=== PATIENT | female | born 1950 | race Caucasian/White ===

== ENCOUNTER → 2017-07-16 09:38 | Outpatient (CLI) | payer MEDICARE, OTHER, SELFPAY ==
[2015-11-29 11:48] VITALS: BMI 37.0
[2017-07-16 12:38] LABS: Absolute Lymphocyte Count 1.55 X10^3/ul (0.83-4.51); Absolute Neutrophil Count 4.6 X10^3/uL (2.0-7.7); Basophil# 0.01 X10^3/uL; Basophil% 0.1 % (0-1); Eosinophil# 0.16 X10^3/uL; Eosinophils% 2.3 % (0-5); Hematocrit 41.1 % (37-47); Hemoglobin 13.8 g/dl (12.0-15.0); Lymphocyte # 1.55 X10^3/ul (4.0); Lymphocyte % 22.7 % (19-41); Mean Corp Hgb Conc 33.6 g/gl (32-36); Mean Corpuscular Volume 113.2 fL (81-99); Mean Platelet Vol. 10.5 fl (6.2-12.0); Monocyte# 0.49 X10^3/uL; Monocyte% 7.2 % (0-10); Neutrophil # 4.61 X10^3/uL (2.7-7.7); Neutrophil % 67.6 % (47-70); Platelet Count 181 K/mm3 (150-450); RBC Distribution Width CV 14.1 % (11.6-14.6); RBC Distribution Width SD 56.3 fl (35.1-43.9); Red Blood Count 3.63 M/mm3 (4.2-5.4); White Blood Count 6.8 K/mm3 (4.4-11.0)
[2017-07-16 12:42] LABS: POSITIVE COUNT NO; POSITIVE DIFFERENTIAL NO; POSITIVE MORPHOLOGY NO
[2017-07-16 12:46] LABS: ALB/GLOB Ratio 1.2 RATIO (0.9-2.4); AST(SGOT) 24 U/L (15-37); Alanine Aminotransfer ALT/SGPT 24 U/L (13-56); Albumin, Serum 3.8 g/dL (3.2-5.0); Alkaline Phosphatase 61 U/L (45-117); Anion Gap 7 (5-15); BUN 11 mg/dL (7-18); BUN/Creat Ratio 16.7 RATIO (10-20); Calcium,Total 9.2 mg/dL (8.5-10.1); Chloride 104 mmol/L (98-107); Creatinine, Serum 0.66 mg/dL (0.55-1.02); EST Glomerular Filtration Rate 95 mL/min (>60); Est Glom Filt Rate - Afr Amer 115 mL/min (>60); Globulin 3.3 g/dL (2.2-4.2); Glucose 196 mg/dL (74-106); Potassium 3.9 mmol/L (3.5-5.1); Protein, Total 7.1 g/dL (6.4-8.2); Sodium Level 138 mmol/L (136-145)
== END ==
PROVIDERS: Family Provider Family Medicine; PCP Family Medicine; Visit Provider Nurse Practitioner Family
DX: D45 Polycythemia vera (principal)
CPT/HCPCS: 36415; 80053; 85025

== ENCOUNTER → 2017-10-23 08:52 | Outpatient (CLI) | payer MEDICARE, OTHER, SELFPAY ==
[2015-11-29 11:48] VITALS: BMI 37.0
--- NOTE | 2017-10-23 08:52 | DT_ITS ---
This patient was seen during an EMR downtime October 19, 2017 - October 26, 2017. This patient may have a combination of paper and electronic documentation or all paper documentation. All documentation is viewable within the e-chart portion of [facility] for each patient visit.
[2017-10-23 13:04] LABS: Absolute Lymphocyte Count 1.71 X10^3/ul (0.83-4.51); Absolute Neutrophil Count 4.1 X10^3/uL (2.0-7.7); Basophil% 0.5 % (0-1); Hematocrit 45.1 % (37-47); Hemoglobin 15.1 g/dl (12.0-15.0); Lymphocyte # 1.71 X10^3/ul (4.0); Lymphocyte % 26.5 % (19-41); Mean Corp Hgb Conc 33.5 g/gl (32-36); Mean Corpuscular Hgb 37.7 pg (27.0-32.0); Mean Corpuscular Volume 112.5 fL (81-99); Mean Platelet Vol. 10.5 fl (6.2-12.0); Monocyte% 7.3 % (0-10); POSITIVE COUNT NO; POSITIVE DIFFERENTIAL NO; POSITIVE MORPHOLOGY NO; Platelet Count 180 K/mm3 (150-450); RBC Distribution Width CV 13.9 % (11.6-14.6); RBC Distribution Width SD 55.1 fl (35.1-43.9); Red Blood Count 4.01 M/mm3 (4.2-5.4); White Blood Count 6.5 K/mm3 (4.4-11.0)
[2017-10-23 13:05] LABS: Basophil# 0.03 X10^3/uL; Eosinophil# 0.13 X10^3/uL; Monocyte# 0.47 X10^3/uL; Neutrophil % 63.4 % (47-70)
[2017-10-23 14:25] LABS: ALB/GLOB Ratio 1.2 RATIO (0.9-2.4); AST(SGOT) 33 U/L (15-37); Alanine Aminotransfer ALT/SGPT 40 U/L (13-56); Albumin, Serum 4.1 g/dL (3.2-5.0); Alkaline Phosphatase 59 U/L (45-117); BUN 13 mg/dL (7-18); BUN/Creat Ratio 18.6 RATIO (10-20); Calcium,Total 8.8 mg/dL (8.5-10.1); Cholesterol 91 mg/dL (200); EST Glomerular Filtration Rate 88 mL/min (>60); Est Glom Filt Rate - Afr Amer 107 mL/min (>60); Globulin 3.5 g/dL (2.2-4.2); Glucose 158 mg/dL (74-106); Protein, Total 7.6 g/dL (6.4-8.2); Triglycerides 112 mg/dL; Very Low Density Lipoprotein 22 mg/dL (5-40)
[2017-10-23 14:26] LABS: Anion Gap 9 (5-15); Chloride 107 mmol/L (98-107); High Density Lipoprotein 45 mg/dL; Potassium 3.8 mmol/L (3.5-5.1); Sodium Level 142 mmol/L (136-145)
== END ==
PROVIDERS: Internal Medicine Medical Oncology; Family Provider Family Medicine; PCP Family Medicine; Visit Provider Nurse Practitioner Family
DX: E78.5 Hyperlipidemia, unspecified (principal); D45 Polycythemia vera
CPT/HCPCS: 36415; 80053; 80061; 85025

== ENCOUNTER → 2018-02-08 10:53 | Outpatient (CLI) | payer MEDICARE, OTHER, SELFPAY ==
[2015-11-29 11:48] VITALS: BMI 37.0
--- NOTE | 2018-02-08 10:59 | US_ITS ---
STUDY: THYROID ULTRASOUND REASON FOR EXAM: Female, 67 years old. Nodules. TECHNIQUE: Ultrasound evaluation of the thyroid was performed with real-time and static nice-scale imaging. COMPARISON: November 06, 2015. FINDINGS: RIGHT LOBE: The right lobe of the thyroid gland measures 4.7 x 1.5 x 1.7 cm. There is a homogeneous echotexture. There is a 3 x 3 x 2 mm cyst with a small mural nodule within the mid right thyroid. There arterial smaller anechoic nodules thought to be cysts in the medial mid thyroid, each measuring approximately 2 mm in diameter.. LEFT LOBE: The left lobe of the thyroid gland measures 4 x 1.3 x 1.3 cm. There is a homogeneous echotexture. There is a 3 x 3 x 3 mm hypoechoic nodule in the posterior lower lobe. There is a 4 x 3 x 3 mm isoechoic nodule with hypoechoic rim in the mid thyroid. ISTHMUS: The isthmus measures 0.1 cm. The regional lymph nodes are normal. US/Thyroid IMPRESSION: Multiple small hypoechoic or cystic masses which appear essentially unchanged from the prior study. Electronically Signed: Darrell Delarosa DO at 23:14 EDT Tel [phone], Service support ,
== END ==
PROVIDERS: Family Provider Family Medicine; PCP Family Medicine; Visit Provider Family Medicine
DX: E04.2 Nontoxic multinodular goiter (principal)
CPT/HCPCS: 76536

== ENCOUNTER → 2018-02-23 14:45 | Outpatient (CLI) | payer MEDICARE, OTHER, SELFPAY ==
[2015-11-29 11:48] VITALS: BMI 37.0
--- NOTE | 2018-02-23 14:47 | RAD_ITS ---
STUDY: X-RAY - LEFT HAND REASON FOR EXAM: Trigger fingers. TECHNIQUE: 3 view(s) of the hand. COMPARISON: Radiographs 01/13/2017. FINDINGS: There is osteopenia. Normal radiocarpal articulation. Normal distal radioulnar joint. Normal visualized carpal bones. There is mild joint space narrowing of the triscaphe articulation. There is moderate joint space narrowing of the carpometacarpal articulation of the thumb. Normal second through fifth carpometacarpal joints. Normal metacarpi. Normal metacarpophalangeal joint of the thumb. Normal interphalangeal joint of the thumb. Normal proximal and distal phalanges of the thumb. Normal metacarpophalangeal joints of the second through fifth fingers. Normal proximal and distal interphalangeal joints of the second through fifth fingers. Normal phalanges of the second through fifth fingers. The soft tissue structures are unremarkable. 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 Osteopenia. Electronically Signed: Missael Gilliam MD at 15:00 EDT Tel , Service support ,
== END ==
PROVIDERS: Family Provider Family Medicine; PCP Family Medicine; Referring Provider Orthopaedic Surgery; Visit Provider Orthopaedic Surgery
DX: M79.642 Pain in left hand (principal)
CPT/HCPCS: 73130

== ENCOUNTER → 2018-03-02 10:13 | Outpatient (CLI) | payer MEDICARE, OTHER, SELFPAY ==
[2015-11-29 11:48] VITALS: BMI 37.0
--- NOTE | 2018-03-02 10:15 | BI_ITS ---
MAMMOGRAPHY - BILATERAL SCREENING REASON FOR EXAM: Female, 67 years old. Routine annual screening examination. PERTINENT HISTORY: Non-contributory. TECHNIQUE: Digital bilateral breast man (3D mammographic acquisition) in the CC and MLO projections. 2-D mediolateral oblique (MLO) and craniocaudad (CC) views of both breasts were obtained. CAD: Full Field Digital Mammography with Computer Added Detection was performed. COMPARISON: Comparison is made with prior examination dated February 19, 2017 and February 07, 2016. FINDINGS: Breast Composition: The breasts are almost entirely fatty. There are no dominant masses or suspicious calcifications. No other significant abnormalities are identified. There has been no significant change since the prior study. BI/SCREENING MAMM (CAD), BILAT IMPRESSION: Stable bilateral screening mammogram. Yearly follow-up mammogram recommended. (A) ASSESSMENT CATEGORY: BIRADS Category 1: Negative. A letter regarding these results will be sent to the patient by the facility within 30 days. Approximately 10% of breast cancers are not detected by mammography. A normal mammogram should not delay biopsy of a clinically suspicious abnormality. [id number] Electronically Signed: Tristen Arce MD at 11:26 EDT Tel [phone], Service support ,
== END ==
PROVIDERS: Family Provider Family Medicine; PCP Family Medicine; Referring Provider Family Medicine; Visit Provider Family Medicine
DX: Z12.31 Encounter for screening mammogram for malignant neoplasm of breast (principal)
CPT/HCPCS: 77063; 77067

== ENCOUNTER → 2018-04-23 08:50 | Outpatient (CLI) | payer MEDICARE, OTHER, SELFPAY ==
[2015-11-29 11:48] VITALS: BMI 37.0
[2018-04-05 13:49] VITALS: BMI 32.4
[2018-04-23 12:37] LABS: AST(SGOT) 26 U/L (15-37); Alanine Aminotransfer ALT/SGPT 30 U/L (13-56); Albumin, Serum 3.9 g/dL (3.2-5.0); Alkaline Phosphatase 64 U/L (45-117); Bilirubin, Direct 0.25 mg/dL (0.00-0.30); Cholesterol 113 mg/dL (200); Globulin 3.6 g/dL (2.2-4.2); High Density Lipoprotein 47 mg/dL; Protein, Total 7.5 g/dL (6.4-8.2); Triglycerides 118 mg/dL; Very Low Density Lipoprotein 24 mg/dL (5-40)
== END ==
PROVIDERS: Family Provider Family Medicine; PCP Family Medicine; Visit Provider Nurse Practitioner Family
DX: E78.5 Hyperlipidemia, unspecified (principal)
CPT/HCPCS: 36415; 80061; 80076

== ENCOUNTER → 2018-05-03 10:21 | Outpatient (CLI) | payer MEDICARE, OTHER, SELFPAY ==
[2015-11-29 11:48] VITALS: BMI 37.0
[2018-04-05 13:49] VITALS: BMI 32.4
[2018-05-03 12:11] LABS: Absolute Lymphocyte Count 1.78 X10^3/ul (0.83-4.51); Absolute Neutrophil Count 5.1 X10^3/uL (2.0-7.7); Basophil# 0.02 X10^3/uL; Basophil% 0.3 % (0-1); Eosinophil# 0.19 X10^3/uL; Eosinophils% 2.5 % (0-5); Hemoglobin 14.3 g/dl (12.0-15.0); Lymphocyte # 1.78 X10^3/ul (4.0); Lymphocyte % 23.6 % (19-41); Mean Corp Hgb Conc 33.3 g/gl (32-36); Mean Corpuscular Hgb 38.6 pg (27.0-32.0); Mean Corpuscular Volume 116.2 fL (81-99); Mean Platelet Vol. 10.1 fl (6.2-12.0); Monocyte# 0.48 X10^3/uL; Monocyte% 6.4 % (0-10); Neutrophil # 5.05 X10^3/uL (2.7-7.7); Neutrophil % 67.1 % (47-70); Platelet Count 158 K/mm3 (150-450); RBC Distribution Width CV 13.6 % (11.6-14.6); RBC Distribution Width SD 57.1 fl (35.1-43.9); White Blood Count 7.5 K/mm3 (4.4-11.0)
[2018-05-03 12:17] LABS: POSITIVE COUNT NO; POSITIVE DIFFERENTIAL NO; POSITIVE MORPHOLOGY NO
[2018-05-03 12:41] LABS: AST(SGOT) 22 U/L (15-37); Alanine Aminotransfer ALT/SGPT 24 U/L (13-56); Albumin, Serum 3.5 g/dL (3.2-5.0); Alkaline Phosphatase 63 U/L (45-117); Anion Gap 9 (5-15); BUN 11 mg/dL (7-18); Chloride 108 mmol/L (98-107); Creatinine, Serum 0.65 mg/dL (0.55-1.02); EST Glomerular Filtration Rate 96 mL/min (>60); Est Glom Filt Rate - Afr Amer 117 mL/min (>60); Ferritin 30 ng/mL (8-252); Globulin 3.4 g/dL (2.2-4.2); Glucose 116 mg/dL (74-106); Iron 59 ug/dL (50-170); Iron Binding Capacity,Total 397 ug/dL (250-450); PERCENT IRON SATURATION 14.9 % (15.0-55.0); Potassium 4.1 mmol/L (3.5-5.1); Protein, Total 6.9 g/dL (6.4-8.2); Sodium Level 143 mmol/L (136-145)
--- OUTSIDE RECORDS SUMMARY | 2018-08-04 23:28 | XMS RPT_ITS ---
:1950 Author Organization OHIP Support Name Relationship Address Phone R Unavailable Unavailable Unavailable TALAT BACA Unavailable [address] + [place] [address] R Unavailable Unavailable Unavailable TALAT BACA Unavailable [address] + [place] [address] R Unavailable Unavailable Unavailable TALAT BACA Unavailable [address] + [place] [address] R Unavailable Unavailable Unavailable TALAT BACA Unavailable [address] + [place] [address] R Unavailable Unavailable Unavailable TALAT BACA Unavailable [address] + [place] [address] R Unavailable Unavailable Unavailable TALAT BACA Unavailable [address] + [place] [address] R Unavailable Unavailable Unavailable TALAT BACA Unavailable [address] + [place] [address] R Unavailable Unavailable Unavailable TALAT BACA Unavailable [address] + [place] [address] R Unavailable Unavailable Unavailable TALAT BACA Unavailable [address] + [place] [address] R Unavailable Unavailable Unavailable TALAT BACA Unavailable [address] + [place] [address] R Unavailable Unavailable Unavailable TALAT BACA Unavailable [address] + [place] [address] R Unavailable Unavailable Unavailable TALAT BACA Unavailable [address] + [place] [address] R Unavailable Unavailable Unavailable TALAT BACA Unavailable [address] + [place] [address] R Unavailable Unavailable Unavailable TALAT BACA Unavailable [address] + [place] [address] R Unavailable Unavailable Unavailable TALAT BACA Unavailable [address] + [place] [address] R Unavailable Unavailable Unavailable DIANATALAT Unavailable [address] + [place] [address] R Unavailable Unavailable Unavailable DIANA TALAT Unavailable [address] + [place] [address] R Unavailable Unavailable Unavailable DIANA TALAT Unavailable [address] + [place] [address] R Unavailable Unavailable Unavailable DIANA TALAT Unavailable [address] + [place] [address] R Unavailable Unavailable Unavailable DIANA TALAT Unavailable [address] + [place] [address] R Unavailable Unavailable Unavailable DIANA TALAT Unavailable [address] + [place] [address] Care Team Providers Name Role Phone Edilson Miller Attending Unavailable Emiliano, Imer Primary Care Unavailable Edilson Miller Attending Unavailable Emiliano, Imer Referring Unavailable Emiliano, Imer Primary Care Unavailable Yesika, Felicia Consulting Unavailable Lucia Vallejo Attending Unavailable Emiliano, Imer Referring Unavailable Jayro Poe Attending Unavailable Emiliano, Imer Referring Unavailable Emiliano, Imer Attending Unavailable Emiliano, Imer Primary Care Unavailable Yesika, Felicia Attending Unavailable Emiliano, Imer Primary Care Unavailable Emiliano, Imer Referring Unavailable Yesika, Felicia Attending Unavailable Emiliano, Imer Primary Care Unavailable Edilson Miller Attending Unavailable Emiliano, Imer Primary Care Unavailable Yesika, Felicia Consulting Unavailable Galilea Akbar D.C. Attending Unavailable Emiliano, Imer Referring Unavailable Emiliano, Imer Primary Care Unavailable Barbara Hernandez Attending Unavailable Jayro Poe Attending Unavailable Emiliano, Imer Referring Unavailable Emiliano, Imer Primary Care Unavailable Kristal Bone Attending Unavailable Emiliano, Imer Referring Unavailable Lay Streeter Attending Unavailable Emiliano, Imer Primary Care Unavailable Edilson Miller Attending Unavailable Edilson Miller Attending Unavailable Emiliano, Imer Referring Unavailable Emiliano, Imer Primary Care Unavailable Yesika, Felicia Consulting Unavailable Emiliano, Imer Attending Unavailable Emiliano, Imer Primary Care Unavailable Lucia Vallejo Attending Unavailable Emiliano, Imer Referring Unavailable Lucia Vallejo Attending Unavailable Lucia Vallejo Referring Unavailable Emiliano, Imer Primary Care Unavailable Emiliano, Imer Attending Unavailable Emiliano, Imer Referring Unavailable Emiliano, Imer Primary Care Unavailable Collins Miller Attending Unavailable Imer Cummings Referring Unavailable Lay Streeter Attending Unavailable Imer Cummings Primary Care Unavailable PROBLEMS PROBLEMS DATE TYPE CONDITION / CODE ATTENDING STATUS SOURCE 05/25/2018 Unknown R73.01 - Impaired Imer Cummings Active [place] fasting glucose / [facility] R73.01(ICD-10) Hospital Repository 05/25/2018 Unknown E78.5 - Imer Cummings Active [place] Hyperlipidemia, Community unspecified / Hospital E78.5(ICD-10) Repository 05/25/2018 Unknown I48.0 - Paroxysmal Imer Cummings Active [place] atrial fibrillation [facility] / I48.0(ICD-10) Hospital Repository 05/25/2018 Unknown E04.2 - Nontoxic Imer Cummings Active [place] multinodular goiter [facility] / E04.2(ICD-10) Hospital Repository 05/25/2018 Unknown D45 - Polycythemia Imer Cummings Active [place] vera / D45(ICD-10) [facility] Hospital Repository 05/24/2018 Unknown Z87.74 - Personal Jayro Poe Active [place]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 / Z87.74(ICD-10) 05/20/2018 Unknown M65.4 - Radial Inésorelli, Active [place] [facility] / Repository M65.4(ICD-10) 05/20/2018 Unknown M79.643 - Pain in Chicorelli, Active [place] unspecified hand / Lucia [facility] M79.643(ICD-10) Hospital Repository 04/13/2018 Unknown G47.33 - Collins Miller Active [place] Obstructive sleep Community apnea (adult) Hospital (pediatric) / Repository G47.33(ICD-10) 02/26/2018 Unknown M79.642 - Pain in Chicorelli, Active [place] left hand / Lucia [facility] M79.642(ICD-10) Hospital Repository 02/26/2018 Unknown M65.332 - Trigger Chicorelli, Active [place] finger, left middle Lucia [facility] finger / Hospital M65.332(ICD-10) Repository 10/01/2017 Unknown Z95.2 - Presence of Jayro Poe Active [place] prosthetic heart Community valve / Hospital Z95.2(ICD-10) Repository 10/01/2017 Unknown I48.91 - Jayro Poe Active [place] Unspecified atrial Community fibrillation / Hospital I48.91(ICD-10) Repository 09/07/2017 Unknown M99.02 - Segmental Dossie, Galilea Active [place] and [facility] Community dysfunction of Hospital thoracic region / Repository M99.02(ICD-10) 09/07/2017 Unknown M99.03 - Segmental Dossie, Galilea Active [place] [facility] Community dysfunction of Hospital lumbar region / Repository M99.03(ICD-10) 09/07/2017 Unknown M99.01 - Segmental Dossie, Galilea Active [place] [facility] Community dysfunction of Hospital cervical region / Repository M99.01(ICD-10) PROCEDURES PROCEDURES No Procedure Records FoundRESULTS RESULTS CARDIOLOGY VISIT Observed: 05/24/2018 Status: F Source: [place] REPORT 1:55 PM [facility] HOSPITAL REPOSITORY [facility] [address] [place] [address] OFFICE VISIT Date of Service: 05/24/18 MR#: [id number] Acct: [id number] Name: ALE BACA Rep #: [id number] : 1950 Provider: Jayro Poe MD Age/Sex: 67/F [place] [facility] [place] [facility] [place]: Signed HPI HPI Chief Complaint: Routine f/u Details: Referring physician: Dr. Dhaliwal, Dr Miller, Dr Chacko Mrs Valencia is a very pleasant 67-year-old morbidly obese diabetic female who was admitted previously in December 2013 with new-onset atrial fibrillation was found to have severe LVH and possible significant aortic stenosis due to a bicuspid aortic valve. She spontaneously converted on her own, and her Cardizem was increased from 120 mg by mouth daily to 240 mg by mouth daily. In addition she has polycythemia vera, recently diagnosed and has been undergoing phlebotomy sessions under the care of Dr. Miller. She had been previously treated with hydroxyurea, but this was discontinued after her aortic valve replacement surgery. She appears to be exquisitely sensitive to atrial fibrillation. Her LV function was found to be normal with an LVEF of 70%, with complete cavity obliteration during dobutamine and she had a dynamic resting LV outflow tract gradient of approximately 40 mmHg, which increased to 100 mmHg with peak dobutamine.in addition she underwent a right and left heart catheterization which demonstrated no mitral stenosis despite her mitral annular calcification, and angiographically normal coronary arteries. She was then referred to a cardiovascular surgeon Dr. Chacko who requested better control of her diabetes, some weight loss, and documented control of her hemoglobin from her P vera. Once this was completed, the patient underwent successful aortic valvular replacement due to aortic stenosis on 10/31/14. The patient underwent successful AVR with a solo stentless valve, modified Maze procedure, and left atrial appendage excision. Patient was gradually placed on beta kateryna therapy as well as iron replacement therapy and followed up with our office. Patient has completed cardiac rehab, now returns to our office. Her hemoglobin has been monitored by Dr. Miller. Patient now returns for follow-up, denies any exertional chest pain, angina, shortness of breath or dyspnea on exertion. She remains on her CPAP without difficulty. She also is continuing on hydroxyurea. She denies any palpitations. In our office today her blood pressure is 100/80, and pulse is 72 and regular. Physical exam shows clear lungs bilaterally, regular rate and rhythm, a faint 2 out of 6 crescendo decrescendo systolic murmur, no dynamic murmurs. No edema. EKG previously demonstrated sinus tachycardia, intraventricular conduction delay, no evidence of previous myocardial infarction. Lipids as 04/14/16 show an LDL of 36 and an HDL of 49. Lipids as of 05/01/17 showed HDL of 58 and LDL 29. Her echo recently as of 06/03/17 shows normal LV function with an EF of 65%, severe biatrial enlargement, RVSP of 34 mmHg. Normal functioning bioprosthetic aortic valve. Intake Vital Signs05/24/18 Height 5 ft 05/24/18 Weight: 166 lb 05/24/18 Body Mass Index (BMI) 32.4 05/24/18 Blood Pressure 100/80 Intake Visit Reasons: 8 m fu [employer] Accountant Required: No Is patient in pain?: No Allergies Penicillins Allergy (Severe, Verified 05/24/18 13:43) Rash clarithromycin [From Biaxin] Allergy (Intermediate, Verified 05/24/18 13:43) Rash erythromycin base [Erythromycin Base] Allergy (Intermediate, Verified 05/24/18 13:43) Rash cat dander Adverse Reaction (Intermediate, Verified 05/24/18 13:43) SNEEZING Alternaria Mold Spores Allergy (Intermediate, Uncoded 05/05/18 14:40) SNEEZING dust Allergy (Intermediate, Uncoded 05/05/18 14:40) SNEEZING Medications Multivitamins,Therapeutic [Multivitamin] 1 tab PO DAILY 04/20/14 [History Confirmed 05/20/18] Aspirin 325 mg PO DAILY@0800 09/22/16 [History Confirmed 05/20/18] temazepam 15 mg capsule 15 mg PO ONCE 05/20/17 [History Confirmed 05/20/18] vit C,E,zinc,copper-ualzq8d 250 mg-lutein 5 mg-zeaxanthin 1 mg capsule cap PO 05/20/17 [History Confirmed 05/20/18] carvedilol 6.25 mg tablet 6.25 mg PO BID #180 tab 08/17/17 [Rx Confirmed 05/20/18] GOLO Release Supplement 1 cap PO TID 10/01/17 [History Confirmed 05/20/18] cholecalciferol (vitamin D3) 5,000 unit capsule 5,000 unit PO QDAY 10/01/17 [History Confirmed 05/20/18] Allopurinol [Zyloprim] 200 mg PO DAILY #180 tab 02/03/18 [Rx Confirmed 05/20/18] Bifidobacterium Infantis [Align] 4 mg PO 02/03/18 [History Confirmed 05/20/18] Hydroxyurea [Hydrea] 1,000 mg PO DAILY #180 cap 04/23/18 [Rx Confirmed 05/20/18] pravastatin 40 mg tablet 40 mg PO DAILY 05/24/18 [History Confirmed 05/24/18] [facility] Medical History History of bicuspid aortic valve (Chronic) Mitral valve annular calcification (Chronic) Right arm fracture (Chronic 02/25/17) Gastritis (Chronic) Lacunar infarction (Chronic) KYLE (obstructive sleep apnea) (Chronic) Sleep disorder (Chronic) De Quervain's disease (tenosynovitis) (Chronic) Supraventricular tachycardia (Chronic) Diabetes mellitus type 2, controlled (Chronic) Osteoarthritis (Chronic) Left ventricular hypertrophy (Chronic) Gastritis (Resolved) Herniated disc (Resolved) Humeral head fracture (Resolved) Presence of prosthetic heart valve (Resolved) Trigger finger (Resolved) Daytime hypersomnia (Inactive) Gout (Inactive) Surgical History History of left heart catheterization (Chronic 04/21/14) Hx of colonoscopy (Chronic 10/02/15) H/O aortic valve replacement (Chronic 10/31/14) H/O arthroscopy of left knee (Resolved) History of cholecystectomy (Resolved) History of meniscectomy of left knee (Resolved) History of tubal ligation (Resolved) Family History Father Heart failure Kidney disease Mother Alcoholism Grandfather Heart disease Social History Smoking Status: Former smoker how long ago did patient quit smokin, 1p/day second hand exposure: Yes alcohol intake: never substance use type: does not use ROS Const Const: Positive for other (notices palpitations when lying on side at night); negative for fatigue, weakness, body ache, fever(s), headache(s), chills, frequent falls, night sweats, daytime sleepiness, difficulty sleeping, excessive sweating, weight gain, weight loss, increased appetite, poor appetite or anorexia Eyes Eyes: Negative for blind spots, loss of peripheral vision, transient loss of vision, blurry vision, change in vision, double vision, floaters, tunnel vision or other ENT ENT: Negative for headache(s), dizziness, hearing loss, tinnitus, Nosebleed/epistaxis, balance problems, post nasal drip, lip swelling, tongue swelling, bleeding gums, hoarseness, neck pain, dry mouth or other Cardio Chest Pain: No Palpitations: Yes (Notices at night lying on left side) feels like its: thumping Edema: None Muscle aches with walking: None Resp Respiratory: Negative for SOB with activity, SOB at rest, SOB orthopnea\SOB lying down, Cough, Coughing up blood/hemoptysis, chest congestion, pain on inspiration, snoring, stridor, wheezing, crackles, paroxysmal nocturnal dyspnea or other GI GI: Negative nausea, vomiting, heartburn, constipation, belching, bloating, cramping, vomiting blood/hematemesis, bright, red blood in stools, black,tarry stools, loose stools, Difficulty Swallowing or other : Negative for hematuria, frequent nighttime urination/ nocturia, erectile dysfunction or abnormal vaginal bleeding Musc Musc: Negative for balance problems, muscle aches/ myalgia, muscle weakness or joint pain Skin Skin: Negative redness, non-healing lesions, rash, unusual bruising, skin ulcer, wounds, jaundice or other Neuro Neuro: Negative for weakness, headache(s), frequent falls, blurry vision, double vision, dizziness, lightheadedness, near syncope, syncope, orthostatic symptoms, confusion, memory loss, restless legs, vertigo, seizures, lack of coordination or other Jorge Alberto Hematologic/Lymphatic: Negative for easy bleeding, easy bruising, enlarged lymph nodes or other Endo Endo: Negative for fatigue, excessive sweating, cold intolerance, heat intolerance, flushing, increased thirst/drinking, increased hunger, hair loss, hair growth or other Psych Psych: Negative for anxiety, depression, thoughts of harming anyone, thoughts of harming yourself, visual hallucinations, panic attacks or audible hallucinations Allergy Allergy/Immunology: Negative for lip swelling, Negative for tongue swelling, Negative for rash, Negative for throat swelling, Negative for hives Cardiology Exam Const Appearance: cooperative, healthy appearing and no acute distress Nutritional Appearance: well nourished Orientation: alert, oriented x3 and oriented to person Head Head: normal to inspection, atraumatic and normocephalic Nose: external nose normal Face and Sinus: face symmetric Mouth: oral mucosae normal Eyes General: appearance normal, both eyes and all related structures Eyelids: eyelids normal Conjunctivae: conjunctivae normal Pupils: PERRL and normal by confrontation EOM: EOM intact bilaterally Neck Neck: normal visual inspection and full ROM Carotids: normal carotid upstroke Chest Chest inspection: normal inspection of the chest Auscultation: Bilateral: Clear to Auscultation Cardio Palpation: normal PMI Rate: regular rate Rhythm: regular rhythm Heart sounds: S1 normal and S2 normal GI GI: normal to inspection, no hepatosplenomegaly and bowel sounds present Neuro General: alert, oriented x3, awake, CN's II-XI intact bilaterally and moves all extremities Skin Skin: no rashes or lesions noted Extremities Pulses: Normal: Right Femoral Pulse, Left Femoral Pulse, Right Dorsalis Pedis Pulse, Left Dorsalis Pedis Pulse, Right Posterior Tibial Pulse, Left Posterior Tibial Pulse, Right Radial Pulse, Left Radial Pulse Lower Extremity Edema: None: Bilateral Psych Psychological: normal affect Assessment AND Plan 1. History of bicuspid aortic valve Z87.74 Pt had resultant severe aortic stenosis. Aortic valve replaced 10/21/[address] Chacko Plan 1. History of bicuspid aortic valve: The patient underwent successful aortic valve replacement, modified Maze procedure, and left atrial appendage excision in October 2014. Her most recent echocardiogram in May 2017 showed normal functioning LV, LVH, and normal functioning bioprosthetic aortic valve. We will repeat her echocardiogram in May 2019. At this point the patient is doing quite well, I would recommend continuing her aspirin, Coreg. Patient has no detectable dynamic LV outflow tract murmur, and has had no presyncope or syncopal episodes or other sentinel events. Continue SBE prophylaxis. 2. Hyperlipidemia: Her LDL and HDL cholesterol are fairly well-controlled. Continue Pravachol. 3. Return office in 6 months. This note was generated using a voice recognition system and there may be incorrect words, spelling or punctuation that were not noted when reviewing the office note prior to saving. Plan Detail Other Medications New: Discontinued: Goals Improve nerve function Decrease spasm Follow Up +6M (Lui) Coding Level of Care Code Off vis,est,level 3 Diagnoses History of bicuspid aortic valve Z87.74 Coding Level of Care Code Off vis,est,level 3 Diagnoses History of bicuspid aortic valve Z87.74 Supplemental Info Supplemental Information Labs LDL Cholesterol 42 mg/dL (0-130) 04/23/18 HDL Cholesterol 47 mg/dL (40-) 04/23/18 Triglycerides 118 mg/dL (-199) 04/23/18 VLDL Cholesterol 24 mg/dL (5-40) 04/23/18 Diagnostics Electrocardiogram 11/10/14 Echocardiogram 06/03/17 Transesophageal Echocardiogram 12/28/13 Stress Echocardiogram 04/26/14 Chest X-Ray 11/10/14 05/24/18 8475 <Electronically signed by Jayro Poe MD> Date Jayro Poe MD Cosigner Signature: Date (if applicable) CC: Imer Cummings MD ORTHOPEDIC VISIT Observed: 05/14/2018 Status: F Source: [place] REPORT 11:59 AM [facility] [place] [facility] [address] [place] [id number] OFFICE VISIT Date of Service: 05/13/18 MR#: [id number] Acct: [id number] Name: ALE BACA Rep #: [id number] : 1950 Provider: Lucia Vallejo DO Age/Sex: 67/F [place] [facility] [place] [place] Status: Signed Intake Intake Visit Reasons: Hand pain Allergies Penicillins Allergy (Severe, Verified 05/05/18 14:40) Rash clarithromycin [From Biaxin] Allergy (Intermediate, Verified 05/05/18 14:40) Rash erythromycin base [Erythromycin Base] Allergy (Intermediate, Verified 05/05/18 14:40) Rash cat dander Adverse Reaction (Intermediate, Verified 05/05/18 14:40) SNEEZING Alternaria Mold Spores Allergy (Intermediate, Uncoded 05/05/18 14:40) SNEEZING Aspergillus Mold Spores Allergy (Intermediate, Uncoded 05/05/18 14:40) SNEEZING dust Allergy (Intermediate, Uncoded 05/05/18 14:40) SNEEZING Medications Pravastatin Sodium [Pravachol] 40 mg PO QHS 11/07/13 [History Confirmed 05/05/18] Multivitamins,Therapeutic [Multivitamin] 1 tab PO DAILY 04/20/14 [History Confirmed 05/05/18] Aspirin 325 mg PO DAILY@0800 09/22/16 [History Confirmed 05/05/18] temazepam 15 mg capsule 15 mg PO ONCE 05/20/17 [History Confirmed 05/05/18] vit C,E,zinc,copper-crvou3k 250 mg-lutein 5 mg-zeaxanthin 1 mg capsule cap PO 05/20/17 [History Confirmed 04/05/18] carvedilol 6.25 mg tablet 6.25 mg PO BID #180 tab 08/17/17 [Rx Confirmed 05/05/18] GOLO Release Supplement 1 cap PO TID 10/01/17 [History Confirmed 04/05/18] cholecalciferol (vitamin D3) 5,000 unit capsule 5,000 unit PO QDAY 10/01/17 [History Confirmed 05/05/18] Allopurinol [Zyloprim] 200 mg PO DAILY #180 tab 02/03/18 [Rx Confirmed 05/05/18] Bifidobacterium Infantis [Align] 4 mg PO 02/03/18 [History Confirmed 04/05/18] Hydroxyurea [Hydrea] 1,000 mg PO DAILY #180 cap 04/23/18 [Rx Confirmed 05/05/18] PFSH Medical History Right arm fracture (Acute) Gastritis (Chronic) Non-rheumatic aortic stenosis (Chronic) Lacunar infarction (Chronic) KYLE (obstructive sleep apnea) (Chronic) Sleep disorder (Chronic) De Quervain's disease (tenosynovitis) (Chronic) Supraventricular tachycardia (Chronic) Diabetes mellitus type 2, controlled (Chronic) Osteoarthritis (Chronic) Left ventricular hypertrophy (Chronic) Gastritis (Resolved) Herniated disc (Resolved) Humeral head fracture (Resolved) Presence of prosthetic heart valve (Resolved) Trigger finger (Resolved) Daytime hypersomnia (Inactive) Gout (Inactive) Surgical History Hx of colonoscopy (Chronic 10/02/15) H/O aortic valve replacement (Chronic 10/31/14) H/O arthroscopy of left knee (Resolved) History of cholecystectomy (Resolved) History of meniscectomy of left knee (Resolved) History of tubal ligation (Resolved) Family History Father Heart failure Kidney disease Mother Alcoholism Grandfather Heart disease Social History Smoking Status: Former smoker how long ago did patient quit smokin, 1p/day second hand exposure: Yes alcohol intake: never substance use type: does not use Ortho Exam Left Wrist/Hand Contralateral Normal: Yes A1 marcel trigger: No Left Wrist: Yes ROM-Extension 0-60, Yes ROM-Flexion 0-80, Yes ROM-Pronation 0-80, Yes ROM-Supination 0-90 and Yes Prosper's Test Motor: EPL: 5, FDP-2: 5, 1st Dorsal Interosseous: 5, APB: 5 Sensation: Radial: I, Ulnar: I, Median: I Office Meds Tasneem Performing Provider: Lucia Vallejo DO Administered by: Lucia Vallejo DO on 05/13/18 16:18 Dose Route Admin Location Lot Number Expiration DateNDC [employer] 20 mg Intra-Articularlekaren [id number] 07/17/19 6058-8112-61 [facility] Assessment AND Plan Problems 1. De Quervain's disease (tenosynovitis) M65.4 2. Pain of hand M79.643 Plan Discussed treatment options again with patient. Patient wanted to know the anatomy and physiology behind de Quervain's this was discussed with patient. Discussed with the injection does wear it is located and long-term sequela. Patient states that the last injection was helpful for over a year because of this because this is recently been bothering her she elected to proceed with a left injection of her de Quervain's given all options. We discussed wearing a thumb spica splint over her thumb but she does not like wearing splints as it is prohibitive of function. Orders Orders: Medications Discontinued: Kenalog (triamcinolone acetonide) Disco20 mg (0.5 mL) Intra- Articular ONCE 0.5 mLM65.4 ntinued Reason: Office Medication has bee 0RF NS n Documented as given Plan Detail Goals Improve nerve function Decrease spasm Coding Level of Care Code Off vis,est,level 4 Diagnoses De Quervain's disease (tenosynovitis) M65.4 Pain of hand M79.643 HPI HPI HPI: ALE BACA, is a 67 F who presents to the office today for left wrist pain, she had an injection in december 2016. She has complaints pain with finklesteins, she Denies numbness, tingling or other associated symptoms. Her pain is waking her at night as well and she finds she has to support it at night. She has a brace but does not wear it much. 05/14/18 1159 <Electronically signed by Lucia Vallejo DO> Date Lucia Vallejo DO Cosigner Signature: Date (if applicable) CC: ONCOLOGY VISIT REPORT Observed: 05/05/2018 Status: F Source: [place] 3:24 PM [facility] [place] [facility] [place] [address] OFFICE VISIT Date of Service: 05/05/18 1522 MR#: [id number] Acct: [id number] Name: ALE BACA Rep #: [id number] : 1950 From: Edilson Miller MD Age/Sex: 67/F Location: ONC Status: Signed Subjective - Date of Service Date of Service:: 05/05/18 - Chief Complaint Follow up-Polycythemia vera - History of Present Illness Ms. Ale Baca is a very pleasant 67-year-old woman with a past medical history for diabetes, atrial fibrillation, osteoarthritis, diagnosed with polycythemia in October 2013. Bone marrow biopsy and aspirate obtained at that time revealed that she is JAK2 positive. She has been maintained on therapeutic phlebotomies and Hydrea since December 2013. Comes in for follow up. - Past Medical/Social History Past Medical History Past Medical History: Diabetes mellitus,Hyperlipidemia Other Past Medical History: polycythemia gout Past Surgical History Surgical: Aortic valve replacement,Cholecystectomy,Tubal ligation Other Surgical History: knee surgery left toe-screw, hallux rigidus 02/2017 fx RUE Family History Paternal Past Medical History: Kidney disease Maternal History of Cancer: Other Social History Social History: No changes Smoking Status Former smoker Review of Systems Constitutional:: Denies: Fever, Sweats, Weight loss, Appetite change, Chills Cardiovascular:: Denies: Chest pain, Palpitations, Dyspnea on exertion, Orthopnea, PND, Shortness of breath Respiratory: Denies: Cough, Hemoptysis, Shortness of Breath, Wheezing Gastrointestinal:: Denies: Abdominal pain, Nausea, Vomiting, Diarrhea, Constipation, Hematochezia Genitourinary: Denies: Dysuria, Hematuria, 15, Flank pain Musculoskeletal:: Denies: Back pain, Myalgia, Arthralgia Skin: Denies: Rash, Skin Changes, Wounds Neurological:: Denies: Headache, Dizziness, Visual changes, Tinnitus, Hearing loss Psychiatric: Denies: Anxiety, Depression, Homicidal Ideations, Suicidal Ideations Vital Signs Height 5 ft Weight: 75.296 kg Weight in Pounds 166.0 lbs BMI 37.0 Pulse Ox 98 - Physical Exam General: Alert, Oriented x3, No apparent distress HEENT: Atraumatic, PERRLA, EOMI, Normocephalic Oropharynx:: Dry mucosa Neck:: Supple, Trachea midline. Negative for: JVD, bilateral Cardiac:: Regular rate, Regular rhythm, Normal S1, Normal S2. Negative for: Murmur Lungs: Clear to auscultation, Excusion symmetrical. Negative for: Rhonchi, Wheezes Laboratory Data: Laboratory Tests WBC 7.3 7.5 RBC 3.96 L Hgb 14.9 14.3 Hct 45.2 43.0 Plt Count 153 158 Assessment and Plan Polycythemia Vera, clinically stable. Hct is 43 on 05/04/2018. Plan is to hold Phlebotomy today. Continue Hydrea 1000mg daily. RTC 3 months with CBC/CMP. Medications: Prescriptions This Visit Medication Instructions Recorded Primary Care Provider: Imer Cummings MD Referring Provider: - Problem List (1) Polycythemia vera Status: Chronic Code Visit Office Visits / Consults: 93700 OV L3 Est 05/05/18 1524 <Electronically signed by Edilson Miller MD> Date Edilson Miller MD Cosigner Signature: Date (if applicable) CC: CBC W/DIFF, AUTOMATED Collected: 05/03/2018 Status: F Source: [place] 10:51 AM [facility] Order Comment: Reason for Laboratory Test . TYPE CODE TESTS RESULT OUT OF RANGE REFERENCE UNITS LAB L100.1000 4.4-11.0 K/mm3 Normal WBC 7.5 LAB L100.1200 4.2-5.4 M/mm3 Low RBC 3.70 LAB L100.1300 12.0-15.0 g/dl Normal HGB 14.3 LAB L100.1400 37-47 % Normal HCT 43.0 LAB L100.1500 81-99 fL High MCV 116.2 LAB L100.1600 27.0-32.0 pg High MCH 38.6 LAB L100.1700 32-36 g/gl Normal MCHC 33.3 LAB L100.1810 11.6-14.6 % Normal RDW CV 13.6 LAB L100.1820 35.1-43.9 fl High RDW SD 57.1 LAB L100.1900 150-450 K/mm3 Normal PLT 158 LAB L100.2000 6.2-12.0 fl Normal MPV 10.1 LAB L100.2100 47-70 % Normal NEUT% 67.1 LAB L100.2200 19-41 % Normal LY% 23.6 LAB L100.2300 0-10 % Normal MONO% 6.4 LAB L100.2400 0-5 % Normal EO% 2.5 LAB L100.2500 0-1 % Normal BASO% 0.3 LAB L100.2550 0.0-0.9 % Normal IM GRAN % 0.100 Result Comment: IG% - Immature Granulocytes (promyelocytes, myelocytes and metamyelocytes) > 1% indicates that a LEFT SHIFT is Present. LAB L100.2620 2.0-7.7 X10 3/uL Normal Absolute Neut 5.1 LAB L100.2720 0.83-4.51 X10 3/ul Normal Absolute Lymph 1.78 Performed By: #### L100.0100 #### [facility] [address] [place], [address] COMPREHENSIVE METABOLIC Collected: 05/03/2018 Status: F Source: [facility] 10:51 AM [facility] Order Comment: Reason for Laboratory Test . TYPE CODE TESTS RESULT OUT OF RANGE REFERENCE UNITS LAB L501.0100 74-106 mg/dL High GLU 116 Result Comment: Fasting Glucose result from 100 to 125 mg/dL suggests IMPAIRED HOMEOSTASIS per A.D.A. criteria. Please note revised GLUCOSE reference range effective 2017. LAB L501.1000 7-18 mg/dL Normal BUN 11 LAB L501.1100 0.55-1.02 mg/dL Normal CREAT,SERUM 0.65 Result Comment: The validity of the calculated GFR AND GFRAA in patients over 70 years has not been determined. Clinical correlation is essential. LAB L501.1110 >60 mL/min Normal EST GFR 96 Result Comment: Non- GFR Calc LAB L501.1115 >60 mL/min Normal EST GFR - AA 117 Result Comment: GFR Calc LAB L501.1300 10-20 RATIO Normal BUN/CRE 17.0 LAB L501.1500 6.4-8.2 g/dL T Normal PROT 6.9 LAB L501.1800 3.2-5.0 g/dL Normal ALB 3.5 LAB L501.1950 2.2-4.2 g/dL Normal GLOB 3.4 LAB L501.2000 0.9-2.4 RATIO Normal A/G 1.0 LAB L501.2200 8.5-10.1 mg/dL CA Normal 9.0 LAB L501.4100 15-37 U/L Normal AST 22 LAB L501.4305 45-117 U/L Normal ALK P 63 LAB L501.4405 13-56 U/L Normal ALT 24 LAB L501.4600 0.20-1.00 mg/dL T Normal BILI 0.70 LAB L501.5300 136-145 mmol/L NA Normal 143 LAB L501.5600 3.5-5.1 mmol/L K Normal 4.1 LAB L501.5900 98-107 mmol/L High CL 108 LAB L501.6100 21.0-32.0 mmol/L Normal CO2 26.0 LAB L501.6200 5-15 Normal GAP 9 Performed By: #### L500.4050, L503.6030, L503.6550 #### [facility] [address] [facility] [facility] [place], [place], [address] IRON+IRON BINDING Collected: 05/03/2018 Status: F Source: [facility] 10:51 AM [facility] Order Comment: Reason for Laboratory Test . TYPE CODE TESTS RESULT OUT OF RANGE REFERENCE UNITS LAB L503.6075 250-450 ug/dL TIBC Normal 397 LAB L503.6150 50-170 ug/dL IRON Normal 59 LAB L503.6250 15.0-55.0 % Low IRON SATURATION 14.9 Performed By: #### L500.4050, L503.6030, L503.6550 #### [facility] [address] [place], [address] FERRITIN Collected: 05/03/2018 Status: F Source: [place] 10:51 AM [facility] Order Comment: Reason for Laboratory Test . TYPE CODE TESTS RESULT OUT OF RANGE REFERENCE UNITS LAB L503.6550 8-252 ng/mL Normal FERRITIN 30 Performed By: #### L500.4050, L503.6030, L503.6550 #### [facility] [address] [place], [address] LIVER PROFILE Collected: 04/23/2018 Status: F Source: [place] 8:54 AM [facility] TYPE CODE TESTS RESULT OUT OF RANGE REFERENCE UNITS LAB L501.1500 6.4-8.2 g/dL Normal T PROT 7.5 LAB L501.1800 3.2-5.0 g/dL Normal ALB 3.9 LAB L501.1950 2.2-4.2 g/dL Normal GLOB 3.6 LAB L501.4100 15-37 U/L Normal AST 26 LAB L501.4305 45-117 U/L Normal ALK P 64 LAB L501.4405 13-56 U/L Normal ALT 30 LAB L501.4600 0.20-1.00 mg/dL Normal T BILI 0.90 LAB L501.4700 0.00-0.30 mg/dL Normal D BILI 0.25 Performed By: #### L500.3400, L500.4100 #### [facility] [address] [place], [address] LIPID PROFILE Collected: 04/23/2018 Status: F Source: [place] 8:54 AM [facility] TYPE CODE TESTS RESULT OUT OF RANGE REFERENCE UNITS LAB L501.4900 200 mg/dL Normal CHOL 113 Result Comment: <200 mg/dL Desirable 200-240 mg/dL Borderline >240 mg/dL High Risk LAB L501.5000 mg/dL Normal TRIG 118 Result Comment: The drugs N-Acetylcysteine and Metamizole may falsely depress this assay. Serum Triglycerides Reference Interval Normal <150 mg/dL Borderline high 150 - 199 mg/dL High 200 - 499 mg/dL Very High > or = 500 mg/dL LAB L501.6400 mg/dL Normal HDL 47 Result Comment: The drugs N-Acetylcysteine and Metamizole may falsely depress this assay. Reference Range HDL <40 mg/dL Low HDL Cholesterol HDL >or= 60 mg/dL High HDL Cholesterol LAB L501.6500 0-130 mg/dL Normal LDL 42 LAB L501.6600 5-40 mg/dL Normal VLDL 24 Performed By: #### L500.3400, L500.4100 #### [facility] [address] [place], [place], [address] PULMONARY VISIT REPORT Observed: 04/05/2018 Status: F Source: [place] 2:46 PM [facility] [address] [place], [place] [address] OFFICE VISIT Date of Service: 04/05/18 MR#: [id number] Acct: [id number] Name: ALE BAAC Rep #: [id number] : 1950 Provider: Collins Miller MD Age/Sex: 67/F Location: [facility] Status: Signed Assessment AND Plan Problems 1. KYLE (obstructive sleep apnea) G47.33 2. Polycythemia vera D45 Plan Patient is having significant leak noted on compliance report, but AHI is well controlled. Patient has had a weight loss of 33 pounds since her visit. Discussed with patient about having a repeat polysomnogram, but after the discussion of risks, benefits and alternatives, patient would like to empirically decrease pressure settings. Patient will have the CPAP decreased to 8 cm of water and we will monitor with compliance report. If AHI greater than 4, pressure may need to be increased. Patient's hemoglobin is well controlled, especially in light of lack of phlebotomy for almost a year. Decreased CPAP settings to 8 cm of water and monitor with compliance report Plan Detail Goals Improve nerve function Decrease spasm Follow Up 3 Months (CSM) HPI 6 M FU: Chief Complaint: Dry mouth Details: Patient is a 67-year-old female, currently under the care of Dr. Cummings, who presents for evaluation secondary to dry mouth. Since last visit, patient denies any ER visits, hospitalizations or prednisone burst. Patient does report that she has been working with weight watchers and has achieved a 33 pound weight loss. Patient reports that she has been compliant with CPAP therapy. Patient uses a nasal interface and states that she wears on a nightly basis. Patient does report that she wakes with a dry mouth and my lip is stuck to my teeth. Patient states that she does wake rested, but can take naps during the day if sitting sedentary to long. Patient denies any hoarseness or sore throat. Patient has used a chinstrap in the past with variable results. Patient states that she wakes up 3 or so times per night. Patient denies nocturia and states it takes her 5-10 minutes to go back to sleep. Documentation personally reviewed with the patient Compliance report (February 2018): Complain 97% of time for an average of 6-1/2 hours on CPAP 10 cm of water with a residual AHI of 0.8 and poorly controlled leak HPI Comments Details: Intake Vital Signs04/05/18 Height 5 ft 04/05/18 Weight: 75.296 kg Intake Visit Reasons: 6 M FU International Accountant Required: No Is patient in pain?: No Allergies Penicillins Allergy (Severe, Verified 04/05/18 13:51) Rash clarithromycin [From Biaxin] Allergy (Intermediate, Verified 04/05/18 13:51) Rash erythromycin base [Erythromycin Base] Allergy (Intermediate, Verified 04/05/18 13:51) Rash cat dander Adverse Reaction (Intermediate, Verified 04/05/18 13:51) SNEEZING Alternaria Mold Spores Allergy (Intermediate, Uncoded 04/05/18 13:51) SNEEZING Aspergillus Mold Spores Allergy (Intermediate, Uncoded 04/05/18 13:51) SNEEZING dust Allergy (Intermediate, Uncoded 04/05/18 13:51) SNEEZING Medications Pravastatin Sodium [Pravachol] 40 mg PO QHS 11/07/13 [History Confirmed 04/05/18] Multivitamins,Therapeutic [Multivitamin] 1 tab PO DAILY 04/20/14 [History Confirmed 04/05/18] Aspirin 325 mg PO DAILY@0800 09/22/16 [History Confirmed 04/05/18] Hydroxyurea [Hydrea] 1,000 mg PO DAILY #180 cap 03/04/17 [Rx Confirmed 04/05/18] temazepam 15 mg capsule 15 mg PO ONCE 05/20/17 [History Confirmed 04/05/18] vit C,E,zinc,copper-brkek2t 250 mg-lutein 5 mg-zeaxanthin 1 mg capsule cap PO 05/20/17 [History Confirmed 04/05/18] carvedilol 6.25 mg tablet 6.25 mg PO BID #180 tab 08/17/17 [Rx Confirmed 04/05/18] GOLO Release Supplement 1 cap PO TID 10/01/17 [History Confirmed 04/05/18] cholecalciferol (vitamin D3) 5,000 unit capsule 5,000 unit PO QDAY 10/01/17 [History Confirmed 04/05/18] Allopurinol [Zyloprim] 200 mg PO DAILY #180 tab 02/03/18 [Rx Confirmed 04/05/18] Bifidobacterium Infantis [Align] 4 mg PO 02/03/18 [History Confirmed 04/05/18] PFSH Medical History Right arm fracture (Acute) Gastritis (Chronic) Non-rheumatic aortic stenosis (Chronic) Lacunar infarction (Chronic) KYLE (obstructive sleep apnea) (Chronic) Sleep disorder (Chronic) De Quervain's disease (tenosynovitis) (Chronic) Supraventricular tachycardia (Chronic) Diabetes mellitus type 2, controlled (Chronic) Osteoarthritis (Chronic) Left ventricular hypertrophy (Chronic) Gastritis (Resolved) Herniated disc (Resolved) Humeral head fracture (Resolved) Presence of prosthetic heart valve (Resolved) Trigger finger (Resolved) Daytime hypersomnia (Inactive) Gout (Inactive) Surgical History Hx of colonoscopy (Chronic 10/02/15) H/O aortic valve replacement (Chronic 10/31/14) H/O arthroscopy of left knee (Resolved) History of cholecystectomy (Resolved) History of meniscectomy of left knee (Resolved) History of tubal ligation (Resolved) Family History Father Heart failure Kidney disease Mother Alcoholism Grandfather Heart disease Social History Smoking Status: Former smoker how long ago did patient quit smokin, 1p/day second hand exposure: Yes alcohol intake: never substance use type: does not use Review of Systems Const CONSTITUTIONAL: Positive fatigue; negative anorexia, body ache, chills, daytime sleepiness, fever(s), night sweats, oral thrush, stops breathing during sleep, weight loss, sleeping in chair, weight loss, weight gain, frequent colds, seasonal allergies, other, headache(s) or orthopnea EETM Ear Nose Throat Mouth: Positive nasal discharge and hearing normal; negative hoarseness, dry mouth in morning, change in vision, itchy eyes, eye pain, swallowing Difficulty, ear pain, headache(s), mouth pain, nasal congestion, sinus pain, sinus pressure, sore throat, other, hard of hearing, nose bleed or post nasal drip Cardio Cardiovascular: Negative chest pain, chest pain at rest, chest pain with activity, irregular heart rhythm, edema, shortness of breath when lying down, palpitations, other or murmur Resp Respiratory: Positive as per HPI and shortness of breath shortness of breath: Positive with activity; negative pain with cough, wheezing, chest congestion, cough, chest tightness, pain on inspiration, inhalers, increase use of rescue inhalers, snoring, apnea or other Gastro Gastrointestional: Negative bloody stools, change in appetite, difficulty swallowing, reflux, hematemesis, melena stool, loose stool, constipation or other Genitourinary: Negative blood in urine, nocturia, pain with urination or other Musc Musculoskeletal: Negative body pain, back pain, neck pain or other Skin/Breast Skin/Breast: Negative dry skin, itching, unusual bruising, breast lump, other or rash Neuro Neurological: Negative restless legs, confusion, weakness or other Psych Psychocological: Negative abnormal sleep pattern, anxiety, thoughts of hurting self/others, hopelessness or other Lymph Lymphatic: Negative easy bleeding, easy bruising, other or swollen lymph nodes Exam Const Constitutional: Positive cooperative, in no acute respiratory distress, healthy appearing, well developed, well nourished, good hygiene, obese and conversant; negative appears older than stated age, frail appearing, dyspenic or ill appearing Head Head: Positive normocephalic and atraumatic; negative cyanosis of lips/distal nose, frontal sinus tenderness or maxillary sinus tenderness Eyes Eye: Positive clear conjunctiva; negative nystagmus, scleral abnormality or cataract present Ears Ear: Positive hearing normal and external ears normal; negative hard of hearing Nose Nose: Positive external nose normal, septum normal and no nasal discharge; negative epistaxis or nasal polyp Slight stage I ulcer noted at the bridge of the nose Mouth Mouth: Positive oral mucosae normal, no lesions and crowded posterior oropharynx; negative post nasal drip, malodorous breath or oral thrush present Mallampati Score: III: Mallampati Score Neck Neck: Positive normal visual inspection, full ROM and trachea midline; negative lymphadenopathy or JVD Chest Wall Chest: Positive normal inspection of the chest and symmetric chest movement; negative crepitus or tenderness Resp lung sounds: Positive clear to auscultation, good air exchange, normal expiratory time and normal respiratory effort; negative wheezes, rhonchi, rales, use of accessory muscles, dullness to percussion or wheeze present on forced exhalation Cardio Cardiac: Positive regular rate, regular rhythm, S1 normal and S2 normal; negative murmur, rub or gallop GI GI: Positive normal to inspection, normal bowel sounds and obese; negative distended, ascites or epigastric tenderness Genitourinary: Positive deferred Musc Musculoskeletal: Positive steady gait; negative using an assistive device for ambulation, kyphosis or scoliosis Skin Pulmonary Skin Exam: Positive intact; negative rash, lesion, ulcers, erythema or dermal atrophy Pulses Pulse: Yes radial pulses present Extremities Extremities: Yes capillary refill normal, No clubbing, No cyanosis, No edema, No stasis dermatitis Neuro Neurologic: Yes conversant, Yes no focal neuro deficits, Yes normal concentration, Yes understands questions, Yes cooperative, Yes normal cognition, Yes normal coordination Lymph Lymphatic: No lymphadenopathy Psych Appearance: Positive grossly normal Mental Status: Positive mental status grossly normal Mood: Positive congruent mood Affect: Positive normal affect Coding Level of Care Code Off vis,est,level 3 Diagnoses KYLE (obstructive sleep apnea) G47.33 Polycythemia vera D45 04/05/18 1446 <Electronically signed by Collins Miller MD> Date Collins Miller MD Cosigner Signature: Date (if applicable) CC: Imer Cummings MD SCREENING MAMM (CAD), Observed: 03/02/2018 Status: F Source: [place] 10:15 AM [facility] Imaging Services [address] [place] [id number] SCREENING MAMM (CAD), BILAT MR#: [id number] Acct: [id number] Name: ALE BACA Rep #: [id number] : 1950 F 67 From: Tristen Arce MD PCP: Imer Cummings MD Status: REG CLI Study: SCREENING MAMM (CAD), BILAT Date of Exam: 03/02/18 Exam# [id number] Ordering Dr: Imer Cummings MD MAMMOGRAPHY - BILATERAL SCREENING REASON FOR EXAM: Female, 67 years old. Routine annual screening examination. PERTINENT HISTORY: Non-contributory. TECHNIQUE: Digital bilateral breast man (3D mammographic acquisition) in the CC and MLO projections. 2-D mediolateral oblique (MLO) and craniocaudad (CC) views of both breasts were obtained. CAD: Full Field Digital Mammography with Computer Added Detection was performed. COMPARISON: Comparison is made with prior examination dated February 19, 2017 and February 07, 2016. FINDINGS: Breast Composition: The breasts are almost entirely fatty. There are no dominant masses or suspicious calcifications. No other significant abnormalities are identified. There has been no significant change since the prior study. BI/SCREENING MAMM (CAD), BILAT IMPRESSION: Stable bilateral screening mammogram. Yearly follow-up mammogram recommended. (A) ASSESSMENT CATEGORY: BIRADS Category 1: Negative. A letter regarding these results will be sent to the patient by the facility within 30 days. Approximately 10% of breast cancers are not detected by mammography. A normal mammogram should not delay biopsy of a clinically suspicious abnormality. [id number] Electronically Signed: Tristen Arce MD at 11:26 EDT Tel [phone], Service support , CC: Imer Cummings MD Geoscience Professor: Signed ORTHOPEDIC VISIT Observed: 02/23/2018 Status: F Source: [place] REPORT 4:32 PM [facility] Orthopaedics AND Sports Medicine [facility] [facility] [address] [place] [address] OFFICE VISIT Date of Service: 02/23/18 MR#: [id number] Acct: [id number] Name: ALE BACA Rep #: [id number] : 1950 Provider: Lucia Vallejo DO Age/Sex: 67/F Location[place] [facility] [place] Status: Signed Intake Intake Visit Reasons: left trigger fingers Is patient in pain?: Yes Allergies Penicillins Allergy (Severe, Verified 02/23/18 14:40) Rash clarithromycin [From Biaxin] Allergy (Intermediate, Verified 02/23/18 14:40) Rash erythromycin base [Erythromycin Base] Allergy (Intermediate, Verified 02/23/18 14:40) Rash cat dander Adverse Reaction (Intermediate, Verified 02/23/18 14:40) SNEEZING Alternaria Mold Spores Allergy (Intermediate, Uncoded 02/03/18 15:04) SNEEZING Aspergillus Mold Spores Allergy (Intermediate, Uncoded 02/03/18 15:04) SNEEZING dust Allergy (Intermediate, Uncoded 02/03/18 15:04) SNEEZING Medications Pravastatin Sodium [Pravachol] 40 mg PO QHS 11/07/13 [History Confirmed 02/23/18] Multivitamins,Therapeutic [Multivitamin] 1 tab PO DAILY 04/20/14 [History Confirmed 02/23/18] Aspirin 325 mg PO DAILY@0800 09/22/16 [History Confirmed 02/23/18] Hydroxyurea [Hydrea] 1,000 mg PO DAILY #180 cap 03/04/17 [Rx Confirmed 02/23/18] temazepam 15 mg capsule 15 mg PO ONCE 05/20/17 [History Confirmed 02/23/18] vit C,E,zinc,copper-ybprq2q 250 mg-lutein 5 mg-zeaxanthin 1 mg capsule cap PO 05/20/17 [History Confirmed 02/23/18] carvedilol 6.25 mg tablet 6.25 mg PO BID #180 tab 08/17/17 [Rx Confirmed 02/23/18] GOLO Release Supplement 1 cap PO TID 10/01/17 [History Confirmed 02/23/18] cholecalciferol (vitamin D3) 5,000 unit capsule 5,000 unit PO QDAY 10/01/17 [History Confirmed 02/23/18] Allopurinol [Zyloprim] 200 mg PO DAILY #180 tab 02/03/18 [Rx Confirmed 02/23/18] Bifidobacterium Infantis [Align] 4 mg PO 02/03/18 [History Confirmed 02/23/18] PFSH Medical History Right arm fracture (Acute) Gastritis (Chronic) Non-rheumatic aortic stenosis (Chronic) Lacunar infarction (Chronic) KYLE (obstructive sleep apnea) (Chronic) Sleep disorder (Chronic) De Quervain's disease (tenosynovitis) (Chronic) Supraventricular tachycardia (Chronic) Diabetes mellitus type 2, controlled (Chronic) Osteoarthritis (Chronic) Left ventricular hypertrophy (Chronic) Gastritis (Resolved) Herniated disc (Resolved) Humeral head fracture (Resolved) Presence of prosthetic heart valve (Resolved) Trigger finger (Resolved) Daytime hypersomnia (Inactive) Gout (Inactive) Surgical History Hx of colonoscopy (Chronic 10/02/15) H/O aortic valve replacement (Chronic 10/31/14) H/O arthroscopy of left knee (Resolved) History of cholecystectomy (Resolved) History of meniscectomy of left knee (Resolved) History of tubal ligation (Resolved) Family History Father Heart failure Kidney disease Mother Alcoholism Grandfather Heart disease Social History Smoking Status: Former smoker how long ago did patient quit smokin, 1p/day second hand exposure: Yes alcohol intake: never substance use type: does not use HPI left trigger fingers: Details: ALE BACA is a 67 year old F here today for left middle trigger finger. Patient notes that her finger has been triggering for about 3 months. She notes that it is progressively worsening. She denies that she has locking. Patient notes that she has achiness of her finger. Patient denies any xrays or injections. ROS Const Reports system reviewed and no additional complaints, except as docu Eyes Reports system reviewed and no additional complaints, except as docu ENT Reports system reviewed and no additional complaints, except as docu Card Reports system reviewed and no additional complaints, except as docu Resp Reports system reviewed and no additional complaints, except as docu GI Reports system reviewed and no additional complaints, except as docu Reports system reviewed and no additional complaints, except as docu Musc Reports joint pain, Reports stiffness Skin/Breast Reports system reviewed and no additional complaints, except as docu Neuro Yes system reviewed and no additional complaints, except as docu Psych Reports system reviewed and no additional complaints, except as docu Endo Reports system reviewed and no additional complaints, except as docu Ortho Exam Left Wrist/Hand Skin/Wound: Yes CDI Contralateral Normal: Yes A1 marcel trigger: Yes (middle) Assessment AND Plan 1. Trigger finger, left middle finger M65.332 Plan xrays of left hand show no obvious fracture dislocation or lucency. As long as the conservative care works we will use injections, when they no longer give her relief we will discuss release. Obtained consent for injection. Under sterile conditions, injected the patients left 3rd A1 marcel with 1cc bupivacaine and 1/2cc kenalog. The patient tolerated the injection well without any noted complication. Patient should call our office if redness develops, pain worsens or if they have any concerns. Follow up prn or sooner if pain, swelling, numbness or associated symptoms, or concerns develop. All questions answered. Patient in agreement of plan. Plan Detail Other Orders Orders: Goals Improve nerve function Decrease spasm Coding Level of Care Code Off vis,est,level 3 Diagnoses Trigger finger, left middle finger M65.332 02/23/18 1632 <Electronically signed by Lucia Vallejo DO> Date Lucia Vallejo DO Cosigner Signature: Date (if applicable) CC: HAND MIN 3 VIEWS Observed: 02/23/2018 Status: F Source: [place] 2:47 PM [facility] Imaging Services [address] [place] [address] Hand Min 3 Views MR#: [id number] Acct: [id number] Name: ALE BACA Rep #: [id number] : 1950 F 67 From: Missael Gilliam MD PCP: Imer Cummings MD Status: REG CLI Study: Hand Min 3 Views Date of Exam: 02/23/18 Exam# [id number] Ordering Dr: Lucia Vallejo DO STUDY: X-RAY - LEFT HAND REASON FOR EXAM: Trigger fingers. TECHNIQUE: 3 view(s) of the hand. COMPARISON: Radiographs 01/13/2017. FINDINGS: There is osteopenia. Normal radiocarpal articulation. Normal distal radioulnar joint. Normal visualized carpal bones. There is mild joint space narrowing of the triscaphe articulation. There is moderate joint space narrowing of the carpometacarpal articulation of the thumb. Normal second through fifth carpometacarpal joints. Normal metacarpi. Normal metacarpophalangeal joint of the thumb. Normal interphalangeal joint of the thumb. Normal proximal and distal phalanges of the thumb. Normal metacarpophalangeal joints of the second through fifth fingers. Normal proximal and distal interphalangeal joints of the second through fifth fingers. Normal phalanges of the second through fifth fingers. The soft tissue structures are unremarkable. 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 Osteopenia. Electronically Signed: Missael Gilliam MD at 15:00 EDT Tel , Service support , CC: Lucia Vallejo DO; mIer Cummings MD Geoscience Professor: Signed THYROID Observed: 02/08/2018 Status: F Source: [place] 10:59 AM [facility] Imaging [facility] [place] [address] Thyroid MR#: [id number] Acct: [id number] Name: ALE BACA Rep #: [id number] : 1950 F 67 From: Darrell Delarosa DO PCP: Imer Cummings MD Status: REG CLI Study: Thyroid Date of Exam: 02/08/18 Exam# [id number] Ordering Dr: Imer Cummings MD STUDY: THYROID ULTRASOUND REASON FOR EXAM: Female, 67 years old. Nodules. TECHNIQUE: Ultrasound evaluation of the thyroid was performed with real-time and static nice-scale imaging. COMPARISON: November 06, 2015. FINDINGS: RIGHT LOBE: The right lobe of the thyroid gland measures 4.7 x 1.5 x 1.7 cm. There is a homogeneous echotexture. There is a 3 x 3 x 2 mm cyst with a small mural nodule within the mid right thyroid. There arterial smaller anechoic nodules thought to be cysts in the medial mid thyroid, each measuring approximately 2 mm in diameter.. LEFT LOBE: The left lobe of the thyroid gland measures 4 x 1.3 x 1.3 cm. There is a homogeneous echotexture. There is a 3 x 3 x 3 mm hypoechoic nodule in the posterior lower lobe. There is a 4 x 3 x 3 mm isoechoic nodule with hypoechoic rim in the mid thyroid. ISTHMUS: The isthmus measures 0.1 cm. The regional lymph nodes are normal. US/Thyroid IMPRESSION: Multiple small hypoechoic or cystic masses which appear essentially unchanged from the prior study. Electronically Signed: Darrell Delarosa DO at 23:14 EDT Tel [phone], Service support , CC: Imer Cummings MD Geoscience Professor: Signed ONCOLOGY VISIT REPORT Observed: 02/03/2018 Status: F Source: [place] 3:24 PM [facility] [place] [address] OFFICE VISIT Date of Service: 02/03/18 1520 MR#: [id number] Acct: [id number] Name: ALE BACA Rep #: [id number] : 1950 From: Edilson Miller MD Age/Sex: 67/F Location: [facility] Status: Signed Subjective - Date of Service Date of Service:: 02/03/18 - Chief Complaint Follow up-Polycythemia vera - History of Present Illness Ms. Ale Baca is a very pleasant 67-year-old woman with a past medical history for diabetes, atrial fibrillation, osteoarthritis, diagnosed with polycythemia in October 2013. Bone marrow biopsy and aspirate obtained at that time revealed that she is JAK2 positive. She has been maintained on therapeutic phlebotomies and Hydrea since December 2013. Comes in for follow up. - Past Medical/Social History Past Medical History Past Medical History: Diabetes mellitus,Hyperlipidemia Other Past Medical History: polycythemia gout Past Surgical History Surgical: Aortic valve replacement,Cholecystectomy,Tubal ligation Other Surgical History: knee surgery left toe-screw, hallux rigidus 02/2017 fx RUE Family History Paternal Past Medical History: Kidney disease Maternal History of Cancer: Other Social History Social History: No changes Smoking Status Former smoker Review of Systems Constitutional:: Denies: Fever, Sweats, Weight loss, Appetite change, Chills Cardiovascular:: Denies: Chest pain, Palpitations, Dyspnea on exertion, Orthopnea, PND, Shortness of breath Respiratory: Denies: Cough, Hemoptysis, Shortness of Breath, Wheezing Gastrointestinal:: Denies: Abdominal pain, Nausea, Vomiting, Diarrhea, Constipation, Hematochezia Genitourinary: Denies: Dysuria, Hematuria, 15, Flank pain Musculoskeletal:: Denies: Back pain, Myalgia, Arthralgia Skin: Denies: Rash, Skin Changes, Wounds Neurological:: Denies: Headache, Dizziness, Visual changes, Tinnitus, Hearing loss Psychiatric: Denies: Anxiety, Depression, Homicidal Ideations, Suicidal Ideations Vital Signs Height 5 ft Weight: 77.111 kg Weight in Pounds 170.0 lbs BMI 37.0 Pulse Ox 95 - Physical Exam General: Alert, Oriented x3, No apparent distress HEENT: Atraumatic, PERRLA, EOMI, Normocephalic Oropharynx:: Dry mucosa Neck:: Supple, Trachea midline. Negative for: JVD, bilateral Cardiac:: Regular rate, Regular rhythm, Normal S1, Normal S2. Negative for: Murmur Lungs: Clear to auscultation, Excusion symmetrical. Negative for: Rhonchi, Wheezes Abdomen:: Bowel sounds x 4, Soft, Non-tender, Non-distended. Negative for: Hepatosplenomegaly Extremities:: Negative for: Cyanosis, Edema Neurological: Neuro grossly intact Skin:: Negative for: Lesions, Rash, Petechiae, Ecchymosis Psychiatric:: Appropriate affect, Euthymic Lymphatics:: Negative for: Cervical lymphadenopathy, Supraclavicular lymphadenopathy, Axillary lymphadenopathy Laboratory Data: Laboratory Tests Sodium 140 (136-145) mmol/L Laboratory Tests WBC 7.3 RBC 3.96 L Hgb 14.9 Hct 45.2 Plt Count 153 Assessment and Plan Polycythemia Vera, clinically stable. Hct is 45 on 02/01/2018. Plan is to hold Phlebotomy today. Continue Hydrea 1000mg daily. RTC 3 months with CBC/CMP. Medications: Prescriptions This Visit Medication Instructions Recorded Primary Care Provider: Imer Cummings MD Referring Provider: - Problem List (1) Polycythemia vera Status: Chronic Code Visit Office Visits / Consults: 26445 OV L3 Est 02/03/18 1524 <Electronically signed by Edilson Miller MD> Date Edilson Miller MD Cosigner Signature: Date (if applicable) CC: Imer Cummings MD IRON+IRON BINDING Collected: 02/01/2018 Status: F Source: [facility] 10:33 AM [facility] Order Comment: Reason for Laboratory Test . TYPE CODE TESTS RESULT OUT OF RANGE REFERENCE UNITS LAB L503.6075 250-450 ug/dL Normal TIBC 352 LAB L503.6150 50-170 ug/dL Normal IRON 71 Result Comment: Slight Hemolysis, Result may be falsely increased. LAB L503.6250 15.0-55.0 % IRON Normal SATURATION 20.2 Performed By: #### L503.6030, L503.6550 #### [facility] [address] [place], [address] FERRITIN Collected: 02/01/2018 Status: F Source: [place] 10:33 AM [facility] Order Comment: Reason for Laboratory Test . TYPE CODE TESTS RESULT OUT OF RANGE REFERENCE UNITS LAB L503.6550 8-252 ng/mL Normal FERRITIN 28 Performed By: #### L503.6030, L503.6550 #### [facility] [address] [place], [address] CBC W/DIFF, AUTOMATED Collected: 02/01/2018 Status: F Source: [place] 10:32 AM [facility] Order Comment: Reason for Laboratory Test . TYPE CODE TESTS RESULT OUT OF RANGE REFERENCE UNITS LAB L100.1000 4.4-11.0 K/mm3 Normal WBC 7.3 LAB L100.1200 4.2-5.4 M/mm3 Low RBC 3.96 LAB L100.1300 12.0-15.0 g/dl Normal HGB 14.9 LAB L100.1400 37-47 % Normal HCT 45.2 LAB L100.1500 81-99 fL High MCV 114.1 LAB L100.1600 27.0-32.0 pg High MCH 37.6 LAB L100.1700 32-36 g/gl Normal MCHC 33.0 LAB L100.1810 11.6-14.6 % High RDW CV 14.7 LAB L100.1820 35.1-43.9 fl High RDW SD 60.9 LAB L100.1900 150-450 K/mm3 Normal PLT 153 LAB L100.2000 6.2-12.0 fl Normal MPV 11.0 LAB L100.2100 47-70 % Normal NEUT% 66.8 LAB L100.2200 19-41 % Normal LY% 24.1 LAB L100.2300 0-10 % Normal MONO% 6.2 LAB L100.2400 0-5 % Normal EO% 2.5 LAB L100.2500 0-1 % Normal BASO% 0.3 LAB L100.2550 0.0-0.9 % Normal IM GRAN % 0.100 Result Comment: IG% - Immature Granulocytes (promyelocytes, myelocytes and metamyelocytes) > 1% indicates that a LEFT SHIFT is Present. LAB L100.2620 2.0-7.7 X10 3/uL Normal Absolute Neut 4.9 LAB L100.2720 0.83-4.51 X10 3/ul Normal Absolute Lymph 1.75 Performed By: #### L100.0100, L500.4050, L501.9520, L506.0400 #### [facility] [address] [place], [address] COMPREHENSIVE METABOLIC Collected: 02/01/2018 Status: F Source: [facility] 10:32 AM [facility] Order Comment: Reason for Laboratory Test . PLEASE ADD TSH, T4F TO LABS DRAWN 02/01/18 LOCATION: MG3 2 C TYPE CODE TESTS RESULT OUT OF RANGE REFERENCE UNITS LAB L501.0100 74-106 mg/dL High GLU 116 Result Comment: Fasting Glucose result from 100 to 125 mg/dL suggests IMPAIRED HOMEOSTASIS per A.D.A. criteria. Please note revised GLUCOSE reference range effective 2017. LAB L501.1000 7-18 mg/dL Normal BUN 11 LAB L501.1100 0.55-1.02 mg/dL Normal CREAT,SERUM 0.64 Result Comment: The validity of the calculated GFR AND GFRAA in patients over 70 years has not been determined. Clinical correlation is essential. LAB L501.1110 >60 mL/min Normal EST GFR 98 Result Comment: Non- GFR Calc LAB L501.1115 >60 mL/min Normal EST GFR - AA 118 Result Comment: GFR Calc LAB L501.1255 ml/min Normal Estimated CRCL 38.14 LAB L501.1300 10-20 RATIO Normal BUN/CRE 17.2 LAB L501.1500 6.4-8. g/dL Normal 2 T PROT 7.6 LAB L501.1800 3.2-5. g/dL Normal 0 ALB 4.0 LAB L501.1950 2.2-4. g/dL Normal 2 GLOB 3.6 LAB L501.2000 0.9-2. RATIO Normal 4 A/G 1.1 LAB L501.2200 8.5-10 mg/dL Normal .1 CA 9.4 LAB L501.4100 15-37 U/L Normal AST 25 LAB L501.4305 45-117 U/L Normal ALK P 60 LAB L501.4405 13-56 U/L Normal ALT 28 LAB L501.4600 0.20-1 mg/dL Normal .00 T BILI 0.90 LAB L501.5300 136-14 mmol/L Normal 5 NA 140 LAB L501.5600 3.5-5. mmol/L Normal 1 K 4.2 LAB L501.5900 98-107 mmol/L Normal CL 106 LAB L501.6100 21.0-3 mmol/L Normal 2.0 CO2 28.0 LAB L501.6200 5-15 Normal GAP 6 Performed By: #### L100.0100, L500.4050, L501.9520, L506.0400 #### [facility] [address] [place], [address] THYROID STIM HORMONE Collected: 02/01/2018 Status: F Source: [facility] ([facility]) 10:32 AM [facility] Order Comment: Reason for Laboratory Test . PLEASE ADD TSH, T4F TO LABS DRAWN 02/01/18 LOCATION: MG3 2 C TYPE CODE TESTS RESULT OUT OF RANGE REFERENCE UNITS LAB L501.9520 0.358-3.74 uIU/mL Normal TSH 0.92 Performed By: #### L100.0100, L500.4050, L501.9520, L506.0400 #### [facility] [address] [place], [place], [address] T4 FREE DIRECT Collected: 02/01/2018 Status: F Source: [place] 10:32 AM [facility] Order Comment: Reason for Laboratory Test . PLEASE ADD TSH, T4F TO LABS DRAWN 02/01/18 LOCATION: MG3 2 C TYPE CODE TESTS RESULT OUT OF RANGE REFERENCE UNITS LAB L506.0400 0.76-1.46 ng/dL Normal T4 FREE 1.13 DIRECT Performed By: #### L100.0100, L500.4050, L501.9520, L506.0400 #### [facility] [address] [place], [place], [address] CARDIOLOGY VISIT Observed: 11/07/2017 Status: F Source: [place] REPORT 2:20 PM [facility] [address] [place] [address] OFFICE VISIT Date of Service: 10/01/17 MR#: [id number] Acct: [id number] Name: ALE BACA Rep #: [id number] : 1950 Provider: Jayro Poe MD Age/Sex: 67/F Location[place] [facility] Status: Signed HPI HPI Details: ALE BACA, is a 67 F who presents to the office today for Intake Vital Signs10/01/17 Height 5 ft 10/01/17 Weight: 196 lb 10/01/17 Body Mass Index (BMI) 38.2 10/01/17 Blood Pressure 126/66 10/01/17 Respiratory Rate 16 10/01/17 Pulse Rate 78 Intake Visit Reasons: 6 M FU Allergies Penicillins Allergy (Severe, Verified 10/28/17 14:54) Rash clarithromycin [From Biaxin] Allergy (Intermediate, Verified 10/28/17 14:54) Rash erythromycin base [Erythromycin Base] Allergy (Intermediate, Verified 10/28/17 14:54) Rash cat dander Adverse Reaction (Intermediate, Verified 10/28/17 14:54) SNEEZING Alternaria Mold Spores Allergy (Intermediate, Uncoded 10/28/17 14:54) SNEEZING Aspergillus Mold Spores Allergy (Intermediate, Uncoded 10/28/17 14:54) SNEEZING dust Allergy (Intermediate, Uncoded 10/28/17 14:54) SNEEZING Medications Pravastatin Sodium [Pravachol] 40 mg PO QHS 11/07/13 [History Confirmed 10/28/17] Metformin HCl [Glucophage] 500 mg PO DAILY 11/28/13 [History Confirmed 10/28/17] Multivitamins,Therapeutic [Multivitamin] 1 tab PO DAILY 04/20/14 [History Confirmed 10/28/17] Aspirin 325 mg PO DAILY@0800 09/22/16 [History Confirmed 10/28/17] Allopurinol [Zyloprim] 200 mg PO DAILY #180 tab 01/26/17 [Rx Confirmed 10/05/17] Hydroxyurea [Hydrea] 1,000 mg PO DAILY #180 cap 03/04/17 [Rx Confirmed 10/05/17] Acidophilus Probiotic PO DAILY 04/21/17 [History Confirmed 10/05/17] temazepam 15 mg capsule 15 mg PO ONCE 05/20/17 [History Confirmed 10/05/17] vit C,E,zinc,copper-qbyup0a 250 mg-lutein 5 mg-zeaxanthin 1 mg capsule cap PO 05/20/17 [History Confirmed 10/05/17] carvedilol 6.25 mg tablet 6.25 mg PO BID #180 tab 08/17/17 [Rx Confirmed 10/05/17] GOLO Release Supplement 1 cap PO TID 10/01/17 [History Confirmed 10/05/17] cholecalciferol (vitamin D3) 5,000 unit capsule 5,000 unit PO QDAY 10/01/17 [History Confirmed 10/05/17] [facility] Medical History Right arm fracture (Acute) Gastritis (Chronic) Non-rheumatic aortic stenosis (Chronic) Lacunar infarction (Chronic) KYLE (obstructive sleep apnea) (Chronic) Sleep disorder (Chronic) De Quervain's disease (tenosynovitis) (Chronic) Supraventricular tachycardia (Chronic) Diabetes mellitus type 2, controlled (Chronic) Osteoarthritis (Chronic) Left ventricular hypertrophy (Chronic) Gastritis (Resolved) Herniated disc (Resolved) Humeral head fracture (Resolved) Presence of prosthetic heart valve (Resolved) Trigger finger (Resolved) Daytime hypersomnia (Inactive) Gout (Inactive) Surgical History Hx of colonoscopy (Chronic 10/02/15) H/O aortic valve replacement (Chronic 10/31/14) H/O arthroscopy of left knee (Resolved) History of cholecystectomy (Resolved) History of meniscectomy of left knee (Resolved) History of tubal ligation (Resolved) Family History Father Heart failure Kidney disease Mother Alcoholism Grandfather Heart disease Social History Smoking Status: Former smoker ROS Const Const: Negative for fatigue, weakness, difficulty sleeping, frequent falls, headache(s) or excessive sweating Eyes Eyes: Negative for loss of peripheral vision, transient loss of vision, blurry vision or double vision ENT ENT: Negative for headache(s), dizziness, Nosebleed/epistaxis or balance problems Cardio Chest Pain: No Edema: None Muscle aches with walking: None Resp Respiratory: Negative for SOB with activity, SOB at rest, SOB orthopnea\SOB lying down or paroxysmal nocturnal dyspnea GI GI: Negative nausea or heartburn : Negative for hematuria Musc Musc: Negative for muscle aches/ myalgia, muscle weakness, joint pain or balance problems Skin Skin: Negative non-healing lesions, unusual bruising or rash Neuro Neuro: Positive for orthostatic symptoms (Occasional); negative for weakness, frequent falls, blurry vision, headache(s), dizziness, lightheadedness or double vision Jorge Alberto Hematologic/Lymphatic: Negative for easy bruising Endo Endo: Negative for fatigue, excessive sweating or increased thirst/drinking Psych Psych: Negative for anxiety or depression Allergy Allergy/Immunology: Negative for hives, Negative for rash Assessment AND Plan Plan Detail Goals Improve nerve function Decrease spasm Follow Up +6M (Lui) Coding Level of Care Code Off vis,est,level 3 Coding Level of Care Code Off vis,est,level 3 11/07/17 1420 <Electronically signed by Jayro Poe MD> Date Jayro Poe MD Cosigner Signature: Date (if applicable) CC: Imer Cummings MD DOWNTIME REPORT Observed: 11/05/2017 Status: F Source: [place] 1:56 PM [facility] Medical Records Department [address] [place] [address] Downtime Report MR#: [id number] Acct: [id number] Name: ALE BACA Rep #: [id number] : 1950 67 From: Sidney Kee PCP: Imer Cummings MD Status: REG CLI This patient was seen during an EMR downtime October 19, 2017 - October 26, 2017. This patient may have a combination of paper and electronic documentation or all paper documentation. All documentation is viewable within the e-chart portion of [employer] for each patient visit. CBC W/DIFF, AUTOMATED Collected: 10/23/2017 Status: F Source: [place] 8:55 AM [facility] Order Comment: PLEASE SEND A COPY OF LABS TO NP. LAY STREETER/ TYPE CODE TESTS RESULT OUT OF RANGE REFERENCE UNITS LAB L100.1000 4.4-11.0 K/mm3 Normal WBC 6.5 LAB L100.1200 4.2-5.4 M/mm3 Low RBC 4.01 LAB L100.1300 12.0-15.0 g/dl High HGB 15.1 LAB L100.1400 37-47 % Normal HCT 45.1 LAB L100.1500 81-99 fL High MCV 112.5 LAB L100.1600 27.0-32.0 pg High MCH 37.7 LAB L100.1700 32-36 g/gl Normal MCHC 33.5 LAB L100.1810 11.6-14.6 % Normal RDW CV 13.9 LAB L100.1820 35.1-43.9 fl High RDW SD 55.1 LAB L100.1900 150-450 K/mm3 Normal PLT 180 LAB L100.2000 6.2-12.0 fl Normal MPV 10.5 LAB L100.2100 47-70 % Normal NEUT% 63.4 LAB L100.2200 19-41 % Normal LY% 26.5 LAB L100.2300 0-10 % Normal MONO% 7.3 LAB L100.2400 0-5 % Normal EO% 2.0 LAB L100.2500 0-1 % Normal BASO% 0.5 LAB L100.2550 0.0-0.9 % Normal IM GRAN % 0.300 Result Comment: IG% - Immature Granulocytes (promyelocytes, myelocytes and metamyelocytes) > 1% indicates that a LEFT SHIFT is Present. LAB L100.2620 2.0-7.7 X10 3/uL Normal Absolute Neut 4.1 LAB L100.2720 0.83-4.51 X10 3/ul Normal Absolute Lymph 1.71 Performed By: #### L100.0100, L500.4050, L500.4100 #### [facility] [address] [place], [address] COMPREHENSIVE METABOLIC Collected: 10/23/2017 Status: F Source: [facility] MART[facility]NE[facility] 8:55 AM [facility] Order Comment: Reason for Laboratory Test . 48 TYPE CODE TESTS RESULT OUT OF RANGE REFERENCE UNITS LAB L501.0100 74-106 mg/dL High GLU 158 Result Comment: Fasting Glucose result greater than or equal to 126 mg/dL suggests DIABETES MELLITUS per A.D.A. criteria. Please note revised GLUCOSE reference range effective 2017. LAB L501.1000 7-18 mg/dL Normal BUN 13 LAB L501.1100 0.55-1.02 mg/dL Normal CREAT,SERUM 0.70 Result Comment: The validity of the calculated GFR AND GFRAA in patients over 70 years has not been determined. Clinical correlation is essential. LAB L501.1110 >60 mL/min Normal EST GFR 88 LAB L501.1115 >60 mL/min Normal EST GFR - AA 107 LAB L501.1300 10-20 RATIO Normal BUN/CRE 18.6 LAB L501.1500 6.4-8.2 g/dL Normal T PROT 7.6 LAB L501.1800 3.2-5.0 g/dL Normal ALB 4.1 LAB L501.1950 2.2-4.2 g/dL Normal GLOB 3.5 LAB L501.2000 0.9-2.4 RATIO Normal A/G 1.2 LAB L501.2200 8.5-10.1 mg/dL Normal CA 8.8 LAB L501.4100 15-37 U/L Normal AST 33 LAB L501.4305 45-117 U/L Normal ALK P 59 LAB L501.4405 13-56 U/L Normal ALT 40 LAB L501.4600 0.20-1.00 mg/dL Normal T BILI 0.90 LAB L501.5300 136-145 mmol/L Normal NA 142 LAB L501.5600 3.5-5.1 mmol/L Normal K 3.8 LAB L501.5900 98-107 mmol/L Normal CL 107 LAB L501.6100 21.0-32.0 mmol/L Normal CO2 26.0 LAB L501.6200 5-15 Normal GAP 9 Performed By: #### L100.0100, L500.4050, L500.4100 #### [facility] [address] [place], [place], [address] LIPID PROFILE Collected: 10/23/2017 Status: F Source: [place] 8:55 AM [facility] Order Comment: Reason for Laboratory Test . 48 TYPE CODE TESTS RESULT OUT OF RANGE REFERENCE UNITS LAB L501.4900 200 mg/dL Normal CHOL 91 Result Comment: <200 mg/dL Desirable 200-240 mg/dL Borderline >240 mg/dL High Risk LAB L501.5000 mg/dL Normal TRIG 112 Result Comment: The drugs N-Acetylcysteine and Metamizole may falsely depress this assay. Serum Triglycerides Reference Interval Normal <150 mg/dL Borderline high 150 - 199 mg/dL High 200 - 499 mg/dL Very High > or = 500 mg/dL LAB L501.6400 mg/dL Normal HDL 45 Result Comment: The drugs N-Acetylcysteine and Metamizole may falsely depress this assay. Reference Range HDL <40 mg/dL Low HDL Cholesterol HDL >or= 60 mg/dL High HDL Cholesterol LAB L501.6500 0-130 mg/dL Normal LDL 24 LAB L501.6600 5-40 mg/dL Normal VLDL 22 Performed By: #### L100.0100, L500.4050, L500.4100 #### [facility] [address] [place], [place], [address] PULMONARY VISIT REPORT Observed: 10/06/2017 Status: F Source: [facility] 10:47 AM [facility] [address] [place] [address] OFFICE VISIT Date of Service: 10/05/17 MR#: [id number] Acct: [id number] Name: ALE BACA [place] Rep #: [id number] : 1950 Provider: Kristal Bone Age/Sex: 67/F Location: [facility] [place] Status: Signed Assessment AND Plan 1. KYLE (obstructive sleep apnea) G47.33 Status Chronic Plan Stable. She is using and benefiting from CPAP. No indication for titration study at this time. Follow-up with Dr. Miller in 6 months. She has been encouraged to contact the office if she develops any new or worsening symptoms in the meantime. 2. Polycythemia vera D45 Status Chronic Plan Stable. She has not required therapeutic phlebotomy in quite some time, her own words she cannot remember the last time it was necessary. She follows with hematology in the very near future. Defer management of her polycythemia vera to hematology. Plan Detail Goals Improve nerve function Decrease spasm Follow Up 6 Months (BWA) HPI 6 M FU: Chief Complaint: Nasal drainage HPI Comments Details: This is a 67 year old F, currently under the care of Dr. Imer Cummings, here to follow up for sleep apnea. She is ambulatory and currently on room air. She has not been seen in the ED or urgent care for any respiratory problems since her last office visit. She has not required antibiotics or prednisone for any breathing problems. She is not currently on any inhalers. She has an occasional nonproductive cough. She has occasional clear nasal drainage that she attributes to seasonal allergies. She reports that both of these problems are not bothersome. She denies any hemoptysis. She denies any wheezing, chest tightness, chest pain or palpitations. She has not experienced any fever, chills or body aches. She has not used any mpya-wsn-youompa medications for her cough or clear nasal drainage. See complete review of systems. Current use of pressure support therapy is on average of 6.5 hours per night with current settings of 10 cmH2O. ALE denies any daytime somnolence, dry mouth in the morning, nocturia, snoring through the mask, morning headaches or difficulty with mask leaks. ALE reports feeling somewhat rested in the morning and is benefitting from current therapy. Compliance report was reviewed and shows 100% compliance. Current AHI is controlled at 0.6 events per hour. According to the compliance report it looks as though leaks are issue, but the patient denies that this is any trouble. Follow-up for her polycythemia vera: next follow up is 10/26/17. No phlebotomy done since last office visit. Laboratory Tests RBC 3.63 L Hgb 13.8 Hct 41.1 MCV 113.2 H MCH 38.0 H MCHC 33.6 RDW 14.1 RDW Differential 56.3 H Intake Vital Signs10/05/17 Height 5 ft 10/05/17 Weight: 196 lb Intake Visit Reasons: 6 M FU Chief Complaint: Routine f/u DME Vendor: LOUISA Accompanied by: Self Allergies Penicillins Allergy (Severe, Verified 10/05/17 12:50) Rash clarithromycin [From Biaxin] Allergy (Intermediate, Verified 10/05/17 12:50) Rash erythromycin base [Erythromycin Base] Allergy (Intermediate, Verified 10/05/17 12:50) Rash cat dander Adverse Reaction (Intermediate, Verified 10/05/17 12:50) SNEEZING Alternaria Mold Spores Allergy (Intermediate, Uncoded 10/05/17 12:50) SNEEZING Aspergillus Mold Spores Allergy (Intermediate, Uncoded 10/05/17 12:50) SNEEZING dust Allergy (Intermediate, Uncoded 10/05/17 12:50) SNEEZING Medications Pravastatin Sodium [Pravachol] 40 mg PO QHS 11/07/13 [History Confirmed 10/05/17] Metformin HCl [Glucophage] 500 mg PO DAILY 11/28/13 [History Confirmed 10/05/17] Multivitamins,Therapeutic [Multivitamin] 1 tab PO DAILY 04/20/14 [History Confirmed 10/05/17] Aspirin 325 mg PO DAILY@0800 09/22/16 [History Confirmed 10/05/17] Allopurinol [Zyloprim] 200 mg PO DAILY #180 tab 01/26/17 [Rx Confirmed 10/05/17] Hydroxyurea [Hydrea] 1,000 mg PO DAILY #180 cap 03/04/17 [Rx Confirmed 10/05/17] Acidophilus Probiotic PO DAILY 04/21/17 [History Confirmed 10/05/17] temazepam 15 mg capsule 15 mg PO ONCE 05/20/17 [History Confirmed 10/05/17] vit C,E,zinc,copper-txpyp4v 250 mg-lutein 5 mg-zeaxanthin 1 mg capsule cap PO 05/20/17 [History Confirmed 10/05/17] carvedilol 6.25 mg tablet 6.25 mg PO BID #180 tab 08/17/17 [Rx Confirmed 10/05/17] GOLO Release Supplement 1 cap PO TID 10/01/17 [History Confirmed 10/05/17] cholecalciferol (vitamin D3) 5,000 unit capsule 5,000 unit PO QDAY 10/01/17 [History Confirmed 10/05/17] [facility] Medical History Right arm fracture (Acute) Gastritis (Chronic) Non-rheumatic aortic stenosis (Chronic) Lacunar infarction (Chronic) KYLE (obstructive sleep apnea) (Chronic) Sleep disorder (Chronic) De Quervain's disease (tenosynovitis) (Chronic) Supraventricular tachycardia (Chronic) Diabetes mellitus type 2, controlled (Chronic) Osteoarthritis (Chronic) Left ventricular hypertrophy (Chronic) Gastritis (Resolved) Herniated disc (Resolved) Humeral head fracture (Resolved) Presence of prosthetic heart valve (Resolved) Trigger finger (Resolved) Daytime hypersomnia (Inactive) Gout (Inactive) Surgical History Hx of colonoscopy (Chronic 10/02/15) H/O aortic valve replacement (Chronic 10/31/14) H/O arthroscopy of left knee (Resolved) History of cholecystectomy (Resolved) History of meniscectomy of left knee (Resolved) History of tubal ligation (Resolved) Family History Father Heart failure Kidney disease Mother Alcoholism Grandfather Heart disease Social History Smoking Status: Former smoker how long ago did patient quit smokin, 1p/day second hand exposure: Yes alcohol intake: never substance use type: does not use Review of Systems Const CONSTITUTIONAL: Positive seasonal allergies; negative anorexia, body ache, chills, daytime sleepiness, fever(s), night sweats, oral thrush, stops breathing during sleep, weight loss, sleeping in chair, fatigue, weight loss, weight gain, frequent colds, other, headache(s) or orthopnea EETM Ear Nose Throat Mouth: Positive hearing normal and nasal discharge (not all the time ); negative hard of hearing, hoarseness, dry mouth in morning, change in vision, itchy eyes, eye pain, swallowing Difficulty, ear pain, nose bleed, headache(s), mouth pain, nasal congestion, post nasal drip, sinus pain, sinus pressure, sore throat or other Cardio Cardiovascular: Negative chest pain, chest pain at rest, chest pain with activity, irregular heart rhythm, edema, shortness of breath when lying down, palpitations, murmur or other Resp Respiratory: Positive as per HPI and cough cough: Positive productive color: Positive thin and clear; negative shortness of breath, pain with cough, wheezing, chest congestion, chest tightness, pain on inspiration, inhalers, increase use of rescue inhalers, snoring, apnea or other Gastro Gastrointestional: Negative bloody stools, change in appetite, difficulty swallowing, reflux, hematemesis, melena stool, loose stool, constipation or other Genitourinary: Negative blood in urine, nocturia, pain with urination or other Musc Musculoskeletal: Negative body pain, back pain, neck pain or other Skin/Breast Skin/Breast: Negative dry skin, itching, rash, unusual bruising, breast lump or other Neuro Neurological: Negative restless legs, confusion, weakness or other Psych Psychocological: Negative abnormal sleep pattern, anxiety, thoughts of hurting self/others, hopelessness or other Lymph Lymphatic: Negative easy bleeding, easy bruising, swollen lymph nodes or other Exam Const Constitutional: Positive conversant, cooperative, in no acute respiratory distress, healthy appearing, well developed, well nourished and good hygiene Head Head: Positive normocephalic and atraumatic; negative cyanosis of lips/distal nose Eyes Eye: Positive clear conjunctiva and nystagmus; negative scleral abnormality Ears Ear: Positive hearing normal and external ears normal; negative hard of hearing Nose Nose: Positive external nose normal and no nasal discharge; negative epistaxis Mouth Mouth: Positive oral mucosae normal, no lesions, posterior oropharynx is adequate and good dentition; negative post nasal drip, malodorous breath or oral thrush present Mallampati Score: II: Mallampati Score Neck Neck: Positive normal visual inspection, full ROM, trachea midline, thick neck and female neck greater than 37 cm (15 in); negative lymphadenopathy, JVD or tender Chest Wall Chest: Positive normal inspection of the chest and symmetric chest movement; negative increased A/P diameter Resp lung sounds: Positive clear to auscultation, good air exchange, normal expiratory time and normal respiratory effort; negative diminished, wheezes, rhonchi, rales, dullness to percussion or wheeze present on forced exhalation Cardio Cardiac: Positive regular rate, regular rhythm, S1 normal and S2 normal; negative murmur GI GI: Positive normal to inspection and normal bowel sounds; negative distended Genitourinary: Positive deferred Musc Musculoskeletal: Positive steady gait and ROM normal; negative kyphosis or scoliosis Skin Pulmonary Skin Exam: Positive intact; negative rash, lesion, ulcers, erythema, scaly or dermal atrophy Pulses Pulse: Yes pulses normal x4 extremities Extremities Extremities: Yes capillary refill normal, No clubbing, No cyanosis, No edema Neuro Neurologic: Yes conversant, Yes no focal neuro deficits, Yes understands questions, Yes cooperative, Yes normal cognition, Yes normal coordination, Yes normal concentration, No tremor Lymph Lymphatic: No lymphadenopathy, No tenderness, No cervical adenopathy, No axillary adenopathy Psych Appearance: Positive grossly normal, eye contact and well kempt Mental Status: Positive mental status grossly normal Mood: Positive congruent mood Affect: Positive normal affect Coding Level of Care Code Off vis,est,level 3 Diagnoses KYLE (obstructive sleep apnea) G47.33 Polycythemia vera D45 10/06/17 1047 <Electronically signed by Kristal BUSH> Date Kristal BUSH Cosigner Signature: Date (if applicable) CC: Imer uCmmings CARDIOLOGY VISIT Observed: 10/01/2017 Status: F Source: [place] REPORT 3:58 PM [facility] [place] [facility] [address] [place] [address]. [address] [place] [address] OFFICE VISIT Date of Service: 10/01/17 MR#: [id number] Acct: [id number] Name: WING BACAH Cheyenne Rep #: [id number] : 1950 Provider: Jayro Poe MD Age/Sex: 67/F [place] [facility] [place] Signed HPI HPI Chief Complaint: Routine f/u Details: Referring physician: Dr. Dhaliwal, Dr Miller, Dr Chacko Mrs Valencia is a very pleasant 67-year-old morbidly obese diabetic female who was admitted previously in December 2013 with new-onset atrial fibrillation was found to have severe LVH and possible significant aortic stenosis due to a bicuspid aortic valve. She spontaneously converted on her own, and her Cardizem was increased from 120 mg by mouth daily to 240 mg by mouth daily. In addition she has polycythemia vera, recently diagnosed and has been undergoing phlebotomy sessions under the care of Dr. Miller. She had been previously treated with hydroxyurea, but this was discontinued after her aortic valve replacement surgery. She appears to be exquisitely sensitive to atrial fibrillation. Her LV function was found to be normal with an LVEF of 70%, with complete cavity obliteration during dobutamine and she had a dynamic resting LV outflow tract gradient of approximately 40 mmHg, which increased to 100 mmHg with peak dobutamine.in addition she underwent a right and left heart catheterization which demonstrated no mitral stenosis despite her mitral annular calcification, and angiographically normal coronary arteries. She was then referred to a cardiovascular surgeon Dr. Chacko who requested better control of her diabetes, some weight loss, and documented control of her hemoglobin from her P vera. Once this was completed, the patient underwent successful aortic valvular replacement due to aortic stenosis on 10/31/14. The patient underwent successful AVR with a solo stentless valve, modified Maze procedure, and left atrial appendage excision. Patient was gradually placed on beta kateryna therapy as well as iron replacement therapy and followed up with our office. Patient has completed cardiac rehab, now returns to our office. Her hemoglobin has been monitored by Dr. Miller and appears to be increasing after her bypass surgery has been completed. Patient now returns for follow-up, denies any exertional chest pain, angina, shortness of breath or dyspnea on exertion. She remains on her CPAP without difficulty. She also is continuing on hydroxyurea. She denies any palpitations. In our office today her blood pressure is 126/66, and pulse is 78 and regular. Physical exam shows clear lungs bilaterally, regular rate and rhythm, a faint 2 out of 6 crescendo decrescendo systolic murmur, no edema. EKG today demonstrates sinus tachycardia, intraventricular conduction delay, no evidence of previous myocardial infarction. Lipids as 04/14/16 show an LDL of 36 and an HDL of 49. Lipids as of 05/01/17 showed HDL of 58 and LDL 29. Her echo recently as of 06/03/17 shows normal LV function with an EF of 65%, severe biatrial enlargement, RVSP of 34 mmHg. Normal functioning bioprosthetic aortic valve. Intake Vital Signs10/01/17 Height 5 ft 10/01/17 Weight: 196 lb 10/01/17 Body Mass Index (BMI) 38.2 10/01/17 Blood Pressure 126/66 10/01/17 Respiratory Rate 16 10/01/17 Pulse Rate 78 Intake Visit Reasons: 6 M FU Allergies Penicillins Allergy (Severe, Verified 10/01/17 15:32) Rash clarithromycin [From Biaxin] Allergy (Intermediate, Verified 10/01/17 15:32) Rash erythromycin base [Erythromycin Base] Allergy (Intermediate, Verified 10/01/17 15:32) Rash cat dander Adverse Reaction (Intermediate, Verified 10/01/17 15:32) SNEEZING Alternaria Mold Spores Allergy (Intermediate, Uncoded 10/01/17 15:32) SNEEZING Aspergillus Mold Spores Allergy (Intermediate, Uncoded 10/01/17 15:32) SNEEZING dust Allergy (Intermediate, Uncoded 10/01/17 15:32) SNEEZING Medications Pravastatin Sodium [Pravachol] 40 mg PO QHS 11/07/13 [History Confirmed 10/01/17] Metformin HCl [Glucophage] 500 mg PO DAILY 11/28/13 [History Confirmed 10/01/17] Multivitamins,Therapeutic [Multivitamin] 1 tab PO DAILY 04/20/14 [History Confirmed 09/29/17] Aspirin 325 mg PO DAILY@0800 09/22/16 [History Confirmed 10/01/17] Allopurinol [Zyloprim] 200 mg PO DAILY #180 tab 01/26/17 [Rx Confirmed 10/01/17] Hydroxyurea [Hydrea] 1,000 mg PO DAILY #180 cap 03/04/17 [Rx Confirmed 10/01/17] Acidophilus Probiotic PO DAILY 04/21/17 [History Confirmed 10/01/17] temazepam 15 mg capsule 15 mg PO ONCE 05/20/17 [History Confirmed 10/01/17] vit C,E,zinc,copper-aturv5l 250 mg-lutein 5 mg-zeaxanthin 1 mg capsule cap PO 05/20/17 [History Confirmed 10/01/17] carvedilol 6.25 mg tablet 6.25 mg PO BID #180 tab 08/17/17 [Rx Confirmed 10/01/17] GOLO Release Supplement 1 cap PO TID 10/01/17 [History Confirmed 10/01/17] cholecalciferol (vitamin D3) 5,000 unit capsule 5,000 unit PO QDAY 10/01/17 [History Confirmed 10/01/17] [facility] Medical History Non-rheumatic aortic stenosis (Chronic) Lacunar infarction (Chronic) KYLE (obstructive sleep apnea) (Chronic) Sleep disorder (Chronic) De Quervain's disease (tenosynovitis) (Chronic) Supraventricular tachycardia (Chronic) Diabetes mellitus type 2, controlled (Chronic) Osteoarthritis (Chronic) Left ventricular hypertrophy (Chronic) Gastritis (Chronic) Gastritis (Resolved) Herniated disc (Resolved) Humeral head fracture (Resolved) Presence of prosthetic heart valve (Resolved) Trigger finger (Resolved) Daytime hypersomnia (Inactive) Gout (Inactive) Surgical History H/O aortic valve replacement (Chronic 10/31/14) Hx of colonoscopy (Chronic 10/02/15) H/O arthroscopy of left knee (Resolved) History of cholecystectomy (Resolved) History of meniscectomy of left knee (Resolved) History of tubal ligation (Resolved) Family History Father Heart failure Kidney disease Mother Alcoholism Grandfather Heart disease Social History Smoking Status: Former smoker how long ago did patient quit smokin, 1p/day second hand exposure: Yes alcohol intake: never substance use type: does not use Cardiology Exam Const Appearance: cooperative, healthy appearing and no acute distress Nutritional Appearance: well nourished Orientation: alert, oriented x3 and oriented to person Head Head: normal to inspection, atraumatic and normocephalic Nose: external nose normal Face and Sinus: face symmetric Mouth: oral mucosae normal Eyes General: appearance normal, both eyes and all related structures Eyelids: eyelids normal Conjunctivae: conjunctivae normal Pupils: PERRL and normal by confrontation EOM: EOM intact bilaterally Neck Neck: normal visual inspection and full ROM Carotids: normal carotid upstroke Chest Chest inspection: normal inspection of the chest Auscultation: Bilateral: Clear to Auscultation Cardio Palpation: normal PMI Rate: regular rate Rhythm: regular rhythm Heart sounds: S2 normal Murmur: Grade 2/6 and crescendo-decrescendo GI GI: normal to inspection, no hepatosplenomegaly and bowel sounds present Neuro General: alert, oriented x3, awake, CN's II-XI intact bilaterally and moves all extremities Skin Skin: no rashes or lesions noted Extremities Pulses: Normal: Right Femoral Pulse, Left Femoral Pulse, Right Dorsalis Pedis Pulse, Left Dorsalis Pedis Pulse, Right Posterior Tibial Pulse, Left Posterior Tibial Pulse, Right Radial Pulse, Left Radial Pulse Lower Extremity Edema: None: Bilateral Psych Psychological: normal affect Assessment AND Plan 1. H/O aortic valve replacement Z95.2 Aortic valve replacement with a 23 mm Solo stentless valve, modified MAZE procedure Plan 1. History of aortic valve replacement: Patient is doing quite well status post AVR. Her most recent echocardiogram in May 2017 showed normal functioning aortic valve, and normal LV function with an RVSP of 34 mmHg. Patient has an active and up-to-date SBE prophylaxis card and is using it regularly. Pressures well controlled. Continue aspirin, Coreg. 2. Hyperlipidemia E78.5 Plan 2. Hyperlipidemia: Her LDL and HDL cholesterol are fairly well-controlled. Continue Pravachol. 3. Atrial fibrillation I48.91 Plan 3. Atrial fibrillation: Currently normal sinus rhythm. She is status post left atrial appendage ligation. Continue Coreg. Do not believe she requires anticoagulation at this time. 4. Return office in 6 months. This note was generated using a voice recognition system and there may be incorrect words, spelling or punctuation that were not noted when reviewing the office note prior to saving. Plan Detail Goals Improve nerve function Decrease spasm Follow Up +6M (Lui) Coding Level of Care Code Off vis,est,level 3 Diagnoses H/O aortic valve replacement Z95.2 Hyperlipidemia E78.5 Atrial fibrillation I48.91 Coding Level of Care Code Off vis,est,level 3 Diagnoses H/O aortic valve replacement Z95.2 Hyperlipidemia E78.5 Atrial fibrillation I48.91 10/01/17 6938 <Electronically signed by Jayro Poe MD> Date Jayro Poe MD Cosigner Signature: Date (if applicable) CC: CHIROPRACTIC REPORT Observed: 09/01/2017 Status: F Source: [place] 9:44 AM [facility] [address] [place] [id number] OFFICE VISIT Date of Service: 08/31/17 MR#: [id number] Acct: [id number] Name: ALE BACA Rep #: [id number] : 1950 Provider: Galilea Valentin D.C. Age/Sex: 66/F [place] [facility] [place]: S[place] Intake Vital Signs08/31/17 Height 5 ft 08/31/17 Weight: 194 lb 9 oz 08/31/17 Body Mass Index (BMI) 38.0 Intake Visit Reasons: back pain Is patient in pain?: Yes Allergies Penicillins Allergy (Severe, Verified 07/20/17 13:41) Rash clarithromycin [From Biaxin] Allergy (Intermediate, Verified 07/20/17 13:41) Rash erythromycin base [Erythromycin Base] Allergy (Intermediate, Verified 07/20/17 13:41) Rash cat dander Adverse Reaction (Intermediate, Verified 07/20/17 13:41) SNEEZING Alternaria Mold Spores Allergy (Intermediate, Uncoded 07/20/17 13:41) SNEEZING Aspergillus Mold Spores Allergy (Intermediate, Uncoded 07/20/17 13:41) SNEEZING dust Allergy (Intermediate, Uncoded 07/20/17 13:41) SNEEZING Medications Pravastatin Sodium [Pravachol] 40 mg PO QHS 11/07/13 [History Confirmed 07/20/17] Metformin HCl [Glucophage] 500 mg PO DAILY 11/28/13 [History Confirmed 07/20/17] Multivitamins,Therapeutic [Multivitamin] 1 tab PO DAILY 04/20/14 [History Confirmed 07/20/17] Aspirin 325 mg PO DAILY@0800 09/22/16 [History Confirmed 07/20/17] Allopurinol [Zyloprim] 200 mg PO DAILY #180 tab 01/26/17 [Rx Confirmed 05/20/17] Hydroxyurea [Hydrea] 1,000 mg PO DAILY #180 cap 03/04/17 [Rx Confirmed 05/20/17] Acidophilus Probiotic PO DAILY 04/21/17 [History Confirmed 05/20/17] temazepam 15 mg capsule 15 mg PO ONCE 05/20/17 [History Confirmed 05/20/17] vit C,E,zinc,copper-syfsu9w 250 mg-lutein 5 mg-zeaxanthin 1 mg capsule cap PO 05/20/17 [History Confirmed 05/20/17] zinc 50 mg tablet 50 mg PO QDAY 05/20/17 [History Confirmed 05/20/17] carvedilol 6.25 mg tablet 6.25 mg PO BID #180 tab 08/17/17 [Rx] PFSH Medical History Cholecystectomy planned (Acute) Gastritis (Acute) Gout (Acute) Humeral head fracture (Acute) Supraventricular tachycardia (Acute) Trigger finger (Acute) Diabetes mellitus type 2, controlled (Chronic) Herniated disc (Chronic) Left ventricular hypertrophy (Chronic) Osteoarthritis (Chronic) Surgical History H/O arthroscopy of left knee (Acute) History of meniscectomy of left knee (Acute) History of tubal ligation (Acute) Family History Father Heart failure Kidney disease Mother Alcoholism Grandfather Heart disease Social History Smoking Status: Former smoker HPI back pain : Chief Complaint: back pain Visit Number: 1 Referral source: Ad in elevator Details: ALE BACA is a 66 year old F who presents with low back pain and a 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 This is often irritated my nerve root irritation and she feels she needs an adjustment. Ale does have history of disc bulges at L4-5 L5-S1 which have been present for years. She states that with prolonged standing or doing dishes she does experience a dull ache in the mid-low back which subsides when sitting. The patient denies any neck or mid back pain, when the patient does get a rash she states it does itch but never experiences any burning or tingling. Onset: 12/29/16 Location: neck,mid-low back Duration: intermittent Aggravating or associated factors: standing Relieving factors: sitting Pain Quality: aching, dull Exam Musc General: Yes normal gait, joint tenderness (C4, C5, C6, T1, T2, T6, L3, L4, L5) and decreased ROM; no normal posture (high left shoulder, left shoulder winging) Cervical Spine: loss of normal cervical lordosis, pain with cervical ROM with lateral flexion to right, with lateral flexion to left and with extension, cervical spasm bilateral lower: trapezius and paracervical muscles, cervical ROM abnormal lateral flexion to the right decreased, lateral flexion to the left decreased and extension decreased Thoracic/Lumbar Spine: thor and lumb spine abnorm to inspection (high left shoulder and winging scapula), pain with thoraco-lumbar ROM with forward flexion, thoraco-lumbar ROM limited with forward flexion, thoraco-lumbar spasm bilaterally in the mid thoracic and in the lower lumbar and on the left greater than right (upper thoracic) Neuro General: alert, awake, oriented x3, gait normal, normal light touch, pain and propioception, no focal motor deficits Ortho Test CERVICAL Compression pain: Negative Distraction pain: relief Kwasi's pain: Negative Valsalvas: Negative Shoulder depression pain: Left (L>R) THORACIC Schepelmanns pain: Negative Carrington: Positive (L thoracic curve) LUMBAR Kemps: Negative Valsalvas: Negative SLR: Negative Iliac Compression: Negative Office Procedures Chiropractic Treatments Procedures Manipulation: 3-4 regions (C4, C6, T1, T6, L3, L5) Assessment AND Plan Problems 1. Segmental and somatic dysfunction of lumbar region M99.03 2. Segmental and somatic dysfunction of cervical region M99.01 3. Segmental and somatic dysfunction of thoracic region M99.02 Plan Follow up PRN. Orders Orders: Plan Detail Goals Improve nerve function Decrease spasm Follow Up PRN Coding Level of Care Code Off vis,new,level 3 Diagnoses Segmental and somatic dysfunction of lumbar region M99.03 Segmental and somatic dysfunction of cervical region M99.01 Segmental and somatic dysfunction of thoracic region M99.02 Additional Codes Procedures - Manipulation: 3-4 regions ([id number]) 09/01/17 0998 <Electronically signed by Galilea Valentin D.C.> Date Galilea Valentin D.C. Cosigner Signature: Date (if applicable) CC: CBC W/DIFF, AUTOMATED Collected: 07/16/2017 Status: F Source: [place] 9:41 AM [facility] [place] [facility] Order Comment: Reason for Laboratory Test . TYPE CODE TESTS RESULT OUT OF RANGE REFERENCE UNITS LAB L100.1000 4.4-11.0 K/mm3 Normal WBC 6.8 LAB L100.1200 4.2-5.4 M/mm3 Low RBC 3.63 LAB L100.1300 12.0-15.0 g/dl Normal HGB 13.8 LAB L100.1400 37-47 % Normal HCT 41.1 LAB L100.1500 81-99 fL High MCV 113.2 LAB L100.1600 27.0-32.0 pg High MCH 38.0 LAB L100.1700 32-36 g/gl Normal MCHC 33.6 LAB L100.1810 11.6-14.6 % Normal RDW CV 14.1 LAB L100.1820 35.1-43.9 fl High RDW SD 56.3 LAB L100.1900 150-450 K/mm3 Normal PLT 181 LAB L100.2000 6.2-12.0 fl Normal MPV 10.5 LAB L100.2100 47-70 % Normal NEUT% 67.6 LAB L100.2200 19-41 % Normal LY% 22.7 LAB L100.2300 0-10 % Normal MONO% 7.2 LAB L100.2400 0-5 % Normal EO% 2.3 LAB L100.2500 0-1 % Normal BASO% 0.1 LAB L100.2550 0.0-0.9 % Normal IM GRAN % 0.100 Result Comment: IG% - Immature Granulocytes (promyelocytes, myelocytes and metamyelocytes) > 1% indicates that a LEFT SHIFT is Present. LAB L100.2620 2.0-7.7 X10 3/uL Normal Absolute Neut 4.6 LAB L100.2720 0.83-4.51 X10 3/ul Normal Absolute Lymph 1.55 Performed By: #### L100.0100 #### [facility] [address] [place], [address] COMPREHENSIVE METABOLIC Collected: 07/16/2017 Status: F Source: LISANDRA MARTÍNEZ 9:41 AM [facility] Order Comment: Reason for Laboratory Test 3 month f/u, high risk medication Reason for Laboratory Test . TYPE CODE TESTS RESULT OUT OF RANGE REFERENCE UNITS LAB L501.0100 74-106 mg/dL High GLU 196 Result Comment: Fasting Glucose result greater than or equal to 126 mg/dL suggests DIABETES MELLITUS per A.D.A. criteria. Please note revised GLUCOSE reference range effective 2017. LAB L501.1000 7-18 mg/dL Normal BUN 11 LAB L501.1100 0.55-1.02 mg/dL Normal CREAT,SERUM 0.66 Result Comment: The validity of the calculated GFR AND GFRAA in patients over 70 years has not been determined. Clinical correlation is essential. LAB L501.1110 >60 mL/min Normal EST GFR 95 Result Comment: Non- GFR Calc LAB L501.1115 >60 mL/min Normal EST GFR - AA 115 Result Comment: GFR Calc LAB L501.1300 10-20 RATIO Normal BUN/CRE 16.7 LAB L501.1500 6.4-8.2 g/dL T Normal PROT 7.1 LAB L501.1800 3.2-5.0 g/dL Normal ALB 3.8 LAB L501.1950 2.2-4.2 g/dL Normal GLOB 3.3 LAB L501.2000 0.9-2.4 RATIO Normal A/G 1.2 LAB L501.2200 8.5-10.1 mg/dL CA Normal 9.2 LAB L501.4100 15-37 U/L Normal AST 24 LAB L501.4305 45-117 U/L Normal ALK P 61 LAB L501.4405 13-56 U/L Normal ALT 24 Result Comment: Please note revised ALT reference range effective 2017. LAB L501.4600 0.20-1.00 mg/dL Normal T BILI 0.90 LAB L501.5300 136-145 mmol/L Normal NA 138 LAB L501.5600 3.5-5.1 mmol/L Normal K 3.9 LAB L501.5900 98-107 mmol/L Normal CL 104 LAB L501.6100 21.0-32.0 mmol/L Normal CO2 27.0 LAB L501.6200 5-15 Normal GAP 7 Performed By: #### L500.4050 #### [facility] [address] [place], [address] ALLERGIES ALLERGIES DATE TYPE / CODE NAME / CODE REACTION SEVERITY SOURCE Drug Penicillins/F0010 Rash SV [place] 9 Allergy/263254856( 00149(RXNORM) Community SNOMED CT) Hospital Repository Drug erythromycin Rash [place] 9 Allergy/683592929( base/I763138923(R Community SNOMED CT) XNORM) Hospital Repository Drug clarithromycin/F0 Rash MO [place] 9 Allergy/362516113( 37765412(RXNORM) Community SNOMED CT) Hospital Repository Drug cat SNEEZING [place] 9 Allergy/202894065( dander/I476006342 Community SNOMED CT) (RXNORM) Hospital Repository Miscellaneous Alternaria Mold SNEEZING [place] 8 Allergy/106440822( Spores Community SNOMED CT) Hospital Repository Miscellaneous Aspergillus Mold SNEEZING MO [place] 8 Allergy/135014911( Spores Community SNOMED CT) Hospital Repository Miscellaneous dust SNEEZING MO [place] 8 Allergy/583957125( Community SNOMED CT) Hospital Repository ENCOUNTERS ENCOUNTERS ADMIT/DISCHARGE ACCOUNT ADMITTING ENCOUNTER LOCATION SOURCE NUMBER CLASS 05/25/2018 [id number] Ambulatory [place] Lis[place] 6 [facility] ing:LAB.FUTUR Repository E 05/24/2018/ [id number] Ambulatory BMSBuilding:B [place] 9 2 MS.WHG [facility] 05/13/2018/ [id number] Ambulatory BMSBuilding:B [place] 8 2 MS.SMO [facility] 05/05/2018 [id number] Ambulatory BMSBuilding:B [place] 1 MS.CF.WMO [facility] [place] [place] 05/05/2018 [id number] Ambulatory [place] 8 [facility] ing:OMD Repository 05/03/2018 [id number] Ambulatory [place] 4 [facility]BFHLAB Repository 04/23/2018 [id number] Ambulatory [place] 3 [facility] ing:BFHLAB Repository 04/05/2018/ [id number] Ambulatory BMSBuilding:B [place] 8 6 MS.[facility] Repository 03/02/2018 [id number] Ambulatory [place] 5 [facility] ing:OPBI Repository 02/23/2018 [id number] [place]ulatory [place] 2 [facility] ing:HPRAD Repository 02/23/2018/ [id number] Ambulatory BMSBuilding:B [place] 8 7 MS.[facility] Hospital Repository 02/08/2018 [id number] Ambulatory [place] 4 [facility] Hospital ing:OPUS Repository 02/03/2018 [id number] Ambulatory BMSBuilding:B [place] 2 MS.CF.[facility] Repository 10/26/2017 [id number] Ambulatory BMSBuilding:B [place] 2 MS.[facility] Repository 10/23/2017 [id number] Ambulatory [place] 7 [facility] ing:BFHLAB Repository 10/05/2017/ [id number] Ambulatory BMSBuilding:B [place] 8 2 MS.[facility] Repository 10/01/2017/ [id number] Ambulatory BMSBuilding:B [place] 8 6 MS.[facility] Hospital Repository 09/29/2017 [id number] Ambulatory B[place] 1 [facility] Hospital Repository 08/31/2017/ [id number] Ambulatory BMSBuilding:B [place] 8 3 MS.[facility] Hospital Repository 07/20/2017 [id number] Ambulatory BMSBuilding:B [place] 4 MS.[facility] Repository 07/16/2017 [id number] [facility] ing:BFHLAB Repository PAYERS PAYERS ENCOUNTER GUARANTOR PAYER SUBSCRIBER SOURCE 05/25/2018 ALE BARAKATA4606 Primary Insurance:TIFFANIE HARRIS: [place] MEDICAREPolicy [id number] Number[facility] Hospital [address]Idt: (330) [id number] Repository [phone] (HP) Date:8930-00-00CH [place] [id number], [place] [address]QQ: 05/25/2018 Secondary ALE A SERRADOB: [place] Insurance:AARolicy [id number] Community Number: Hospital [id number] Repository Date:5783-11-24Cz [address], [place] [address]FG: 05/25/2018 Tertiary NOT GIVENUNK [place] Insurance:SELF PAY [facility] Number: Effective Repository Date:2018-05-25 05/24/2018 ALE A [id number] Primary Insurance:RR ALE A SERRADOB: [place] MEDICAREPolicy [id number] [facility] Number[place] Hospital [id number]: (330) [id number] Repository [phone] (HP) Date:6041-04-38JS [address], [place] [address]MC: 05/24/2018 Secondary ALE A SERRADOB: [place] [facility] [id number] Community Number: Hospital [id number] Repository Date:2193-44-53Um [address], [place] [address]QW: 05/24/2018 Tertiary NOT GIVENUNK [place] Insurance:SELF PAY [facility] Number: Effective Repository Date:2018-05-24 05/13/2018 ALE A [id number] Primary Insurance:RR ALE A SERRADOB: [place] COUN[place] MEDICAREPolicy [id number] Number[facility] Hospital [address]Nel: (330) [id number] Repository [phone] (HP) Date:3185-61-08CM [place] [id number], [place] [address]OM: 05/13/2018 Secondary ALE A SERRADOB: [place] Insurance:AARPPolicy [id number] Community Number: Hospital [id number] Repository Date:4015-91-52Xe [address], [place] [address]YK: 05/13/2018 Tertiary NOT GIVENUNK [place] Insurance:SELF PAY Community [facility] Number: Effective Repository Date:2018-05-12 05/05/2018 ALE BARAKATA4606 Primary Insurance:RR ALE BARAKATADOB: [id number] Number[place] Hospital [id number]: 330 [id number] Repository [phone] () Date:4843-95-57FF [address] [address]BTXSXFK, [place] [address]DW: 05/05/2018 Secondary ALE BARAKATADOB: [place] Insurance:AARPPolicy [id number] Community Number: Hospital [id number] Repository Date:8436-47-14[address], [place] [address]SA: 05/05/2018 Tertiary NOT GIVENUNK [place] Insurance:SELF PAY Community [facility] Number: Effective Repository Date:2018-05-05 05/05/2018 ALE BARAKATA4606 Primary ALE BARAKATADOB: [place] COUN[place] Insurance:MEDICARE [id number] [place] PART A [facility] [address]Mfb: (330) Number: Repository [phone] () [id number] Date:2013-09-15 05/05/2018 Secondary ALE A ROSHNIADOB: [place] Insurance:AARPPolicy [id number] Community Number: Hospital [id number] Repository Date:6181-57-33Xo [address], [place] [address]TL: 05/05/2018 Tertiary NOT GIVENUNK [place] Insurance:SELF PAY Community [facility] Number: Effective Repository Date:2016-10-15 05/03/2018 ALE A [id number] Primary ALE A SERRADOB: [place] COUN[place] Insurance:MEDICARE [id number] [place] [facility] [address]Qoc: (330) Number: Repository [phone] () [id number] Date:2018-05-03 05/03/2018 Secondary ALE A SERRADOB: [place] Insurance:AARPPolicy [id number] Community Number: Hospital [id number] Repository Date:9014-52-84Lk [address], [place] [address]DQ: 05/03/2018 Tertiary NOT GIVENUNK [place] Insurance:SELF PAY Community [facility] Number: Effective Repository Date:2018-05-03 04/23/2018 ALE A [id number] Primary ALE A SERRADOB: [place] COUN[place] Insurance:MEDICARE [id number] [place] [facility] [address]Psy: (330) Number: Repository [phone] () [id number] Date:2018-04-23 04/23/2018 Secondary ALE A SERRADOB: [place] Insurance:AARPPolicy [id number] Community Number: Hospital [id number] Repository Date:2179-69-59Di [address], [place] [address]TS: 04/23/2018 Tertiary NOT GIVENUNK [place] Insurance:SELF PAY Community [facility] Number: Effective Repository Date:2018-04-23 04/05/2018 ALE A [id number] Primary Insurance:RR ALE A SERRADOB: [place] COUN[place] MEDICAREPolicy [id number] [place] Number: Hospital [id number]: (330) [id number] Repository [phone] () Date:6141-30-75UZ [facility] [address]UJWCIET, [place] [address]WM: 04/05/2018 Secondary ALE A SERRADOB: [place] Insurance:AARPPolicy [id number] Community Number: Hospital [id number] Repository Date:1782-22-20La [address], [place] [address]RL: 04/05/2018 Tertiary NOT GIVENUNK [place] Insurance:SELF PAY Community [facility] Number: Effective Repository Date:2018-03-29 03/02/2018 ALE A [id number] Primary ALE A SERRADOB: [place] Insurance:MEDICARE [id number] [facility] [address]Jkb: (330) Number: Repository [phone] ) [id number] Date:2018-02-03 03/02/2018 Secondary ALE A SERRADOB: [place] Insurance:AARPPolicy [id number] Community Number: Hospital [id number] Repository Date:9585-05-53Zs [address], [place] [address]BI: 03/02/2018 Tertiary NOT GIVENUNK [place] Insurance:SELF PAY [facility] Number: Effective Repository Date:2018-02-03 02/23/2018 ALE A [id number] Primary ALE A SERRADOB: [place] Insurance:MEDICARE [id number] [facility] [address]Uad: (330) Number: Repository [phone] () [id number] Date:2018-02-23 02/23/2018 Secondary ALE A SERRADOB: [place] Insurance:AARPPolicy [id number] Community Number: Hospital [id number] Repository Date:1789-97-49Rb [address], [place] [address]YC: 02/23/2018 Tertiary NOT GIVENUNK [place] Insurance:SELF PAY Community [facility] Number: Effective Repository Date:2018-02-23 02/23/2018 ALE A [id number] Primary Insurance:RR ALE A SERRADOB: [place] MEDICARE[place] [id number] Number: Hospital [id number]: 330 [id number] Repository [phone] (HP) Date:0596-22-85VH [place] [id number], [place] [address]NI: 02/23/2018 Secondary ALE A SERRADOB: [place] Insurance:AARPPolicy [id number] Community Number: Hospital [id number] Repository Date:4571-95-17Cj [address]Czzjdwf, [place] [address]YL: 02/23/2018 Tertiary NOT GIVENUNK [place] Insurance:SELF PAY Community [facility] Number: Effective Repository Date:2018-02-23 02/08/2018 ALE A [id number] Primary ALE A SERRADOB: [place] COUN[place] Insurance:MEDICARE [id number] [place] PART A [facility] [address]Wta: (330) Number: Repository [phone] () [id number] Date:2018-02-04 02/08/2018 Secondary ALE A SERRADOB: [place] Insurance:AARPPolicy [id number] Community Number: Hospital [id number] Repository Date:8060-81-00Ku [address]Jy[place], [place] [address]OW: 02/08/2018 Tertiary NOT GIVENUNK [place] Insurance:SELF PAY Community [facility] Number: Effective Repository Date:2018-02-04 02/03/2018 ALE A [id number] Primary Insurance:RR ALE A SERRADOB: [place] MEDICAREPolicy [id number] [place] Number: Hospital [id number]: (330) [id number] Repository [phone] (HP) Date:0308-86-59QM [address] [address]PARBTLP, [place] [address]EK: 02/03/2018 Secondary ALE A SERRADOB: [place] Insurance:AARPPolicy [id number] Community Number: Hospital [id number] Repository Date:7173-96-61Dd [address]kpfs, [place] [address]HI: 02/03/2018 Tertiary NOT GIVENUNK [place] Insurance:SELF PAY Community [facility] Number: Effective Repository Date:2018-02-03 10/26/2017 ALE [id number] Primary Insurance:RR ALERakel BARAKATADOB: [place] COUN[place] MEDICAREPolicy [id number] Number: Hospital [address]Gpf: 330 [id number] Repository [phone] () Date:1416-16-28IX [address] [address]KOXRUAE, [place] [address]WN: 10/26/2017 Secondary ALE A ROSHNIADOB: [place] Insurance:AARPPolicy [id number] Community Number: Hospital [id number] Repository Date:5399-55-92Rp [address]Bctkksh, [place] [address]DO: 10/26/2017 Tertiary NOT GIVENUNK [place] Insurance:SELF PAY Community [facility] Number: Effective Repository Date:2017-10-26 10/23/2017 ALERakel [id number] Primary ALE [place] BARAKATADOB: [place] COUN[place] Insurance:MEDICARE [id number][place] PART A [facility] [address]Kcx: (330) Number: Repository [phone] () [id number] Date:2017-10-23 10/23/2017 Secondary ALE A ROSHNIADOB: [place] Insurance:AARPPolicy [id number] Community Number: Hospital [id number] Repository Date:7441-35-62SS [address]YXXCQJN, [place] [address]LI: 10/23/2017 Tertiary NOT GIVENUNK [place] Insurance:SELF PAY Community [facility] Number: Effective Repository Date:2017-10-23 10/05/2017 ALE A [id number] Primary Insurance:RR ALE A SERRADOB: [place] MEDICARE[place] [id number] Number: Hospital [id number]: (330 [id number] Repository [phone] (HP) Date:1574-03-58PX [address] [address]SO: 10/05/2017 Secondary ALE A SERRADOB: [place] Insurance:AARPPolicy [id number] Community Number: Hospital [id number] Repository Date:9142-09-05QV [address], [place] [address]ME: 10/05/2017 Tertiary NOT GIVENUNK [place] Insurance:SELF PAY Community [facility] Number: Effective Repository Date:2017-10-01 10/01/2017 ALE A [id number] Primary Insurance:RR ALE A SERRADOB: [place] COUN[place] MEDICAREPolicy [id number] [facility] Number[facility] Hospital [id number]: (330 [id number] Repository [phone] (HP) Date:9068-75-60XI [address] [address]FH: 10/01/2017 Secondary ALE A SERRADOB: [place] Insurance:AARPPolicy [id number] Community Number: Hospital [id number] Repository Date:0629-94-24Sw [address], [place] [address]HE: 10/01/2017 Tertiary NOT GIVENUNK [place] Insurance:SELF PAY Community [facility] Number: Effective Repository Date:2017-10-01 09/29/2017 ALE A [id number] Primary Insurance:RR ALE A SERRADOB: [place] MEDICAREPolicy [id number] [facility] [place] Number: Hospital [id number]: (330) [id number] Repository [phone] (HP) Date:3403-77-67MV [place] [id number], [place] [address]DW: 09/29/2017 Secondary ALE A SERRADOB: [place] Insurance:AARPPolicy [id number] Community Number: Hospital [id number] Repository Date:5794-21-61Vo [address]Dxwsxwk, [place] [address]WH: 09/29/2017 Tertiary NOT GIVENUNK [place] Insurance:SELF PAY Community [facility] Number: Effective Repository Date:2017-09-29 08/31/2017 ALE BARAKATA4606 Primary Insurance:RR ALE BARAKATADOB: [place] MEDICAREPolicy [id number] Number[place] Hospital [address]Tub: 330 [id number] Repository [phone] (HP) Date:6874-36-37RT[address] [address]WR: 08/31/2017 Secondary ALE BARAKATADOB: [place] Insurance:AARPPolicy [id number] Community Number: Hospital [id number] Repository Date:1883-35-54Lr [address], [place] [address]GD: 08/31/2017 Tertiary NOT GIVENUNK [place] Insurance:SELF PAY Community [facility] Number: Effective Repository Date:2017-08-31 07/20/2017 ALE BARAKATA4606 Primary Insurance:RR ALE ALMARAZB: [place] COUN[place] MEDICAREPolicy [id number]ty [facility] Number[place] Hospital [id number]: (330 [id number] Repository [phone] (HP) Date:5184-31-04YA [address] [address]LH: 07/20/2017 Secondary ALE BARAKATADOB: [place] Insurance:AARPPolicy [id number] Community Number: Hospital [id number] Repository Date:2608-20-21Lr [address]Ovqwsro, [place] [address]OK: 07/20/2017 Tertiary NOT GIVENUNK [place] Insurance:SELF PAY Community [facility] Number: Effective Repository Date:2017-07-20 07/16/2017 ALE BARAKATA4606 Primary ALE ALMARAZB: [place] COUN[place] Insurance:MEDICARE [id number] [facility] [address]Zim: (330) Number: Repository [phone] HP) [id number] Date:2017-07-16 07/16/2017 Secondary ALE ALMARAZB: [place] Insurance:AARPPunity hospitaly [id number] [facility] Number: Hospital [id number] Repository Date:3327-37-28TL [address], [place] [address]NX: 07/16/2017 Tertiary NOT GIVENUNK [place] Insurance:SELF PAY [facility] Number: Effective Repository Date:2017-07-16
== END ==
PROVIDERS: Family Provider Family Medicine; PCP Family Medicine; Visit Provider Internal Medicine Medical Oncology
DX: D45 Polycythemia vera (principal)
CPT/HCPCS: 36415; 80053; 82728; 83540; 83550; 85025

== ENCOUNTER → 2018-07-19 13:00 | Outpatient (CLI) | payer MEDICARE, OTHER, SELFPAY ==
[2015-11-29 11:48] VITALS: BMI 37.0
[2018-07-08 13:12] VITALS: BMI 32.4
== END ==
PROVIDERS: Family Provider Family Medicine; PCP Family Medicine; Referring Provider Nurse Practitioner Acute Care; Visit Provider Nurse Practitioner Acute Care
DX: G47.33 Obstructive sleep apnea (adult) (pediatric) (principal)
CPT/HCPCS: 98960; G0463

== ENCOUNTER → 2018-07-26 13:28 | Outpatient (CLI) | payer MEDICARE, OTHER, SELFPAY ==
[2015-11-29 11:48] VITALS: BMI 37.0
[2018-07-08 13:12] VITALS: BMI 32.4
== END ==
PROVIDERS: Family Provider Family Medicine; PCP Family Medicine; Referring Provider Family Medicine; Visit Provider Family Medicine
DX: G47.33 Obstructive sleep apnea (adult) (pediatric) (principal)

== ENCOUNTER → 2018-08-19 13:00 | Outpatient (CLI) | payer MEDICARE, OTHER, SELFPAY ==
[2015-11-29 11:48] VITALS: BMI 37.0
[2018-07-28 14:07] VITALS: BMI 32.5
== END ==
PROVIDERS: Family Provider Family Medicine; PCP Family Medicine; Referring Provider Nurse Practitioner Acute Care; Visit Provider Nurse Practitioner Acute Care
DX: Z00.00 Encounter for general adult medical examination without abnormal findings (principal)

== ENCOUNTER 2018-09-05 09:00 | Emergency (ER) | payer MEDICARE, OTHER, SELFPAY ==
[2015-11-29 11:48] VITALS: BMI 37.0
[2018-07-28 14:07] VITALS: BMI 32.5
[2018-09-05 09:00] VITALS: BP 144/81; PULSE 69; RESP 18; TEMP 36.8; O2SAT 100; BMI 32.2
--- NOTE | 2018-09-05 09:24 | RAD_ITS ---
STUDY: X-RAY - LEFT HUMERUS REASON FOR EXAM: Female, 67 years old. Fall. TECHNIQUE: 3 view(s) of the humerus. COMPARISON: None. FINDINGS: There is diffuse demineralization of the humerus. There is a impacted surgical neck fracture. No dislocation is visualized. There are degenerative changes of the acromial clavicular joint. There is no demonstrated soft tissue abnormality. RAD/Humerus min 2 Views IMPRESSION: Proximal humeral fracture. Electronically Signed: Wendy De Los Santos MD at 10:01 EDT Tel , Service support ,
--- NOTE | 2018-09-05 10:34 | ED.VISSUMM ---
- ER Visit Summary Date of Service: 09/05/18 Chief Complaint: Fall History of Present Illness: The patient is a [address] Imer Cummings. She reports that she slipped and fell in the bathtub. Did not hit her head. No loss of consciousness. She reports she has left shoulder pain is 7-10 severity. No neck, back, right shoulder, wrist, or hip pain. She is right-hand dominant. Physical Examination: Vitals: Stable. Afebrile. Neck: No vertebral tenderness. Full ROM without difficulty. Cleared by NEXUS criteria. Back: No vertebral tenderness. General: A&O x 3. NAD. Cardiovascular exam: Regular rate and rhythm, no murmur, rub or gallop. Respiratory exam: Chest nontender. No crepitus. Clear to auscultation bilaterally. No wheezes or stridor. Abdominal exam: Soft, nontender, nondistended, normal bowel sounds. No pain in RUQ or LUQ specifically. No peritoneal signs. Extremity: Severe tenderness to palpation over the left shoulder. Decreased range of motion secondary to pain. She is neurovascular intact distal to this. Test Results: X-ray shows an impacted proximal humerus fracture. Emergency Department Course and Treatment: Patient was treated with Tylenol. She refused stronger pain medications. She was placed in a sling. Treatment Plan: Patient be discharged with Lamar and Colace. Instructed to follow-up Dr. Vallejo in 5-7 days for another exam. Return to the emergency department for any worsening symptoms. Disposition: To home in improved and stable condition. Impression: 1. Left proximal humerus fracture. This note was generated with [employer] dictation software. It may contain incorrect words, spelling, and punctuation that were not noted in review of the chart prior to signing ED Disposition - Plan for ED Patient: Disposition: Home or Assisted Living Instructions: ED Fx Shoulder Prescriptions: Hydrocodone Bitart/Apap 5-325 [Lamar 5MG-325MG] 1 tablet PO Q4H PRN PRN 2 Days #10 tablet PRN Reason: Pain Docusate Sodium [Colace] 100 mg PO DAILY #20 capsule Referrals: Lucia Vallejo DO [STAFF PHYSICIAN] - 5-7 Days
--- NOTE | 2018-09-05 10:38 | NURSING ---
CALLED CASE MANAGEMENT
--- NOTE | 2018-09-05 11:36 | ED.RN ---
PT AND SPOUSE WITH CONCERN OF PLAN OF CARE AT HOME AND ABILITY TO CARE FOR FX UNLESS HOME HEALTH IS INITIATED. SW LETTUCE TRIMMER WAS CONSULTED AND SPOKE TO PT SPOUSE AND WAS ABLE TO PROVIDE RESOURCES FOR HELP WITH HOME CARE. PT SPOUSE VOICED CONCERN THAT DUE TO HOLIDAY HE WAS UNABLE TO REACH THOSE RESOURCES. POSSIBLE ADMISSION WAS DISCUSSED. MANAGER LEARNING ENTERED ROOM TO PLACE SLING ON PT PER PHYSICIAN ORDER AND PT SPOUSE RELAYED THAT IF ALL THAT WAS REQUIRED FOR MANAGEMENT OF PT INJURY WAS THE SLING THEN HE FELT THAT HE WAS ABLE AND CAPABLE OF PROVIDING THAT CARE. THIS NURSE URGED PT SPOUSE TO KEEP RESOURCES PROVIDED TO HIM BY SW FOR THE PURPOSES OF USE SHOULD THE NEED ARISE. PT WAS PROVIDED WITH DC INSTRUCTIONS AND WERE DC HOME ORIGINALLY ORDERED.
== END 2018-09-05 11:56 | disposition home or self-care (01) ==
LOC: ED 09:39
PROVIDERS: Emergency Provider Emergency Medicine; Family Provider Family Medicine; PCP Family Medicine
DX: S42.212A Unspecified displaced fracture of surgical neck of left humerus, initial encounter for closed fracture (principal); W18.2XXA Fall in (into) shower or empty bathtub, initial encounter; Y93.E1 Activity, personal bathing and showering; Y92.9 Unspecified place or not applicable; Y99.9 Unspecified external cause status; I48.91 Unspecified atrial fibrillation; I10 Essential (primary) hypertension; E11.9 Type 2 diabetes mellitus without complications; Z79.82 Long term (current) use of aspirin; Z79.899 Other long term (current) drug therapy; Z86.73 Personal history of transient ischemic attack (TIA), and cerebral infarction without residual deficits; Z87.19 Personal history of other diseases of the digestive system
CPT/HCPCS: 73060; 99283

== ENCOUNTER → 2018-09-28 13:32 | Outpatient (CLI) | payer MEDICARE, OTHER, SELFPAY ==
[2015-11-29 11:48] VITALS: BMI 37.0
[2018-09-23 10:34] VITALS: BMI 32.5
--- NOTE | 2018-09-28 13:33 | RAD_ITS ---
STUDY: X-RAY - LEFT HUMERUS REASON FOR EXAM: Pain, fracture follow-up. TECHNIQUE: 2 view(s) of the humerus. COMPARISON: Radiographs 09/05/2018. FINDINGS: There is osteopenia. There is no significant change of the mildly impacted surgical neck fracture. There is no demonstrated soft tissue abnormality. RAD/Humerus min 2 Views IMPRESSION: No significant change of proximal humeral fracture. Electronically Signed: Missael Gilliam MD at 15:36 EDT Tel , Service support ,
--- NOTE | 2018-09-28 14:07 | RAD_ITS ---
STUDY: X-RAY - LEFT RADIUS AND ULNA REASON FOR EXAM: Pain. TECHNIQUE: 2 view(s) of the forearm. COMPARISON: None. FINDINGS: There is soft tissue swelling of the dorsal forearm. Normal visualized radius. Normal visualized ulna. RAD/Forearm 2 Views IMPRESSION: Soft tissue swelling. Electronically Signed: Missael Gilliam MD at 15:10 EDT Tel , Service support ,
== END ==
PROVIDERS: Family Provider Family Medicine; PCP Family Medicine; Referring Provider Orthopaedic Surgery; Visit Provider Orthopaedic Surgery
DX: S42.302A Unspecified fracture of shaft of humerus, left arm, initial encounter for closed fracture (principal); M79.632 Pain in left forearm; X58.XXXA Exposure to other specified factors, initial encounter; Y93.9 Activity, unspecified; Y92.9 Unspecified place or not applicable; Y99.9 Unspecified external cause status
CPT/HCPCS: 73060; 73090

== ENCOUNTER → 2018-10-01 08:30 | Outpatient (CLI) | payer MEDICARE, OTHER, SELFPAY ==
[2015-11-29 11:48] VITALS: BMI 37.0
[2018-05-24 13:36] VITALS: BMI 32.4
[2018-09-28 13:46] VITALS: BMI 32.5
[2018-10-01 12:27] LABS: Absolute Lymphocyte Count 1.18 X10^3/ul (0.83-4.51); Absolute Neutrophil Count 4.8 X10^3/uL (2.0-7.7); Basophil# 0.02 X10^3/uL; Basophil% 0.3 % (0-1); Eosinophil# 0.11 X10^3/uL; Eosinophils% 1.7 % (0-5); Hematocrit 41.2 % (37-47); Hemoglobin 13.3 g/dl (12.0-15.0); Lymphocyte # 1.18 X10^3/ul (4.0); Mean Corp Hgb Conc 32.3 g/gl (32-36); Mean Corpuscular Hgb 37.2 pg (27.0-32.0); Mean Corpuscular Volume 115.1 fL (81-99); Mean Platelet Vol. 10.2 fl (6.2-12.0); Monocyte% 6.1 % (0-10); Neutrophil # 4.82 X10^3/uL (2.7-7.7); Neutrophil % 73.7 % (47-70); Platelet Count 163 K/mm3 (150-450); RBC Distribution Width CV 13.9 % (11.6-14.6); RBC Distribution Width SD 57.6 fl (35.1-43.9); Red Blood Count 3.58 M/mm3 (4.2-5.4); White Blood Count 6.5 K/mm3 (4.4-11.0)
[2018-10-01 12:32] LABS: POSITIVE DIFFERENTIAL NO
[2018-10-01 12:33] LABS: POSITIVE COUNT NO; POSITIVE MORPHOLOGY NO
[2018-10-01 12:42] LABS: Hemoglobin A1c 5.9 % (4.2-6.3)
[2018-10-01 12:56] LABS: BUN 16 mg/dL (7-18); Creatinine, Serum 0.66 mg/dL (0.55-1.02); Glucose 135 mg/dL (74-106)
[2018-10-01 12:57] LABS: AST(SGOT) 21 U/L (15-37); Alanine Aminotransfer ALT/SGPT 22 U/L (13-56); Albumin, Serum 3.8 g/dL (3.2-5.0); Alkaline Phosphatase 63 U/L (45-117); Anion Gap 7 (5-15); BUN/Creat Ratio 24.3 RATIO (10-20); Bilirubin, Direct 0.29 mg/dL (0.00-0.30); Chloride 108 mmol/L (98-107); Cholesterol 97 mg/dL (200); EST Glomerular Filtration Rate 94 mL/min (>60); Est Glom Filt Rate - Afr Amer 114 mL/min (>60); Globulin 3.4 g/dL (2.2-4.2); High Density Lipoprotein 54 mg/dL; Magnesium 1.9 mg/dL (1.6-2.6); Potassium 3.8 mmol/L (3.5-5.1); Protein, Total 7.2 g/dL (6.4-8.2); Sodium Level 140 mmol/L (136-145); Thyroid Stim Hormone (TSH) 1.15 uIU/mL (0.358-3.74); Triglycerides 77 mg/dL; Uric Acid 4.4 mg/dL (2.6-6.0); Very Low Density Lipoprotein 15 mg/dL (5-40)
== END ==
PROVIDERS: Nurse Practitioner Family; Family Provider Family Medicine; PCP Family Medicine; Visit Provider Family Medicine
DX: I48.0 Paroxysmal atrial fibrillation (principal); R73.01 Impaired fasting glucose; E78.5 Hyperlipidemia, unspecified; E04.2 Nontoxic multinodular goiter; D45 Polycythemia vera
CPT/HCPCS: 36415; 80048; 80061; 80076; 83036; 83735; 84443; 84550; 85025

== ENCOUNTER → 2018-10-28 13:31 | Outpatient (CLI) | payer MEDICARE, OTHER, SELFPAY ==
[2015-11-29 11:48] VITALS: BMI 37.0
[2018-10-28 13:32] VITALS: BMI 34.2
--- NOTE | 2018-10-28 13:32 | RAD_ITS ---
STUDY: X-RAY - LEFT HUMERUS REASON FOR EXAM: Follow-up humeral fracture. TECHNIQUE: 2 view(s) of the humerus. COMPARISON: Radiographs 09/28/2018 and 09/05/2018. FINDINGS: There is osteopenia. There is a mildly impacted surgical neck fracture of the humerus without change in position or alignment. There is increased sclerosis at the fracture site indicating healing. There is no demonstrated soft tissue abnormality. RAD/Humerus min 2 Views IMPRESSION: Healing impacted surgical neck fracture of the humerus. Electronically Signed: Missael Gilliam MD at 14:16 EDT Tel , Service support ,
== END ==
PROVIDERS: Family Provider Family Medicine; PCP Family Medicine; Referring Provider Orthopaedic Surgery; Visit Provider Orthopaedic Surgery
DX: S42.209A Unspecified fracture of upper end of unspecified humerus, initial encounter for closed fracture (principal); X58.XXXA Exposure to other specified factors, initial encounter; Y93.9 Activity, unspecified; Y92.9 Unspecified place or not applicable; Y99.9 Unspecified external cause status
CPT/HCPCS: 73060

== ENCOUNTER → 2018-12-13 15:15 | Outpatient (CLI) | payer MEDICARE, OTHER, SELFPAY ==
[2015-11-29 11:48] VITALS: BMI 37.0
[2018-12-13 15:05] VITALS: BMI 34.2
--- NOTE | 2018-12-13 15:18 | RAD_ITS ---
STUDY: X-RAY - LEFT SHOULDER REASON FOR EXAM: Female, 68 years old. Humeral head fracture TECHNIQUE: 4 view(s) of the shoulder. COMPARISON: October 28, 2018 FINDINGS: Normal glenohumeral articulation. Degenerative hypertrophy at the acromioclavicular joint. Normal acromion. Stable impacted fracture at the surgical neck of the humerus. The soft tissue structures are unremarkable. Normal visualized pulmonary apex. RAD/Shoulder min 2 Views IMPRESSION: Stable impacted humeral neck fracture. Electronically Signed: Daniel Mancini DO at 23:49 EDT Tel [phone], Service support ,
== END ==
PROVIDERS: Family Provider Family Medicine; PCP Family Medicine; Referring Provider Orthopaedic Surgery; Visit Provider Orthopaedic Surgery
DX: S42.209A Unspecified fracture of upper end of unspecified humerus, initial encounter for closed fracture (principal); X58.XXXA Exposure to other specified factors, initial encounter; Y93.9 Activity, unspecified; Y92.9 Unspecified place or not applicable; Y99.9 Unspecified external cause status
CPT/HCPCS: 73030

== ENCOUNTER 2018-12-17 14:00 | Outpatient (RCR) | payer MEDICARE, OTHER, SELFPAY ==
[2015-11-29 11:48] VITALS: BMI 37.0
[2018-09-28 13:46] VITALS: BMI 32.5
--- NOTE | 2018-10-19 14:13 | HP.PTEVAL_ITS ---
Patient's Visit Information ALE ORTIZ is a 68 year old F referred to Physical Therapy by Lucia Mondragon DO with a diagnosis of LEFT PROXIMAL HUMERUS FX. Date of Evaluation: 10/19/18 Physical Therapist: Sharita Rascon PT, Cert MDT - Visit Plan Frequency: 2-3x /Week Duration: 4-6 Weeks Plan: LEFT SHOULDER REHAB STARTING WITH SHOULDER PROM AND PROGRESSING TO STRENGTHEING TOLERATED. PROM ONLY UNTIL PHYSICIAN RE-CHECK NEXT WEEK. POSTURE CORRECTION/STRENGTHEING. MODALITIES NEEDED. - Subjective Findings: Diagnosis: LEFT PROXIMAL HUMERUS FX SEPTEMBER 05 2018. Work/Leisure: RETIRED. Present symptoms: MILD LEFT UPPER ARM PAIN AND TENDERNESS. NO NUMBNESS OR TINGLING. WHOLE ARM ACHES AT TIMES. Present since: SEPTEMBER 05 2018. Pain Scale: Worst - 8/10 Least - 0/10. Currently: 0/10. Commenced as a r esult of: SLIPPED AND FELL IN SHOWER. LOST CONSCIOUSNESS. Symptoms at onset: MULTIPLE BRUISES. LEFT ARM. BUMP ON HEAD. Worse: SHOPPING, MOVING IT, SHRUGGING SHOULDERS. Better: RESTING IN THE SLING. Disturbed sleep: YES - RENTING A RECLINER TO SLEEP IN RIGHT NOW. Previous history/Previous treatment: NO PRIOR LEFT UE INJURIES. Dizziness: NO. Tinnitis: YES. Nausea: NO. Shortness of Breath: NO. Difficulty Swollowing: NO. Gait: NORMAL. Accidents: NO. Unexplained weight loss: NO. Imaging: MOST RECENT ABOUT 3 WEEKS AGO. STATES SHE WAS TOLD IT IS HEALING. PMH/Recent major surgery: PMH: NIDDM, LUMBAR L45S1 HNP, LEFT KNEE MENISCUS REPAIR YEARS AGO. TRIGGER FINGERS ANTONIO HANDS TREATED BY DR. MONDRAGON WITH INJECTIONS NEEDED. 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 POSSIBLE HISTORY OF MINI STROKE - SEE'S DR. GOODWIN. HEART SURGERY 2 YEARS AGO - VALVE REPLACEMENT. RIGHT ARM FX ABOUT 18 MONTHS AGO FROM FALL - REPORTS SHE FEELS IT IS FULLY RECOVERED. OTHER: PATIENT REPORTS THE DOCTOR TOLD HER THAT WHEN SHE COULD DO A PENDULUM EX WITHOUT PAIN SHE COULD START THERAPY AND SHE CAN DO THAT NOW. DOING ELBOW AROM AND PENDULUM EX'S ONLY AT THIS POINT. OK TO TAKE ARM OUT OF SLING NOW BUT NOT ALLOWED TO PICK ANYTHING UP. - Objective THIS PATIENT AMBULATES INDEP'LY INTO PT WITH A SLING ON HER LEFT, GOOD CADANCE AND BALANCE AND NO ASSISTIVE DEVICES. SHE IS ABLE TO DOFF SLING INDEP'LY AND ASSISTS WITH DONNING OF SLING. SHE HAS A LARGE AMT OF ECCYMOSSIS IN THE LEFT ARM AND A LITTLE BIT IN THE FOREARM. SHE DOES NOT HAVE ANY ACUTE TENDERNESS WITH LIGHT PALPATION OF THE SCAPULA, CLAVICLE, AC JOINT OR OTHERWISE IN THE LUE. LUE LIGHT TOUCH SENSATION IS INTACT AND SYMMETRICAL. SHE IS ABLE TO INDEP'LY TRANSFER FROM SIT TO SUPINE AND REVERSE WITHOUT USING HER LEFT UE. SHE HAS GOOD LEFT ELBOW, FOREARM, WRIST AND HAND AROM AND THE ONLY SWELLING (WHICH IS MILD TO MODERATE) IS IN THE UPPER ARM/SHOULDER REGION. PROM L SHLD IN SUPINE: FLEX 90 DEG, ABD 80 DEG, ER WITH 30 DEG ABD IS 20 DEG AND IR TO ABDOMEN. SHE IS ABLE TO PENDULUM HORIZONAL ABD AND ADD, CW AND CCW WITH GOOD PAS SIVE TECHNIQUE AND WITHOUT C/O PAIN. GOOD PAINFREE AROM OF ELBOW, FORARM, WRIST AND HAND. INSTRUCTED PATIENT IN PENDULUM EX 6 TIMES A DAY SPACED THROUGHOUT THE DAY AND AROM OF ELBOW, FOREARM, WRIST AND HAND SEVERAL TIMES A DAY. ALSO INSTRUCTED PATIENT IN PROPER POSTURE CONTROL TO PROMOTE GOOD ALIGNMENT DURING HEALING. INSTRUCTED PATIENT TO WEAN OUT OF SLING NOW TOLERATED BUT TO CONTINUE TO WEAR IN PUBLIC AND NOT ORBITREAD OPERATOR ANYTHING UNTIL REPEAT X-RAYS NEXT WEEK TO CHECK HEALING. PATIENT DEMONSTRATED AND COMMUNICATED A GOOD UNDERSTANDING OF ALL INSTRUCTIONS AFTER GIVEN. - Goals Goal 1:: DECREASE C/O LEFT SHOULDER PAIN. Goal Time Frame: 6-8 Weeks Goal 2:: INCREASE PAINFREE FUNCTIONAL LEFT SHOULDER ROM TO EASE ADL'S Goal Time Frame: 6-8 Weeks Goal 3:: INCREASE PAINFREE FUNCTIONAL LEFT SHOULDER STRENGTH TO EASE ADL'S. Goal Time Frame: 6-8 Weeks Goal 4:: INDEP HEP FOR CONTINUED IMROVEMENT ONCE FORMAL PHYSICAL THERAPY CONCLUDES. Goal Time Frame: 6-8 Weeks - Rehabilitation Potential Rehabilitation Potential: Fair - Anticipated Interventions Patient/Client Instruction: Educate patient on: Condition, Plan of Care, Risk Factors, Benefits of Fitness Program For the Purpose of:: To improve self management Therapeutic Exercise to Include: Strength training, Body mechanics, Postural training, Passive ROM, Active ROM, Scapular Strength/Stabilization For the Purpose of:: To decrease pain, To increase ROM, To improve muscle performance and motor function, To improve ability to perform ADL's, To increase tolerance to activity/condition/position, To improve ability of physical actions for home/community/work/leisure Cryotherapy (ice pack, ice massage): Yes Thermo therapy (hot pack): Yes For the Purpose of:: To decrease pain, To decrease swelling/inflammation, To improve nutrient delivery to tissue Thank you for the opportunity to evaluate your patient. For Medicare and Medicare HMO plans, please review the plan of care and approve it. It will need to be FAXED BACK to us at [phone] for Medicare purposes. For Medicare only, by signing this I certify the plan of care. Please let me know if there are questions or concerns regarding this plan of care. Physician Signature: Date:
--- NOTE | 2018-11-19 10:33 | HP.PTREVAL ---
Lucia Vallejo, DO, It has been my pleasure to treat ALE ORTIZ over the last 11 visits for LEFT PROXIMAL HUMERUS FX. Please see the progress note below for an update on the physical therapy plan of care! Subjective: PATIENT REPORTS THE STRETCHES FELT REALLY GOOD LAST VISIT. REPORTS SHE CAN TELL SHE IS GETTING BETTER. STILL CAN FEEL IT IN THE BICEP AFTER DOING HER HAIR IN THE MORNING BUT THE AREA SHE HAS PAIN IS GETTING SMALLER AND SMALLER. WRIST IS GOOD. TOMORROW IS HOME HEALTH AIDES LAST DAY. 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 Objective/Function: PATIENT IS MAKING GOOD PROGRESS TOWARD ALL SET PT GOALS. AROM IN SITTING OF LEFT SHLD: FLEX - 131 DEG. ABD - 122 DEG. PROM L SHLD IN SUPINE: FLEX 153 DEG, ABD 136 DEG, ER WITH 45 DEG ABD IS 49 DEG AND IR TO 80 DEG. QUICK DASH SCORE HAS IMPROVED FROM 57 TO 19. Plan Plan: *5 LB LIFTING LIMIT*. CONT PER ORIG POC X 10 MORE VISITS WORKING TOWARD SAME GOALS. LEFT SHOULDER REHAB STARTING WITH SHOULDER PROM AND PROGRESSING TO STRENGTHEING TOLERATED. POSTURE CORRECTION/STRENGTHEING. MODALITIES NEEDED. Goals Goal 1:: DECREASE C/O LEFT SHOULDER PAIN. Goal Time Frame: 6-8 Weeks Goal 2:: INCREASE PAINFREE FUNCTIONAL LEFT SHOULDER ROM TO EASE ADL'S Goal Time Frame: 6-8 Weeks Goal 3:: INCREASE PAINFREE FUNCTIONAL LEFT SHOULDER STRENGTH TO EASE ADL'S. Goal Time Frame: 6-8 Weeks Goal 4:: INDEP HEP FOR CONTINUED IMROVEMENT ONCE FORMAL PHYSICAL THERAPY CONCLUDES. Goal Time Frame: 6-8 Weeks Anticipated Interventions Patient/Client Instruction: Educate patient on: Condition, Plan of Care, Risk Factors, Benefits of Fitness Program For the Purpose of:: To improve self management Therapeutic Exercise to Include: Strength training, Body mechanics, Postural training, Passive ROM, Active ROM, Scapular Strength/Stabilization For the Purpose of:: To decrease pain, To increase ROM, To improve muscle performance and motor function, To improve ability to perform ADL's, To increase tolerance to activity/condition/position, To improve ability of physical actions for home/community/work/leisure Cryotherapy (ice pack, ice massage): Yes Thermo therapy (hot pack): Yes For the Purpose of:: To decrease pain, To decrease swelling/inflammation, To improve nutrient delivery to tissue Please do not hesitate to contact me at [phone] by phone or if you have questions or concerns regarding this new plan of care! Sincerely, Sharita Rascon PT, Cert MDT
--- NOTE | 2018-12-13 17:57 | HP.PTREVAL ---
Lucia Vallejo, DO, It has been my pleasure to treat ALE ORTIZ over the last 17 visits for LEFT PROXIMAL HUMERUS FX. Please see the progress note below for an update on the physical therapy plan of care! Subjective: Patient reports she thinks she is doing good. Patient reports she isn't as achy after the ex's as she was and she knows it is getting better. Reports she stopped the wand external rotation and pizza rosas ex's due to forearm, wrist and hand sx's. Objective/Function: PATIENT IS CONTINUING TO MAKE GOOD PROGRESS TOWARD ALL SET PT GOALS. AROM IN SITTING OF LEFT SHLD: FLEX - APPROX 150 DEG. ABD - APPROX 150 DEG. PROM L SHLD IN SUPINE: FLEX 160 DEG, ABD 155 DEG, ER WITH 70 DEG ABD IS 60 DEG AND IR TO 80 DEG. THERE IS NO SIGNIFICANT CHANGE IN DASH SCORE SINCE LAST RE-CHECK 11/19/18. Plan Plan: CONT PER PHYSICIAN RECOMMENDATION AFTER FOLLOW UP TODAY. Goals Goal 1:: DECREASE C/O LEFT SHOULDER PAIN. Goal Time Frame: 6-8 Weeks Goal Progress: Progressing Goal 2:: INCREASE PAINFREE FUNCTIONAL LEFT SHOULDER ROM TO EASE ADL'S Goal Time Frame: 6-8 Weeks Goal Progress: Progressing Goal 3:: INCREASE PAINFREE FUNCTIONAL LEFT SHOULDER STRENGTH TO EASE ADL'S. Goal Time Frame: 6-8 Weeks Goal Progress: Progressing Goal 4:: INDEP HEP FOR CONTINUED IMROVEMENT ONCE FORMAL PHYSICAL THERAPY CONCLUDES. Goal Time Frame: 6-8 Weeks Goal Progress: Progressing Anticipated Interventions Patient/Client Instruction: Educate patient on: Condition, Plan of Care, Risk Factors, Benefits of Fitness Program For the Purpose of:: To improve self management Therapeutic Exercise to Include: Strength training, Body mechanics, Postural training, Passive ROM, Active ROM, Scapular Strength/Stabilization For the Purpose of:: To decrease pain, To increase ROM, To improve muscle performance and motor function, To improve ability to perform ADL's, To increase tolerance to activity/condition/position, To improve ability of physical actions for home/community/work/leisure Cryotherapy (ice pack, ice massage): Yes Thermo therapy (hot pack): Yes For the Purpose of:: To decrease pain, To decrease swelling/inflammation, To improve nutrient delivery to tissue Please do not hesitate to contact me at [phone] by phone or if you have questions or concerns regarding this new plan of care! Sincerely, Sharita Rascon, PT, Cert MDT
--- NOTE | 2018-12-17 14:34 | HP.PTDCSUM ---
HP - PT D/C Summary It has been my pleasure to treat ALE ORTIZ under orders from Lucia Vallejo DO, for the diagnosis of LEFT PROXIMAL HUMERUS FX for a total of 19 visit(s). Discharge Date: 12/17/18 Please see the following information for a summary of their discharge status. - Subjective Subjective: PATIENT REPORTS SHE WAS A LITTLE SORE AFTER LAST VISIT. - Pain LEFT SHOULDER Pain Intensity (Out of 10): 0 LEFT WRIST Pain Intensity (Out of 10): 0 - Overall Improvement % Improvement: 95 - Objective Objective/Function: ALL GOALS BEING MET. READY FOR D/C TO HEP. MEASUREMENTS: AROM IN SITTING OF LEFT SHLD: FLEX - APPROX 150 DEG. ABD - APPROX 150 DEG. PROM L SHLD IN SUPINE: FLEX 160 DEG, ABD 155 DEG, ER WITH 70 DEG ABD IS 60 DEG AND IR TO 80 DEG. - Goals Goal 1:: DECREASE C/O LEFT SHOULDER PAIN. Goal Progress: Goal Met Goal 2:: INCREASE PAINFREE FUNCTIONAL LEFT SHOULDER ROM TO EASE ADL'S Goal Progress: Goal Met Goal 3:: INCREASE PAINFREE FUNCTIONAL LEFT SHOULDER STRENGTH TO EASE ADL'S. Goal Progress: Progressing Goal 4:: INDEP HEP FOR CONTINUED IMROVEMENT ONCE FORMAL PHYSICAL THERAPY CONCLUDES. Goal Progress: Goal Met - Plan Plan: D/C. PATIENT AGREEABLE - D/C Information If there are questions or concerns regarding this patient's physical therapy, please feel free to call me at [phone]. Thank you for the referral of this patient. Sincerely, Sharita Rascon, PT, Cert MDT
== END 2018-12-17 19:00 | disposition home or self-care (01) ==
LOC: PT 14:00
PROVIDERS: Family Provider Family Medicine; PCP Family Medicine; Referring Provider Orthopaedic Surgery; Visit Provider Orthopaedic Surgery
DX: S42.202D Unspecified fracture of upper end of left humerus, subsequent encounter for fracture with routine healing (principal)
CPT/HCPCS: 97110; 97140; 97162; 97530

== ENCOUNTER → 2019-01-11 10:47 | Outpatient (CLI) | payer MEDICARE, OTHER, SELFPAY ==
[2015-11-29 11:48] VITALS: BMI 37.0
[2018-12-30 13:36] VITALS: BMI 34.7
[2019-01-11 12:12] LABS: Anion Gap 7 (5-15); BUN 14 mg/dL (7-18); BUN/Creat Ratio 23.1 RATIO (10-20); Calcium,Total 9.1 mg/dL (8.5-10.1); Chloride 107 mmol/L (98-107); EST Glomerular Filtration Rate 104 mL/min (>60); Est Glom Filt Rate - Afr Amer 126 mL/min (>60); Glucose 97 mg/dL (74-106); Potassium 3.9 mmol/L (3.5-5.1); Sodium Level 143 mmol/L (136-145)
[2019-01-11 12:20] LABS: Vitamin D,25 Hydroxy 39.6 ng/mL (29.95-100.01)
== END ==
PROVIDERS: Family Provider Family Medicine; PCP Family Medicine; Visit Provider Family Medicine
DX: M85.80 Other specified disorders of bone density and structure, unspecified site (principal)
CPT/HCPCS: 36415; 80048; 82306

== ENCOUNTER → 2019-01-20 13:49 | Outpatient (CLI) | payer MEDICARE, OTHER, SELFPAY ==
[2015-11-29 11:48] VITALS: BMI 37.0
[2018-12-30 13:36] VITALS: BMI 34.7
--- NOTE | 2019-01-20 13:51 | ECHOD_ITS ---
Reason For Study: VALVE REPL Procedure This was a 2D Doppler, Color Flow transthoracic echocardiogram. Exam performed in department. Left Ventricle Normal size and thickness. The estimated ejection fraction is 65 %. Septal motion consistent with IVCD. No regional wall motion abnormalities noted. Right Ventricle Mildly dilated right ventricle. Normal systolic function. Atria The left atrium is moderately enlarged. The right atrium is mildly enlarged. Normal atrial septum. Mitral Valve Mild diffuse mitral valve thickening. Severe mitral annular calcification extending into the posterior leaflet. Mild-Moderate (1-2+) mitral valve insufficiency. Tricuspid Valve Normal tricuspid valve. Mild (1+) tricuspid valve insufficiency. Right ventricular systolic pressure estimated to be 37 mmHg. Mild pulmonary hypertension. Aortic Valve Peak aortic valve gradient 35 mmHg. Mean aortic valve gradient 17 mmHg. Calculated aortic valve area (continuity equation) is 1.6 cm2. Stable appearing bioprosthetic aortic valve apparatus. Pulmonic Valve The pulmonic valve is not well visualized. Great Vessels Normal aortic root. Normal arch. The inferior vena cava is dilated. No collapse of the inferior vena cava. Pericardium/Pleural No pericardial effusion. MMode/2D Measurements & Calculations LVIDd: 4.5 cm IVSd: 1.0 cm LVOT diam: 2.0 cm LVIDs: 3.1 cm LVPWd: 1.2 cm LVOT area: 3.3 cm2 RVDd: 3.8 cm FS: 31.2 % Ao root diam: 2.9 cm LAV(MOD-bp): 80.8 ml LVAd ap4: 36.7 cm2 LAV(MOD-bp) Indexed: 45.8 ml/m2 EDV(MOD-sp4): 123.3 ml LAV(MOD-sp2): 84.9 ml EDV(sp4-el): 132.5 ml LAV(MOD-sp4): 70.0 ml LVAs ap4: 21.6 cm2 ESV(MOD-sp4): 54.9 ml ESV(sp4-el): 57.9 ml EF(MOD-sp4): 55.5 % EF(sp4-el): 56.3 % SV(MOD-sp4): 68.4 ml SV(sp4-el): 74.6 ml LA A4 area: 23.2 cm2 LA dimension(2D): 4.5 cm RA A4 area: 20.8 cm2 Doppler Measurements & Calculations Lat Peak E' Celso: 7.2 cm/sec Med Peak E' Celso: 5.2 cm/sec MV V2 max: 142.1 cm/sec MV max P.1 mmHg MV V2 mean: 67.3 cm/sec MV mean P.2 mmHg MV V2 VTI: 33.0 cm MVA(VTI): 3.2 cm2 Ao V2 max: 295.7 cm/sec LV V1 max: 145.5 cm/sec SV(LVOT): 105.9 ml Ao max P.2 mmHg LV V1 max P.5 mmHg Ao V2 mean: 195.5 cm/sec LV V1 mean P.7 mmHg Ao mean P.1 mmHg LV V1 mean: 100.8 cm/sec Ao V2 VTI: 63.3 cm LV V1 VTI: 32.1 cm PASCUAL(I,D): 1.7 cm2 PASCUAL(V,D): 1.6 cm2 TR max celso: 281.4 cm/sec MV P1/2t-pr_phl: 98.4 msec TR max P.7 mmHg Interpretation Summary The estimated ejection fraction is 65 %. Mildly dilated right ventricle. The left atrium is moderately enlarged. The right atrium is mildly enlarged. Mild-Moderate (1-2+) mitral valve insufficiency. Mild (1+) tricuspid valve insufficiency. Right ventricular systolic pressure estimated to be 37 mmHg. Mild pulmonary hypertension. Stable appearing and normal functioning bioprosthetic aortic valve apparatus. Peak aortic valve gradient 35 mmHg. Mean aortic valve gradient 17 mmHg. Calculated aortic valve area (continuity equation) is 1.6 cm2. The inferior vena cava is dilated Compared to echo report dated 06/03/2017, no appreciable changes noted. Ordering Physician: Jayro Poe Referring Physician: CLAUDIA NICHOLS Performed By: Italia Mortensen, RADHA, RVT
== END ==
PROVIDERS: Family Provider Family Medicine; PCP Family Medicine; Referring Provider Internal Medicine Cardiovascular Disease; Visit Provider Internal Medicine Cardiovascular Disease
DX: I05.9 Rheumatic mitral valve disease, unspecified (principal); Z95.2 Presence of prosthetic heart valve; Z87.74 Personal history of (corrected) congenital malformations of heart and circulatory system
CPT/HCPCS: 93306

== ENCOUNTER → 2019-01-24 10:14 | Outpatient (CLI) | payer MEDICARE, OTHER, SELFPAY ==
[2015-11-29 11:48] VITALS: BMI 37.0
[2018-12-30 13:36] VITALS: BMI 34.7
[2019-01-24 12:29] LABS: Absolute Lymphocyte Count 2.01 X10^3/uL (0.83-4.51); Absolute Neutrophil Count 4.2 X10^3/uL (2.0-7.7); Basophil# 0.05 X10^3/uL; Basophil% 0.7 % (0-1); Eosinophil# 0.17 X10^3/uL; Eosinophils% 2.4 % (0-5); Hematocrit 42.3 % (37-47); Hemoglobin 14.2 g/dL (12.0-15.0); Lymphocyte # 2.01 X10^3/ul (4.0); Mean Corp Hgb Conc 33.6 g/dL (32-36); Mean Corpuscular Hgb 37.5 pg (27.0-32.0); Mean Corpuscular Volume 111.6 fL (81-99); Mean Platelet Vol. 10.7 fl (6.2-12.0); Monocyte# 0.44 X10^3/uL; Monocyte% 6.3 % (0-10); NRBC Flagged by Analyzer 0 % (0-5); Neutrophil # 4.24 X10^3/uL (2.7-7.7); Neutrophil % 61.2 % (47-70); Platelet Count 187 K/mm3 (150-450); RBC Distribution Width CV 13.6 % (11.6-14.6); RBC Distribution Width SD 56.4 fl (35.1-43.9); Red Blood Count 3.79 M/mm3 (4.2-5.4); White Blood Count 6.9 K/mm3 (4.4-11.0)
[2019-01-24 13:01] LABS: ALB/GLOB Ratio 1.1 RATIO (0.9-2.4); AST(SGOT) 24 U/L (15-37); Alanine Aminotransfer ALT/SGPT 23 U/L (13-56); Albumin, Serum 3.8 g/dL (3.2-5.0); Alkaline Phosphatase 61 U/L (45-117); Anion Gap 5 (5-15); BUN 15 mg/dL (7-18); BUN/Creat Ratio 22.7 RATIO (10-20); Chloride 108 mmol/L (98-107); Creatinine, Serum 0.66 mg/dL (0.55-1.02); EST Glomerular Filtration Rate 94 mL/min (>60); Est Glom Filt Rate - Afr Amer 113 mL/min (>60); Globulin 3.5 g/dL (2.2-4.2); Glucose 128 mg/dL (74-106); Potassium 4.2 mmol/L (3.5-5.1); Protein, Total 7.3 g/dL (6.4-8.2); Sodium Level 141 mmol/L (136-145)
== END ==
PROVIDERS: Family Provider Family Medicine; PCP Family Medicine; Visit Provider Internal Medicine Medical Oncology
DX: D45 Polycythemia vera (principal)
CPT/HCPCS: 80053; 85025

== ENCOUNTER → 2019-03-10 14:48 | Outpatient (CLI) | payer MEDICARE, OTHER, SELFPAY ==
[2015-11-29 11:48] VITALS: BMI 37.0
[2019-01-26 14:06] VITALS: BMI 35.2
--- NOTE | 2019-03-10 14:52 | BI_ITS ---
MAMMOGRAPHY - BILATERAL SCREENING REASON FOR EXAM: Female, 68 years old. Routine annual screening examination. PERTINENT HISTORY: Non-contributory. TECHNIQUE: Digital bilateral breast va (3D mammographic acquisition) in the CC and MLO projections. 2-D mediolateral oblique (MLO) and craniocaudad (CC) views of both breasts were obtained. CAD: Full Field Digital Mammography with Computer Added Detection was performed. COMPARISON: Comparison is made with prior examination March 02, 2018 and February 19, 2017. FINDINGS: Breast Composition: The breasts are almost entirely fatty. There are no dominant masses or suspicious calcifications. No other significant abnormalities are identified. There has been no significant change since the prior study. BI/SCREEN MAMM (CAD) W/VA BILAT IMPRESSION: Stable bilateral screening mammogram. Yearly follow-up mammogram recommended. (A) ASSESSMENT CATEGORY: BIRADS Category 1: Negative. A letter regarding these results will be sent to the patient by the facility within 30 days. Approximately 10% of breast cancers are not detected by mammography. A normal mammogram should not delay biopsy of a clinically suspicious abnormality. [id number] Electronically Signed: Tristen Arce, at 8:09 EDT , Service support ,
--- NOTE | 2019-03-10 14:54 | BD_ITS ---
STUDY: DUAL ENERGY X-RAY ABSORPTIOMETRY / DXA REASON FOR EXAM: Female, 68 years old. The patient is postmenopausal. Loss of height. TECHNIQUE: Bone Mineral Density (BMD) measurements of lumbar spine and bilateral hips were obtained. COMPARISON: Comparison is made with prior examination dated February 19, 2017. FINDINGS: Lumbar Spine (L1-L4): g/cm2 (1.426) / T-score (1.9) / Z-score (3.6) Findings are suggestive of normal bone density with a low fracture risk. Left Femur Total: g/cm2 (0.899) / T-score (-0.9) / Z-score (0.6) Left Femoral Neck: g/cm2 (0.876) / T-score (-1.2) / Z-score (0.5) Right Femur Total: g/cm2 (0.945) / T-score (-0.5) / Z-score (1.0) Right Femoral Neck: g/cm2 (0.903) / T-score (-1.0) / Z-score (0.7) The T-Scores on the most recent prior examination were: Lumbar Spine (L1-L4): There has been worsening of bone density since the previous examination. Left Femur Total: which represents a worsening of 5.3%. Right Femur Total: which represents a worsening of 2.7%. BD/Dexa Bone Density Study IMPRESSION: The patient is considered osteopenic as outlined below according to World Lio Organization (WHO) criteria with a low fracture risk. There has been worsening of bone density since the previous examination. Reference Information: The T-score is the number of standard deviations above or below the standard which is normal for young adults at their peak bone mineral density. The World Health Organization (WHO) interprets the T-scores as follows: Above -1 Normal bone density Between -1 and -2.5 Osteopenia Equal to / or below -2.5 Osteoporosis As a practical clinical guideline, osteopenia may be graded as follows: Mild -1 through -1.5 Moderate -1.6 through -2.0 Severe -2.1 through -2.4 The Z-score is the number of standard deviations above or below age-matched controls. A Z-score of less than -1.5 would be considered abnormal. References: 1. NIH Osteoporosis and Related Bone Diseases http://www.osteo.org 2. International Society for Clinical Densitometry http://www.iscd.org 3. National Osteoporosis Foundation http://www.nof.org Electronically Signed: Tristen Arce, at 15:59 EDT , Service support ,
== END ==
PROVIDERS: Family Provider Family Medicine; PCP Family Medicine; Referring Provider Family Medicine; Visit Provider Family Medicine
DX: Z12.31 Encounter for screening mammogram for malignant neoplasm of breast (principal); Z78.0 Asymptomatic menopausal state; M85.80 Other specified disorders of bone density and structure, unspecified site
CPT/HCPCS: 77063; 77067; 77080

== ENCOUNTER → 2019-04-22 08:44 | Outpatient (CLI) | payer MEDICARE, OTHER, SELFPAY ==
[2015-11-29 11:48] VITALS: BMI 37.0
[2019-04-19 15:15] VITALS: BMI 34.9
[2019-04-22 12:23] LABS: AST(SGOT) 20 U/L (15-37); Alanine Aminotransfer ALT/SGPT 20 U/L (13-56); Alkaline Phosphatase 50 U/L (45-117); Bilirubin, Direct 0.32 mg/dL (0.00-0.30); Cholesterol 112 mg/dL (200); Globulin 3.4 g/dL (2.2-4.2); High Density Lipoprotein 49 mg/dL; Protein, Total 7.4 g/dL (6.4-8.2); Triglycerides 88 mg/dL; Very Low Density Lipoprotein 18 mg/dL (5-40)
== END ==
PROVIDERS: Family Provider Family Medicine; PCP Family Medicine; Visit Provider Internal Medicine Cardiovascular Disease
DX: E78.5 Hyperlipidemia, unspecified (principal)
CPT/HCPCS: 36415; 80061; 80076

== ENCOUNTER → 2019-06-22 11:48 | Outpatient (CLI) | payer MEDICARE, OTHER, SELFPAY ==
[2015-11-29 11:48] VITALS: BMI 37.0
[2019-06-22 10:51] VITALS: BMI 34.9
[2019-06-22 12:32] LABS: Anion Gap 5 (5-15); BUN 12 mg/dL (7-18); Calcium,Total 9.1 mg/dL (8.5-10.1); Chloride 107 mmol/L (98-107); Creatinine, Serum 0.75 mg/dL (0.55-1.20); EST Glomerular Filtration Rate 81 mL/min (>60); Est Glom Filt Rate - Afr Amer 98 mL/min (>60); Glucose 170 mg/dL (70-110); Potassium 3.7 mmol/L (3.5-5.1); Sodium Level 138 mmol/L (136-145)
[2019-06-22 12:41] LABS: BNP,B-Type NATRIURETIC PEPTIDE 386.1 pg/mL (0-100)
== END ==
PROVIDERS: PCP Family Medicine; Referring Provider Nurse Practitioner Acute Care; Visit Provider Nurse Practitioner Acute Care
DX: R06.02 Shortness of breath (principal)
CPT/HCPCS: 36415; 80048; 83880

== ENCOUNTER → 2019-06-24 08:53 | Outpatient (CLI) | payer MEDICARE, OTHER, SELFPAY ==
[2015-11-29 11:48] VITALS: BMI 37.0
[2019-06-22 10:51] VITALS: BMI 34.9
[2019-06-24 09:45] VITALS: PULSE 79; PULSE 80; PULSE 85; PULSE 91; PULSE 92; PULSE 93; PULSE 95; PULSE 97; O2SAT 87; O2SAT 89; O2SAT 90; O2SAT 94; O2SAT 95; O2SAT 96; O2SAT 97; O2SAT 98
--- NOTE | 2019-06-24 09:48 | CPS ---
Patient placed on 2 lpm at the 3rd minute, SpO2 87% at the time. Recovered with 2 lpm O2 to 98% and finished the testing on 2lpm. Kristal Bone [employer] saw patient in the office 06/22/19 and is informed about the patient's need for O2 on exertion. Patient would like to use [employer].
--- NOTE | 2019-06-24 12:56 | PCM.PSN.6M ---
PSN 6 Minute Walk Test - 6 Minute Walk Test 6 Minute Walk Test: 6 Minute Walk Test PSN:6-Minute Walk Test Start: 06/24/19 09:45 Freq: Status: Active Protocol: RESP.6MINW Document 06/24/19 09:45 NILAM (Rec: 06/24/19 09:52 NIALM [id number]) 6 Minute Walk Test Date Performed 06/24/19 Time Performed 09:15 Height 5 ft Weight: 81.193 kg Weight in Pounds 179.[address]: Kristal Bone Assistive device used: None Pre-test Oxygen Delivery Method Room Air Pulse Ox (%) 96 Pulse Rate (60-100 beats/min) 79 Dyspnea Dilcia Scale (0-10) 0.5 Exertion Dilcia Scale (6-20) 6 1st minute Oxygen Delivery Method Room Air Pulse Ox (%) 90 Pulse Rate (60-100 beats/min) 92 2nd minute Oxygen Delivery Method Room Air Pulse Ox (%) 89 Pulse Rate (60-100 beats/min) 97 3rd minute Oxygen Delivery Method Room Air Pulse Ox (%) 87 Pulse Rate (60-100 beats/min) 95 Dyspnea Dilcia Scale (0-10) 5 4th minute Oxygen Flow Rate (L/min) (L/min) 2 Oxygen Delivery Method Nasal Cannula Pulse Ox (%) 97 Pulse Rate (60-100 beats/min) 85 5th minute Oxygen Flow Rate (L/min) (L/min) 2 Oxygen Delivery Method Nasal Cannula Pulse Ox (%) 95 Pulse Rate (60-100 beats/min) 91 6th minute Oxygen Flow Rate (L/min) (L/min) 2 Oxygen Delivery Method Nasal Cannula Pulse Ox (%) 94 Pulse Rate (60-100 beats/min) 93 Dyspnea Dilcia Scale (0-10) 4 Exertion Dilcia Scale (6-20) 13 Post-test Oxygen Flow Rate (L/min) (L/min) 2 Oxygen Delivery Method Nasal Cannula Pulse Ox (%) 98 Pulse Rate (60-100 beats/min) 80 Full Laps Walked 14 Partial Lap, Number of Tiles Walked 16 Total Distance Walked (ft) 842 06/24/19 09:48 Cardiopulmonary Services by Rebecca Hong Patient placed on 2 lpm at the 3rd minute, SpO2 87% at the time. Recovered with 2 lpm O2 to 98% and finished the testing on 2lpm. Kristal Bone BUSINESS ANALYST [employer] saw patient in the office 06/22/19 and is informed about the patient's need for O2 on exertion. Patient would like to use [employer]. Initialized on 06/24/19 09:48 - END OF NOTE - Interpretation Interpretation: The patient was noted to be 96% on room air. However, in the third minute of ambulation, patient desaturated to 87% requiring 2 L nasal cannula. Saturations improved to 98% and remained acceptable through the remainder of the walking. In total, the patient traveled 842 feet over the course of 6 minutes with no significant tachycardia. These findings are consistent with a respiratory limitation exercise tolerance. - Recommendations Recommendations: The patient requires no supplemental oxygen at rest, but should be using 2 L nasal cannula with any exertion.
== END ==
PROVIDERS: PCP Family Medicine; Referring Provider Nurse Practitioner Acute Care; Visit Provider Nurse Practitioner Acute Care
DX: R06.02 Shortness of breath (principal)
CPT/HCPCS: 94618

== ENCOUNTER → 2019-06-28 06:50 | Outpatient (CLI) | payer MEDICARE, OTHER, SELFPAY ==
[2015-11-29 11:48] VITALS: BMI 37.0
[2019-06-22 10:51] VITALS: BMI 34.9
--- NOTE | 2019-06-29 13:40 | PFT ---
INTRODUCTION: The patient is a 68-year-old female that presents for pulmonary function studies secondary to a diagnosis of COPD. Respiratory therapy reports good patient effort. Bronchodilators were used during testing. INTERPRETATION: Forced expiration spirometry demonstrates no evidence of a large airways obstructive ventilatory defect. There was no significant response to aerosolized bronchodilators, based upon strict ATS criteria. Spirograms are of good quality and plateau gradually indicating slow emptying of the lungs. Body plethysmography was performed and reveals an elevated RV to 145% of predicted. Diffusing capacity by single breath CO is reduced at 47% of predicted. IMPRESSION: Normal spirometry without bronchodilator response. Elevated RV of unclear significance. Diffusing capacity is significantly reduced, which could be indicative of an underlying pulmonary vascular disorder such as pulmonary hypertension.
== END ==
PROVIDERS: PCP Family Medicine; Referring Provider Nurse Practitioner Acute Care; Visit Provider Nurse Practitioner Acute Care
DX: R06.02 Shortness of breath (principal)
CPT/HCPCS: 94060; 94726; 94729

== ENCOUNTER → 2019-07-01 13:54 | Outpatient (CLI) | payer MEDICARE, OTHER, SELFPAY ==
[2015-11-29 11:48] VITALS: BMI 37.0
[2019-06-22 10:51] VITALS: BMI 34.9
--- NOTE | 2019-07-01 13:55 | ECHOD_ITS ---
Reason For Study: Dyspnea/SOB Procedure This was a 2D Doppler, Color Flow transthoracic echocardiogram. Exam performed in department. Left Ventricle Normal size and thickness. The estimated ejection fraction is 65 %. Septal motion consistent with IVCD. No regional wall motion abnormalities noted. Right Ventricle Mildly dilated right ventricle. Normal systolic function. Atria The left atrium is moderately enlarged. Normal right atrium. Normal atrial septum. Mitral Valve Mild diffuse mitral valve thickening. Severe mitral annular calcification extending into the posterior leaflet. Mild-Moderate (1-2+) eccentric mitral valve insufficiency. Tricuspid Valve Normal tricuspid valve. Mild (1+) tricuspid valve insufficiency. Right ventricular systolic pressure estimated to be 51 mmHg. Moderate pulmonary hypertension. Aortic Valve Peak aortic valve gradient 63 mmHg. Mean aortic valve gradient 42 mmHg. Calculated aortic valve area (continuity equation) is 1.1 cm2. Severe aortic stenosis. Trivial aortic valve insufficiency. Stable appearing bioprosthetic aortic valve apparatus. Pulmonic Valve Normal pulmonic valve. Great Vessels Normal aortic root. Normal arch. The inferior vena cava is dilated. Inferior vena cava collapse with sniff. Pericardium/Pleural No pericardial effusion. MMode/2D Measurements & Calculations LVIDd: 5.0 cm IVSd: 0.99 cm LVOT diam: 2.0 cm LVIDs: 3.5 cm LVPWd: 1.1 cm LVOT area: 3.1 cm2 RVDd: 4.0 cm FS: 30.8 % LAV(MOD-bp): 79.3 ml LA A4 area: 23.8 cm2 RA A4 area: 16.4 cm2 LAV(MOD-bp) Indexed: 45.1 ml/m2 LAV(MOD-sp2): 76.3 ml LAV(MOD-sp4): 72.5 ml Doppler Measurements & Calculations MV E max celso: 154.7 cm/sec Lat Peak E' Celso: 7.4 cm/sec Med Peak E' Celso: 5.9 cm/sec MV A max celso: 41.5 cm/sec E/E' lat: 21.0 E/E' med: 26.3 MV E/A: 3.7 MV V2 max: 160.2 cm/sec Ao V2 max: 396.7 cm/sec LV V1 max: 144.4 cm/sec MV max P.3 mmHg Ao max P.0 mmHg LV V1 max P.3 mmHg MV V2 mean: 93.4 cm/sec Ao V2 mean: 311.7 cm/sec LV V1 mean P.1 mmHg MV mean P.2 mmHg Ao mean P.7 mmHg LV V1 mean: 119.9 cm/sec MV V2 VTI: 32.5 cm Ao V2 VTI: 96.9 cm LV V1 VTI: 35.8 cm MVA(VTI): 3.5 cm2 PASCUAL(I,D): 1.2 cm2 PASCUAL(V,D): 1.1 cm2 SV(LVOT): 112.2 ml PA V2 max: 88.9 cm/sec TR max celso: 337.5 cm/sec TR max P.6 mmHg Interpretation Summary The estimated ejection fraction is 65 %. Mildly dilated right ventricle. The left atrium is moderately enlarged. Mild-Moderate (1-2+) eccentric mitral valve insufficiency. Mild (1+) tricuspid valve insufficiency. Right ventricular systolic pressure estimated to be 51 mmHg. Moderate pulmonary hypertension. Peak aortic valve gradient 63 mmHg. Mean aortic valve gradient 42 mmHg. Calculated aortic valve area (continuity equation) is 1.1 cm2. Severe aortic stenosis. Trivial aortic valve insufficiency. Compared to echo report dated 01/20/2019, LV function has remained the same however the patient's bioprosthetic aortic valve gradients have markedly worsened. At that time the peak and mean gradients were 35/17 mmHg giving a calculated aortic valve area of 1.6 cm??. In addition RVSP is increased from 37 to 51 mmHg. Would consider a transesophageal echocardiogram if clinically indicated. Ordering Physician: Jayro Poe Referring Physician: Imer Cummings Performed By: Leonie Streeter RDCS, RVT
== END ==
PROVIDERS: PCP Family Medicine; Referring Provider Internal Medicine Cardiovascular Disease; Visit Provider Internal Medicine Cardiovascular Disease
DX: R06.00 Dyspnea, unspecified (principal); R06.02 Shortness of breath
CPT/HCPCS: 93306

== ENCOUNTER 2019-07-08 12:47 | Observation (INO) | payer MEDICARE, OTHER, SELFPAY ==
[2015-11-29 11:48] VITALS: BMI 37.0
[2019-07-07 10:44] VITALS: BMI 34.9
--- NOTE | 2019-07-08 | COLBX_PTH ---
PATIENT: ALE ORTIZ LOC: MS3 U#:[id number] AGE/SX: 68/F ROOM: [facility] [place]07/08/[address]: Dr. Korin Rudolph MD : [id number] BED: 1 DIS: 07/09/2019 SPEC #: [id number] RECD: 07/08/19 09:33 STATUS: ADE RESukhwinder #: [id number] [place]: 07/08/19 00:[address]: Manisha Gardner DEPT: SURGICAL PATHOLOGY RECD BY: Jadon Galindo ENTERED: 07/11/19 09:11 SP TYPE: COLON BX OTHR DR: MD Dr. Rafi Dunlap MD Dr. Scott Hannan, MD Dr. Tamera Robotham, MD Tissues: A - Ileum, NOS B - Ascending colon Procedures: Surgery Specimen Level IV Comments: @ Ordering doctor for SUIV edited from to @ by NAWAF at 07/11/19 0947 @ Submitting doctor edited from to @ by RGOOD at 07/11/19 0947 HEADER OPERATION: Colonoscopy (MAC) PRE-OP DIAGNOSIS: Lower GI bleed TISSUE SUBMITTED: A - Terminal ileum biopsy, B - Proximal ascending colon biopsies MICROSCOPIC DIAGNOSIS A. Terminal ileum, biopsy: No pathologic change. B. Proximal ascending colon, biopsy: Consistent with ischemic colitis. AM:sarah 07/12/19 MICROSCOPIC DESCRIPTION Slides are reviewed. GROSS DESCRIPTION A - Received in fixative is one container labeled with the patient's name and designated terminal ileum. The specimen consists of one irregular fragment of light lacey soft tissue that measures 0.3 x 0.3 x 0.1 cm. The specimen is totally submitted in one cassette. B - Received in fixative is one container labeled with the patient's name and designated proximal ascending colon. The specimen consists of multiple irregular fragments of light lacey soft tissue that in aggregate measure 1 x 0.3 x 0.1 cm. The specimen is totally submitted in one cassette. / AM:sarah 07/11/19 TC:5 CPT: 99492 x2
[2019-07-08 12:49] VITALS: BP 118/64; PULSE 84; RESP 18; TEMP 36.6; O2SAT 97; BMI 34.2
[2019-07-08 14:31] LABS: Absolute Lymphocyte Count 1.12 X10^3/uL (0.83-4.51); Absolute Neutrophil Count 3.6 X10^3/uL (2.0-7.7); Basophil# 0.03 X10^3/uL; Basophil% 0.6 % (0-1); Eosinophil# 0.07 X10^3/uL; Eosinophils% 1.4 % (0-5); Hematocrit 31.3 % (37-47); Hemoglobin 9.7 g/dL (12.0-15.0); Lymphocyte # 1.12 X10^3/ul (4.0); Lymphocyte % 21.7 % (19-41); Mean Corpuscular Hgb 33.9 pg (27.0-32.0); Mean Corpuscular Volume 109.4 fL (81-99); Mean Platelet Vol. 10.9 fl (6.2-12.0); Monocyte# 0.27 X10^3/uL; Monocyte% 5.2 % (0-10); NRBC Flagged by Analyzer 0 % (0-5); Neutrophil # 3.63 X10^3/uL (2.7-7.7); Neutrophil % 70.5 % (47-70); Platelet Count 121 K/mm3 (150-450); RBC Distribution Width CV 14.4 % (11.6-14.6); RBC Distribution Width SD 57.6 fl (35.1-43.9); Red Blood Count 2.86 M/mm3 (4.2-5.4); White Blood Count 5.2 K/mm3 (4.4-11.0)
[2019-07-08 14:34] LABS: International Normalized Ratio 1.3; Prothrombin Time (Protime)PT. 15.8 SECONDS (11.7-14.9)
[2019-07-08 14:40] LABS: ALB/GLOB Ratio 1.1 RATIO (0.9-2.4); AST(SGOT) 19 U/L (15-37); Alanine Aminotransfer ALT/SGPT 19 U/L (13-56); Albumin, Serum 3.4 g/dL (3.2-5.0); Alkaline Phosphatase 45 U/L (45-117); Anion Gap 5 (5-15); BUN 14 mg/dL (7-18); BUN/Creat Ratio 18.7 RATIO (10-20); Calcium,Total 8.7 mg/dL (8.5-10.1); Chloride 110 mmol/L (98-107); Creatinine, Serum 0.75 mg/dL (0.55-1.02); EST Glomerular Filtration Rate 81 mL/min (>60); Est Glom Filt Rate - Afr Amer 98 mL/min (>60); Glucose 171 mg/dL (74-106); Potassium 3.6 mmol/L (3.5-5.1); Protein, Total 6.4 g/dL (6.4-8.2); Sodium Level 140 mmol/L (136-145)
[2019-07-08 15:16] VITALS: BP 116/77; PULSE 97; RESP 19; O2SAT 97
--- NOTE | 2019-07-08 15:40 | ED.VISSUMM ---
- ER Visit Summary Date of Service: 07/08/19 Chief Complaint: Rectal bleeding History of Present Illness: The patient is a 68 F who presents with rectal bleeding that has been getting worse over the past 4 days. Patient states she has some mild cramping in her lower abdomen. Patient denies any nausea or vomiting. Patient states she is having some diarrhea with dark red stools. Patient denies any pain with her bowel movements. Patient denies any dysuria or hematuria. She denies any lightheadedness or dizziness. Patient denies any chest pain but admits to occasional shortness of breath. Patient denies any fevers or chills. Physical Examination: Vital signs are stable. Patient is afebrile. Patient is in no acute distress. Pupils are equal, round, and reactive to light bilaterally. Extraocular muscles are intact. Conjunctiva is clear. Oral mucosa is pink and moist. Neck is supple. Trachea is midline. There is no JVD. Heart was regular rate and rhythm. Lungs are clear and equal bilaterally. Abdomen is soft. Bowel sounds are normal. There is no tenderness. Cranial nerves II through XII are intact. There are no focal motor or sensory deficits noted. Extremities are intact. There is no calf tenderness or edema. Rectal exam showed good sphincter tone. There is red stool on exam. This was Hemoccult negative. Test Results: CBC showed a hemoglobin of 9.7 and hematocrit 31.3. His hemoglobin from 04/17/2019 was 13.7. Platelets were slightly low at 121. Comprehensive metabolic profile was essentially within normal limits. INR was 1.3. Emergency Department Course and Treatment: Patient was resting comfortably on reevaluation. Case was discussed with Dr. Gardner. She is agreeable to seeing the patient here at [facility]. Case was discussed with the hospitalist. He will admit the patient to his service. Patient and family understand and are agreeable with the plan. All questions were answered. Disposition: Admit to hospital Impression: Lower gastrointestinal bleeding This note was generated with [employer] dictation software. It may contain incorrect words, spelling, and punctuation that were not noted in review of the chart prior to signing ED Disposition - Plan for ED Patient: Disposition: Acute Care Hospital [facility] Diagnosis: Lower gastrointestinal bleeding Referrals: Imer Cummings MD [Primary Care Provider] -
--- NOTE | 2019-07-08 16:01 | NURSING ---
MED SURG [facility]OT[facility]ORELIAS LOWER GASTROINTESTINAL BLEEDING OBS
[2019-07-08 17:12] VITALS: BMI 32.8; BMI 32.9
--- NOTE | 2019-07-08 18:06 | HP.PCM_ITS ---
<Josep Haque - Last Filed: 07/08/19 18:06> Problem List (1) Lower gastrointestinal bleeding Status: Acute (2) Diastolic CHF Status: Chronic (3) Gout Status: Chronic (4) H/O aortic valve replacement with porcine valve Status: Chronic (5) DDD (degenerative disc disease) Status: Chronic (6) Aortic stenosis Status: Chronic (7) Gastritis Status: Chronic (8) Lacunar infarction Status: Chronic (9) KYLE (obstructive sleep apnea) Status: Chronic (10) Diabetes mellitus type 2, controlled Status: Chronic (11) Osteoarthritis Status: Chronic (12) Polycythemia vera Status: Chronic (13) Hyperlipidemia Status: Chronic History of Present Illness Date of Admission: 07/08/19 Chief Complaint: bloody stools The patient is a 68 year old F with pmhx of strokes on full strength aspirin daily, hx of polycythemia vera for which she has therapeutic phlebotomy, hx , hx diastolic CHF, hx gastritis, hx osteoporosis, hx KYLE, hx Dmt2, who presented to the ER with c/o blood in her stool. She first noticed on thursday brownish red blood in her stool. This continued daily. Her stool is watery. She has some mild lower abdominal pain. She has no fevers chills. She denies hx of GI bleeding. In the ER Hgb is9.7, platelets are mildly decreased at 121. She is resting comfortably in bed with no complaints at this time. No recent unexplained weight loss. No night sweats. [] Past Medical History Past Medical History (Chronic Problems): Chronic Problems (Last Reviewed 07/08/19 @ 08:56 by Kristal Bone NP-C) Diastolic CHF (Chronic) Gout (Chronic) 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 Aortic valve replaced 10/21/[address] Chacko Mitral valve annular calcification (Chronic) Severe per echo 06/03/2017 History of left heart catheterization (Chronic 04/21/14) Essentially normal coronaries (at most 20% stenosis in mid LAD). Referred to Dr. Chacko for severe aortic stenosis/bicuspid aortic valve, severe mitral annular calcification but no stenosis. Right arm fracture (Chronic 02/25/17) sustained from a fall Hx of colonoscopy (Chronic 10/02/15) Gastritis (Chronic) H/O aortic valve replacement (Chronic 10/31/14) Aortic valve replacement with a 23?mm Solo stentless valve, modified MAZE procedure, left atrial appendage excision per Dr. Chacko @ [facility] Lacunar infarction (Chronic) KYLE (obstructive sleep apnea) (Chronic) Sleep disorder (Chronic) De Quervain's disease (tenosynovitis) (Chronic) Supraventricular tachycardia (Chronic) Diabetes mellitus type 2, controlled (Chronic) Osteoarthritis (Chronic) Left ventricular hypertrophy (Chronic) with septal hypertrophy Polycythemia vera (Chronic) Hyperlipidemia (Chronic) Medical History: Medical History (Last Reviewed 07/08/19 @ 08:56 by Kristal Bone NP-C) Aortic stenosis (Acute) I35.0 Acute on chronic congestive heart failure (Chronic) I50.9 Shortness of breath (Acute) R06.02 History of bicuspid aortic valve (Chronic) Z87.74 Pt had resultant severe aortic stenosis. Aortic valve replaced 10/21/[address] Chacko Mitral valve annular calcification (Chronic) I05.9 Severe per echo 06/03/2017 Right arm fracture (Chronic) Onset Date: 02/25/17 S42.301A sustained from a fall Gastritis (Chronic) K29.70 Lacunar infarction (Chronic) I63.9 KYLE (obstructive sleep apnea) (Chronic) G47.33 Sleep disorder (Chronic) G47.9 De Quervain's disease (tenosynovitis) (Chronic) M65.4 Supraventricular tachycardia (Chronic) I47.1 Diabetes mellitus type 2, controlled (Chronic) E11.9 Osteoarthritis (Chronic) M19.90 Left ventricular hypertrophy (Chronic) I51.7 with septal hypertrophy Gastritis (Resolved) K29.70 Herniated disc (Resolved) L4-5, S1 Humeral head fracture (Resolved) S42.293A Presence of prosthetic heart valve (Resolved) Z95.2 Trigger finger (Resolved) M65.30 Daytime hypersomnia (Inactive) G47.19 Gout (Inactive) M10.9 Allergies Penicillins Allergy (Severe, Verified 07/08/19 12:51) Rash clarithromycin [From Biaxin] Allergy (Intermediate, Verified 07/08/19 12:51) Rash erythromycin base [Erythromycin Base] Allergy (Intermediate, Verified 07/08/19 12:51) Rash cat dander Adverse Reaction (Intermediate, Verified 07/08/19 12:51) SNEEZING Alternaria Mold Spores Allergy (Intermediate, Uncoded 07/08/19 12:51) SNEEZING dust Allergy (Intermediate, Uncoded 07/08/19 12:51) SNEEZING Home Medications: Ambulatory Orders Medication Instructions Recorded Multivitamins,Therapeutic 1 tab PO DAILY 04/20/14 [Multivitamin] Aspirin 325 mg PO DAILY@0800 09/22/16 temazepam 15 mg capsule 15 mg PO QHS 05/20/17 vit C,E,zinc,copper-[id number] 250 1 cap PO DAILY 05/20/17 mg-lutein 5 mg-zeaxanthin 1 mg capsule cholecalciferol (vitamin D3) 125 5,000 unit PO DAILY 10/01/17 mcg (5,000 unit) capsule pravastatin 40 mg tablet 40 mg PO DAILY 05/24/18 carboxymethylcellulose sodium 1 % 1 drp OPHTHALMIC 4-6XD 12/30/18 eye liquid gel drops clindamycin HCl 300 mg capsule 600 mg PO .COMPLEX cap 12/30/18 Ibandronate Sodium [Boniva] 150 mg PO QMONTH 01/26/19 Allopurinol [Zyloprim] 200 mg PO DAILY 07/08/19 Bifidobacterium Infantis [Align] 4 mg PO DAILY 07/08/19 Biotin 1,000 mcg PO DAILY 07/08/19 Calcium (Elemental) [Os-Paul 500] 500 mg PO DAILY 07/08/19 Calcium Carbonate [Tums Smoothies] 300 mg PO DAILY PRN PRN 07/08/19 Carvedilol 6.25 mg PO BID@0700,1900 07/08/19 Hydroxyurea [Hydrea] 1,000 mg PO DAILY 07/08/19 Surgical History: Surgical History (Last Reviewed 07/08/19 @ 08:56 by CHANDRIKA PradoC) History of left heart catheterization (Chronic) Onset Date: 04/21/14 Z98.890 Essentially normal coronaries (at most 20% stenosis in mid LAD). Referred to Dr. Chacko for severe aortic stenosis/bicuspid aortic valve, severe mitral annular calcification but no stenosis. Hx of colonoscopy (Chronic) Onset Date: 10/02/15 Z98.890 H/O aortic valve replacement (Chronic) Onset Date: 10/31/14 Z95.2 Aortic valve replacement with a 23?mm Solo stentless valve, modified MAZE procedure, left atrial appendage excision per Dr. 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 Lives: Spouse/ Significant Other Smoking Status: Former smoker Tobacco Use: Non-smoker Alcohol: None Drugs: None - *Family History Maternal Family History: Family History (Last Reviewed 07/08/19 @ 18:13 by ANDREW Sharif) Father Heart failure Kidney disease Mother Alcoholism Grandfather Heart disease History Items: Unknown Review of Systems Constitutional: Denies: Chills, Fever, Weight Change HEENT: Denies: Head Aches, Sinus Congestion, Sinus Drainage Cardiovascular: Denies: Chest Pain, Palpitations Respiratory: Denies: Cough, Shortness of breath at rest, Sputum production Gastrointestinal: Reports: Abdominal Pain, Diarrhea, Hematochezia. Denies: Nausea, Vomiting Genitourinary: Denies: Dysuria Musculoskeletal: Denies: Joint Pain, Joint Tenderness Skin: Denies: Rash, Wounds Neurological: Denies: Numbness, Tingling, Focal weakness Psychiatric: Denies: Anxiety, Depression, Homicidal Ideations, Suicidal Ideatio ns Hematologic/ Lymphatic: Denies: Easy Bruising, Easy Bleeding VTE Information - Inpt Only VTE Present on Admission: No VTE Mechan Device Prophylaxis: SCD's VTE Pharm Prophylaxis ordered?: No Patient Problems: Active and Suspected Problems (Last Reviewed 07/08/19 @ 08:56 by CHANDRIKA PradoC) Lower gastrointestinal bleeding (Acute) - Physical Exam Vitals/I&O's: Vital Signs Temp Pulse Resp BP Pulse Ox 97.8 F 97 19 H 116/77 97 07/08/19 12:49 07/08/19 15:16 07/08/19 15:16 07/08/19 15:16 07/08/19 15:16 Oxygen Delivery Method Room Air Weight: 168 lb 6.931 oz Body Mass Index (BMI) 32.8 General: Alert, Oriented x3, Cooperative HEENT: Atraumatic, PERRLA, EOMI, Normocephalic Neck: Supple, No JVD, Negative Carotid Bruits Lungs: Clear to auscultation, Normal air movement Cardiovascular: Regular rate, No murmurs Abdomen: Bowel Sounds Present, Soft, Non Tender Extremities: No edema, Capillary Refill Less than 3 Seconds Skin: No rashes, No breakdown, - - pallor Musculoskeletal: No Tenderness to Palpation of Joints or Extremities Neurological: Cranial nerves II-XII grossly intact Psych/Mental Status: Normal Affect, Appropriate, Alert and oriented to time, place, person, mood and affect Microbiology Past 72 Hours 07/08/19 14:30 Stool Stool Occult Blood (MARY ANN) - Final Laboratory Results 07/08/19 13:55: WBC 5.2, RBC 2.86 L, Hgb 9.7 L, Hct 31.3 L, MCV 109.4 H, MCH 33.9 H, MCHC 31.0 L, RDW Std Deviation 57.6 H, RDW Coeff of Tess 14.4, Plt Count 121 L, MPV 10.9, Immature Gran % (Auto) 0.600, Neut % (Auto) 70.5 H, Lymph % (Auto) 21.7, [place] % (Auto) 5.2, Eos % (Auto) 1.4, Baso % (Auto) 0.6, Absolute Neuts (auto) 3.6, Absolute Lymphs (auto) 1.12, Nucleated RBC % 0 07/08/19 13:55: Sodium 140, Potassium 3.6, Chloride 110 H, Carbon Dioxide 25.0, Anion Gap 5, BUN 14, Creatinine 0.75, Estim Creat Clear Calc 37.60, Est GFR (MDRD) Af Amer 98, Est GFR (MDRD) Non-Af 81, BUN/Creatinine Ratio 18.7, Glucose 171 H, Calcium 8.7, Total Bilirubin 1.00, AST 19, ALT 19, Alkaline Phosphatase 45, Total Protein 6.4, Albumin 3.4, Globulin 3.0, Albumin/Globulin Ratio 1.1 07/08/19 13:55: PT 15.8 H, INR 1.3, APTT 36.0 Current Medications Acetaminophen (Tylenol) 650 mg PO Q6H PRN PRN PRN Reason: Pain Score 1-10/Temp > 100.7 F Sodium Chloride () 250 mls @ 15 mls/hr IV .[id number] PRN PRN Reason: Saline Flush Sodium Chloride () 250 mls @ 15 mls/hr IV .[id number] PRN PRN Reason: Additional IVPB Infusion Melatonin (Melatonin) 3 mg PO QHS PRN PRN PRN Reason: INSOMNIA Ondansetron HCl (Zofran) 4 mg IV Q8H PRN PRN PRN Reason: NAUSEA/VOMITING Sodium Chloride () 10 - 40 ml IV UD PRN PRN Reason: SALINE FLUSH Assessment/Plan All Active Problems (Last Reviewed 07/08/19 @ 08:56 by Kristal Bone NP-C) Lower gastrointestinal bleeding (Acute) Shortness of breath (Acute) Closed left arm fracture (Acute) BMI 32.0-32.9,adult (Acute) Segmental and somatic dysfunction of thoracic region (Acute) Segmental and somatic dysfunction of cervical region (Acute) Segmental and somatic dysfunction of lumbar region (Acute) Atrial fibrillation (Resolved) Gastritis (Resolved) H/O arthroscopy of left knee (Resolved) Herniated disc (Resolved) History of cholecystectomy (Resolved) History of meniscectomy of left knee (Resolved) History of tubal ligation (Resolved) Humeral head fracture (Resolved) Presence of prosthetic heart valve (Resolved) Trigger finger (Resolved) 1. Acute blood loss anemia 2/2 GI bleed presumed lower - hold aspirin. Trend H/H, T/S. Dr. Gardner to see the patient, contacted by ER. Check iron/tibc. Macrocytic. Check folate/b12. 2. Thrombocytopenia - mild, but this is new. She does follow oncology, can trend and have f/u as o/p. 3. Hx polycythemia vera - therapeutic phlebotomy per Dr. Stevens. F/u o/p. On hydrea maintenance. 4. Hx with porcine valve repair 5. Chronic diastolic CHF - no exacerbation. 6. KYLE - uses cpap qhs 7. Dmt2 - diet controlled 8. osteoporosis - boniva. 9. HLD - statin 10. Hx Lacunar infarcts - hold aspirin, statin DVT ppx: SCDs This patient was seen by Josep Haque PA-C under the supervision of Dr. Flores. <Rafi Flores F - Last Filed: 07/08/19 18:38> History of Present Illness The patient is a 68 year old F [] Past Medical History Medical History: Medical History (Last Reviewed 07/08/19 @ 08:56 by ELEAZAR Prado) Aortic stenosis (Acute) I35.0 Acute on chronic congestive heart failure (Chronic) I50.9 Shortness of breath (Acute) R06.02 History of bicuspid aortic valve (Chronic) Z87.74 Pt had resultant severe aortic stenosis. Aortic valve replaced 10/21/[address] Chacko Mitral valve annular calcification (Chronic) I05.9 Severe per echo 06/03/2017 Right arm fracture (Chronic) Onset Date: 02/25/17 S42.301A sustained from a fall Gastritis (Chronic) K29.70 Lacunar infarction (Chronic) I63.9 KYLE (obstructive sleep apnea) (Chronic) G47.33 Sleep disorder (Chronic) G47.9 De Quervain's disease (tenosynovitis) (Chronic) M65.4 Supraventricular tachycardia (Chronic) I47.1 Diabetes mellitus type 2, controlled (Chronic) E11.9 Osteoarthritis (Chronic) M19.90 Left ventricular hypertrophy (Chronic) I51.7 with septal hypertrophy Gastritis (Resolved) K29.70 Herniated disc (Resolved) L4-5, S1 Humeral head fracture (Resolved) S42.293A Presence of prosthetic heart valve (Resolved) Z95.2 Trigger finger (Resolved) M65.30 Daytime hypersomnia (Inactive) G47.19 Gout (Inactive) M10.9 Allergies Penicillins Allergy (Severe, Verified 07/08/19 12:51) Rash clarithromycin [From Biaxin] Allergy (Intermediate, Verified 07/08/19 12:51) Rash erythromycin base [Erythromycin Base] Allergy (Intermediate, Verified 07/08/19 12:51) Rash cat dander Adverse Reaction (Intermediate, Verified 07/08/19 12:51) SNEEZING Alternaria Mold Spores Allergy (Intermediate, Uncoded 07/08/19 12:51) SNEEZING dust Allergy (Intermediate, Uncoded 07/08/19 12:51) SNEEZING Surgical History: Surgical History (Last Reviewed 07/08/19 @ 08:56 by Kristal Bone, [employer]-C) History of left heart catheterization (Chronic) Onset Date: 04/21/14 Z98.890 Essentially normal coronaries (at most 20% stenosis in mid LAD). Referred to Dr. Chacko for severe aortic stenosis/bicuspid aortic valve, severe mitral annular calcification but no stenosis. Hx of colonoscopy (Chronic) Onset Date: 10/02/15 Z98.890 H/O aortic valve replacement (Chronic) Onset Date: 10/31/14 Z95.2 Aortic valve replacement with a 23?mm Solo stentless valve, modified MAZE procedure, left atrial appendage excision per Dr. Chacko @ [facility] H/O arthroscopy of left knee (Resolved) Z98.890 History of cholecystectomy (Resolved) Z90.49 History of meniscectomy of left knee (Resolved) Z98.890 History of tubal ligation (Resolved) Z98.51 - *Family History Maternal Family History: Family History (Last Reviewed 07/08/19 @ 18:13 by ANDREW Sharif) Father Heart failure Kidney disease Mother Alcoholism Grandfather Heart disease - Physical Exam Vitals/I&O's: Vital Signs Temp Pulse Resp BP Pulse Ox 97.8 F 97 19 H 116/77 97 07/08/19 12:49 07/08/19 15:16 07/08/19 15:16 07/08/19 15:16 07/08/19 15:16 Oxygen Delivery Method Room Air Weight: 168 lb 6.931 oz Body Mass Index (BMI) 32.8 Microbiology Past 72 Hours 07/08/19 14:30 Stool Stool Occult Blood (MARY ANN) - Final Laboratory Results 07/08/19 13:55: WBC 5.2, RBC 2.86 L, Hgb 9.7 L, Hct 31.3 L, MCV 109.4 H, MCH 33.9 H, MCHC 31.0 L, RDW Std Deviation 57.6 H, RDW Coeff of Tess 14.4, Plt Count 121 L, MPV 10.9, Immature Gran % (Auto) 0.600, Neut % (Auto) 70.5 H, Lymph % (Auto) 21.7, [place] % (Auto) 5.2, Eos % (Auto) 1.4, Baso % (Auto) 0.6, Absolute Neuts (auto) 3.6, Absolute Lymphs (auto) 1.12, Nucleated RBC % 0 07/08/19 13:55: Sodium 140, Potassium 3.6, Chloride 110 H, Carbon Dioxide 25.0, Anion Gap 5, BUN 14, Creatinine 0.75, Estim Creat Clear Calc 37.60, Est GFR (MDRD) Af Amer 98, Est GFR (MDRD) Non-Af 81, BUN/Creatinine Ratio 18.7, Glucose 171 H, Calcium 8.7, Total Bilirubin 1.00, AST 19, ALT 19, Alkaline Phosphatase 45, Total Protein 6.4, Albumin 3.4, Globulin 3.0, Albumin/Globulin Ratio 1.1 07/08/19 13:55: PT 15.8 H, INR 1.3, APTT 36.0 Current Medications Acetaminophen (Tylenol) 650 mg PO Q6H PRN PRN PRN Reason: Pain Score 1-10/Temp > 100.7 F Sodium Chloride () 250 mls @ 15 mls/hr IV .[id number] PRN PRN Reason: Saline Flush Sodium Chloride () 250 mls @ 15 mls/hr IV .[id number] PRN PRN Reason: Additional IVPB Infusion Melatonin (Melatonin) 3 mg PO QHS PRN PRN PRN Reason: INSOMNIA Ondansetron HCl (Zofran) 4 mg IV Q8H PRN PRN PRN Reason: NAUSEA/VOMITING Sodium Chloride () 10 - 40 ml IV UD PRN PRN Reason: SALINE FLUSH Code Visit Addendum: Dr. Flores I personally examined the patient and reviewed the chart. I agree with the above. 68-year-old female with aortic stenosis who has had a previous aortic valve replacement in 2014 presents with what appears to be a rectal bleed. She had 4 days of diarrhea and prior to the diarrhea she did not notice any bleeding however she did notice that over the last 4 days it is been getting darker and darker. On rectal exam in the ER she had bright red blood on the examining finger however the Hemoccult was negative. She is on Plaquenil for polycythemia vera and has intermittent bloodletting to control her blood count. We will consult general surgery for colonoscopy, she is on a clear liquid diet. OBSV E&M: [id number] Initial observation care L2
[2019-07-08] MEDS: Bisacodyl 5 MG Tablet 20 MG PO (18:30)
--- NOTE | 2019-07-08 19:47 | CON.PCM_ITS ---
Reason for Consult Date of Consultation: 07/08/19 History of Present Illness: The patient is a 68 year old F patient presented to the ER due to lower GI bleed for the last 4 days. Patient states that it is kind of been a maroon color she thought it would get better however it never did improve when she was having kind of loose stools. Patient denies any history of GI bleed in the past. Patient states her last colonoscopy was in [address] Sewell and was negative. Patient does have a history of polycythemia has not needed to have phlebotomy last several times as her hematocrit was not high enough. She normally has a hemoglobin about 13 on admit it was 9.7. Patient denies any fatigue nausea/vomiting/abdominal pain with this. Past Medical History Past Medical History (Chronic Problems): Chronic Problems (Last Reviewed 07/08/19 @ 08:56 by Kristal Bone, MAINTAINER OPERATOR-C) Diastolic CHF (Chronic) Gout (Chronic) 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 Aortic valve replaced 10/21/[address] Chacko Mitral valve annular calcification (Chronic) Severe per echo 06/03/2017 History of left heart catheterization (Chronic 04/21/14) Essentially normal coronaries (at most 20% stenosis in mid LAD). Referred to Dr. Chacko for severe aortic stenosis/bicuspid aortic valve, severe mitral annular calcification but no stenosis. Right arm fracture (Chronic 02/25/17) sustained from a fall Hx of colonoscopy (Chronic 10/02/15) Gastritis (Chronic) H/O aortic valve replacement (Chronic 10/31/14) Aortic valve replacement with a 23?mm Solo stentless valve, modified MAZE procedure, left atrial appendage excision per Dr. Chacko @ [facility] Lacunar infarction (Chronic) KYLE (obstructive sleep apnea) (Chronic) Sleep disorder (Chronic) De Quervain's disease (tenosynovitis) (Chronic) Supraventricular tachycardia (Chronic) Diabetes mellitus type 2, controlled (Chronic) Osteoarthritis (Chronic) Left ventricular hypertrophy (Chronic) with septal hypertrophy Polycythemia vera (Chronic) Hyperlipidemia (Chronic) Medical History: Medical History (Last Reviewed 07/08/19 @ 08:56 by Kristal Bone NP-C) Aortic stenosis (Chronic) I35.0 Acute on chronic congestive heart failure (Chronic) I50.9 Shortness of breath (Acute) R06.02 History of bicuspid aortic valve (Chronic) Z87.74 Pt had resultant severe aortic stenosis. Aortic valve replaced 10/21/[address] Chacko Mitral valve annular calcification (Chronic) I05.9 Severe per echo 06/03/2017 Right arm fracture (Chronic) Onset Date: 02/25/17 S42.301A sustained from a fall Gastritis (Chronic) K29.70 Lacunar infarction (Chronic) I63.9 KYLE (obstructive sleep apnea) (Chronic) G47.33 Sleep disorder (Chronic) G47.9 De Quervain's disease (tenosynovitis) (Chronic) M65.4 Supraventricular tachycardia (Chronic) I47.1 Diabetes mellitus type 2, controlled (Chronic) E11.9 Osteoarthritis (Chronic) M19.90 Left ventricular hypertrophy (Chronic) I51.7 with septal hypertrophy Gastritis (Resolved) K29.70 Herniated disc (Resolved) L4-5, S1 Humeral head fracture (Resolved) S42.293A Presence of prosthetic heart valve (Resolved) Z95.2 Trigger finger (Resolved) M65.30 Daytime hypersomnia (Inactive) G47.19 Gout (Inactive) M10.9 Allergies Penicillins Allergy (Severe, Verified 07/08/19 12:51) Rash clarithromycin [From Biaxin] Allergy (Intermediate, Verified 07/08/19 12:51) Rash erythromycin base [Erythromycin Base] Allergy (Intermediate, Verified 07/08/19 12:51) Rash cat dander Adverse Reaction (Intermediate, Verified 07/08/19 12:51) SNEEZING Alternaria Mold Spores Allergy (Intermediate, Uncoded 07/08/19 12:51) SNEEZING dust Allergy (Intermediate, Uncoded 07/08/19 12:51) SNEEZING Home Medications: Ambulatory Orders Medication Instructions Recorded Multivitamins,Therapeutic 1 tab PO DAILY 04/20/14 [Multivitamin] Aspirin 325 mg PO DAILY@0800 09/22/16 temazepam 15 mg capsule 15 mg PO QHS 05/20/17 vit C,E,zinc,copper-[id number] 250 1 cap PO DAILY 05/20/17 mg-lutein 5 mg-zeaxanthin 1 mg capsule cholecalciferol (vitamin D3) 125 5,000 unit PO DAILY 10/01/17 mcg (5,000 unit) capsule pravastatin 40 mg tablet 40 mg PO DAILY 05/24/18 carboxymethylcellulose sodium 1 % 1 drp OPHTHALMIC 4-6XD 12/30/18 eye liquid gel drops clindamycin HCl 300 mg capsule 600 mg PO .COMPLEX cap 12/30/18 Ibandronate Sodium [Boniva] 150 mg PO QMONTH 01/26/19 Allopurinol [Zyloprim] 200 mg PO DAILY 07/08/19 Bifidobacterium Infantis [Align] 4 mg PO DAILY 07/08/19 Biotin 1,000 mcg PO DAILY 07/08/19 Calcium (Elemental) [Os-Paul 500] 500 mg PO DAILY 07/08/19 Calcium Carbonate [Tums Smoothies] 300 mg PO DAILY PRN PRN 07/08/19 Carvedilol 6.25 mg PO BID@0700,1900 07/08/19 Hydroxyurea [Hydrea] 1,000 mg PO DAILY 07/08/19 Surgical History: Surgical History (Last Reviewed 07/08/19 @ 08:56 by Kristal Bone, MAINTAINER OPERATOR-C) History of left heart catheterization (Chronic) Onset Date: 04/21/14 Z98.890 Essentially normal coronaries (at most 20% stenosis in mid LAD). Referred to Dr. Chacko for severe aortic stenosis/bicuspid aortic valve, severe mitral annular calcification but no stenosis. Hx of colonoscopy (Chronic) Onset Date: 10/02/15 Z98.890 H/O aortic valve replacement (Chronic) Onset Date: 10/31/14 Z95.2 Aortic valve replacement with a 23?mm Solo stentless valve, modified MAZE procedure, left atrial appendage excision per Dr. 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 Denies: Abdominal Pain, Constipation, Vomiting Genitourinary: Denies: Dysuria Musculoskeletal: Denies: Joint Tenderness Skin: Denies: Rash Neurological: Denies: Balance problems Psychiatric: Denies: Depression Hematologic/ Lymphatic: Denies: Easy Bleeding Patient Problems: Active and Suspected Problems (Last Reviewed 07/08/19 @ 08:56 by ELEAZAR Prado) Lower gastrointestinal bleeding (Acute) - Physical Exam Vitals/I&O's: Vital Signs Temp Pulse Resp BP Pulse Ox 97.8 F 97 19 H 116/77 97 07/08/19 12:49 07/08/19 15:16 07/08/19 15:16 07/08/19 15:16 07/08/19 15:16 Oxygen Delivery Method Room Air Weight: 168 lb 6.931 oz Body Mass Index (BMI) 32.8 General: Alert, Oriented x3, Cooperative, No apparent distress HEENT: Atraumatic Lungs: Normal air movement Cardiovascular: Regular rate Abdomen: Soft, Non Tender, Non-Distended, - - STAN: Small internal hemorrhoids, small amount of brownish/maroon stool Extremities: Edema - Minimal Skin: No rashes Neurological: Cranial nerves II-XII grossly intact Psych/Mental Status: Normal Affect Microbiology Past 72 Hours 07/08/19 14:30 Stool Stool Occult Blood (MARY ANN) - Final Laboratory Results 07/08/19 13:55: WBC 5.2, RBC 2.86 L, Hgb 9.7 L, Hct 31.3 L, MCV 109.4 H, MCH 33.9 H, MCHC 31.0 L, RDW Std Deviation 57.6 H, RDW Coeff of Tess 14.4, Plt Count 121 L, MPV 10.9, Immature Gran % (Auto) 0.600, Neut % (Auto) 70.5 H, Lymph % (Auto) 21.7, Rush % (Auto) 5.2, Eos % (Auto) 1.4, Baso % (Auto) 0.6, Absolute Neuts (auto) 3.6, Absolute Lymphs (auto) 1.12, Nucleated RBC % 0 07/08/19 13:55: Sodium 140, Potassium 3.6, Chloride 110 H, Carbon Dioxide 25.0, Anion Gap 5, BUN 14, Creatinine 0.75, Estim Creat Clear Calc 37.60, Est GFR (MDRD) Af Amer 98, Est GFR (MDRD) Non-Af 81, BUN/Creatinine Ratio 18.7, Glucose 171 H, Calcium 8.7, Total Bilirubin 1.00, AST 19, ALT 19, Alkaline Phosphatase 45, Total Protein 6.4, Albumin 3.4, Globulin 3.0, Albumin/Globulin Ratio 1.1 07/08/19 13:55: PT 15.8 H, INR 1.3, APTT 36.0 Current Medications Acetaminophen (Tylenol) 650 mg PO Q6H PRN PRN PRN Reason: Pain Score 1-10/Temp > 100.7 F Sodium Chloride () 250 mls @ 15 mls/hr IV .[id number] PRN PRN Reason: Saline Flush Sodium Chloride () 250 mls @ 15 mls/hr IV .[id number] PRN PRN Reason: Additional IVPB Infusion Melatonin (Melatonin) 3 mg PO QHS PRN PRN PRN Reason: INSOMNIA Ondansetron HCl (Zofran) 4 mg IV Q8H PRN PRN PRN Reason: NAUSEA/VOMITING Sodium Chloride () 10 - 40 ml IV UD PRN PRN Reason: SALINE FLUSH Assessment/Plan All Active Problems (Last Reviewed 07/08/19 @ 08:56 by Kristal Bone, MAINTAINER OPERATOR-C) Lower gastrointestinal bleeding (Acute) Shortness of breath (Acute) Closed left arm fracture (Acute) BMI 32.0-32.9,adult (Acute) Segmental and somatic dysfunction of thoracic region (Acute) Segmental and somatic dysfunction of cervical region (Acute) Segmental and somatic dysfunction of lumbar region (Acute) Atrial fibrillation (Resolved) Gastritis (Resolved) H/O arthroscopy of left knee (Resolved) Herniated disc (Resolved) History of cholecystectomy (Resolved) History of meniscectomy of left knee (Resolved) History of tubal ligation (Resolved) Humeral head fracture (Resolved) Presence of prosthetic heart valve (Resolved) Trigger finger (Resolved) 68-year-old female with lower GI bleed, history of polycythemia I have discussed the above with the patient. I have offered the patient colonoscopy for evaluation. I have explained the risks/benefits of the procedure and described the procedure. I have discussed the risks with the patient, including but not limited to: infection, bleeding, perforation of the GI tract requiring emergency surgery, inability to complete the procedure, injury to any internal organs, complications of anesthesia, etc. - the patient understands and agrees to proceed. I have answered all the patient's questions to the patient's satisfaction and the patient has no further questions. Patient has gotten her for Dulcolax tabs and is starting her Gatorade and MiraLAX mixture. Plan for colonoscopy at 8 AM tomorrow morning. Manisha Gardner M.D. Pager: [phone] [facility] [address] [place] [address], [facility], [address] [place] [address] Office: [phone] Code Visit Inpatient E&M: 39923 Init Hosp L2
[2019-07-08] MEDS: Polyethylene Glycol 3350 BOWEL PREP PO (19:48)
[2019-07-08 20:00] VITALS: BP 128/56; PULSE 83; RESP 18; TEMP 37.2; O2SAT 97
[2019-07-08 23:12] VITALS: PULSE 83
[2019-07-09] VITALS (11 sets, daily range): BP systolic 94–122; BP diastolic 45–77; PULSE 78–87; RESP 14–18; TEMP 36.3–37.4; O2SAT 95–98; BMI 32.8
[2019-07-09 06:52] LABS: Absolute Lymphocyte Count 1.31 X10^3/uL (0.83-4.51); Absolute Neutrophil Count 4.1 X10^3/uL (2.0-7.7); Basophil# 0.03 X10^3/uL; Basophil% 0.5 % (0-1); Eosinophil# 0.11 X10^3/uL; Eosinophils% 1.8 % (0-5); Hematocrit 29.9 % (37-47); Hemoglobin 9.5 g/dL (12.0-15.0); Lymphocyte # 1.31 X10^3/ul (4.0); Lymphocyte % 21.8 % (19-41); Mean Corp Hgb Conc 31.8 g/dL (32-36); Mean Corpuscular Hgb 34.3 pg (27.0-32.0); Mean Corpuscular Volume 107.9 fL (81-99); Mean Platelet Vol. 11.2 fl (6.2-12.0); Monocyte# 0.42 X10^3/uL; NRBC Flagged by Analyzer 0 % (0-5); Neutrophil # 4.09 X10^3/uL (2.7-7.7); Neutrophil % 67.9 % (47-70); Platelet Count 113 K/mm3 (150-450); RBC Distribution Width CV 14.5 % (11.6-14.6); RBC Distribution Width SD 56.9 fl (35.1-43.9); Red Blood Count 2.77 M/mm3 (4.2-5.4)
[2019-07-09 07:13] LABS: Hemoglobin A1c 6.2 % (4.2-6.3)
[2019-07-09 07:17] LABS: Anion Gap 7 (5-15); BUN 5 mg/dL (7-18); BUN/Creat Ratio 9.4 RATIO (10-20); Chloride 105 mmol/L (98-107); Creatinine, Serum 0.53 mg/dL (0.55-1.02); EST Glomerular Filtration Rate 120 mL/min (>60); Est Glom Filt Rate - Afr Amer 145 mL/min (>60); Glucose 148 mg/dL (74-106); Potassium 3.3 mmol/L (3.5-5.1); Sodium Level 134 mmol/L (136-145)
--- NOTE | 2019-07-09 07:44 | PCM.PN.SRG ---
Patient Problems: Active and Suspected Problems (Last Reviewed 07/08/19 @ 08:56 by ELEAZAR Prado) Lower gastrointestinal bleeding (Acute) Subjective: Patient states that prep went well stool is clear and only very minimal blood seen she questions whether that could be from hemorrhoids at this time. - Physical Exam Vitals/I&O's: Vital Signs Temp Pulse Resp BP Pulse Ox 98.9 F 80 18 115/56 L 95 07/09/19 07:34 07/09/19 07:34 07/09/19 07:34 07/09/19 07:34 07/09/19 07:34 Oxygen Delivery Method Room Air Weight: 168 lb 6.931 oz Body Mass Index (BMI) 32.8 Intake and Output for Last 24 Hours 07/07/19 07/08/19 07/09/19 23:59 23:59 23:59 Intake Total 1999 Balance 1999 General: Alert, Oriented x3, Cooperative, No apparent distress HEENT: Atraumatic Lungs: Normal air movement Cardiovascular: Regular rate Abdomen: Soft, Non Tender, Non-Distended Microbiology Past 72 Hours 07/08/19 14:30 Stool Stool Occult Blood (MARY ANN) - Final Laboratory Results 07/08/19 13:55: WBC 5.2, RBC 2.86 L, Hgb 9.7 L, Hct 31.3 L, MCV 109.4 H, MCH 33.9 H, MCHC 31.0 L, RDW Std Deviation 57.6 H, RDW Coeff of Tess 14.4, Plt Count 121 L, MPV 10.9, Immature Gran % (Auto) 0.600, Neut % (Auto) 70.5 H, Lymph % (Auto) 21.7, [facility] [facility] % (Auto) 5.2, Eos % (Auto) 1.4, Baso % (Auto) 0.6, Absolute Neuts (auto) 3.6, Absolute Lymphs (auto) 1.12, Nucleated RBC % 0 07/08/19 13:55: Sodium 140, Potassium 3.6, Chloride 110 H, Carbon Dioxide 25.0, Anion Gap 5, BUN 14, Creatinine 0.75, Estim Creat Clear Calc 37.60, Est GFR (MDRD) Af Amer 98, Est GFR (MDRD) Non-Af 81, BUN/Creatinine Ratio 18.7, Glucose 171 H, Calcium 8.7, Total Bilirubin 1.00, AST 19, ALT 19, Alkaline Phosphatase 45, Total Protein 6.4, Albumin 3.4, Globulin 3.0, Albumin/Globulin Ratio 1.1 07/08/19 13:55: PT 15.8 H, INR 1.3, APTT 36.0 07/09/19 06:32: WBC 6.0, RBC 2.77 L, Hgb 9.5 L, Hct 29.9 L, MCV 107.9 H, MCH 34.3 H, MCHC 31.8 L, RDW Std Deviation 56.9 H, RDW Coeff of Tess 14.5, Plt Count 113 L, MPV 11.2, Immature Gran % (Auto) 1.000 H, Neut % (Auto) 67.9, Lymph % (Auto) 21.8, [facility] [facility] % (Auto) 7.0, Eos % (Auto) 1.8, Baso % (Auto) 0.5, Absolute Neuts (auto) 4.1, Absolute Lymphs (auto) 1.31, Nucleated RBC % 0 07/09/19 06:32: Sodium 134 L, Potassium 3.3 L, Chloride 105, Carbon Dioxide 22.0, Anion Gap 7, BUN 5 L, Creatinine 0.53 L, Estim Creat Clear Calc 37.60, Est GFR (MDRD) Af Amer 145, Est GFR (MDRD) Non-Af 120, BUN/Creatinine Ratio 9.4 L, Glucose 148 H, Calcium 8.0 L 07/09/19 06:32: Hemoglobin A1c 6.2 Current Medications Acetaminophen (Tylenol) 650 mg PO Q6H PRN PRN PRN Reason: Pain Score 1-10/Temp > 100.7 F Sodium Chloride () 250 mls @ 15 mls/hr IV .[id number] PRN PRN Reason: Saline Flush Sodium Chloride () 250 mls @ 15 mls/hr IV .[id number] PRN PRN Reason: Additional IVPB Infusion Melatonin (Melatonin) 3 mg PO QHS PRN PRN PRN Reason: INSOMNIA Ondansetron HCl (Zofran) 4 mg IV Q8H PRN PRN PRN Reason: NAUSEA/VOMITING Sodium Chloride () 10 - 40 ml IV UD PRN PRN Reason: SALINE FLUSH Medical Necessity - Tobacco Use Smoking Status: Former smoker Tobacco Use: Non-smoker Assessment/Plan All Active Problems (Last Reviewed 07/08/19 @ 08:56 by Kristal Bone NP-C) Lower gastrointestinal bleeding (Acute) Shortness of breath (Acute) Closed left arm fracture (Acute) BMI 32.0-32.9,adult (Acute) Segmental and somatic dysfunction of thoracic region (Acute) Segmental and somatic dysfunction of cervical region (Acute) Segmental and somatic dysfunction of lumbar region (Acute) Atrial fibrillation (Resolved) Gastritis (Resolved) H/O arthroscopy of left knee (Resolved) Herniated disc (Resolved) History of cholecystectomy (Resolved) History of meniscectomy of left knee (Resolved) History of tubal ligation (Resolved) Humeral head fracture (Resolved) Presence of prosthetic heart valve (Resolved) Trigger finger (Resolved) 68-year-old female with lower GI bleed, history of polycythemia I have discussed the above with the patient. I have offered the patient colonoscopy for evaluation. I have explained the risks/benefits of the procedure and described the procedure. I have discussed the risks with the patient, including but not limited to: infection, bleeding, perforation of the GI tract requiring emergency surgery, inability to complete the procedure, injury to any internal organs, complications of anesthesia, etc. - the patient understands and agrees to proceed. I have answered all the patient's questions to the patient's satisfaction and the patient has no further questions. We will proceed with colonoscopy this morning Manisha Gardner M.D. Pager: [phone] [facility] [address] [place] [address], [address] [place] [address] Office: [phone]
--- NOTE | 2019-07-09 08:52 | OP.COLON_ITS ---
Patient Name: Whit Baca Procedure Date: 07/09/2019 7:37 AM Date of : 1950 Age: 68 Procedure: Colonoscopy Indications: Hematochezia Providers: Manisha Gardner MD Medicines: Monitored Anesthesia Care Patient Profile: This is a 68 year old female. Last Colonoscopy: 4 years ago--negative per pt. Complications: No immediate complications. Procedure: Pre-Anesthesia Assessment: - Prior to the procedure, a History and Physical was performed, and patient medications and allergies were reviewed. The patient's tolerance of previous anesthesia was also reviewed. The risks and benefits of the procedure and the sedation options and risks were discussed with the patient. All questions were answered, and informed consent was obtained. Prior Anticoagulants: The patient has taken aspirin, last dose was 1 day prior to procedure. ASA Grade Assessment: II - A patient with mild systemic disease. After reviewing the risks and benefits, the patient was deemed in satisfactory condition to undergo the procedure. After I obtained informed consent, the scope was passed under direct vision. Throughout the procedure, the patient's blood pressure, pulse, and oxygen saturations were monitored continuously. The colonoscope was introduced through the anus and advanced to the terminal ileum. The colonoscopy was performed without difficulty. The patient tolerated the procedure well. The quality of the bowel preparation was good. Scope In: 8:01:15 AM Scope Withdrawal Time 0 hours 23 minutes 33 seconds Scope Out: 8:40:21 AM Total Procedure Duration Time 0 hours 39 minutes 6 seconds Findings: Hemorrhoids were found on perianal exam. A few small-mouthed diverticula were found in the sigmoid colon and descending colon. Discontinuous areas of nonbleeding ulcerated mucosa with stigmata of recent bleeding were present in the proximal ascending colon. Biopsies were taken with a cold forceps for histology. The [Site] appeared normal. Biopsies were taken with a cold forceps for histology. A single medium-sized localized angioectasia without bleeding was found in the ascending colon. Coagulation for bleeding prevention using argon plasma was successful. Impression: - Hemorrhoids found on perianal exam. - Diverticulosis in the sigmoid colon and in the descending colon. - Mucosal ulceration. Biopsied. - The examined portion of the ileum was normal. Biopsied. - A single non-bleeding colonic angioectasia. Treated with argon plasma coagulation (APC). Recommendation: - Return patient to [facility] for ongoing care. - Advance diet as tolerated. - Continue present medications. - Await pathology results. - Repeat colonoscopy in 10 years for screening purposes. Procedure Code(s): --- Professional --- 78053, 59, Colonoscopy, flexible; with control of bleeding, any method 29951, Colonoscopy, flexible; with biopsy, single or multiple Diagnosis Code(s): --- Professional --- K64.9, Unspecified hemorrhoids K63.3, Ulcer of intestine K55.20, Angiodysplasia of colon without hemorrhage K92.1, Melena (includes Hematochezia) K57.30, Diverticulosis of large intestine without perforation or abscess without bleeding CPT copyright 2017 [employer]. All rights reserved. The codes documented in this report are preliminary and upon global technical writer review may be revised to meet current compliance requirements. MD Manisha Burton MD 07/09/2019 8:52:41 AM This report has been signed electronically. Number of Addenda: 0 Note Initiated On: 07/09/2019 7:37 AM
--- NOTE | 2019-07-09 08:53 | OP.CCLET_ITS ---
07/09/2019 Imer Cummings Re : Colonoscopy procedure for Whit Seymournan This procedure was performed on Tuesday, July 09, 2019. My impressions and recommendations are as follows: Impressions : - Hemorrhoids found on perianal exam. - Diverticulosis in the sigmoid colon and in the descending colon. - Mucosal ulceration. Biopsied. - The examined portion of the ileum was normal. Biopsied. - A single non-bleeding colonic angioectasia. Treated with argon plasma coagulation (APC). Recommendations : - Return patient to [facility] for ongoing care. - Advance diet as tolerated. - Continue present medications. - Await pathology results. - Repeat colonoscopy in 10 years for screening purposes. My findings are described in the full procedure note, which is enclosed. If I can be of further assistance, please feel free to contact me at Doctor phone number(s): , Work: . Sincerely, MD Manisha Burton MD 07/09/2019 8:52:41 AM This report has been signed electronically.
--- NOTE | 2019-07-09 10:28 | DCINST_ITS ---
- Discharge Diagnoses Current Active Problems: Current Active and Chronic Problems (Last Reviewed 07/08/19 @ 08:56 by ELEAZAR Prado) Lower gastrointestinal bleeding (Acute) Diastolic CHF (Chronic) Gout (Chronic) H/O aortic valve replacement with porcine valve (Chronic) DDD (degenerative disc disease) (Chronic) You will use the following diet at home:: Cardiac Your food should be the consistency of: Regular Your liquids should be the consistency of: Regular/Thin Discharge Activity: Return to Normal Activity Allergies/Adverse Reactions: Allergies Penicillins Allergy (Severe, Verified 07/08/19 12:51) Rash clarithromycin [From Biaxin] Allergy (Intermediate, Verified 07/08/19 12:51) Rash erythromycin base [Erythromycin Base] Allergy (Intermediate, Verified 07/08/19 12:51) Rash cat dander Adverse Reaction (Intermediate, Verified 07/08/19 12:51) SNEEZING Alternaria Mold Spores Allergy (Intermediate, Uncoded 07/08/19 12:51) SNEEZING dust Allergy (Intermediate, Uncoded 07/08/19 12:51) SNEEZING Medications to take at Discharge Multivitamins,Therapeutic [Multivitamin] 1 tab PO DAILY 04/20/14 temazepam 15 mg capsule 15 mg PO QHS 05/20/17 vit C,E,zinc,copper-[id number] 250 mg-lutein 5 mg-zeaxanthin 1 mg capsule 1 cap PO DAILY 05/20/17 cholecalciferol (vitamin D3) 125 mcg (5,000 unit) capsule 5,000 unit PO DAILY 10/01/17 pravastatin 40 mg tablet 40 mg PO DAILY 05/24/18 carboxymethylcellulose sodium 1 % eye liquid gel drops 1 drp OPHTHALMIC 4-6XD 12/30/18 clindamycin HCl 300 mg capsule 600 mg PO .COMPLEX cap 12/30/18 Ibandronate Sodium [Boniva] 150 mg PO QMONTH 01/26/19 Allopurinol [Zyloprim] 200 mg PO DAILY 07/08/19 Bifidobacterium Infantis [Align] 4 mg PO DAILY 07/08/19 Biotin 1,000 mcg PO DAILY 07/08/19 Calcium (Elemental) [Os-Paul 500] 500 mg PO DAILY 07/08/19 Calcium Carbonate [Tums Smoothies] 300 mg PO DAILY PRN PRN 07/08/19 Carvedilol 6.25 mg PO BID@0700,1900 07/08/19 Hydroxyurea [Hydrea] 1,000 mg PO DAILY 07/08/19 Aspirin 325 mg PO DAILY@0800 #0 07/09/19 Primary Care Physician: Imer Cummings MD [Primary Care Provider] - Please follow up with your Primary Care Physician in: 1-2 weeks Test Results: Test results from this visit will be discussed in further detail at your follow- up appointment, if applicable. Please Follow Up With: Manisha Gardner MD When: 1 week Please Follow Up With: Edilson Miller MD When: as directed Proposed Discharge Date: 07/09/19
[2019-07-09] MEDS: Furosemide 40 MG/4 ML Vial IV (11:15)
[2019-07-09] MEDS: 0.9% Saline Lock 10 ML Syringe IV (11:15)
[2019-07-09] MEDS: Allopurinol 100 MG Tablet 200 MG PO (11:25)
--- NOTE | 2019-07-09 13:11 | DS.PCM_ITS ---
<Josep Haque - Last Filed: 07/09/19 13:11> Discharge Date and Diagnosis - Problem List Patient Problems: Active and Suspected Problems (Last Reviewed 07/08/19 @ 08:56 by ELEAZAR Prado) Lower gastrointestinal bleeding (Acute) Date of Admission: 07/08/19 Date of Discharge: 07/09/19 - Primary Discharge Diagnosis Active and Suspected Problems (Last Reviewed 07/08/19 @ 08:56 by ELEAZAR Prado) Acute blood loss anemia 2/2 rectal bleed Colonic ulcers Hemorrhoids Colonic angioectasia - Secondary Discharge Diagnosis Chronic Problems (Last Reviewed 07/08/19 @ 08:56 by ELEAZAR Prado) Diastolic CHF (Chronic) Gout (Chronic) 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 Aortic valve replaced 10/21/[address] Chacko Mitral valve annular calcification (Chronic) Severe per echo 06/03/2017 History of left heart catheterization (Chronic 04/21/14) Essentially normal coronaries (at most 20% stenosis in mid LAD). Referred to Dr. Chacko for severe aortic stenosis/bicuspid aortic valve, severe mitral annular calcification but no stenosis. Right arm fracture (Chronic 02/25/17) sustained from a fall Hx of colonoscopy (Chronic 10/02/15) Gastritis (Chronic) H/O aortic valve replacement (Chronic 10/31/14) Aortic valve replacement with a 23?mm Solo stentless valve, modified MAZE procedure, left atrial appendage excision per Dr. Chacko @ [facility] Lacunar infarction (Chronic) KYLE (obstructive sleep apnea) (Chronic) Sleep disorder (Chronic) De Quervain's disease (tenosynovitis) (Chronic) Supraventricular tachycardia (Chronic) Diabetes mellitus type 2, controlled (Chronic) Osteoarthritis (Chronic) Left ventricular hypertrophy (Chronic) with septal hypertrophy Polycythemia vera (Chronic) Hyperlipidemia (Chronic) Hospital Course and Treatment Consults: [place] - Gen Surg Operations: None Procedures: Colonoscopy Summary of Care Provided: Hospital Course: The patient is a 68 year old F with pmhx of stroke, porcine aortic valve, sevre aortic stenosis, pulmonary htn, polycythemia vera, diastolic CHF, KYLE, DMt2, HLD, DDD, who presented to the ER with complaining of 4 days of rectal bleeding. She was having multiple daily episodes of diarrhea with brownish red blood. This continued for four days. She had associated mild lower abdominal pain. In the ER she was somewhat anemia with Hgb 9.7 and low platelets at 121. She was taken off aspirin 325 (takes for hx strokes) and admitted to the med surg floor. Gen surgery was consulted and arranged for a colonoscopy the next morning. The next morning hgb was 9.5 and she was taken for colonoscopy. Findings included multiple colonic ulcers (nonbleeding), an angioectasia, and hemorrhoids. Biopsies were taken. Diet was advanced. She was given a single dose of lasix for some SOB after the procedure.She had recently seen the net fisher and was put on daily lasix. She will need to continue this daily. She has follow up wtih the python programmer this week already arranged. She will need to follow up with Dr. Gardner this week for biopsy results. She will need to hold aspirin for at least 3 days. She should follow up with her digital proofing and platemaker/oncologist, Dr. Miller. She was discharged home in stable condition. This patient was seen by Josep Haque PA-C under the supervision of Dr. Rudolph. [] Patient Problems: Active and Suspected Problems (Last Reviewed 07/08/19 @ 08:56 by ELEAZAR Prado) Lower gastrointestinal bleeding (Acute) - Physical Exam Vitals/I&O's: Vital Signs Temp Pulse Resp BP Pulse Ox 97.6 F L 81 18 122/52 H 95 07/09/19 09:33 07/09/19 09:33 07/09/19 09:33 07/09/19 09:33 07/09/19 09:33 Oxygen Delivery Method Room Air Weight: 168 lb 6.931 oz Body Mass Index (BMI) 32.8 Intake and Output for Last 24 Hours 07/07/19 07/08/19 07/09/19 23:59 23:59 23:59 Intake Total 1999 Balance 1999 General: Alert, Oriented x3, Cooperative HEENT: Atraumatic, PERRLA, EOMI, Normocephalic Neck: Supple, No JVD, Negative Carotid Bruits Lungs: Clear to auscultation, Normal air movement Cardiovascular: Regular rate, No murmurs Abdomen: Bowel Sounds Present, Soft, Non Tender Extremities: No edema, Capillary Refill Less than 3 Seconds Skin: No rashes, No breakdown Musculoskeletal: No Tenderness to Palpation of Joints or Extremities Neurological: Cranial nerves II-XII grossly intact Psych/Mental Status: Normal Affect, Appropriate Microbiology Past 72 Hours 07/08/19 14:30 Stool Stool Occult Blood (MARY ANN) - Final Laboratory Results 07/08/19 13:55: WBC 5.2, RBC 2.86 L, Hgb 9.7 L, Hct 31.3 L, MCV 109.4 H, MCH 33.9 H, MCHC 31.0 L, RDW Std Deviation 57.6 H, RDW Coeff of Tess 14.4, Plt Count 121 L, MPV 10.9, Immature Gran % (Auto) 0.600, Neut % (Auto) 70.5 H, Lymph % (Auto) 21.7, [place] % (Auto) 5.2, Eos % (Auto) 1.4, Baso % (Auto) 0.6, Absolute Neuts (auto) 3.6, Absolute Lymphs (auto) 1.12, Nucleated RBC % 0 07/08/19 13:55: Sodium 140, Potassium 3.6, Chloride 110 H, Carbon Dioxide 25.0, Anion Gap 5, BUN 14, Creatinine 0.75, Estim Creat Clear Calc 37.60, Est GFR (MDRD) Af Amer 98, Est GFR (MDRD) Non-Af 81, BUN/Creatinine Ratio 18.7, Glucose 171 H, Calcium 8.7, Total Bilirubin 1.00, AST 19, ALT 19, Alkaline Phosphatase 45, Total Protein 6.4, Albumin 3.4, Globulin 3.0, Albumin/Globulin Ratio 1.1 07/08/19 13:55: PT 15.8 H, INR 1.3, APTT 36.0 07/09/19 06:32: WBC 6.0, RBC 2.77 L, Hgb 9.5 L, Hct 29.9 L, MCV 107.9 H, MCH 34.3 H, MCHC 31.8 L, RDW Std Deviation 56.9 H, RDW Coeff of Tess 14.5, Plt Count 113 L, MPV 11.2, Immature Gran % (Auto) 1.000 H, Neut % (Auto) 67.9, Lymph % (Auto) 21.8, [place] % (Auto) 7.0, Eos % (Auto) 1.8, Baso % (Auto) 0.5, Absolute Neuts (auto) 4.1, Absolute Lymphs (auto) 1.31, Nucleated RBC % 0 07/09/19 06:32: Sodium 134 L, Potassium 3.3 L, Chloride 105, Carbon Dioxide 22.0, Anion Gap 7, BUN 5 L, Creatinine 0.53 L, Estim Creat Clear Calc 37.60, Est GFR (MDRD) Af Amer 145, Est GFR (MDRD) Non-Af 120, BUN/Creatinine Ratio 9.4 L, Glucose 148 H, Calcium 8.0 L 07/09/19 06:32: Hemoglobin A1c 6.2 Current Medications Acetaminophen (Tylenol) 650 mg PO Q6H PRN PRN PRN Reason: Pain Score 1-10/Temp > 100.7 F Allopurinol (Zyloprim) 200 mg PO DAILY [facility] Last Admin: 07/09/19 11:25 Dose: 200 mg Documented by: Carvedilol (Coreg) 6.25 mg PO BID@0700,1900 [facility] Sodium Chloride () 250 mls @ 15 mls/hr IV .[id number] PRN PRN Reason: Saline Flush Sodium Chloride () 250 mls @ 15 mls/hr IV .[id number] PRN PRN Reason: Additional IVPB Infusion Melatonin (Melatonin) 3 mg PO QHS PRN PRN PRN Reason: INSOMNIA Ondansetron HCl (Zofran) 4 mg IV Q8H PRN PRN PRN Reason: NAUSEA/VOMITING Pravastatin Sodium (Pravachol) 40 mg PO QHS [facility] Sodium Chloride () 10 - 40 ml IV UD PRN PRN Reason: SALINE FLUSH Last Admin: 07/09/19 11:15 Dose: 10 ml Documented by: Temazepam (Restoril) 15 - 30 mg PO QHS PRN PRN PRN Reason: SLEEP Discharge Diet: Low fat/ Low Cholesterol, 1800 Calorie Control Diet, 2000 mg Sodium Diet Discharge Activity: Return to Normal Activity Home Medications: Medications to take at Discharge Multivitamins,Therapeutic [Multivitamin] 1 tab PO DAILY 04/20/14 temazepam 15 mg capsule 15 mg PO QHS 05/20/17 vit C,E,zinc,copper-[id number] 250 mg-lutein 5 mg-zeaxanthin 1 mg capsule 1 cap PO DAILY 05/20/17 cholecalciferol (vitamin D3) 125 mcg (5,000 unit) capsule 5,000 unit PO DAILY 10/01/17 pravastatin 40 mg tablet 40 mg PO DAILY 05/24/18 carboxymethylcellulose sodium 1 % eye liquid gel drops 1 drp OPHTHALMIC 4-6XD 12/30/18 clindamycin HCl 300 mg capsule 600 mg PO .COMPLEX cap 12/30/18 Ibandronate Sodium [Boniva] 150 mg PO QMONTH 01/26/19 Allopurinol [Zyloprim] 200 mg PO DAILY 07/08/19 Bifidobacterium Infantis [Align] 4 mg PO DAILY 07/08/19 Biotin 1,000 mcg PO DAILY 07/08/19 Calcium (Elemental) [Os-Paul 500] 500 mg PO DAILY 07/08/19 Calcium Carbonate [Tums Smoothies] 300 mg PO DAILY PRN PRN 07/08/19 Carvedilol 6.25 mg PO BID@0700,1900 07/08/19 Hydroxyurea [Hydrea] 1,000 mg PO DAILY 07/08/19 Aspirin 325 mg PO DAILY@0800 #0 07/09/19 Primary Care Physician: Imer Cummings MD [Primary Care Provider] - Please follow up with your Primary Care Physician in: 1-2 weeks Please Follow Up With: Manisha Gardner MD When: 1 week Please Follow Up With: Edilson Miller MD When: as directed Please Follow Up With: Jayro Poe MD When: as directed Disposition: Home Minutes spent on discharge:: 35 Patient Condition:: Stable Medical Necessity - Tobacco Use Smoking Status: Former smoker Tobacco Use: Non-smoker Meaningful Use Info Meaningful Use Diagnoses (Choose all that apply): None applicable <Klaudia,Cheyney - Last Filed: 07/09/19 13:59> Discharge Date and Diagnosis - Primary Discharge Diagnosis Active and Suspected Problems (Last Reviewed 07/08/19 @ 08:56 by ELEAZAR Prado) Lower gastrointestinal bleeding (Acute) - Secondary Discharge Diagnosis Chronic Problems (Last Reviewed 07/08/19 @ 08:56 by ELEAZAR Prado) Diastolic CHF (Chronic) Gout (Chronic) 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 Aortic valve replaced 10/21/[address] Chacko Mitral valve annular calcification (Chronic) Severe per echo 06/03/2017 History of left heart catheterization (Chronic 04/21/14) Essentially normal coronaries (at most 20% stenosis in mid LAD). Referred to Dr. Chacko for severe aortic stenosis/bicuspid aortic valve, severe mitral annular calcification but no stenosis. Right arm fracture (Chronic 02/25/17) sustained from a fall Hx of colonoscopy (Chronic 10/02/15) Gastritis (Chronic) H/O aortic valve replacement (Chronic 10/31/14) Aortic valve replacement with a 23?mm Solo stentless valve, modified MAZE procedure, left atrial appendage excision per Dr. Chacko @ [facility] Lacunar infarction (Chronic) KYLE (obstructive sleep apnea) (Chronic) Sleep disorder (Chronic) De Quervain's disease (tenosynovitis) (Chronic) Supraventricular tachycardia (Chronic) Diabetes mellitus type 2, controlled (Chronic) Osteoarthritis (Chronic) Left ventricular hypertrophy (Chronic) with septal hypertrophy Polycythemia vera (Chronic) Hyperlipidemia (Chronic) Hospital Course and Treatment Summary of Care Provided: This patient was seen in conjunction with ANDREW Sharif. I have independently interviewed and examined the patient and reviewed pertinent historical, laboratory, and other data. Please refer to ANDREW Sharif note for his patient's presentation, findings, and recommendations. I have reviewed and his note and concur with his documentation [id number] female with past medical history of bioprosthetic aortic valve replacement with subsequent severe aortic stenosis/pulmonary hypertension, chronic diastolic CHF, polycythemia vera, CVA, hypertension diabetes who comes in with complaints of 4 days of rectal bleeding described as dark chocolate. It was associated with some lower abdominal pain. Her hemoglobin was low in the e mergency department. It was 9.7, down from 13.7. Her platelet count was 121. She was managed conservatively, General surgery consulted. She had underwent colonoscopy and findings were positive for multiple chronic nonbleeding ulcers, and AVM that was cauterized. Biopsies of the ulcers were taken. Patient was advanced on her regular diet. Postprocedure on the medical floor, patient complains of some shortness of breath. She had recently been on Lasix 40 mg daily and had followed up with a pulmonology team. She has an upcoming appointment within a week with cardiology. She was given a dose of Lasix IV x1 and continued on discharge with 40 mg a day of Lasix. Knows to restrict her fluid, weigh herself daily. She will follow-up with a general surgeon for her biopsy result. She was asked to hold off of her aspirin. She needs to also follow-up with her digital proofing and platemaker/oncologist as scheduled. On the day of discharge, patient was seen and examined. She felt improved. No more bleeding. She was tolerating and advancement in her diet. Physical Exam: Gen:Comfortable, not pale, not jaundiced, obese, not on oxygen CVS:HS I +II, regular, 3/6 ejection systolic murmur RESP: Diminished at lung bases GI: BS present and normal, soft, nontender, no palpable organs EXT:No edema - Physical Exam Vitals/I&O's: Vital Signs Temp Pulse Resp BP Pulse Ox 97.6 F L 81 18 122/52 H 95 07/09/19 09:33 07/09/19 09:33 07/09/19 09:33 07/09/19 09:33 07/09/19 09:33 Oxygen Delivery Method Room Air Weight: 76.4 kg Body Mass Index (BMI) 32.8 Intake and Output for Last 24 Hours 07/07/19 07/08/19 07/09/19 23:59 23:59 23:59 Intake Total 1999 Balance 1999 Microbiology Past 72 Hours 07/08/19 14:30 Stool Stool Occult Blood (MARY ANN) - Final Laboratory Results 07/08/19 13:55: WBC 5.2, RBC 2.86 L, Hgb 9.7 L, Hct 31.3 L, MCV 109.4 H, MCH 33.9 H, MCHC 31.0 L, RDW Std Deviation 57.6 H, RDW Coeff of Tess 14.4, Plt Count 121 L, MPV 10.9, Immature Gran % (Auto) 0.600, Neut % (Auto) 70.5 H, Lymph % (Auto) 21.7, [place] % (Auto) 5.2, Eos % (Auto) 1.4, Baso % (Auto) 0.6, Absolute Neuts (auto) 3.6, Absolute Lymphs (auto) 1.12, Nucleated RBC % 0 07/08/19 13:55: Sodium 140, Potassium 3.6, Chloride 110 H, Carbon Dioxide 25.0, Anion Gap 5, BUN 14, Creatinine 0.75, Estim Creat Clear Calc 37.60, Est GFR (MDRD) Af Amer 98, Est GFR (MDRD) Non-Af 81, BUN/Creatinine Ratio 18.7, Glucose 171 H, Calcium 8.7, Total Bilirubin 1.00, AST 19, ALT 19, Alkaline Phosphatase 45, Total Protein 6.4, Albumin 3.4, Globulin 3.0, Albumin/Globulin Ratio 1.1 07/08/19 13:55: PT 15.8 H, INR 1.3, APTT 36.0 07/09/19 06:32: WBC 6.0, RBC 2.77 L, Hgb 9.5 L, Hct 29.9 L, MCV 107.9 H, MCH 34.3 H, MCHC 31.8 L, RDW Std Deviation 56.9 H, RDW Coeff of Tess 14.5, Plt Count 113 L, MPV 11.2, Immature Gran % (Auto) 1.000 H, Neut % (Auto) 67.9, Lymph % (Auto) 21.8, [place] % (Auto) 7.0, Eos % (Auto) 1.8, Baso % (Auto) 0.5, Absolute Neuts (auto) 4.1, Absolute Lymphs (auto) 1.31, Nucleated RBC % 0 07/09/19 06:32: Sodium 134 L, Potassium 3.3 L, Chloride 105, Carbon Dioxide 22.0, Anion Gap 7, BUN 5 L, Creatinine 0.53 L, Estim Creat Clear Calc 37.60, Est GFR (MDRD) Af Amer 145, Est GFR (MDRD) Non-Af 120, BUN/Creatinine Ratio 9.4 L, Glucose 148 H, Calcium 8.0 L 07/09/19 06:32: Hemoglobin A1c 6.2 Current Medications Acetaminophen (Tylenol) 650 mg PO Q6H PRN PRN PRN Reason: Pain Score 1-10/Temp > 100.7 F Allopurinol (Zyloprim) 200 mg PO DAILY [facility] Last Admin: 07/09/19 11:25 Dose: 200 mg Documented by: Carvedilol (Coreg) 6.25 mg PO BID@0700,1900 [facility] Sodium Chloride () 250 mls @ 15 mls/hr IV .[id number] PRN PRN Reason: Saline Flush Sodium Chloride () 250 mls @ 15 mls/hr IV .[id number] PRN PRN Reason: Additional IVPB Infusion Melatonin (Melatonin) 3 mg PO QHS PRN PRN PRN Reason: INSOMNIA Ondansetron HCl (Zofran) 4 mg IV Q8H PRN PRN PRN Reason: NAUSEA/VOMITING Pravastatin Sodium (Pravachol) 40 mg PO QHS [facility] Sodium Chloride () 10 - 40 ml IV UD PRN PRN Reason: SALINE FLUSH Last Admin: 07/09/19 11:15 Dose: 10 ml Documented by: Temazepam (Restoril) 15 - 30 mg PO QHS PRN PRN PRN Reason: SLEEP Code Visit OBSV E&M: [id number] Observation care discharge
== END 2019-07-09 17:31 | disposition home or self-care (01) ==
LOC: ED 16:13 → MS3 16:41
PROVIDERS: Anesthesiology; Surgery; Admitting Provider Family Medicine; Emergency Provider Emergency Medicine; PCP Family Medicine; Visit Provider Internal Medicine
PROC: 0DJD8ZZ Inspection of Lower Intestinal Tract, Via Natural or Artificial Opening Endoscopic (ICD-10-PCS; CPT 45378; principal; 2019-07-09 08:00)
DX: D62 Acute posthemorrhagic anemia (principal); K57.31 Diverticulosis of large intestine without perforation or abscess with bleeding; I11.0 Hypertensive heart disease with heart failure; I50.32 Chronic diastolic (congestive) heart failure; M10.9 Gout, unspecified; G47.33 Obstructive sleep apnea (adult) (pediatric); E11.9 Type 2 diabetes mellitus without complications; M19.90 Unspecified osteoarthritis, unspecified site; E78.5 Hyperlipidemia, unspecified; D45 Polycythemia vera; D69.6 Thrombocytopenia, unspecified; M81.0 Age-related osteoporosis without current pathological fracture; M99.01 Segmental and somatic dysfunction of cervical region; M99.03 Segmental and somatic dysfunction of lumbar region; M99.02 Segmental and somatic dysfunction of thoracic region; K64.9 Unspecified hemorrhoids; K63.3 Ulcer of intestine; K55.20 Angiodysplasia of colon without hemorrhage; Z79.899 Other long term (current) drug therapy; Z79.82 Long term (current) use of aspirin; Z87.891 Personal history of nicotine dependence; Z95.2 Presence of prosthetic heart valve
CPT/HCPCS: 45380; 45382; 36415; 80048; 80053; 82274; 83036; 85025; 85610; 85730; 88305; 96374; 99218; 99284; A4216; G0378; J1940

== ENCOUNTER → 2019-07-27 11:00 | Outpatient (CLI) | payer MEDICARE, OTHER, SELFPAY ==
[2015-11-29 11:48] VITALS: BMI 37.0
[2019-07-07 10:44] VITALS: BMI 34.9
--- NOTE | 2019-07-19 13:49 | RAD_ITS ---
HISTORY: PRE OP FOR HEART CATH; SOBAORTIC STENOSIS, CHF ADDITIONAL HISTORY: None provided. COMPARISON: 03/12/2015, 04/04/2014 TECHNIQUE: Frontal and lateral chest radiographs. Number of images including paperwork: 2 FINDINGS: LUNGS AND PLEURA: Interstitial septal thickening. Small bilateral pleural effusions. CARDIAC SILHOUETTE: Stable. MEDIASTINUM AND JOY: Aortic calcification and tortuosity. UPPER ABDOMEN: Unremarkable. SKELETON AND SOFT TISSUES: No acute findings. Degenerative changes. OTHER DEVICES AND HARDWARE: Sternal wires. RAD/Chest PA and Lateral IMPRESSION: 1. Interstitial septal thickening suggestive of mild edema. 2. Small bilateral pleural effusions. at 0334 Reported and signed by: Jayshree Mccray MD Electronically Signed: Jayshree Mccray MD at 3:34 EST Tel , Service support ,
[2019-07-19 14:20] LABS: International Normalized Ratio 1.2; Prothrombin Time (Protime)PT. 15.4 SECONDS (11.7-14.9)
[2019-07-19 14:21] LABS: Partial Thromboplast Time 35.3 Seconds (24.1-36.2)
[2019-07-19 14:31] LABS: ALB/GLOB Ratio 1.1 RATIO (0.9-2.4); AST(SGOT) 16 U/L (15-37); Alanine Aminotransfer ALT/SGPT 17 U/L (13-56); Albumin, Serum 3.6 g/dL (3.2-5.0); Alkaline Phosphatase 44 U/L (45-117); Anion Gap 4 (5-15); BUN 16 mg/dL (7-18); Calcium,Total 8.9 mg/dL (8.5-10.1); Chloride 106 mmol/L (98-107); EST Glomerular Filtration Rate 75 mL/min (>60); Est Glom Filt Rate - Afr Amer 91 mL/min (>60); Globulin 3.3 g/dL (2.2-4.2); Glucose 187 mg/dL (74-106); Potassium 3.7 mmol/L (3.5-5.1); Protein, Total 6.9 g/dL (6.4-8.2); Sodium Level 138 mmol/L (136-145)
[2019-07-20 15:12] LABS: Hematocrit 29.9 % (37-47); Hemoglobin 9.1 g/dL (12.0-15.0); Red Blood Count 2.82 M/mm3 (4.2-5.4); White Blood Count 5.9 K/mm3 (4.4-11.0)
[2019-07-20 15:13] LABS: Absolute Lymphocyte Count 1.58 X10^3/uL (0.83-4.51); Absolute Neutrophil Count 3.9 X10^3/uL (2.0-7.7); Basophil# 0.02 X10^3/uL; Basophil% 0.3 % (0-1); Eosinophil# 0.06 X10^3/uL; Lymphocyte # 1.58 X10^3/ul (4.0); Lymphocyte % 26.6 % (19-41); Mean Corp Hgb Conc 30.4 g/dL (32-36); Mean Corpuscular Hgb 32.3 pg (27.0-32.0); Mean Platelet Vol. 10.8 fl (6.2-12.0); Monocyte# 0.36 X10^3/uL; Monocyte% 6.1 % (0-10); Neutrophil # 3.88 X10^3/uL (2.7-7.7); Neutrophil % 65.5 % (47-70); Platelet Count 164 K/mm3 (150-450); RBC Distribution Width CV 14.6 % (11.6-14.6)
[2019-07-20 15:14] LABS: NRBC Flagged by Analyzer 0 % (0-5)
== END ==
PROVIDERS: PCP Family Medicine; Referring Provider Internal Medicine Cardiovascular Disease; Visit Provider Internal Medicine Cardiovascular Disease
DX: R06.02 Shortness of breath (principal); I35.0 Nonrheumatic aortic (valve) stenosis; I50.9 Heart failure, unspecified; Z95.2 Presence of prosthetic heart valve
CPT/HCPCS: 36415; 71046; 80053; 85025; 85610; 85730

== ENCOUNTER → 2019-08-02 10:11 | Outpatient (CLI) | payer MEDICARE, OTHER, SELFPAY ==
[2015-11-29 11:48] VITALS: BMI 37.0
[2019-07-20 14:35] VITALS: BMI 34.1
--- NOTE | 2019-08-02 10:25 | RAD_ITS ---
STUDY: X-RAY CHEST REASON FOR EXAM: Female, 68 years old. COUGH,SOB TECHNIQUE: PA and lateral views of the chest. COMPARISON: 07/19/2019. FINDINGS: The lungs are underexpanded with vascular crowding. There is mild bilateral mid-lower lung field atelectasis. There is no demonstrated pleural abnormality. Normal size heart. Normal mediastinum and enma. Normal visualized pulmonary arteries. There is atherosclerotic calcification of the aortic arch with tortuosity. There are diffuse degenerative changes of the visualized thoracic spine. There is degenerative osteoarthritis of the bilateral shoulders. Midline sternotomy wires present. There is no demonstrated abnormality of the visualized soft tissue structures of the upper abdomen. RAD/Chest PA and Lateral IMPRESSION: Decreased inspiration with vascular crowding, cannot exclude mild vascular congestion. Bilateral mid-lower lung field atelectasis. Electronically Signed: Zoraida Abreu MD at 0:18 EDT , Service support ,
[2019-08-02 10:26] LABS: Absolute Lymphocyte Count 1.44 X10^3/uL (0.83-4.51); Absolute Neutrophil Count 5.9 X10^3/uL (2.0-7.7); Basophil# 0.05 X10^3/uL; Basophil% 0.6 % (0-1); Eosinophil# 0.09 X10^3/uL; Eosinophils% 1.1 % (0-5); Hematocrit 29.1 % (37-47); Hemoglobin 8.7 g/dL (12.0-15.0); Lymphocyte # 1.44 X10^3/ul (4.0); Lymphocyte % 17.3 % (19-41); Mean Corp Hgb Conc 29.9 g/dL (32-36); Mean Corpuscular Hgb 29.6 pg (27.0-32.0); Mean Platelet Vol. 12.3 fl (6.2-12.0); Monocyte# 0.74 X10^3/uL; Monocyte% 8.9 % (0-10); NRBC Flagged by Analyzer 0 % (0-5); Platelet Count 169 K/mm3 (150-450); RBC Distribution Width CV 16.2 % (11.6-14.6); RBC Distribution Width SD 58.7 fl (35.1-43.9); Red Blood Count 2.94 M/mm3 (4.2-5.4); White Blood Count 8.3 K/mm3 (4.4-11.0)
[2019-08-02 10:56] LABS: BNP,B-Type NATRIURETIC PEPTIDE 879.2 pg/mL (0-100)
[2019-08-02 10:57] LABS: AST(SGOT) 23 U/L (15-37); Alanine Aminotransfer ALT/SGPT 18 U/L (13-56); Albumin, Serum 3.4 g/dL (3.2-5.0); Alkaline Phosphatase 43 U/L (45-117); Anion Gap 7 (5-15); BUN 16 mg/dL (7-18); BUN/Creat Ratio 19.9 RATIO (10-20); Calcium,Total 8.6 mg/dL (8.5-10.1); Chloride 98 mmol/L (98-107); EST Glomerular Filtration Rate 75 mL/min (>60); Est Glom Filt Rate - Afr Amer 91 mL/min (>60); Globulin 3.4 g/dL (2.2-4.2); Glucose 212 mg/dL (74-106); Potassium 3.2 mmol/L (3.5-5.1); Protein, Total 6.8 g/dL (6.4-8.2); Sodium Level 134 mmol/L (136-145)
== END ==
PROVIDERS: PCP Family Medicine; Referring Provider Physician Assistant Medical; Visit Provider Physician Assistant Medical
DX: I50.30 Unspecified diastolic (congestive) heart failure (principal); R06.02 Shortness of breath; R05 Cough; R60.9 Edema, unspecified; D50.9 Iron deficiency anemia, unspecified; D45 Polycythemia vera
CPT/HCPCS: 36415; 71046; 80053; 83880; 85025

== ENCOUNTER 2019-08-04 19:06 | Inpatient (IN) | payer MEDICARE, OTHER, SELFPAY ==
[2015-11-29 11:48] VITALS: BMI 37.0
[2019-07-20 14:35] VITALS: BMI 34.1
[2019-08-04] VITALS (11 sets, daily range): BP systolic 56–114; BP diastolic 30–61; PULSE 95–107; RESP 4–33; TEMP 36.6–37.3; O2SAT 96–100; BMI 34.1; BMI 32.2
--- NOTE | 2019-08-04 19:48 | EKG12_ITS ---
Test Reason : CP Blood Pressure : / mmHG Vent. Rate : 099 BPM Atrial Rate : 099 BPM P-R Int : 188 ms QRS Dur : 128 ms QT Int : 374 ms P-R-T Axes : 020 -34 109 degrees QTc Int : 479 ms Sinus rhythm with Premature supraventricular complexes Left axis deviation Non-specific intra-ventricular conduction block Cannot rule out Septal infarct (cited on or before 26-JUN-2014) T wave abnormality, consider lateral ischemia Abnormal ECG Confirmed by KRISTOPHER RODRIGUEZ ([id number]), editorial project manager GREGORY MUHAMMAD ([id number]) on 08/08/2019 10:59:46 AM Referred By: Confirmed By:KRISTOPHER RODRIGUEZ
--- NOTE | 2019-08-04 20:00 | RAD_ITS ---
STUDY: X-RAY CHEST REASON FOR EXAM: Female, 68 years old. shortness of breath TECHNIQUE: Single frontal view of the chest. COMPARISON: 08/02/2019 FINDINGS: Median sternotomy wires. Stable central vascular congestion. There is no demonstrated pleural abnormality. Normal size heart. Normal mediastinum and enma. Normal visualized pulmonary arteries. Normal visualized aortic arch and descending thoracic aorta. Normal visualized thoracic spine. Normal visualized ribs, clavicles, and shoulders. There is no demonstrated abnormality of the visualized soft tissue structures of the upper abdomen. RAD/Chest 1 View (Portable) IMPRESSION: Stable central vascular congestion. Electronically Signed: Kenneth Melendez MD at 20:14 EDT Tel , Service support ,
[2019-08-04 20:04] LABS: Hematocrit 34.1 % (37-47); Hemoglobin 9.9 g/dL (12.0-15.0); Mean Corpuscular Hgb 28.7 pg (27.0-32.0); Mean Corpuscular Volume 98.8 fL (81-99); POSITIVE COUNT YES; POSITIVE DIFFERENTIAL YES; POSITIVE MORPHOLOGY YES; Platelet Count 277 K/mm3 (150-450); RBC Distribution Width CV 17.2 % (11.6-14.6); RBC Distribution Width SD 61.5 fl (35.1-43.9); Red Blood Count 3.45 M/mm3 (4.2-5.4); White Blood Count 2.2 K/mm3 (4.4-11.0)
[2019-08-04 20:11] LABS: Differential Indicated MANUAL DIFF
[2019-08-04 20:38] LABS: International Normalized Ratio 1.4; Prothrombin Time (Protime)PT. 17.3 SECONDS (11.7-14.9)
[2019-08-04 20:39] LABS: Partial Thromboplast Time 33.1 Seconds (24.1-36.2)
[2019-08-04 20:39] LABS: BNP,B-Type NATRIURETIC PEPTIDE 542.6 pg/mL (0-100)
[2019-08-04 20:58] LABS: Anion Gap 9 (5-15); BUN 17 mg/dL (7-18); BUN/Creat Ratio 20.8 RATIO (10-20); Calcium,Total 8.4 mg/dL (8.5-10.1); Chloride 101 mmol/L (98-107); Creatinine, Serum 0.82 mg/dL (0.55-1.02); EST Glomerular Filtration Rate 74 mL/min (>60); Est Glom Filt Rate - Afr Amer 89 mL/min (>60); Estimated Creatinine Clearance 45.85 ml/min; Glucose 118 mg/dL (74-106); Potassium 3.1 mmol/L (3.5-5.1); Sodium Level 137 mmol/L (136-145)
[2019-08-04 21:09] LABS: Lymphocyte 8 % (19-41); Metamyelocyte 8 % (0-1); Neutrophil-Band 23 % (0-5); Neutrophil-Segmented 60 % (47-70); Total Cells Counted 100 (MANUAL DIFF)
[2019-08-04 21:10] LABS: Eosinophil 1 % (0-5); Nucleated Red Bld Cells,Manual 3 % (0-5)
[2019-08-04 21:11] LABS: Neutrophil # 1.83 X10^3/uL (2.7-7.7)
[2019-08-04 21:12] LABS: Absolute Lymphocyte Count 0.18 X10^3/uL (0.83-4.51); Absolute Neutrophil Count 1.8 X10^3/uL (2.0-7.7); Differential Comment SCANNED; Lymphocyte # 0.18 X10^3/ul (4.0); Platelet Estimate ADEQUATE (ADEQ); Platelet Morphology GIANT
[2019-08-04 21:13] LABS: Anisocytosis 2+; Hypochromasia 1+; Macrocytosis RARE; Ovalocyte RARE; Polychromasia 1+; Schistocytes RARE; Tear Drop Cell 1+
--- NOTE | 2019-08-04 21:22 | PCM.HP.STD ---
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 (6) Lower gastrointestinal bleeding Status: Chronic (7) Diastolic CHF Status: Chronic (8) Gout Status: Chronic (9) H/O aortic valve replacement with porcine valve Status: Chronic (10) DDD (degenerative disc disease) Status: Chronic (11) Aortic stenosis Status: Chronic (12) Acute on chronic congestive heart failure Status: Chronic Qualifiers: Heart failure type: unspecified Qualified Code(s): I50.9 - Heart failure, unspecified (13) Shortness of breath Status: Acute (14) Closed left arm fracture Status: Chronic Qualifiers: Encounter type: subsequent encounter Fracture healing: with routine healing Qualified Code(s): S42.302D - Unspecified fracture of shaft of humerus, left arm, subsequent encounter for fracture with routine healing Comment: Nidia Vallejo (15) BMI 32.0-32.9,adult Status: Chronic (16) History of bicuspid aortic valve Status: Chronic Comment: Pt had resultant severe aortic stenosis. Aortic valve replaced 10/21/[address] Chacko (17) Mitral valve annular calcification Status: Chronic Comment: Severe per echo 06/03/2017 (18) History of left heart catheterization Status: Chronic Comment: Essentially normal coronaries (at most 20% stenosis in mid LAD). Referred to Dr. Chacko for severe aortic stenosis/bicuspid aortic valve, severe mitral annular calcification but no stenosis. (19) Right arm fracture Status: Chronic Comment: sustained from a fall (20) Hx of colonoscopy Status: Chronic (21) Gastritis Status: Chronic (22) H/O aortic valve replacement Status: Chronic Comment: Aortic valve replacement with a 23?mm Solo stentless valve, modified MAZE procedure, left atrial appendage excision per Dr. Chacko @ [facility] (23) Lacunar infarction Status: Chronic (24) KYLE (obstructive sleep apnea) Status: Chronic (25) Sleep disorder Status: Chronic (26) De Quervain's disease (tenosynovitis) Status: Chronic (27) Supraventricular tachycardia Status: Chronic (28) Diabetes mellitus type 2, controlled Status: Chronic (29) Osteoarthritis Status: Chronic (30) Left ventricular hypertrophy Status: Chronic Comment: with septal hypertrophy (31) Segmental and somatic dysfunction of thoracic region Status: Chronic (32) Segmental and somatic dysfunction of cervical region Status: Chronic (33) Segmental and somatic dysfunction of lumbar region Status: Chronic (34) Polycythemia vera Status: Chronic (35) Hyperlipidemia Status: Chronic History of Present Illness Date of Admission: 08/04/19 Chief Complaint: shortness of breath The patient is a 68 year old F with a significant history of pulmonary hypertension; severe aortic stenosis; diastolic heart failure; home oxygen use of 2 L/min; and lower gastrointestinal bleeding who presented to the emergency department with sudden onset shortness of breath that started few hours before presentation. Associated with her symptoms is cough. Patient required nonrebreather mask initially and was finally weaned to 4 L of nasal cannula oxygen. At the Emergency department troponin was elevated. BNP was elevated. The plan was to give patient Lasix but because patient was hypotensive Lasix was held. Past Medical History Past Medical History (Chronic Problems): Chronic Problems (Last Reviewed 08/05/19 @ 00:[address] Edilson Parr MD) Polycythemia vera (Chronic) Iron deficiency anemia (Chronic) Iron deficiency anemia secondary to blood loss (chronic) (Chronic) Lower gastrointestinal bleeding (Chronic) Diastolic CHF (Chronic) Gout (Chronic) H/O aortic valve replacement with porcine valve (Chronic) DDD (degenerative disc disease) (Chronic) Aortic stenosis (Chronic) Acute on chronic congestive heart failure (Chronic) Closed left arm fracture (Chronic 09/05/18) Sees Genevieve BMI 32.0-32.9,adult (Chronic) History of bicuspid aortic valve (Chronic) Pt had resultant severe aortic stenosis. Aortic valve replaced 10/21/[address] Chacko Mitral valve annular calcification (Chronic) Severe per echo 06/03/2017 History of left heart catheterization (Chronic 04/21/14) Essentially normal coronaries (at most 20% stenosis in mid LAD). Referred to Dr. Chacko for severe aortic stenosis/bicuspid aortic valve, severe mitral annular calcification but no stenosis. Right arm fracture (Chronic 02/25/17) sustained from a fall Hx of colonoscopy (Chronic 10/02/15) Gastritis (Chronic) H/O aortic valve replacement (Chronic 10/31/14) Aortic valve replacement with a 23?mm Solo stentless valve, modified MAZE procedure, left atrial appendage excision per Dr. Chacko @ [facility] Lacunar infarction (Chronic) KYLE (obstructive sleep apnea) (Chronic) Sleep disorder (Chronic) De Quervain's disease (tenosynovitis) (Chronic) Supraventricular tachycardia (Chronic) Diabetes mellitus type 2, controlled (Chronic) Osteoarthritis (Chronic) Left ventricular hypertrophy (Chronic) with septal hypertrophy Segmental and somatic dysfunction of thoracic region (Chronic) Segmental and somatic dysfunction of cervical region (Chronic) Segmental and somatic dysfunction of lumbar region (Chronic) Polycythemia vera (Chronic) Hyperlipidemia (Chronic) Medical History: Medical History (Last Reviewed 08/05/19 @ 01:[address] Edilson Parr MD) Lower gastrointestinal bleeding (Chronic) K92.2 Diastolic CHF (Chronic) I50.30 Gout (Chronic) M10.9 Aortic stenosis (Chronic) I35.0 Acute on chronic congestive heart failure (Chronic) I50.9 Shortness of breath (Acute) R06.02 History of bicuspid aortic valve (Chronic) Z87.74 Pt had resultant severe aortic stenosis. Aortic valve replaced 10/21/[address] Chacko Mitral valve annular calcification (Chronic) I05.9 Severe per echo 06/03/2017 Right arm fracture (Chronic) Onset Date: 02/25/17 S42.301A sustained from a fall Gastritis (Chronic) K29.70 Lacunar infarction (Chronic) I63.9 KYLE (obstructive sleep apnea) (Chronic) G47.33 Sleep disorder (Chronic) G47.9 De Quervain's disease (tenosynovitis) (Chronic) M65.4 Supraventricular tachycardia (Chronic) I47.1 Diabetes mellitus type 2, controlled (Chronic) E11.9 Osteoarthritis (Chronic) M19.90 Left ventricular hypertrophy (Chronic) I51.7 with septal hypertrophy Gastritis (Resolved) K29.70 Herniated disc (Resolved) L4-5, S1 Humeral head fracture (Resolved) S42.293A Presence of prosthetic heart valve (Resolved) Z95.2 Trigger finger (Resolved) M65.30 Daytime hypersomnia (Inactive) G47.19 Gout (Inactive) M10.9 Allergies Penicillins Allergy (Severe, Verified 08/04/19 19:16) Rash clarithromycin [From Biaxin] Allergy (Intermediate, Verified 08/04/19 19:16) Rash erythromycin base [Erythromycin Base] Allergy (Intermediate, Verified 08/04/19 19:16) Rash cat dander Adverse Reaction (Intermediate, Verified 08/04/19 19:16) SNEEZING Alternaria Mold Spores Allergy (Intermediate, Uncoded 08/04/19 19:16) SNEEZING dust Allergy (Intermediate, Uncoded 08/04/19 19:16) SNEEZING Home Medications: Ambulatory Orders Medication Instructions Recorded Multivitamins,Therapeutic 1 tab PO DAILY 04/20/14 [Multivitamin] temazepam 15 mg capsule 15 mg PO QHS 05/20/17 vit C,E,zinc,copper-ykycm6d 250 1 cap PO DAILY 05/20/17 mg-lutein 5 mg-zeaxanthin 1 mg capsule cholecalciferol (vitamin D3) 125 5,000 unit PO DAILY 10/01/17 mcg (5,000 unit) capsule pravastatin 40 mg tablet 40 mg PO DAILY 05/24/18 carboxymethylcellulose sodium 1 % 1 drp OPHTHALMIC 4-6XD 12/30/18 eye liquid gel drops clindamycin HCl 300 mg capsule 600 mg PO .COMPLEX PRN cap 12/30/18 Ibandronate Sodium [Boniva] 150 mg PO QMONTH 01/26/19 Allopurinol [Zyloprim] 200 mg PO DAILY 07/08/19 Bifidobacterium Infantis [Align] 4 mg PO DAILY 07/08/19 Biotin 1,000 mcg PO DAILY 07/08/19 Calcium (Elemental) [Os-Paul 500] 500 mg PO DAILY 07/08/19 Calcium Carbonate [Tums Smoothies] 750 mg PO DAILY PRN PRN 07/08/19 Hydroxyurea [Hydrea] 1,000 mg PO DAILY 07/08/19 Aspirin 325 mg PO DAILY@0800 #0 07/09/19 Ciprofloxacin [Cipro] 500 mg PO BID #14 tab 07/20/19 metroNIDAZOLE [Flagyl] 500 mg PO Q8H #21 tab 07/20/19 furosemide 40 mg tablet 40 mg PO BID #60 tab 08/01/19 Carvedilol 3.125 mg PO BID 08/04/19 Potassium Chloride [K-Tab ER] 20 meq PO DAILY 08/04/19 Surgical History: Surgical History (Last Reviewed 08/05/19 @ 01:[address] Edilson Parr MD) H/O aortic valve replacement with porcine valve (Chronic) Z95.3 History of left heart catheterization (Chronic) Onset Date: 04/21/14 Z98.890 Essentially normal coronaries (at most 20% stenosis in mid LAD). Referred to Dr. Chacko for severe aortic stenosis/bicuspid aortic valve, severe mitral annular calcification but no stenosis. Hx of colonoscopy (Chronic) Onset Date: 10/02/15 Z98.890 H/O aortic valve replacement (Chronic) Onset Date: 10/31/14 Z95.2 Aortic valve replacement with a 23?mm Solo stentless valve, modified MAZE procedure, left atrial appendage excision per Dr. 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 Edilson Parr MD) Father Heart failure Kidney disease Mother Alcoholism Grandfather Heart disease History Items: Unknown Review of Systems Constitutional: Denies: Chills, Fever, Weight Change HEENT: Denies: Head Aches, Sinus Congestion, Sinus Drainage Cardiovascular: Reports: Edema - Bilateral lower feet and bilateral lower legs., Orthopnea, Paroxysmal Noc. Dyspnea. Denies: Chest Pain, Palpitations Respiratory: Reports: Cough, Shortness of Breath Gastrointestinal: Reports: - - Dark stools. Denies: Abdominal Pain, Nausea, Vomiting Genitourinary: Denies: Dysuria Musculoskeletal: Denies: Joint Pain, Joint Tenderness Skin: Denies: Rash, Wounds Neurological: Denies: Numbness, Tingling, Focal weakness Psychiatric: Denies: Anxiety, Depression, Homicidal Ideations, Suicidal Ideations Hematologic/ Lymphatic: Denies: Easy Bruising, Easy Bleeding VTE Information - Inpt Only VTE Present on Admission: No VTE Mechan Device Prophylaxis: SCD's VTE Pharm Prophylaxis ordered?: No Patient Problems: Active and Suspected Problems (Last Reviewed 08/05/19 @ 00:[address] Edilson Parr MD) Dyspnea (Acute) Elevated troponin (Acute) - Physical Exam Vitals/I&O's: Vital Signs Temp Pulse Resp BP Pulse Ox 99.1 F 95 20 H 96/59 L 100 08/04/19 21:00 08/04/19 21:00 08/04/19 21:00 08/04/19 21:00 08/04/19 21:00 Oxygen Flow Rate (L/min) 4 Oxygen Delivery Method Nasal Cannula Weight: 79.2 kg Body Mass Index (BMI) 34.1 General: Alert, Oriented x3, Cooperative HEENT: Atraumatic, PERRLA, EOMI, Normocephalic Neck: Supple, Trachea Midline Lungs: Clear to auscultation, Normal air movement Cardiovascular: Regular rate, Regular Rhythm, Murmur Abdomen: Bowel Sounds Present, Soft, Non Tender, - - Rectal exams with no masses. it showed maroon stools. Extremities: No edema, Capillary Refill Less than 3 Seconds Skin: No rashes, No breakdown Musculoskeletal: No Tenderness to Palpation of Joints or Extremities Neurological: Cranial nerves II-XII grossly intact - Except patient is hard of hearing Psych/Mental Status: Normal Affect, Appropriate Microbiology Past 72 Hours 08/04/19 20:01 Mucosa - Nasopharyngeal Influenza Types A,B Direct FA (MARY ANN) - Final Laboratory Results 08/04/19 19:23: WBC 2.2 L, RBC 3.45 L, Hgb 9.9 L, Hct 34.1 L, MCV 98.8, MCH 28.7, MCHC 29.0 L, RDW Std Deviation 61.5 H, RDW Coeff of Tess 17.2 H, Plt Count 277, MPV 12.0, Neut % (Auto) Not Reportable, Absolute Neuts (auto) 1.8 L, Absolute Lymphs (auto) 0.18 L, Total Counted 100, Neutrophils % (Manual) 60, Band Neutrophils % 23 H, Lymphocytes % (Manual) 8 L, Eosinophils % (Manual) 1, Metamyelocytes % 8 H, Nucleated RBCs/100 WBC 3, Differential Comment SCANNED, Diff Path Review May foll, Platelet Estimate ADEQUATE, Plt Morphology Comment GIANT, Polychromasia 1+, Hypochromasia 1+, Anisocytosis 2+, Macrocytosis RARE, Tear Drop Cells 1+, Ovalocytes RARE, Schistocytes RARE 08/04/19 19:23: B-Natriuretic Peptide 542.6 H 08/04/19 20:20: PT 17.3 H, INR 1.4, APTT 33.1 08/04/19 20:20: Sodium 137, Potassium 3.1 L, Chloride 101, Carbon Dioxide 27.0, Anion Gap 9, BUN 17, Creatinine 0.82, Estim Creat Clear Calc 45.85, Est GFR (MDRD) Af Amer 89, Est GFR (MDRD) Non-Af 74, BUN/Creatinine Ratio 20.8 H, Glucose 118 H, Calcium 8.4 L, Troponin I 0.092 H Assessment/Plan All Active Problems (Last Reviewed 08/05/19 @ 00:[address] Edilson Parr MD) Dyspnea (Acute) Elevated troponin (Acute) Shortness of breath (Acute) Atrial fibrillation (Resolved) Gastritis (Resolved) H/O arthroscopy of left knee (Resolved) Herniated disc (Resolved) History of cholecystectomy (Resolved) History of meniscectomy of left knee (Resolved) History of tubal ligation (Resolved) Humeral head fracture (Resolved) Presence of prosthetic heart valve (Resolved) Trigger finger (Resolved) The patient is a 68 year old F with a significant history of pulmonary hypertension; severe aortic stenosis; diastolic heart failure; home oxygen use of 2 L/min; and lower gastrointestinal bleeding who presented to the emergency department with sudden onset shortness of breath of unclear etiology. Dyspnea Impression of chest x-ray: Stable central vascular congestion. I agree with radiologist interpretation. Also patient with blunting of costophrenic angles bilateral. Echocardiogram on 07/01/2019 showed ejection fraction of 65%; severe aortic stenosis; right ventricular systolic pressure was 51; mild to moderate mitral valve insufficiency. Dyspnea is likely multifactorial from heart failure; pulmonary hypertension; severe aortic stenosis. Supportive treatment with oxygen. Patient follows up with warehouse driver Dr. Miller; and Dr. Poe saw runner. Per review of chart, saw runner recommended a MOISE and a left heart catheterization. Influenza screen was negative. Preliminary respiratory pathogen panel was negative. Continue on droplet isolation. Mucinex for cough. Will consult cardiology to seek their input at this time. Hold Lasix secondary to hypotension. Hold Coreg secondary to hypotension. History of lower gastrointestinal bleeding Patient follows up with Dr. Gardner, general surgeon. Patient had colonoscopy on 07/09/2019. Reportedly because her stool looked black on the same day of presentation she was restarted on ciprofloxacin and Flagyl. Reportedly patient has been treated for ischemic colitis. Continue home ciprofloxacin and Flagyl. Repeat CBC in a.m. Hold home aspirin. Rectal exam showed maroon stools. Fecal occult blood ordered. CBC in a.m. Hemoglobin on presentation was 9.9; stable. Of note patient has a history of polycythemia vera. Hemoglobin in late 2018 was between 13-14. Hypotension Home Lasix held. Coreg held. Trend blood pressure. Elevated troponin Patient does not complain of chest pain. Trend troponin. Hypokalemia: On presentation potassium was 3.1. Likely second to diuresis use. Received 40 mEq potassium in the emergency department. Give additional 40 mEq. Check magnesium and BMP in a.m. Leukopenia Presentation white count was 2.2. CBC in a.m. DVT prophylaxis SCDs OBSV E&M: [id number] Initial observation care L3
--- NOTE | 2019-08-04 21:33 | ED.VISSUMM ---
- ER Visit Summary Date of Service: 08/04/19 Chief Complaint: Shortness of breath History of Present Illness: The patient is a 68 F with shortness of breath that started this evening. Patient reports a cough, but denies any fever or chest pain. She denies any recent travel or exposure to coronavirus. She did however undergo colonoscopy less than a month ago as she had anemia and GI bleeding. She was given the diagnosis of ischemic colitis. She has been on Cipro and Flagyl. She has had some dark stools but denies any bright red blood or continued bleeding. She has a history of CHF, polycythemia vera, anemia, obstructive sleep apnea, and aortic valve replacement. She is awaiting a MOISE and heart cath to evaluate her aortic valve replacement. This was postponed because of her GI bleeding. She is a former smoker. She denies any history of coronary disease, DVT, PE, or aortic disease. Physical Examination: Afebrile and vital signs unremarkable except for heart rate of 107 and respiratory rate of 33. She is on a nonrebreather for comfort but her pulse ox is 96 to 100%. She appears to show mild shortness of breath with tachypnea, but is in otherwise no acute distress. Skin is slightly pale. Heart tachycardic but regular. Lungs diminished. Abdomen soft and nontender. Lower extremities show symmetric and nontender edema. Test Results: EKG shows sinus rhythm at a rate of 99. White count 2.2. Hemoglobin is stable since her colonoscopy, 9.9. Potassium 3.1. Glucose 118. INR 1.4 and PTT 33.1. Troponin 0 0.092 and BNP is 542. Influenza test was negative. Respiratory panel is pending. Chest x-ray shows stable congestion. Emergency Department Course and Treatment: Patient was placed on a monitor. Without intervention, her heart rate improved to the 20s. She was weaned down to a nasal cannula, 4 L and is maintaining good oxygen saturations. She feels better and looks better objectively, more comfortable. Heart rate is in the 80s and blood pressure is 100/61. Patient had a recent cardiology visit and her blood pressure was 90/50. I do not believe she is in shock. Patient had a recent colonoscopy and was diagnosed with ischemic colitis. She has been on Cipro and Flagyl. Her hemoglobin is stable. She is not having abdominal pain or bright red blood. Her hemoglobin is stable, and I do not believe it is causing her shortness of breath. She is not a candidate for transfusion at this point. Coags are unremarkable. She takes aspirin but no other blood thinners. She is leukopenic. She may have a viral illness including coronavirus. Influenza testing is negative. Respiratory panel pending. Contact and droplet precautions were maintained. X-ray shows congestion without pneumonia. She is afebrile. Potassium 3.1 which was repleted. X-ray shows congestion. BNP is 542 and troponin 0.092. I suspect she may have a CHF exacerbation requiring oxygen. She was treated with Lasix. Hospitalist was contacted for admission. Treatment Plan: As above Disposition: Admission Impression: Dyspnea CHF Hypokalemia This note was generated with [employer] dictation software. It may contain incorrect words, spelling, and punctuation that were not noted in review of the chart prior to signing ED Disposition - Plan for ED Patient:
[2019-08-05] VITALS (59 sets, daily range): BP systolic 43–131; BP diastolic 29–77; PULSE 89–115; RESP 12–35; TEMP 36.4–38.6; O2SAT 93–110
[2019-08-05] MEDS: metroNIDAZOLE 500 MG Tablet PO (00:12)
[2019-08-05] MEDS: guaiFENesin 1,200 MG Tablet 1200 MG PO ×3 (00:13→21:53)
[2019-08-05] MEDS: Ciprofloxacin 500 MG Tablet PO (00:13)
[2019-08-05 01:25] LABS: Hematocrit 29.9 % (37-47)
[2019-08-05] MEDS: Acetaminophen 325 MG Tablet 650 MG PO (02:46)
[2019-08-05] MEDS: 0.9% Saline Lock 10 ML Syringe IV (02:46)
[2019-08-05] MEDS: Ceftriaxone 1 GM/50 ML BAG IV (03:24)
--- NOTE | 2019-08-05 03:56 | RAD_ITS ---
STUDY: X-RAY CHEST REASON FOR EXAM: Female, 68 years old. Increasing shortness of breath. TECHNIQUE: AP portable upright COMPARISON: 08/04/2019 at 7:50 PM. FINDINGS: Mild cardiomegaly with mild interstitial and vascular prominence and small right pleural effusion are similar to prior. Atherosclerosis and sternotomy wires again demonstrated. Chronic healed fracture left proximal humerus. No acute osseous abnormality. No evidence of free air under the diaphragm. No mediastinal widening. RAD/Chest 1 View (Portable) IMPRESSION: Mild CHF similar prior. Electronically Signed: Raj Ojeda, at 4:48 EDT Tel , Service support ,
[2019-08-05] MEDS: levoFLOXacin IV 750 MG/150 ML BAG 100 MG IV (04:13)
[2019-08-05] MEDS: 0.9% Normal Saline 1,000 ML 500 ML IV ×2 (04:14→06:20)
--- NOTE | 2019-08-05 04:43 | NURSING ---
DR OSORIO AT BEDSIDE, MADE AWARE OF BP 66/37, BLADDER SCAN 500CC NO URINE OUTPUT. PATIENT HAS CRACKLES. INSTRUCTED TO GIVE IV FLUID BOLUS AT 500CC HOUR, IF BP IS NOT UP WILL TRANSFER TO ICU.
--- NOTE | 2019-08-05 05:13 | SEPSISNOTE ---
Sepsis Note - Physical Exam/Vitals Objective: Chest X-Ray 08/04/19 20:00 IMPRESSION: Stable central vascular congestion. Electronically Signed: Kenneth Melendez MD at 20:14 EDT Tel , Service support , Chest X-Ray 08/05/19 03:56 IMPRESSION: Mild CHF similar prior. Electronically Signed: Raj Ojeda at 4:48 EDT Tel , Service support , Temp Pulse Resp BP Pulse Ox 99.8 F H 95 24 H 66/37 L 94 08/05/19 04:40 08/05/19 04:40 08/05/19 04:40 08/05/19 04:40 08/05/19 04:40 08/05/19 08/05/19 08/05/19 05:00 05:00 05:00 WBC RBC Hgb Hct MCV MCH MCHC RDW Std Deviation RDW Coeff of Tess Plt Count MPV Neut % (Auto) Absolute Neuts (auto) Absolute Lymphs (auto) Total Counted Neutrophils % (Manual) Band Neutrophils % Lymphocytes % (Manual) Eosinophils % (Manual) Metamyelocytes % Nucleated RBCs/100 WBC Differential Comment Diff Path Review Platelet Estimate Plt Morphology Comment Polychromasia Hypochromasia Anisocytosis Macrocytosis Tear Drop Cells Ovalocytes Schistocytes PT INR APTT Sodium Pending Potassium Pending Chloride Pending Carbon Dioxide Pending Anion Gap Pending BUN Pending Creatinine Pending Estim Creat Clear Calc Est GFR (MDRD) Af Amer Pending Est GFR (MDRD) Non-Af Pending BUN/Creatinine Ratio Pending Glucose Pending Lactic Acid Pending Calcium Pending Magnesium Pending Troponin I Pending B-Natriuretic Peptide 08/05/19 08/05/19 08/05/19 05:00 03:15 01:05 WBC Pending RBC Pending Hgb Pending 9.0 L Hct Pending 29.9 L MCV Pending MCH Pending MCHC Pending RDW Std Deviation Pending RDW Coeff of Tess Pending Plt Count Pending MPV Neut % (Auto) Pending Absolute Neuts (auto) Pending Absolute Lymphs (auto) Total Counted Neutrophils % (Manual) Band Neutrophils % Lymphocytes % (Manual) Eosinophils % (Manual) Metamyelocytes % Nucleated RBCs/100 WBC Differential Comment Diff Path Review Platelet Estimate Plt Morphology Comment Polychromasia Hypochromasia Anisocytosis Macrocytosis Tear Drop Cells Ovalocytes Schistocytes PT INR APTT Sodium Potassium Chloride Carbon Dioxide Anion Gap BUN Creatinine Estim Creat Clear Calc Est GFR (MDRD) Af Amer Est GFR (MDRD) Non-Af BUN/Creatinine Ratio Glucose Lactic Acid Calcium Magnesium Troponin I 0.211 H B-Natriuretic Peptide 08/05/19 08/04/19 08/04/19 00:00 20:20 20:20 WBC RBC Hgb Hct MCV MCH MCHC RDW Std Deviation RDW Coeff of Tess Plt Count MPV Neut % (Auto) Absolute Neuts (auto) Absolute Lymphs (auto) Total Counted Neutrophils % (Manual) Band Neutrophils % Lymphocytes % (Manual) Eosinophils % (Manual) Metamyelocytes % Nucleated RBCs/100 WBC Differential Comment Diff Path Review Platelet Estimate Plt Morphology Comment Polychromasia Hypochromasia Anisocytosis Macrocytosis Tear Drop Cells Ovalocytes Schistocytes PT 17.3 H INR 1.4 APTT 33.1 Sodium 137 Potassium 3.1 L Chloride 101 Carbon Dioxide 27.0 Anion Gap 9 BUN 17 Creatinine 0.82 Estim Creat Clear Calc 45.85 Est GFR (MDRD) Af Amer 89 Est GFR (MDRD) Non-Af 74 BUN/Creatinine Ratio 20.8 H Glucose 118 H Lactic Acid Calcium 8.4 L Magnesium Troponin I 0.193 H 0.092 H B-Natriuretic Peptide 08/04/19 08/04/19 19:23 19:23 WBC 2.2 L RBC 3.45 L Hgb 9.9 L Hct 34.1 L MCV 98.8 MCH 28.7 MCHC 29.0 L RDW Std Deviation 61.5 H RDW Coeff of Tess 17.2 H Plt Count 277 MPV 12.0 Neut % (Auto) Not Reportable Absolute Neuts (auto) 1.8 L Absolute Lymphs (auto) 0.18 L Total Counted 100 Neutrophils % (Manual) 60 Band Neutrophils % 23 H Lymphocytes % (Manual) 8 L Eosinophils % (Manual) 1 Metamyelocytes % 8 H Nucleated RBCs/100 WBC 3 Differential Comment SCANNED Diff Path Review May foll Platelet Estimate ADEQUATE Plt Morphology Comment GIANT Polychromasia 1+ Hypochromasia 1+ Anisocytosis 2+ Macrocytosis RARE Tear Drop Cells 1+ Ovalocytes RARE Schistocytes RARE PT INR APTT Sodium Potassium Chloride Carbon Dioxide Anion Gap BUN Creatinine Estim Creat Clear Calc Est GFR (MDRD) Af Amer Est GFR (MDRD) Non-Af BUN/Creatinine Ratio Glucose Lactic Acid Calcium Magnesium Troponin I B-Natriuretic Peptide 542.6 H General: Alert, Oriented x3, Cooperative Lungs: Rales - Lower base right lower base, Tachypneic Cardiovascular: Regular rate, Regular Rhythm, No murmurs Capillary Refill: <3 seconds Peripheral Pulses: Normal Skin Color: [place] - Assessment/Plan Severe sepsis?likely secondary to pneumonia. However, rule out viral etiology. Blood culture x2 is pending. Get urinalysis and urine culture. Impression of repeat chest x-ray mild congestive heart failure. Receiving normal saline 30 MLS per kilogram bolus. Continue broad-spectrum antibiotics. Get lactic acid. If blood pressure does not respond to fluid bolus transfer to intensive care unit and begin pressors. ESR and CRP ordered.
[2019-08-05 05:15] LABS: Absolute Lymphocyte Count 0.07 X10^3/uL (0.83-4.51); Absolute Neutrophil Count 8.9 X10^3/uL (2.0-7.7); Basophil# 0.01 X10^3/uL; Basophil% 0.1 % (0-1); Eosinophils% 2.1 % (0-5); Hematocrit 26.1 % (37-47); Hemoglobin 7.7 g/dL (12.0-15.0); Lymphocyte # 0.07 X10^3/ul (4.0); Lymphocyte % 0.7 % (19-41); Mean Corp Hgb Conc 29.5 g/dL (32-36); Mean Corpuscular Hgb 28.5 pg (27.0-32.0); Mean Corpuscular Volume 96.7 fL (81-99); Monocyte# 0.39 X10^3/uL; NRBC Flagged by Analyzer 0.2 % (0-5); Neutrophil # 8.86 X10^3/uL (2.7-7.7); Neutrophil % 91.7 % (47-70); POSITIVE DIFFERENTIAL YES; POSITIVE MORPHOLOGY YES; Platelet Count 202 K/mm3 (150-450); RBC Distribution Width CV 17.5 % (11.6-14.6); RBC Distribution Width SD 61.2 fl (35.1-43.9); White Blood Count 9.7 K/mm3 (4.4-11.0)
[2019-08-05 05:23] LABS: Differential Indicated SCAN CRITERIA MET
[2019-08-05 05:42] LABS: Anion Gap 11 (5-15); BUN 22 mg/dL (7-18); BUN/Creat Ratio 16.8 RATIO (10-20); Calcium,Total 7.3 mg/dL (8.5-10.1); Chloride 101 mmol/L (98-107); Creatinine, Serum 1.31 mg/dL (0.55-1.02); EST Glomerular Filtration Rate 43 mL/min (>60); Est Glom Filt Rate - Afr Amer 52 mL/min (>60); Glucose 197 mg/dL (74-106); Magnesium 1.4 mg/dL (1.6-2.6); Sodium Level 133 mmol/L (136-145)
[2019-08-05 05:44] LABS: Lactic Acid 3.4 mmol/L (0.4-1.9)
--- NOTE | 2019-08-05 05:45 | NURSING ---
Dr Parr notified of lactic of 3.4
[2019-08-05 05:49] LABS: Bacteria 0 SEEN /hpf (None Seen); Mucous, Urine 0 SEEN /hpf (<or=2+); Red Blood Cells-Urine 0 SEEN /hpf (0-5); Squamous Epithelial Cells - UA 0 SEEN /hpf (5-10); White Blood Cells 0 SEEN /hpf (0-5)
[2019-08-05 05:52] LABS: Color, Urine Yellow (Yellow); Glucose, Dipstick Normal (Normal); Ketone-Dipstick Negative (Negative); Leukocyte Esterase-Dipstick Negative /ul (Negative); Nitrite-Dipstick Negative (Negative); Occult Blood-Urine Negative /ul (Negative); Protein-Dipstick Negative (Negative); Urine Bilirubin Dipstick Negative (Negative); Urine Clarity Clear (Clear); Urine Urobilinogen Normal (Normal)
--- NOTE | 2019-08-05 06:10 | CPS ---
pt moved to icu placed back on bipap
[2019-08-05 06:12] LABS: Anisocytosis 1+; Hypochromasia 1+; Platelet Estimate ADEQUATE (ADEQ); Polychromasia RARE
[2019-08-05 06:20] LABS: Erythrocyte Sedimentation Rate 11 mm/hr (0-30)
--- NOTE | 2019-08-05 06:28 | NURSING ---
RN CALLED PATIENT'S AND UPDATED ABOUT BEING TRANSFERED TO ICU
--- NOTE | 2019-08-05 07:58 | PCM.CON.CC ---
Problem List (1) Polycythemia vera Status: Chronic (2) Hyperlipidemia Status: Chronic (3) BMI 32.0-32.9,adult Status: Chronic (4) Lower gastrointestinal bleeding Status: Chronic (5) Diastolic CHF Status: Chronic (6) H/O aortic valve replacement with porcine valve Status: Chronic (7) Aortic stenosis Status: Chronic (8) History of bicuspid aortic valve Status: Chronic Comment: Pt had resultant severe aortic stenosis. Aortic valve replaced 10/21/[address] Chacko (9) KYLE (obstructive sleep apnea) Status: Chronic (10) Sleep disorder Status: Chronic (11) Diabetes mellitus type 2, controlled Status: Chronic (12) Osteoarthritis Status: Chronic Reason for Consult Date of Consultation: 08/05/19 Reason for Consultation: Hypotension History of Present Illness: The patient is a 68 year old F, with past medical history listed below and well-known to me from the outpatient office, who presented to [facility] with complaints of cough. Patient had a colonoscopy less than a month ago secondary to anemia and reported GI bleeding. Patient was told at this time that she had ischemic colitis and had been placed on Cipro and Flagyl. Patient had noted some dark stools, but no significant abdominal pain was reported. Patient reportedly was supposed to have a MOISE for evaluation of aortic valve replacement, but this was held secondary to GI bleeding. Patient is a former smoker, but lung function was preserved on previous pulmonary function testing. Patient denied any recent travel. In the ER, patient was tachycardic at 107 bpm and tachypneic at 33 breaths per minute. Skin was slightly pale, but lungs were described as diminished. Patient did have some lymphopenia at 2.2, but hemoglobin was 7.7. INR 1.4 and BNP was elevated at 542. Patient was treated with Lasix in the ER. Influenza test and respiratory panel were negative. Patient was able to be weaned down on supplemental oxygen potassium was repleted and the patient was admitted to the PCU for further evaluation. In the PCU, patient became progressively more tachypneic and hypotensive. There was some concern for possible sepsis, so patient did receive 30 cc/kg IV fluid bolus. Patient persisted in being hypotensive, so was transferred to the intensive care unit for further evaluation. Patient received peripheral Levophed until central line could be arranged. Patient awakens to questioning and states that she is short of breath, but conversational dyspnea and limits ability to give full review of systems. Past Medical History Past Medical History (Chronic Problems): Chronic Problems (Last Updated 08/05/19 @ 07:[address] 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 Aortic valve replaced 10/21/[address] Chacko Lacunar infarction (Chronic) KYLE (obstructive sleep apnea) (Chronic) Sleep disorder (Chronic) De Quervain's disease (tenosynovitis) (Chronic) Supraventricular tachycardia (Chronic) Diabetes mellitus type 2, controlled (Chronic) Osteoarthritis (Chronic) Medical History: Medical History (Last Updated 08/05/19 @ 07:[address] Isai Siddiqui MD) Lower gastrointestinal bleeding (Chronic) K92.2 Diastolic CHF (Chronic) I50.30 Aortic stenosis (Chronic) I35.0 History of bicuspid aortic valve (Chronic) Z87.74 Pt had resultant severe aortic stenosis. Aortic valve replaced 10/21/[address] Chacko KYLE (obstructive sleep apnea) (Chronic) G47.33 Sleep disorder (Chronic) G47.9 De Quervain's disease (tenosynovitis) (Chronic) M65.4 Supraventricular tachycardia (Chronic) I47.1 Diabetes mellitus type 2, controlled (Chronic) E11.9 Osteoarthritis (Chronic) M19.90 Presence of prosthetic heart valve (Resolved) Z95.2 Gout (Inactive) M10.9 Allergies Penicillins Allergy (Severe, Verified 08/04/19 19:16) Rash clarithromycin [From Biaxin] Allergy (Intermediate, Verified 08/04/19 19:16) Rash erythromycin base [Erythromycin Base] Allergy (Intermediate, Verified 08/04/19 19:16) Rash cat dander Adverse Reaction (Intermediate, Verified 08/04/19 19:16) SNEEZING Alternaria Mold Spores Allergy (Intermediate, Uncoded 08/04/19 19:16) SNEEZING dust Allergy (Intermediate, Uncoded 08/04/19 19:16) SNEEZING Home Medications: Ambulatory Orders Medication Instructions Recorded Multivitamins,Therapeutic 1 tab PO DAILY 04/20/14 [Multivitamin] temazepam 15 mg capsule 15 mg PO QHS 05/20/17 vit C,E,zinc,copper-[id number] 250 1 cap PO DAILY 05/20/17 mg-lutein 5 mg-zeaxanthin 1 mg capsule cholecalciferol (vitamin D3) 125 5,000 unit PO DAILY 10/01/17 mcg (5,000 unit) capsule pravastatin 40 mg tablet 40 mg PO DAILY 05/24/18 carboxymethylcellulose sodium 1 % 1 drp OPHTHALMIC 4-6XD 12/30/18 eye liquid gel drops clindamycin HCl 300 mg capsule 600 mg PO .COMPLEX PRN cap 12/30/18 Ibandronate Sodium [Boniva] 150 mg PO QMONTH 01/26/19 Allopurinol [Zyloprim] 200 mg PO DAILY 07/08/19 Bifidobacterium Infantis [Align] 4 mg PO DAILY 07/08/19 Biotin 1,000 mcg PO DAILY 07/08/19 Calcium (Elemental) [Os-Paul 500] 500 mg PO DAILY 07/08/19 Calcium Carbonate [Tums Smoothies] 750 mg PO DAILY PRN PRN 07/08/19 Aspirin 325 mg PO DAILY@0800 #0 07/09/19 Ciprofloxacin [Cipro] 500 mg PO BID #14 tab 07/20/19 metroNIDAZOLE [Flagyl] 500 mg PO Q8H #21 tab 07/20/19 furosemide 40 mg tablet 40 mg PO BID #60 tab 08/01/19 Carvedilol 3.125 mg PO BID 08/04/19 Potassium Chloride [K-Tab ER] 20 meq PO DAILY 08/04/19 Surgical History: Surgical History (Last Reviewed 08/05/19 @ 01:[address] 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 Edilson Parr MD) Father Heart failure Kidney disease Mother Alcoholism Grandfather Heart disease History Items: Unknown Review of Systems Comment: See HPI Objective: Chest x-rays were personally reviewed and show mild congestion without significant effusion. Patient does have right ventricular dilation noted. Previous pulmonary function tests were relatively within normal limits except for a marginal diffusion capacity consistent with a pulmonary vascular disorder. Last echocardiogram was completed on 07/01/2019 showing an EF of 65%, mildly dilated RV and moderately enlarged left atrium. Mild to moderate eccentric mitral valve insufficiency and a pulmonary artery systolic pressure of 51 mmHg. Patient had a peak aortic valve gradient of 63 mmHg with a calculated valve area of 1.1 cm? consistent with severe aortic stenosis. This did constitute a significant worsening in bioprosthetic aortic valve gradients - Physical Exam Vitals/I&O's: Vital Signs Temp Pulse Resp BP Pulse Ox 37.1 C 97 22 H 67/37 L 99 08/05/19 06:07 08/05/19 07:30 08/05/19 07:30 08/05/19 07:30 08/05/19 07:30 Oxygen Flow Rate (L/min) 3 Oxygen Delivery Method Bi-pap Weight: 78.6 kg Body Mass Index (BMI) 32.2 Intake and Output for Last 24 Hours 08/03/19 08/04/19 08/05/19 23:59 23:59 23:59 Intake Total 1820.83 / 1820.83 Output Total 175 / 175 Balance 1645.83 / 1645.83 General: Alert, Oriented x3, Cooperative, - - Moderate distress. Good BiPAP synchrony. Obese. HEENT: Atraumatic, PERRLA, EOMI, Normocephalic, - - No scleral icterus or injection noted Oral: Moist Mucosa, No Gingival or Mucosal Lesions/ Ulcerations Neck: Supple, Trachea Midline, JVD, Right Lungs: No rhonchi, No wheeze, No rales, Diminished, - - Coarse Cardiovascular: Normal S1, Normal S2, Murmur, No rub noted, No Gallop, Tachycardic Abdomen: Bowel Sounds Present, Soft, Non Tender, Non-Distended, Obese Extremities: No clubbing, No cyanosis, No edema, Capillary Refill Less than 3 Seconds Skin: No rashes, No breakdown Musculoskeletal: No Tenderness to Palpation of Joints or Extremities Lymphatic: No Cervical, Supraclavicular, or Inguinal Adenopathy Neurological: Cranial nerves II-XII grossly intact, Neuro grossly intact, Motor Exam 5/5 strength throughout Psych/Mental Status: Anxious, Restless Microbiology Past 72 Hours 08/04/19 20:01 Mucosa - Nasopharyngeal Respiratory Panel (PCR) - Final 08/04/19 22:15 Stool Stool Occult Blood (MARY ANN) - Final Occult Blood Positive 08/04/19 20:01 Mucosa - Nasopharyngeal Influenza Types A,B Direct FA (MARY ANN) - Final Laboratory Results 08/04/19 19:23: WBC 2.2 L, RBC 3.45 L, Hgb 9.9 L, Hct 34.1 L, MCV 98.8, MCH 28.7, MCHC 29.0 L, RDW Std Deviation 61.5 H, RDW Coeff of Tess 17.2 H, Plt Count 277, MPV 12.0, Neut % (Auto) Not Reportable, Absolute Neuts (auto) 1.8 L, Absolute Lymphs (auto) 0.18 L, Total Counted 100, Neutrophils % (Manual) 60, Band Neutrophils % 23 H, Lymphocytes % (Manual) 8 L, Eosinophils % (Manual) 1, Metamyelocytes % 8 H, Nucleated RBCs/100 WBC 3, Differential Comment SCANNED, Diff Path Review May foll, Platelet Estimate ADEQUATE, Plt Morphology Comment GIANT, Polychromasia 1+, Hypochromasia 1+, Anisocytosis 2+, Macrocytosis RARE, Tear Drop Cells 1+, Ovalocytes RARE, Schistocytes RARE 08/04/19 19:23: B-Natriuretic Peptide 542.6 H 08/04/19 20:20: PT 17.3 H, INR 1.4, APTT 33.1 08/04/19 20:20: Sodium 137, Potassium 3.1 L, Chloride 101, Carbon Dioxide 27.0, Anion Gap 9, BUN 17, Creatinine 0.82, Estim Creat Clear Calc 45.85, Est GFR (MDRD) Af Amer 89, Est GFR (MDRD) Non-Af 74, BUN/Creatinine Ratio 20.8 H, Glucose 118 H, Calcium 8.4 L, Troponin I 0.092 H 08/05/19 00:00: Troponin I 0.193 H 08/05/19 01:05: Hgb 9.0 L, Hct 29.9 L 08/05/19 01:05: ESR 11 08/05/19 03:15: Troponin I 0.211 H 08/05/19 05:00: WBC 9.7, RBC 2.70 L, Hgb 7.7 L, Hct 26.1 L, MCV 96.7, MCH 28.5, MCHC 29.5 L, RDW Std Deviation 61.2 H, RDW Coeff of Tess 17.5 H, Plt Count 202, MPV 12.0, Immature Gran % (Auto) 1.400 H, Neut % (Auto) 91.7 H, Lymph % (Auto) 0.7 L, [place] % (Auto) 4.0, Eos % (Auto) 2.1, Baso % (Auto) 0.1, Absolute Neuts (auto) 8.9 H, Absolute Lymphs (auto) 0.07 L, Nucleated RBC % 0.2, Differential Comment , Platelet Estimate ADEQUATE, Polychromasia RARE, Hypochromasia 1+, Anisocytosis 1+ 08/05/19 05:00: Sodium 133 L, Potassium 4.0, Chloride 101, Carbon Dioxide 21.0, Anion Gap 11, BUN 22 H, Creatinine 1.31 H, Estim Creat Clear Calc 28.70, Est GFR (MDRD) Af Amer 52 L, Est GFR (MDRD) Non-Af 43 L, BUN/Creatinine Ratio 16.8, Glucose 197 H, Calcium 7.3 L, Magnesium 1.4 L 08/05/19 05:00: Troponin I 0.303 H 08/05/19 05:00: Lactic Acid 3.4 H* 08/05/19 05:00: C-React Prot High Sens Pending 08/05/19 05:30: Urine Color Yellow, Urine Clarity Clear, Urine pH 6.0, Ur Specific [place] 1.010, Urine Protein Negative, Urine Glucose (UA) Normal, Urine Ketones Negative, Urine Occult Blood Negative, Urine Nitrite Negative, Urine Bilirubin Negative, Urine Urobilinogen Normal, Ur Leukocyte Esterase Negative, Urine RBC 0 SEEN, Urine WBC 0 SEEN, Ur Squamous Epith Cells 0 SEEN, Urine Bacteria 0 SEEN, Urine Mucus 0 SEEN 08/05/19 06:10: Blood Type AB POSITIVE, Antibody Screen NEGATIVE, Crossmatch See Detail Current Medications Acetaminophen (Tylenol) 650 mg PO Q6H PRN PRN PRN Reason: pain 1-02/24; Fever > 100.4F Last Admin: 08/05/19 02:46 Dose: 650 mg Documented by: Allopurinol (Zyloprim) 200 mg PO DAILYCM [facility] Artificial Tears (Tears Naturale, Artificial Tears) 1 drop OPHTHALMIC Q4H PRN PRN PRN Reason: dry eyes Calcium Carbonate (Os-Paul 500) 500 mg PO DAILYCM [facility] Cholecalciferol (Vitamin D (25mcg)) 5,000 unit PO DAILY [facility] Glucagon () 1 mg IM .X1 PRN PRN Reason: Hypoglycemia Guaifenesin (Mucinex) 1,200 mg PO BID [facility] Last Admin: 08/05/19 00:13 Dose: 1,200 mg Documented by: Sodium Chloride () 250 mls @ 15 mls/hr IV .[id number] PRN PRN Reason: Saline Flush Last Infusion: 08/05/19 02:50 Dose: 0 mls/hr Documented by: Sodium Chloride () 250 mls @ 15 mls/hr IV .[id number] PRN PRN Reason: Additional IVPB Infusion Dextrose (Dextrose 10%-Water) 250 mls @ 999 mls/hr IV .Q16M PRN; Protocol PRN Reason: HYPOGLYCEMIA Ceftriaxone Sodium (Rocephin) 1 gm in 50 mls @ 100 mls/hr IV Q24@2200 [facility] Last Infusion: 08/05/19 03:59 Dose: Infused Documented by: Levofloxacin (Levaquin Iv) 750 mg in 150 mls @ 100 mls/hr IV Q48@2200 [facility] Last Infusion: 08/05/19 05:40 Dose: Infused Documented by: Pantoprazole Sodium 40 mg/ (Sodium Chloride) 110 mls @ 330 mls/hr IV Q12 [facility] Last Infusion: 08/05/19 06:13 Dose: Infused Documented by: Vancomycin IV Pharmacy to Dose (1,000 ea/ Sodium Chloride) 500 mls @ 250 mls/hr IV PRN PRN; Protocol Norepinephrine Bitartrate 8 mg (/ Sodium Chloride) 250 mls @ 9.375 mls/hr CONT INF .[id number] [facility]; Protocol Last Titration: 08/05/19 07:30 Dose: 15 mcg/min, 28.1 mls/hr Documented by: Lactobacillus Acidophilus (Acidophilus) 1 tablet PO BID [facility] Last Admin: 08/05/19 00:10 Dose: Not Given Documented by: Metronidazole (Flagyl) 500 mg PO Q8 [facility] Stop: 08/11/19 14:01 Last Admin: 08/05/19 06:26 Dose: Not Given Documented by: Multivitamins (Multivitamin) 1 tablet PO DAILYCM [facility] Ondansetron HCl (Zofran) 4 mg IV Q8H PRN PRN PRN Reason: NAUSEA/VOMITING Pravastatin Sodium (Pravachol) 40 mg PO DAILY@2200 [facility] Sodium Chloride () 10 - 40 ml IV UD PRN PRN Reason: SALINE FLUSH Last Admin: 08/05/19 02:46 Dose: 10 ml Documented by: Temazepam (Restoril) 15 - 30 mg PO QHS PRN PRN Reason: insomnia Clinical Impression(s) from Imaging Studies Chest X-Ray 08/04/19 20:00 IMPRESSION: Stable central vascular congestion. Electronically Signed: Kenneth Melendez MD at 20:14 EDT Tel , Service support , Chest X-Ray 08/05/19 03:56 IMPRESSION: Mild CHF similar prior. Electronically Signed: Raj Ojeda at 4:48 EDT Tel , Service support , Assessment/Plan RECOMMENDATIONS: 1. Initiate pressor therapy after placement of central line 2. Initiate empiric antibiotic therapy 3. Consult cardiology 4. Possible COVID-19 testing, initiate precautions for now 5. Wean oxygen as tolerated IMPRESSIONS: 1. Acute hypoxic respiratory failure Unclear etiology at this time. Patient does have severe aortic stenosis, but chest x-ray is not very suggestive of pulmonary edema despite elevated BNP. Acute viral infection would be a consideration. Viral panel and influenza swab were negative. Patient is requiring supplemental oxygen. Patient may be having fever secondary to bowel ischemia as this was noted just recently. Discussed with cardiology by phone. Patient may require a left heart catheterization for evaluation of aortic valve. Hold Coreg secondary to hypotension. Patient recently had an echocardiogram, so it is unclear if this is necessary. 2. History of ischemic colitis Patient recently diagnosed with ischemic colitis and placed on Cipro and Flagyl. CBC shows some reduction in blood counts and PRBCs have been ordered. No bloody bowel movements have been noted, but patient is occult blood positive. 3. Shock Type etiology is unclear. Patient needs a central line and pressor therapy. We will send a procalcitonin for evaluation of possible translocation through ischemic bowel leading to current symptomatology. Patient did receive 30 cc/kg. Patient had preserved ejection fraction before this hospitalization, but may be having some issues with aortic stenosis. Chest x-ray did not show significant pulmonary infiltrates, but patient is on BiPAP therapy and this may lead to hyperinflation with decreased infiltrates. 4. Chronic diastolic congestive heart failure/aortic stenosis/history of aortic valve replacement Cardiology should be consulted. Significant worsening in aortic stenosis documented on the last echocardiogram. Patient did not have a MOISE secondary to GI bleeding. Patient did have elevated pulmonary artery pressures at that time and was thought to have type II pulmonary hypertension. Unclear if drop in hemoglobin is secondary to dilution versus active destruction. 5. Gout/DDD/obesity/history of polycythemia vera/KYLE/diabetes mellitus type 2 Complicates care, management, recovery and prognosis. Monitor sliding scale insulin. Patient is on BiPAP therapy at this time. Renal function appears to be preserved. TIME: 55 minutes critical care time spent addressing patient's acute hypoxic respiratory failure, ischemic colitis, shock, review of all data and collaboration with care team. (7 AM to 9 AM) [id number]: [id number] Critical care first hour
--- NOTE | 2019-08-05 08:13 | PN_ITS ---
Subjective: Chief complaint: Follow-up after admission for shock, cardiogenic versus septic, acute on chronic CHF, acute on chronic anemia and acute hypoxic respiratory failure. Patient seen and examined. She is awake and alert. Complaining of mild shortness of breath with almost no improvement. Denied chest pain. Reported dry cough, no sputum production. She is on IV Levophed drip. Initially, she was admitted to PCU, became more dyspneic and hypotensive. She received IV fluid bolus and her blood pressure remained low. She was transferred to ICU. She has been having spikes of low-grade fever, heart rate stable, blood pressure still low, on BiPAP. - Physical Exam Vitals/I&O's: Vital Signs Temp Pulse Resp BP Pulse Ox 100.2 F H 99 22 H 83/38 L 99 08/05/19 08:03 08/05/19 08:03 08/05/19 08:03 08/05/19 08:03 08/05/19 08:03 Oxygen Flow Rate (L/min) 3 Oxygen Delivery Method Bi-pap Weight: 173 lb 4.533 oz Body Mass Index (BMI) 32.2 Intake and Output for Last 24 Hours 08/03/19 08/04/19 08/05/19 23:59 23:59 23:59 Intake Total 3152.96 / 3152.96 Output Total 175 / 175 Balance 2977.96 / 2977.96 General: Alert, Oriented x3, Cooperative, - - She is in moderate distress. HEENT: Atraumatic, PERRLA, EOMI, Normocephalic Oral: Moist Mucosa, No Gingival or Mucosal Lesions/ Ulcerations Neck: Supple, No JVD, Negative Carotid Bruits, Trachea Midline, Thyroid Normal Size and Texture Lungs: No wheeze, Diminished, Rhonchi, Short of Breath, - - Decreased breath sounds at the bases, scattered rhonchi. Cardiovascular: Regular rate, Regular Rhythm, Normal S1, Normal S2, PMI Normal, Murmur Abdomen: Bowel Sounds Present, Soft, Non Tender, Non-Distended, No Hepato- splenomegaly Extremities: No clubbing, No cyanosis, No edema Skin: No rashes, No breakdown Lymphatic: No Cervical, Supraclavicular, or Inguinal Adenopathy Neurological: Cranial nerves II-XII grossly intact, Motor Exam 5/5 strength throughout Psych/Mental Status: Appropriate, Anxious Microbiology Past 72 Hours 08/04/19 20:01 Mucosa - Nasopharyngeal Respiratory Panel (PCR) - Final 08/04/19 22:15 Stool Stool Occult Blood (MARY ANN) - Final Occult Blood Positive 08/04/19 20:01 Mucosa - Nasopharyngeal Influenza Types A,B Direct FA ([facility]) - Final Laboratory Results 08/04/19 19:23: WBC 2.2 L, RBC 3.45 L, Hgb 9.9 L, Hct 34.1 L, MCV 98.8, MCH 28.7, MCHC 29.0 L, RDW Std Deviation 61.5 H, RDW Coeff of Tess 17.2 H, Plt Count 277, MPV 12.0, Neut % (Auto) Not Reportable, Absolute Neuts (auto) 1.8 L, Absolute Lymphs (auto) 0.18 L, Total Counted 100, Neutrophils % (Manual) 60, Band Neutrophils % 23 H, Lymphocytes % (Manual) 8 L, Eosinophils % (Manual) 1, Metamyelocytes % 8 H, Nucleated RBCs/100 WBC 3, Differential Comment SCANNED, Diff Path Review May foll, Platelet Estimate ADEQUATE, Plt Morphology Comment GIANT, Polychromasia 1+, Hypochromasia 1+, Anisocytosis 2+, Macrocytosis RARE, Tear Drop Cells 1+, Ovalocytes RARE, Schistocytes RARE 08/04/19 19:23: B-Natriuretic Peptide 542.6 H 08/04/19 20:20: PT 17.3 H, INR 1.4, APTT 33.1 08/04/19 20:20: Sodium 137, Potassium 3.1 L, Chloride 101, Carbon Dioxide 27.0, Anion Gap 9, BUN 17, Creatinine 0.82, Estim Creat Clear Calc 45.85, Est GFR (MDRD) Af Amer 89, Est GFR (MDRD) Non-Af 74, BUN/Creatinine Ratio 20.8 H, Glucose 118 H, Calcium 8.4 L, Troponin I 0.092 H 08/05/19 00:00: Troponin I 0.193 H 08/05/19 01:05: Hgb 9.0 L, Hct 29.9 L 08/05/19 01:05: ESR 11 08/05/19 03:15: Troponin I 0.211 H 08/05/19 05:00: WBC 9.7, RBC 2.70 L, Hgb 7.7 L, Hct 26.1 L, MCV 96.7, MCH 28.5, MCHC 29.5 L, RDW Std Deviation 61.2 H, RDW Coeff of Tess 17.5 H, Plt Count 202, MPV 12.0, Immature Gran % (Auto) 1.400 H, Neut % (Auto) 91.7 H, Lymph % (Auto) 0.7 L, [place] % (Auto) 4.0, Eos % (Auto) 2.1, Baso % (Auto) 0.1, Absolute Neuts (auto) 8.9 H, Absolute Lymphs (auto) 0.07 L, Nucleated RBC % 0.2, Differential Comment , Platelet Estimate ADEQUATE, Polychromasia RARE, Hypochromasia 1+, Anisocytosis 1+ 08/05/19 05:00: Sodium 133 L, Potassium 4.0, Chloride 101, Carbon Dioxide 21.0, Anion Gap 11, BUN 22 H, Creatinine 1.31 H, Estim Creat Clear Calc 28.70, Est GFR (MDRD) Af Amer 52 L, Est GFR (MDRD) Non-Af 43 L, BUN/Creatinine Ratio 16.8, Glucose 197 H, Calcium 7.3 L, Magnesium 1.4 L 08/05/19 05:00: Troponin I 0.303 H 08/05/19 05:00: Lactic Acid 3.4 H* 08/05/19 05:00: C-React Prot High Sens 25.30 H 08/05/19 05:30: Urine Color Yellow, Urine Clarity Clear, Urine pH 6.0, Ur Specific [place] 1.010, Urine Protein Negative, Urine Glucose (UA) Normal, Urine Ketones Negative, Urine Occult Blood Negative, Urine Nitrite Negative, Urine Bilirubin Negative, Urine Urobilinogen Normal, Ur Leukocyte Esterase Negative, Urine RBC 0 SEEN, Urine WBC 0 SEEN, Ur Squamous Epith Cells 0 SEEN, Urine Bacteria 0 SEEN, Urine Mucus 0 SEEN 08/05/19 06:10: Blood Type AB POSITIVE, Antibody Screen NEGATIVE, Crossmatch See Detail Clinical Impression(s) from Imaging Studies Chest X-Ray 08/04/19 20:00 IMPRESSION: Stable central vascular congestion. Electronically Signed: Kenneth Melendez MD at 20:14 EDT Tel , Service support , Chest X-Ray 08/05/19 03:56 IMPRESSION: Mild CHF similar prior. Electronically Signed: Raj jOeda, at 4:48 EDT Tel , Service support , Current Medications Acetaminophen (Tylenol) 650 mg PO Q6H PRN PRN PRN Reason: pain 1-1010; Fever > 100.4F Last Admin: 08/05/19 02:46 Dose: 650 mg Documented by: Allopurinol (Zyloprim) 200 mg PO DAILYCM [facility] Artificial Tears (Tears Naturale, Artificial Tears) 1 drop OPHTHALMIC Q4H PRN PRN PRN Reason: dry eyes Calcium Carbonate (Os-Paul 500) 500 mg PO DAILYCM [facility] Cholecalciferol (Vitamin D (25mcg)) 5,000 unit PO DAILY [facility] Glucagon () 1 mg IM .X1 PRN PRN Reason: Hypoglycemia Guaifenesin (Mucinex) 1,200 mg PO BID [facility] Last Admin: 08/05/19 00:13 Dose: 1,200 mg Documented by: Sodium Chloride () 250 mls @ 15 mls/hr IV .[id number] PRN PRN Reason: Saline Flush Last Infusion: 08/05/19 02:50 Dose: 0 mls/hr Documented by: Sodium Chloride () 250 mls @ 15 mls/hr IV .[id number] PRN PRN Reason: Additional IVPB Infusion Dextrose (Dextrose 10%-Water) 250 mls @ 999 mls/hr IV .Q16M PRN; Protocol PRN Reason: HYPOGLYCEMIA Ceftriaxone Sodium (Rocephin) 1 gm in 50 mls @ 100 mls/hr IV Q24@2200 [facility] Last Infusion: 08/05/19 03:59 Dose: Infused Documented by: Levofloxacin (Levaquin Iv) 750 mg in 150 mls @ 100 mls/hr IV Q48@2200 [facility] Last Infusion: 08/05/19 05:40 Dose: Infused Documented by: Pantoprazole Sodium 40 mg/ (Sodium Chloride) 110 mls @ 330 mls/hr IV Q12 [facility] Last Infusion: 08/05/19 06:13 Dose: Infused Documented by: Vancomycin IV Pharmacy to Dose (1,000 ea/ Sodium Chloride) 500 mls @ 250 mls/hr IV PRN PRN; Protocol Norepinephrine Bitartrate 8 mg (/ Sodium Chloride) 250 mls @ 9.375 mls/hr CONT INF .[id number] [facility]; Protocol Last Titration: 08/05/19 08:03 Dose: 20 mcg/min, 37.5 mls/hr Documented by: Lactobacillus Acidophilus (Acidophilus) 1 tablet PO BID [facility] Last Admin: 08/05/19 00:10 Dose: Not Given Documented by: Metronidazole (Flagyl) 500 mg PO Q8 [facility] Stop: 08/11/19 14:01 Last Admin: 08/05/19 06:26 Dose: Not Given Documented by: Multivitamins (Multivitamin) 1 tablet PO DAILYCM [facility] Ondansetron HCl (Zofran) 4 mg IV Q8H PRN PRN PRN Reason: NAUSEA/VOMITING Pravastatin Sodium (Pravachol) 40 mg PO DAILY@2200 [facility] Sodium Chloride () 10 - 40 ml IV UD PRN PRN Reason: SALINE FLUSH Last Admin: 08/05/19 02:46 Dose: 10 ml Documented by: Temazepam (Restoril) 15 - 30 mg PO QHS PRN PRN Reason: insomnia Medical Necessity - Tobacco Use Smoking Status: Former smoker Tobacco Use: Non-smoker Assessment/Plan This is a 68 years old female patient presented to the emergency room because of shortness of breath and cough, admitted for probable CHF initially, became more dyspneic and hypotensive and she developed spikes of fever, was given IV fluids with no response and was transferred to ICU, found to have shock which is probably cardiogenic versus septic, acute on chronic CHF, acute on chronic anemia and acute on chronic hypoxic respiratory failure. #1 shock: Cardiogenic versus septic shock. Chest x-ray showed findings consistent with pulmonary vascular congestion, no infiltrate or consolidation. Urinalysis revealed no evidence of infection. Patient does have a history of severe aortic stenosis status post multiple replacement and chronic diastolic CHF. BNP is elevated. She developed spikes of fever with no obvious source of infection. Respiratory panel for viruses were negative. Nasal swab for influenza a and B were negative. Lactic acid was elevated which could be due to tissue hypoperfusion secondary to hypotension. On IV Levophed drip, IV Rocephin, Levaquin and vancomycin. Blood, sputum and urine cultures ordered. COVID 19 testing will be sent. Infectious disease consulted. I do not think that she needs all these antibiotics. Plan: Continue same treatment, repeat CBC and BMP tomorrow morning, awaiting infectious disease recommendations. #2 probable acute on chronic diastolic CHF: This is based on chest x-ray findings, elevated BNP and past history of severe aortic stenosis. 2D echocardiogram that was done last month revealed ejection fraction of 65%, severe aortic stenosis with calculated aortic valve area is 1.1 cm?, moderate pulmonary hypertension, other findings reviewed. Patient received bolus of IV fluids. Also she received 2 dose of IV Lasix. Now, she is hypotensive and on Levophed. Plan to continue IV vasopressors, no diuretics for now because of low blood pressure. #3 acute on chronic hypoxic respiratory failure: Multifactorial secondary to CHF and acute on chronic anemia. She is on home oxygen. At this time, she is on BiPAP. Plan as above. #4 acute on chronic anemia: Patient's history of polycythemia but over the last couple of months, hemoglobin has been dropping. Admission hemoglobin was 9 g/dL, came down to 7.7 g/dL today. Stool was occult positive. Patient had recent history of lower GI bleed and colonoscopy as below. Plan to transfuse 1 unit of packed RBCs for now, repeat CBC tomorrow morning. #5 recent history of lower GI bleed: No active bleeding but stool was positive for occult blood. She had colonoscopy on July 09, 2019 that revealed hemorrhoids, diverticulosis, mucosal ulceration and single nonbleeding colonic angiectasia. Plan for blood transfusion as above, continue IV Protonix. #6 history of ischemic colitis: Patient was placed on Flagyl and ciprofloxacin recently as outpatient. She denies any abdominal pain. Her lactic acid is elevated which is probably due to hypotension. Abdominal examination is benign. I doubt that she has acute colitis. She is already on IV Rocephin and Levaquin. #7 severe aortic stenosis: Status post aortic valve replacement with bioprosthetic valve. 2D echocardiogram reviewed as above. Plan as above. #8 hyperlipidemia: Continue statins. #9 gout: Stable, continue allopurinol. #10 DVT prophylaxis: SCDs. This note was generated with [employer] software. It may contain incorrect words, spelling, and punctuation that were not noted in checking the note before signing. Inpatient E&M: 62999 Subs Hosp L3
[2019-08-05 09:11] LABS: Reflex Lactate? Y
[2019-08-05 09:30] LABS: Pathologist Review Reviewed
--- NOTE | 2019-08-05 09:38 | PCM.OPRPT ---
Report of Operation Date of Procedure: 08/05/19 Surgery/Procedure Performed:: Triple-lumen catheter insertion Description of Surgical Findings:: Central line placement procedure note Indication: IV access/hemodynamic instability/vasoactive medications Procedure: A time-out was completed to verify correct patient, indication, medication allergies, procedure, coagulation studies, informed consent signed, and equipment needed. The patient was placed in the supine position for a central line placement to the rt IJ vein. The patients rt neck was prepped using chlorhexidine and a full body sterile drape was applied. 1% lidocaine was used to anesthetize the surrounding skin. A 7fr 16cm blue guard triple lumen catheter introduced into the internal jugular vein using the modified Seldinger technique with the assistance of ultrasound. The catheter was threaded smoothly over the guidewire, the guidewire was removed easily, nonpulsatile blood returned. All ports were aspirated of air and flushed with sterile saline. The catheter was sutured in place and covered with an occlusive dressing impregnated with chlorhexidine. Post-procedure: The patient tolerated the procedure well. Vital signs remained stable. EBL 3 cc. No complications. Chest X Ray ordered to confirm tip placement and the absence of pneumothorax. Procedures: 64270 Insert Non-tunnel CV Cath
--- NOTE | 2019-08-05 09:45 | RAD_ITS ---
STUDY: X-RAY CHEST REASON FOR EXAM: Female, 68 years old. TRIPLE LUMEN LINE PLACEMENT TECHNIQUE: Single AP portable view of the chest. COMPARISON: Comparison is made with prior examination August 05, 2019. FINDINGS: A right-sided internal jugular venous catheter has been placed. The tip is at the junction of the superior vena cava and right atrium. EKG electrodes are seen. The lungs are clear and expanded. Stable blunting of the right costophrenic angle. Sternal cerclage wires and vascular clips are present from a prior sternotomy and coronary artery bypass graft procedure (CABG). Normal mediastinum and enma. Normal visualized pulmonary arteries. There is atherosclerotic calcification of the aortic arch with tortuosity. There are diffuse degenerative changes of the visualized thoracic spine. Healed bilateral fractures of the surgical neck of the humerus. There is no demonstrated abnormality of the visualized soft tissue structures of the upper abdomen. RAD/Chest 1 View (Portable) IMPRESSION: The tip of the right internal jugular venous catheter is at the junction of the superior vena cava and right atrium. Stable blunting of the right costophrenic angle. Electronically Signed: Tristen Arce, at 10:41 EDT , Service support ,
--- NOTE | 2019-08-05 09:57 | CON.PCM_ITS ---
Problem List (1) H/O aortic valve replacement with porcine valve Status: Chronic (2) Aortic stenosis Status: Chronic (3) KYLE (obstructive sleep apnea) Status: Chronic (4) Diabetes mellitus type 2, controlled Status: Chronic Reason for Consult Date of Consultation: 08/05/19 Reason for Consultation: Hypotension, aortic stenosis, status post aortic valve replacement, hypertension, diabetes, History of Present Illness: Mrs Valencia is a very pleasant 68-year-old morbidly obese diabetic female who was admitted previously in December 2013 with new-onset atrial fibrillation was found to have severe LVH and possible significant aortic stenosis due to a bicuspid aortic valve. She spontaneously converted on her own. In addition she has polycythemia vera, recently diagnosed and has been undergoing phlebotomy sessions under the care of Dr. Miller. She had been previously treated with hydroxyurea, but this was discontinued after her aortic valve replacement surgery. She appears to be exquisitely sensitive to atrial fibrillation. Her LV function was found to be normal with an LVEF of 70%, with complete cavity obliteration during dobutamine and she had a dynamic resting LV outflow tract gradient of approximately 40 mmHg, which increased to 100 mmHg with peak dobutamine.in addition she underwent a right and left heart catheterization which demonstrated no mitral stenosis despite her mitral annular calcification, and angiographically normal coronary arteries. She was then referred to a cardiovascular surgeon Dr. Chacko who requested better control of her diabetes, some weight loss, and documented control of her hemoglobin from her P vera. Once this was completed, the patient underwent successful aortic valvular replacement due to aortic stenosis on 10/31/14. The patient underwent successful AVR with a solo stentless valve, modified Maze procedure, and left atrial appendage excision. Patient was gradually placed on beta kateryna therapy as well as iron replacement therapy and followed up with our office. She remains on her CPAP without difficulty. She also is continuing on hydroxyurea. She denies any palpitations. Patient did suffer a mechanical fall in the bathtub in August 2018 fracturing her left arm. This is completely healed. She denied any syncopal episodes, and appears to have just slipped in the bathtub. Her this echocardiogram dated 06/03/2017 shows the following: Interpretation Summary The estimated ejection fraction is 65 %. Mildly dilated right ventricle. The left atrium is severely enlarged. The right atrium is severely enlarged. Mild (1+) mitral valve insufficiency. Mild (1+) tricuspid valve insufficiency. Right ventricular systolic pressure estimated to be 34 mmHg. Normal functioning bioprosthetic aortic valve. Compared to echo report dated 10/10/2015, no appreciable changes noted. In our office, the patient recently returned and complained of dyspnea on exertion, shortness of breath and a repeat echocardiogram dated 07/01/2019 is as follows: The estimated ejection fraction is 65 %. Mildly dilated right ventricle. The left atrium is moderately enlarged. Mild-Moderate (1-2+) eccentric mitral valve insufficiency. Mild (1+) tricuspid valve insufficiency. Right ventricular systolic pressure estimated to be 51 mmHg. Moderate pulmonary hypertension. Peak aortic valve gradient 63 mmHg. Mean aortic valve gradient 42 mmHg. Calculated aortic valve area (continuity equation) is 1.1 cm2. Severe aortic stenosis. Trivial aortic valve insufficiency. Compared to echo report dated 01/20/2019, LV function has remained the same however the patient's bioprosthetic aortic valve gradients have markedly worsened. At that time the peak and mean gradients were 35/17 mmHg giving a calculated aortic valve area of 1.6 cm??. In addition RVSP is increased from 37 to 51 mmHg. Would consider a transesophageal echocardiogram if clinically indicated. Given her new findings on her echocardiogram, and her dyspnea on exertion I was concerned the patient may have deteriorating bioprosthetic aortic valve stenosis and she was recently scheduled for a MOISE followed by a right and left heart catheterization. On 07/08/2019, the patient was admitted with lower GI bleeding. We are anticipating proceeding with a MOISE followed by a left and right heart catheterization for her aortic valve replacement. C scope demonstrated multiple colonic ulcers which were nonbleeding, and angiectasia area, and hemorrhoids. She was then sent home soon after that. She apparently did not require transfusion. She is now here for follow-up. In addition she was started on Lasix 40 mg p.o. daily for congestive heart failure symptoms, and these have markedly improved. She did complain now of dry mouth however. She has no edema. Patient was awaiting MOISE followed by left and right heart catheterization for possible redo aortic valve replacement, but it was postponed given her GI issues. Patient states that she has been developing progressively worsening shortness of breath and dyspnea on exertion over the last 7 days, and did not report a fever, but is found to be feverish at 38.6 ?C. In addition she was found to be hypotensive on the floor and moved to the ICU requiring upper doses of IV Levophed and placed on BiPAP therapy. Patient is awake, answers questions, but is somewhat hard of hearing. She also complains of some mild chest discomfort and worsening edema in her feet. Patient denies any sore throat, nausea or vomiting at home. I once again reviewed her echocardiogram from June personally this morning, and it appears her leaflets are opening normally, but rather her aortic stenosis stems from a small LV outflow tract orifice. Patient has excellent 2+ carotid upstroke bilaterally on physical exam today. The central line is been placed, with x-ray pending. She has trace to 1+ bilateral pedal edema. She has no outward signs of endocarditis, no conjunctival hemorrhages, no petechiae and no splinter hemorrhages [] Past Medical History Allergies/Adverse Reactions: Allergies Penicillins Allergy (Severe, Verified 08/04/19 19:16) Rash clarithromycin [From Biaxin] Allergy (Intermediate, Verified 08/04/19 19:16) Rash erythromycin base [Erythromycin Base] Allergy (Intermediate, Verified 08/04/19 19:16) Rash cat dander Adverse Reaction (Intermediate, Verified 08/04/19 19:16) SNEEZING Alternaria Mold Spores Allergy (Intermediate, Uncoded 08/04/19 19:16) SNEEZING dust Allergy (Intermediate, Uncoded 08/04/19 19:16) SNEEZING Home Medications: Ambulatory Orders Medication Instructions Recorded Multivitamins,Therapeutic 1 tab PO DAILY 04/20/14 [Multivitamin] temazepam 15 mg capsule 15 mg PO QHS 05/20/17 vit C,E,zinc,copper-nakgw0q 250 1 cap PO DAILY 05/20/17 mg-lutein 5 mg-zeaxanthin 1 mg capsule cholecalciferol (vitamin D3) 125 5,000 unit PO DAILY 10/01/17 mcg (5,000 unit) capsule pravastatin 40 mg tablet 40 mg PO DAILY 05/24/18 carboxymethylcellulose sodium 1 % 1 drp OPHTHALMIC 4-6XD 12/30/18 eye liquid gel drops clindamycin HCl 300 mg capsule 600 mg PO .COMPLEX PRN cap 12/30/18 Ibandronate Sodium [Boniva] 150 mg PO QMONTH 01/26/19 Allopurinol [Zyloprim] 200 mg PO DAILY 07/08/19 Bifidobacterium Infantis [Align] 4 mg PO DAILY 07/08/19 Biotin 1,000 mcg PO DAILY 07/08/19 Calcium (Elemental) [Os-Paul 500] 500 mg PO DAILY 07/08/19 Calcium Carbonate [Tums Smoothies] 750 mg PO DAILY PRN PRN 07/08/19 Aspirin 325 mg PO DAILY@0800 #0 07/09/19 Ciprofloxacin [Cipro] 500 mg PO BID #14 tab 07/20/19 metroNIDAZOLE [Flagyl] 500 mg PO Q8H #21 tab 07/20/19 furosemide 40 mg tablet 40 mg PO BID #60 tab 08/01/19 Carvedilol 3.125 mg PO BID 08/04/19 Potassium Chloride [K-Tab ER] 20 meq PO DAILY 08/04/19 Past Medical History (Chronic Problems): Chronic Problems (Last Updated 08/05/19 @ 09:[address] 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 Aortic valve replaced 10/21/[address] 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 Edilson Parr MD) Father Heart failure Kidney disease Mother Alcoholism Grandfather Heart disease History Items: Unknown Lives: Spouse/ Significant Other Smoking Status: Former smoker Tobacco Use: Non-smoker Review of Systems - Review of Systems General: Reports: Fever, Weakness. Denies: Fatigue, Night Sweats Cardiovascular: Reports: Shortness of Breath, Shortness of Breath at Rest. Denies: Chest Discomfort, Orthopnea, PND, Peripheral Edema, Palpitations, Lightheadedness, Dizziness, Near Syncope, Syncope Respiratory: Denies: Cough, Sputum Production, Hemoptysis Gastrointestinal: Denies: Hematemesis, Hematochezia, Melena Genitourinary: Denies: Dysuria, Hematuria Skin: Denies: Rash Subjectve: Patient on BiPAP therapy, awake, alert, answers questions appropriately. Objective: Vital Signs Temp Pulse Resp BP Pulse Ox 100.2 F H 99 22 H 83/38 L 99 08/05/19 08:03 08/05/19 08:03 08/05/19 08:03 08/05/19 08:03 08/05/19 08:03 Oxygen Flow Rate (L/min) 3 Oxygen Delivery Method Bi-pap Weight: 173 lb 4.533 oz Body Mass Index (BMI) 32.2 Intake and Output for Last 24 Hours 08/03/19 08/04/19 08/05/19 23:59 23:59 23:59 Intake Total 3152.96 / 3152.96 Output Total 175 / 175 Balance 2977.96 / 2977.96 General: Awake, Alert, Oriented x 3 HEENT: PERRL, EOMI, Sclera Non Icteric Neck: Supple, Good ROM, No Lymph Node Enlargement Lungs: Clear to auscultation Cardiovascular: Regular Rhythm, Normal S2, No Rubs, No Gallops Murmur Murmur: Grade 2/6 Vascular: No Carotid Bruits, Normal Femoral Pulses, Normal Radial Pulses, Normal Dorsalis Pedal Pulse, Normal Posterior Tibial Pulses Abdomen: Bowel Sounds Present, Soft, Non Tender, No HSM, No Organomegaly Extremities: No Cyanosis, No Clubbing, No edema Neurological: No Focal Motor or Sensory Deficit 08/04/19 19:23: WBC 2.2 L, RBC 3.45 L, Hgb 9.9 L, Hct 34.1 L, MCV 98.8, MCH 28.7, MCHC 29.0 L, Plt Count 277, MPV 12.0, Neut % (Auto) Not Reportable, Absolute Neuts (auto) 1.8 L, Total Counted 100, Neutrophils % (Manual) 60, Band Neutrophils % 23 H, Lymphocytes % (Manual) 8 L, Eosinophils % (Manual) 1, Metamyelocytes % 8 H 08/04/19 19:23: B-Natriuretic Peptide 542.6 H 08/04/19 20:20: PT 17.3 H, INR 1.4, APTT 33.1 08/04/19 20:20: Sodium 137, Potassium 3.1 L, Chloride 101, Carbon Dioxide 27.0, Anion Gap 9, BUN 17, Creatinine 0.82, Est GFR (MDRD) Af Amer 89, Est GFR (MDRD) Non-Af 74, BUN/Creatinine Ratio 20.8 H, Glucose 118 H, Calcium 8.4 L, Troponin I 0.092 H 08/05/19 00:00: Troponin I 0.193 H 08/05/19 01:05: Hgb 9.0 L, Hct 29.9 L 08/05/19 03:15: Troponin I 0.211 H 08/05/19 05:00: WBC 9.7, RBC 2.70 L, Hgb 7.7 L, Hct 26.1 L, MCV 96.7, MCH 28.5, MCHC 29.5 L, Plt Count 202, MPV 12.0, Immature Gran % (Auto) 1.400 H, Neut % (Auto) 91.7 H, Lymph % (Auto) 0.7 L, [place] % (Auto) 4.0, Eos % (Auto) 2.1, Baso % (Auto) 0.1, Absolute Neuts (auto) 8.9 H, Nucleated RBC % 0.2 08/05/19 05:00: Sodium 133 L, Potassium 4.0, Chloride 101, Carbon Dioxide 21.0, Anion Gap 11, BUN 22 H, Creatinine 1.31 H, Est GFR (MDRD) Af Amer 52 L, Est GFR (MDRD) Non-Af 43 L, BUN/Creatinine Ratio 16.8, Glucose 197 H, Calcium 7.3 L, Magnesium 1.4 L 08/05/19 05:00: Troponin I 0.303 H 08/05/19 05:00: Lactic Acid 3.4 H* 08/05/19 05:30: Urine Color Yellow, Urine Clarity Clear, Urine pH 6.0, Ur Specific [place] 1.010, Urine Protein Negative, Urine Glucose (UA) Normal, Urine Ketones Negative, Urine Occult Blood Negative, Urine Nitrite Negative, Urine Bilirubin Negative, Urine Urobilinogen Normal, Ur Leukocyte Esterase Negative, Urine RBC 0 SEEN, Urine WBC 0 SEEN Rhythm: EKG: Normal sinus rhythm, interventricular conduction delay, left anterior refugio block, no acute changes. ECHO: The estimated ejection fraction is 65 %. Mildly dilated right ventricle. The left atrium is moderately enlarged. Mild-Moderate (1-2+) eccentric mitral valve insufficiency. Mild (1+) tricuspid valve insufficiency. Right ventricular systolic pressure estimated to be 51 mmHg. Moderate pulmonary hypertension. Peak aortic valve gradient 63 mmHg. Mean aortic valve gradient 42 mmHg. Calculated aortic valve area (continuity equation) is 1.1 cm2. Severe aortic stenosis. Trivial aortic valve insufficiency. Compared to echo report dated 01/20/2019, LV function has remained the same however the patient's bioprosthetic aortic valve gradients have markedly worsened. At that time the peak and mean gradients were 35/17 mmHg giving a calculated aortic valve area of 1.6 cm??. In addition RVSP is increased from 37 to 51 mmHg. Would consider a transesophageal echocardiogram if clinically indicated. Stress Test: Cardiac Cath: PCI: CT Surgery: Holter monitor: EPS: PPM: CXR: Chest CT Scan: Assessment/Plan 1. Hypotension: The patient presents with progressively worsening dyspnea on exertion and shortness of breath superimposed on what appeared to be worsening aortic stenosis after bioprosthetic aortic valve placement in 2014. Patient was scheduled to undergo a transesophageal echocardiogram followed by right and left her catheterization to better evaluate her aortic valve. However in the meantime the patient developed what appeared to be ischemic colitis and this was placed on hold. Over the last 7 days the patient has had progressively worsening dyspnea on exertion, shortness of breath, fevers, and now presents with respiratory distress, hypotension requiring Levophed, and urgent consultation was requested by ICU team with respect to her aortic valve stenosis. I reviewed the patient's echocardiogram directly from 07/01/2019 and saw no evidence of bacterial vegetations at that time. Once more, her aortic stenosis appears to be a manifestation of her small LV outflow tract and small aortic valve orifice. In addition if the patient had any kind of anemia at the time of her echocardiogram, that may make the gradients worse. Her actual echocardiogram port from 07/01/2019 is as follows: The estimated ejection fraction is 65 %. Mildly dilated right ventricle. The left atrium is moderately enlarged. Mild-Moderate (1-2+) eccentric mitral valve insufficiency. Mild (1+) tricuspid valve insufficiency. Right ventricular systolic pressure estimated to be 51 mmHg. Moderate pulmonary hypertension. Peak aortic valve gradient 63 mmHg. Mean aortic valve gradient 42 mmHg. Calculated aortic valve area (continuity equation) is 1.1 cm2. Severe aortic stenosis. Trivial aortic valve insufficiency. Compared to echo report dated 01/20/2019, LV function has remained the same however the patient's bioprosthetic aortic valve gradients have markedly worsened. At that time the peak and mean gradients were 35/17 mmHg giving a calculated aortic valve area of 1.6 cm??. In addition RVSP is increased from 37 to 51 mmHg. Would consider a transesophageal echocardiogram if clinically indicated. The patient has no outward signs of endocarditis, but does have evidence of hypotension, fever, and an infectious process. Her chest x-ray was reviewed again by myself and shows no overt pulmonary infiltrates. We may want to consider a CT scan of her chest now that she has had IV fluid resuscitation. She is undergoing a repeat chest x-ray after line placement for Levophed support. I would recommend consideration of influenza panel followed by COVID 19 panel to ensure the patient does not have evidence of viral infectious process. I would recommend holding off on repeat echocardiogram at this time until the patient is cleared from a viral standpoint, and as the treatment would be the same with IV antibiotic therapy. Patient is not a candidate for urgent left heart catheterization, MOISE, or aortic valve replacement at this time. Recommend continuing supportive care with IV fluids as she has normal LV function, and moderate pulmonary hypertension by echocardiogram. She is most likely preload dependent. Would recommend supportive measures such as intubation if necessary and IV Levophed blood pressure support. In addition the patient had normal coronary arteries at her catheterization in 2014 prior to her aortic valve replacement. Unlikely that she would have progression of significant disease during that time but this also could be a possibility. Her EKG shows no evidence of acute changes. Recommend ruling out for myocardial infarction with troponins x3. In addition, the patient has excellent 2+ carotid upstroke bilaterally indicating that she most likely has adequate aortic valvular separation for perfusion purposes. 2. Atrial fibrillation: The patient is status post Maze procedure, and left atrial appendage ligation at her aortic valve replacement surgery. No indication for anticoagulation at this time. She remains in sinus rhythm. 3. Thank you very much for the opportunity to participate in the cardiac care of your patient. Consultation time took place between 915 and 10:[address] Miller. Inpatient E&M: [id number] Init Hosp L2
--- NOTE | 2019-08-05 10:00 | NURSING ---
No increase in levophed d/t awaiting verification of Central Line placement
[2019-08-05 10:17] LABS: Lactic Acid 2.9 mmol/L (0.4-1.9)
--- NOTE | 2019-08-05 11:07 | CASEMGMT ---
RN CM Assessment Note Presentation: Dyspnea, Elevated Troponin Intro role of CM and purpose of RN CM assessment to patient's via phone. Pt is in resp isolation. Demographics, PCP and Pharmacy verified. able to participate in assessment. very concerned re: pt having multiple issues and is appreciative that pt is in hospital and having all these medical conditions reviewed. Pt's also states he would like to consider SNF/Rehab on dc if pt is not independent on dc. states when he was needing to care for pt after a broken arm, he was very stressed ([place]) and has broken out in shingles and eczema. Also states it took an emotional toll to be caregiver at the level she needed. RN CM let know CM would be available to assist with dc planning and would continue to contact with decisions re: dc plan. Emotional support given. PCP: Dr. Imer Cummings Specialists: Dr. Poe, cardiology; Dr. Gardner, surgery; Dr. Miller, Pulmonology [facility] Insurance: Medicare, [facility] Prescription Benefit: yes LNOK : , [place] Living Arrangements: Lives with . One story, basement with walk out pt does not use. Pt was independent prior to admission. Completed own ADL's. Transportation: Patient drives, but can drive if needed. DME: Has walker at home. Does not use ambulatory DME. Oxygen- [facility]. Has concentrator 2L at home. Has concentrator and portable tanks. states they are also working with [employer] for a portable concentrator. HHC/SNF: HHC in past, not sure of name. No skilled stay. Patient DC goals: undetermined DC PLAN: undetermined. Pt remains in ICU, on Bipap. CM to continue to follow and assist with dc planning. Joy DUNHAM RN ACM
[2019-08-05] MEDS: Magnesium Sulfate 4gm/100mL 4 GM/100 ML IV.SOLN. IV (12:01)
[2019-08-05] MEDS: Multivitamins,Therapeutic Tablet 1 TABLET PO (13:17)
[2019-08-05] MEDS: Allopurinol 100 MG Tablet 200 MG PO (13:17)
[2019-08-05] MEDS: Calcium (Elemental) 500 MG Tablet PO (13:17)
--- NOTE | 2019-08-05 13:58 | CT_ITS ---
STUDY: CT CHEST WITHOUT CONTRAST REASON FOR EXAM: Female, 68 years old. FEVER, RECENT ISCHEMIC, DYSPNEA, GASTRIC BLEEDING RADIATION DOSAGE (If Supplied By Facility): CTDIvol = ( 19.98 ) mGy, DLP = ( 639.80 ) mGycm TECHNIQUE: Transaxial imaging was performed without the administration of intravenous contrast material. Individualized dose optimization techniques were used for this CT. COMPARISON: None. FINDINGS: Median sternotomy wires. Right central catheter. Bibasilar atelectasis. Bilateral pleural effusions. Calcified mitral annulus. Tracheobronchial calcifications. Normal mediastinum. Normal hilar regions. Normal unenhanced pulmonary arteries. Normal aorta arch and descending thoracic aorta. Normal osseous structures. Ascites. CT/Chest without Contrast IMPRESSION: Bibasilar atelectasis. Bilateral pleural effusions. Electronically Signed: Kenneth Melendez MD at 19:15 EDT Tel , Service support ,
--- NOTE | 2019-08-05 13:59 | CT_ITS ---
STUDY: CT ABDOMEN AND PELVIS WITHOUT CONTRAST REASON FOR EXAM: Female, 68 years old. FEVER, RECENT ISCHEMIC, DYSPNEA, GASTRIC BLEEDING RADIATION DOSAGE (If Supplied By Facility): CTDIvol = ( 19.98 ) mGy, DLP = ( 639.80 ) mGycm TECHNIQUE: Transaxial images were obtained from the dome of the diaphragm to the symphysis pubis with oral contrast, and without intravenous contrast. Sagittal and coronal images were reconstructed. Individualized dose optimization techniques were used for this CT. COMPARISON: None. FINDINGS: Bilateral pleural effusions and bibasilar atelectasis. Calcified mitral annulus. Median sternotomy wires. Normal liver. There is non-visualization of the gallbladder, which may be secondary to either contraction or a prior cholecystectomy. Normal spleen. Normal pancreas. Normal bilateral adrenal glands. Normal right kidney. 2 cm left renal cyst. Normal visualized stomach. Normal small intestine. There are multiple colonic diverticula consistent with diverticulosis. The appendix is visualized and appears normal. Mild ascites. Normal abdominal aorta. Normal inferior vena cava. Normal retroperitoneum. Miramontes catheter in the bladder. Normal abdominal wall. There are diffuse degenerative changes of the visualized lumbar spine. CT/Abdomen/Pel W ORAL Cont Only IMPRESSION: Mild ascites. No evidence of acute intestinal pathology or acute obstructive uropathy. Bilateral pleural effusions. Electronically Signed: Kenneth Melendez MD at 17:09 EDT Tel , Service support ,
--- NOTE | 2019-08-05 14:12 | PCM.HP.ID ---
Reason for Consult: fever Consulted by: Dr. Miller History of Present Illness: The patient is a 68 year old F with pmhx of stroke, porcine aortic valve, severe aortic stenosis, pulmonary htn, polycythemia vera, diastolic CHF, admit a month ago for ischemic colitis and GI bleeding, had colonoscopy 07/[address] Gardner. Recent course of cipro/flagyl. C/o 3-4 days of not feeling well, yesterday developed shortness of breath, some possible stringy dark changes in stool. No fever, no cough, no abd pain. No sick contacts, no travel, no large gatherings. Admitted here yesterday, had fever 101.4 overnight but was asymptomatic. On pressors, vanc/ceftriaxone/levaquin. Full ROS performed and neg except as noted above. - Medical History Past Medical History (Chronic Problems): Chronic Problems (Last Updated 08/05/19 @ 09:[address] 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 Aortic valve replaced 10/21/[address] Chacko Lacunar infarction (Chronic) KYLE (obstructive sleep apnea) (Chronic) Sleep disorder (Chronic) De Quervain's disease (tenosynovitis) (Chronic) Supraventricular tachycardia (Chronic) Diabetes mellitus type 2, controlled (Chronic) Osteoarthritis (Chronic) Allergies/Adverse Reactions: Allergies Penicillins Allergy (Severe, Verified 08/04/19 19:16) Rash clarithromycin [From Biaxin] Allergy (Intermediate, Verified 08/04/19 19:16) Rash erythromycin base [Erythromycin Base] Allergy (Intermediate, Verified 08/04/19 19:16) Rash cat dander Adverse Reaction (Intermediate, Verified 08/04/19 19:16) SNEEZING Alternaria Mold Spores Allergy (Intermediate, Uncoded 08/04/19 19:16) SNEEZING dust Allergy (Intermediate, Uncoded 08/04/19 19:16) SNEEZING Home Medications: Ambulatory Orders Medication Instructions Recorded Multivitamins,Therapeutic 1 tab PO DAILY 04/20/14 [Multivitamin] temazepam 15 mg capsule 15 mg PO QHS 05/20/17 vit C,E,zinc,copper-tdewz4g 250 1 cap PO DAILY 05/20/17 mg-lutein 5 mg-zeaxanthin 1 mg capsule cholecalciferol (vitamin D3) 125 5,000 unit PO DAILY 10/01/17 mcg (5,000 unit) capsule pravastatin 40 mg tablet 40 mg PO DAILY 05/24/18 carboxymethylcellulose sodium 1 % 1 drp OPHTHALMIC 4-6XD 12/30/18 eye liquid gel drops clindamycin HCl 300 mg capsule 600 mg PO .COMPLEX PRN cap 12/30/18 Ibandronate Sodium [Boniva] 150 mg PO QMONTH 01/26/19 Allopurinol [Zyloprim] 200 mg PO DAILY 07/08/19 Bifidobacterium Infantis [Align] 4 mg PO DAILY 07/08/19 Biotin 1,000 mcg PO DAILY 07/08/19 Calcium (Elemental) [Os-Paul 500] 500 mg PO DAILY 07/08/19 Calcium Carbonate [Tums Smoothies] 750 mg PO DAILY PRN PRN 07/08/19 Aspirin 325 mg PO DAILY@0800 #0 07/09/19 Ciprofloxacin [Cipro] 500 mg PO BID #14 tab 07/20/19 metroNIDAZOLE [Flagyl] 500 mg PO Q8H #21 tab 07/20/19 furosemide 40 mg tablet 40 mg PO BID #60 tab 08/01/19 Carvedilol 3.125 mg PO BID 08/04/19 Potassium Chloride [K-Tab ER] 20 meq PO DAILY 08/04/19 - Social History SMOKING STATUS:: Former smoker Vital Signs Temp Pulse Resp BP Pulse Ox 97.6 F L 104 H 19 H 131/57 H 100 08/05/19 12:10 08/05/19 13:26 08/05/19 13:26 08/05/19 13:26 08/05/19 13:26 Oxygen Flow Rate (L/min) 3 Oxygen Delivery Method Nasal Cannula Weight: 78.6 kg Body Mass Index (BMI) 32.2 Microbiology Past 72 Hours 08/04/19 20:01 Respiratory Panel (PCR) - Final Mucosa - Nasopharyngeal 08/04/19 22:15 Stool Occult Blood (MARY ANN) - Final Stool Occult Blood Positive 08/04/19 20:01 Influenza Types A,B Direct FA (MARY ANN) - Final Mucosa - Nasopharyngeal Laboratory Tests Past 24 Hrs 08/04/19 08/04/19 08/04/19 19:23 19:23 20:20 WBC 2.2 L RBC 3.45 L Hgb 9.9 L Hct 34.1 L MCV 98.8 MCH 28.7 MCHC 29.0 L RDW Std Deviation 61.5 H RDW Coeff of Tess 17.2 H Plt Count 277 MPV 12.0 Immature Gran % (Auto) Neut % (Auto) Not Reportable Lymph % (Auto) [place] % (Auto) Eos % (Auto) Baso % (Auto) Absolute Neuts (auto) 1.8 L Absolute Lymphs (auto) 0.18 L Total Counted 100 Neutrophils % (Manual) 60 Band Neutrophils % 23 H Lymphocytes % (Manual) 8 L Eosinophils % (Manual) 1 Metamyelocytes % 8 H Nucleated RBC % Nucleated RBCs/100 WBC 3 Differential Comment SCANNED Diff Path Review Reviewed Platelet Estimate ADEQUATE Plt Morphology Comment GIANT Polychromasia 1+ Hypochromasia 1+ Anisocytosis 2+ Macrocytosis RARE Tear Drop Cells 1+ Ovalocytes RARE Schistocytes RARE ESR PT 17.3 H INR 1.4 APTT 33.1 Sodium Potassium Chloride Carbon Dioxide Anion Gap BUN Creatinine Estim Creat Clear Calc Est GFR (MDRD) Af Amer Est GFR (MDRD) Non-Af BUN/Creatinine Ratio Glucose Lactic Acid Calcium Magnesium Troponin I C-React Prot High Sens B-Natriuretic Peptide 542.6 H Procalcitonin Urine Color Urine Clarity Urine pH Ur Specific [place] Urine Protein Urine Glucose (UA) Urine Ketones Urine Occult Blood Urine Nitrite Urine Bilirubin Urine Urobilinogen Ur Leukocyte Esterase Urine RBC Urine WBC Ur Squamous Epith Cells Urine Bacteria Urine Mucus Blood Type Antibody Screen Crossmatch 08/04/19 08/05/19 08/05/19 20:20 00:00 01:05 WBC RBC Hgb 9.0 L Hct 29.9 L MCV MCH MCHC RDW Std Deviation RDW Coeff of Tess Plt Count MPV Immature Gran % (Auto) Neut % (Auto) Lymph % (Auto) [place] % (Auto) Eos % (Auto) Baso % (Auto) Absolute Neuts (auto) Absolute Lymphs (auto) Total Counted Neutrophils % (Manual) Band Neutrophils % Lymphocytes % (Manual) Eosinophils % (Manual) Metamyelocytes % Nucleated RBC % Nucleated RBCs/100 WBC Differential Comment Diff Path Review Platelet Estimate Plt Morphology Comment Polychromasia Hypochromasia Anisocytosis Macrocytosis Tear Drop Cells Ovalocytes Schistocytes ESR PT INR APTT Sodium 137 Potassium 3.1 L Chloride 101 Carbon Dioxide 27.0 Anion Gap 9 BUN 17 Creatinine 0.82 Estim Creat Clear Calc 45.85 Est GFR (MDRD) Af Amer 89 Est GFR (MDRD) Non-Af 74 BUN/Creatinine Ratio 20.8 H Glucose 118 H Lactic Acid Calcium 8.4 L Magnesium Troponin I 0.092 H 0.193 H C-React Prot High Sens B-Natriuretic Peptide Procalcitonin Urine Color Urine Clarity Urine pH Ur Specific [place] Urine Protein Urine Glucose (UA) Urine Ketones Urine Occult Blood Urine Nitrite Urine Bilirubin Urine Urobilinogen Ur Leukocyte Esterase Urine RBC Urine WBC Ur Squamous Epith Cells Urine Bacteria Urine Mucus Blood Type Antibody Screen Crossmatch 08/05/19 08/05/19 08/05/19 01:05 03:15 05:00 WBC 9.7 RBC 2.70 L Hgb 7.7 L Hct 26.1 L MCV 96.7 MCH 28.5 MCHC 29.5 L RDW Std Deviation 61.2 H RDW Coeff of Tess 17.5 H Plt Count 202 MPV 12.0 Immature Gran % (Auto) 1.400 H Neut % (Auto) 91.7 H Lymph % (Auto) 0.7 L [place] % (Auto) 4.0 Eos % (Auto) 2.1 Baso % (Auto) 0.1 Absolute Neuts (auto) 8.9 H Absolute Lymphs (auto) 0.07 L Total Counted Neutrophils % (Manual) Band Neutrophils % Lymphocytes % (Manual) Eosinophils % (Manual) Metamyelocytes % Nucleated RBC % 0.2 Nucleated RBCs/100 WBC Differential Comment Diff Path Review Platelet Estimate ADEQUATE Plt Morphology Comment Polychromasia RARE Hypochromasia 1+ Anisocytosis 1+ Macrocytosis Tear Drop Cells Ovalocytes Schistocytes ESR 11 PT INR APTT Sodium Potassium Chloride Carbon Dioxide Anion Gap BUN Creatinine Estim Creat Clear Calc Est GFR (MDRD) Af Amer Est GFR (MDRD) Non-Af BUN/Creatinine Ratio Glucose Lactic Acid Calcium Magnesium Troponin I 0.211 H C-React Prot High Sens B-Natriuretic Peptide Procalcitonin Urine Color Urine Clarity Urine pH Ur Specific [place] Urine Protein Urine Glucose (UA) Urine Ketones Urine Occult Blood Urine Nitrite Urine Bilirubin Urine Urobilinogen Ur Leukocyte Esterase Urine RBC Urine WBC Ur Squamous Epith Cells Urine Bacteria Urine Mucus Blood Type Antibody Screen Crossmatch 08/05/19 08/05/19 08/05/19 05:00 05:00 05:00 WBC RBC Hgb Hct MCV MCH MCHC RDW Std Deviation RDW Coeff of Tess Plt Count MPV Immature Gran % (Auto) Neut % (Auto) Lymph % (Auto) [place] % (Auto) Eos % (Auto) Baso % (Auto) Absolute Neuts (auto) Absolute Lymphs (auto) Total Counted Neutrophils % (Manual) Band Neutrophils % Lymphocytes % (Manual) Eosinophils % (Manual) Metamyelocytes % Nucleated RBC % Nucleated RBCs/100 WBC Differential Comment Diff Path Review Platelet Estimate Plt Morphology Comment Polychromasia Hypochromasia Anisocytosis Macrocytosis Tear Drop Cells Ovalocytes Schistocytes ESR PT INR APTT Sodium 133 L Potassium 4.0 Chloride 101 Carbon Dioxide 21.0 Anion Gap 11 BUN 22 H Creatinine 1.31 H Estim Creat Clear Calc 28.70 Est GFR (MDRD) Af Amer 52 L Est GFR (MDRD) Non-Af 43 L BUN/Creatinine Ratio 16.8 Glucose 197 H Lactic Acid 3.4 H* Calcium 7.3 L Magnesium 1.4 L Troponin I 0.303 H C-React Prot High Sens B-Natriuretic Peptide Procalcitonin Urine Color Urine Clarity Urine pH Ur Specific [place] Urine Protein Urine Glucose (UA) Urine Ketones Urine Occult Blood Urine Nitrite Urine Bilirubin Urine Urobilinogen Ur Leukocyte Esterase Urine RBC Urine WBC Ur Squamous Epith Cells Urine Bacteria Urine Mucus Blood Type Antibody Screen Crossmatch 08/05/19 08/05/19 08/05/19 05:00 05:30 06:10 WBC RBC Hgb Hct MCV MCH MCHC RDW Std Deviation RDW Coeff of Tess Plt Count MPV Immature Gran % (Auto) Neut % (Auto) Lymph % (Auto) [place] % (Auto) Eos % (Auto) Baso % (Auto) Absolute Neuts (auto) Absolute Lymphs (auto) Total Counted Neutrophils % (Manual) Band Neutrophils % Lymphocytes % (Manual) Eosinophils % (Manual) Metamyelocytes % Nucleated RBC % Nucleated RBCs/100 WBC Differential Comment Diff Path Review Platelet Estimate Plt Morphology Comment Polychromasia Hypochromasia Anisocytosis Macrocytosis Tear Drop Cells Ovalocytes Schistocytes ESR PT INR APTT Sodium Potassium Chloride Carbon Dioxide Anion Gap BUN Creatinine Estim Creat Clear Calc Est GFR (MDRD) Af Amer Est GFR (MDRD) Non-Af BUN/Creatinine Ratio Glucose Lactic Acid Calcium Magnesium Troponin I C-React Prot High Sens 25.30 H B-Natriuretic Peptide Procalcitonin Urine Color Yellow Urine Clarity Clear Urine pH 6.0 Ur Specific [place] 1.010 Urine Protein Negative Urine Glucose (UA) Normal Urine Ketones Negative Urine Occult Blood Negative Urine Nitrite Negative Urine Bilirubin Negative Urine Urobilinogen Normal Ur Leukocyte Esterase Negative Urine RBC 0 SEEN Urine WBC 0 SEEN Ur Squamous Epith Cells 0 SEEN Urine Bacteria 0 SEEN Urine Mucus 0 SEEN Blood Type AB POSITIVE Antibody Screen NEGATIVE Crossmatch See Detail 08/05/19 08/05/19 08/05/19 09:20 09:20 09:40 WBC RBC Hgb Hct MCV MCH MCHC RDW Std Deviation RDW Coeff of Tess Plt Count MPV Immature Gran % (Auto) Neut % (Auto) Lymph % (Auto) [place] % (Auto) Eos % (Auto) Baso % (Auto) Absolute Neuts (auto) Absolute Lymphs (auto) Total Counted Neutrophils % (Manual) Band Neutrophils % Lymphocytes % (Manual) Eosinophils % (Manual) Metamyelocytes % Nucleated RBC % Nucleated RBCs/100 WBC Differential Comment Diff Path Review Platelet Estimate Plt Morphology Comment Polychromasia Hypochromasia Anisocytosis Macrocytosis Tear Drop Cells Ovalocytes Schistocytes ESR PT INR APTT Sodium Potassium Chloride Carbon Dioxide Anion Gap BUN Creatinine Estim Creat Clear Calc Est GFR (MDRD) Af Amer Est GFR (MDRD) Non-Af BUN/Creatinine Ratio Glucose Lactic Acid 2.9 H* Calcium Magnesium Troponin I C-React Prot High Sens B-Natriuretic Peptide Procalcitonin 29.60 H Urine Color Urine Clarity Urine pH Ur Specific [place] Urine Protein Urine Glucose (UA) Urine Ketones Urine Occult Blood Urine Nitrite Urine Bilirubin Urine Urobilinogen Ur Leukocyte Esterase Urine RBC Urine WBC Ur Squamous Epith Cells Urine Bacteria Urine Mucus Blood Type AB POSITIVE Antibody Screen NEGATIVE Crossmatch See Detail - Other Studies Radiology: [] reviewed Other Studies: [] Route of nutrition/ use of supplements: [] Nutritional Intake: [] IV Site: [] Mir[place]ontes Catheter: [] - Physical Exam General: Alert, Oriented x3, Cooperative HEENT: Atraumatic, PERRLA, EOMI Neck: Supple, No Nodes Lungs: Clear to auscultation, Normal air movement Cardiovascular: Regular rate, Regular Rhythm, Murmur Abdomen: Soft, Non Tender, Non-Distended Extremities: No edema Skin: No rashes IV Site: Central Line, without redness Musculoskeletal: No Tenderness to Palpation of Joints or Extremities Neurological: Cranial nerves II-XII grossly intact - Assessment/Plan Antibiotics: [] Assessment/Plan: [] septic shock - fever, dyspnea, lactic acidosis. Recent dx of ischemic colitis. Has h/o valve replacement. No splinter hemorrhages on hands. No abd pain on exam. No clear risk factors for COVID-19. PCT was 29, so suspect bacterial source. Will change abx to vanc/cefepime/flagyl for better abd oti coverage. Checking CT chest/abd/pelvis with po contrast. Avoiding iv contrast due to new SAMIR. No current cough or dyspnea. Will follow, thank you, d/w Dr. Miller
[2019-08-05] MEDS: metroNIDAZOLE 500 MG/100 ML BAG 100 MG IV ×2 (16:22→22:20)
--- NOTE | 2019-08-05 16:56 | PCM.RX.CS ---
Consult Pharmacy has been consulted to manage selected antiobiotic: Vancomycin Type of Consult: New start Suspected Infection: Sepsis, Pneumonia Labs: Sodium 133 mmol/L (136-145) L 08/05/19 05:00 Potassium 4.0 mmol/L (3.5-5.1) 08/05/19 05:00 Chloride 101 mmol/L (98-107) 08/05/19 05:00 Carbon Dioxide 21.0 mmol/L (21.0-32.0) 08/05/19 05:00 Anion Gap 11 (5-15) 08/05/19 05:00 BUN 22 mg/dL (7-18) H 08/05/19 05:00 Creatinine 1.31 mg/dL (0.55-1.02) H 08/05/19 05:00 Est GFR (MDRD) Af Amer 52 mL/min (>60) L 08/05/19 05:00 Est GFR (MDRD) Non-Af 43 mL/min (>60) L 08/05/19 05:00 BUN/Creatinine Ratio 16.8 RATIO (10-20) 08/05/19 05:00 Glucose 197 mg/dL (74-106) H 08/05/19 05:00 Microbiology: Microbiology 08/04/19 20:01 Mucosa - Nasopharyngeal Respiratory Panel (PCR) - Final 08/04/19 22:15 Stool Stool Occult Blood (MARY ANN) - Final Occult Blood Positive 08/04/19 20:01 Mucosa - Nasopharyngeal Influenza Types A,B Direct FA (MARY ANN) - Final Weight used for dosin kg Estimated Creatinine Clearance: 29ml/min Goal Trough: 15-20 mcg/mL Pharmacy Plan for Drug Dosing: Pt received a loading dose of Vancomycin 1750mg IV x1 on 08/05/19 at 0647. Based on pt's weight and renal function, initial recommendations are for pt to receive Vancomycin 750mg IV q24h starting 08/06/19 at 0700. Trough to be drawn prior to the 3rd total dose on 08/07/19 at 0630. Pharmacy will dose based off of that level. Pharmacy Service will continue to monitor and adjust dosing as required. Follow-Up Labs: Trough Vancomycin - 08/07/19 @ 0630
[2019-08-05] MEDS: Pravastatin 40 MG Tablet PO (21:53)
[2019-08-06] VITALS (52 sets, daily range): BP systolic 77–126; BP diastolic 48–89; PULSE 92–129; RESP 14–30; TEMP 36.6–37; O2SAT 97–100
[2019-08-06] MEDS: 0.9% Saline Lock 10 ML Syringe IV (04:27)
[2019-08-06 04:44] LABS: Absolute Lymphocyte Count 0.98 X10^3/uL (0.83-4.51); Absolute Neutrophil Count 20.1 X10^3/uL (2.0-7.7); Basophil# 0.04 X10^3/uL; Basophil% 0.2 % (0-1); Eosinophil# 0.03 X10^3/uL; Eosinophils% 0.1 % (0-5); Hematocrit 33.2 % (37-47); Hemoglobin 9.9 g/dL (12.0-15.0); Lymphocyte # 0.98 X10^3/ul (4.0); Lymphocyte % 4.2 % (19-41); Mean Corp Hgb Conc 29.8 g/dL (32-36); Mean Corpuscular Hgb 28.8 pg (27.0-32.0); Mean Corpuscular Volume 96.5 fL (81-99); Mean Platelet Vol. 10.9 fl (6.2-12.0); Monocyte# 1.68 X10^3/uL; Monocyte% 7.3 % (0-10); NRBC Flagged by Analyzer 0 % (0-5); Neutrophil # 20.06 X10^3/uL (2.7-7.7); Neutrophil % 86.6 % (47-70); POSITIVE DIFFERENTIAL YES; POSITIVE MORPHOLOGY YES; Platelet Count 319 K/mm3 (150-450); RBC Distribution Width CV 18.1 % (11.6-14.6); RBC Distribution Width SD 63.4 fl (35.1-43.9); Red Blood Count 3.44 M/mm3 (4.2-5.4); White Blood Count 23.2 K/mm3 (4.4-11.0)
[2019-08-06 04:47] LABS: Differential Indicated SCAN CRITERIA MET
[2019-08-06 05:01] LABS: Anion Gap 8 (5-15); BUN 20 mg/dL (7-18); BUN/Creat Ratio 24.5 RATIO (10-20); Calcium,Total 7.6 mg/dL (8.5-10.1); Chloride 106 mmol/L (98-107); Creatinine, Serum 0.82 mg/dL (0.55-1.02); EST Glomerular Filtration Rate 74 mL/min (>60); Est Glom Filt Rate - Afr Amer 89 mL/min (>60); Estimated Creatinine Clearance 45.85 ml/min; Glucose 193 mg/dL (74-106); Magnesium 2.7 mg/dL (1.6-2.6); Phosphorus 1.6 mg/dL (2.5-4.9); Potassium 3.7 mmol/L (3.5-5.1); Sodium Level 136 mmol/L (136-145)
[2019-08-06] MEDS: metroNIDAZOLE 500 MG/100 ML BAG 100 MG IV ×3 (05:33→22:09)
[2019-08-06 06:02] LABS: Anisocytosis 2+; Platelet Estimate ADEQUATE (ADEQ); Polychromasia RARE
[2019-08-06 06:04] LABS: Macrocytosis 1+; Microcytosis RARE
--- NOTE | 2019-08-06 07:02 | PCM.PN.INT ---
Subjective: Patient did well overnight. Patient's respiratory status has significantly improved and she is only requiring minimal nasal cannula oxygen. Patient is reporting abdominal discomfort, but no nausea or vomiting. Patient remains on Levophed therapy. Overnight telemetry had showed some periodic atrial fibrillation versus sinus tachycardia. Patient is just reporting fatigue at this time. Objective: All imaging was personally reviewed. CT scan of the chest shows bilateral pleural effusions, but no groundglass opacities. General: Alert, Oriented x3, Cooperative, No apparent distress, - - Obese. No conversational dyspnea. HEENT: Atraumatic, PERRLA, EOMI, Normocephalic, - - Hearing aids in place Oral: No Gingival or Mucosal Lesions/ Ulcerations, Dry Mucosa Neck: Supple, No JVD, Trachea Midline, - - Good carotid upstroke. Lungs: No rhonchi, No wheeze, No rales, Diminished, - - Symmetric expansion. No dullness to percussion. Cardiovascular: Normal S1, Normal S2, Murmur - Unchanged from previous, No rub noted, No Gallop, Tachycardic Abdomen: Bowel Sounds Present, Soft, Non Tender, Non-Distended, Obese Extremities: No cyanosis, Capillary Refill Less than 3 Seconds, Edema Skin: No rashes, No breakdown Musculoskeletal: No Tenderness to Palpation of Joints or Extremities Lymphatic: No Cervical, Supraclavicular, or Inguinal Adenopathy Neurological: Cranial nerves II-XII grossly intact, Neuro grossly intact, Motor Exam 5/5 strength throughout Psych/Mental Status: Alert and oriented to time, place, person, mood and affect Vital Signs Temp Pulse Resp BP Pulse Ox 37.0 C 107 H 14 94/53 L 100 08/06/19 04:30 08/06/19 06:45 08/06/19 06:00 08/06/19 06:45 08/06/19 06:00 Oxygen Flow Rate (L/min) 2 Oxygen Delivery Method Nasal Cannula Weight: 81.5 kg Body Mass Index (BMI) 32.2 Intake and Output for Last 24 Hours 08/04/19 08/05/19 08/06/19 23:59 23:59 23:59 Intake Total 5241.22 / 5259.97 498.10 / 498.10 Output Total 1275 / 1275 450 / 450 Balance 3966.22 / 3984.97 48.10 / 48.10 Labs (Last 48 Hours) 08/04/19 08/04/19 08/04/19 19:23 19:23 20:20 WBC 2.2 L RBC 3.45 L Hgb 9.9 L Hct 34.1 L MCV 98.8 MCH 28.7 MCHC 29.0 L RDW Std Deviation 61.5 H RDW Coeff of Tess 17.2 H Plt Count 277 MPV 12.0 Immature Gran % (Auto) Neut % (Auto) Not Reportable Lymph % (Auto) Wirt % (Auto) Eos % (Auto) Baso % (Auto) Absolute Neuts (auto) 1.8 L Absolute Lymphs (auto) 0.18 L Total Counted 100 Neutrophils % (Manual) 60 Band Neutrophils % 23 H Lymphocytes % (Manual) 8 L Eosinophils % (Manual) 1 Metamyelocytes % 8 H Nucleated RBC % Nucleated RBCs/100 WBC 3 Differential Comment SCANNED Diff Path Review Reviewed Platelet Estimate ADEQUATE Plt Morphology Comment GIANT Polychromasia 1+ Hypochromasia 1+ Anisocytosis 2+ Macrocytosis RARE Microcytosis Tear Drop Cells 1+ Ovalocytes RARE Schistocytes RARE ESR PT 17.3 H INR 1.4 APTT 33.1 Sodium Potassium Chloride Carbon Dioxide Anion Gap BUN Creatinine Estim Creat Clear Calc Est GFR (MDRD) Af Amer Est GFR (MDRD) Non-Af BUN/Creatinine Ratio Glucose Lactic Acid Calcium Magnesium Phosphorus Troponin I C-React Prot High Sens B-Natriuretic Peptide 542.6 H Procalcitonin Urine Color Urine Clarity Urine pH Ur Specific [place] Urine Protein Urine Glucose (UA) Urine Ketones Urine Occult Blood Urine Nitrite Urine Bilirubin Urine Urobilinogen Ur Leukocyte Esterase Urine RBC Urine WBC Ur Squamous Epith Cells Urine Bacteria Urine Mucus Blood Type Antibody Screen Crossmatch 08/04/19 08/05/19 08/05/19 20:20 00:00 01:05 WBC RBC Hgb 9.0 L Hct 29.9 L MCV MCH MCHC RDW Std Deviation RDW Coeff of Tess Plt Count MPV Immature Gran % (Auto) Neut % (Auto) Lymph % (Auto) Wirt % (Auto) Eos % (Auto) Baso % (Auto) Absolute Neuts (auto) Absolute Lymphs (auto) Total Counted Neutrophils % (Manual) Band Neutrophils % Lymphocytes % (Manual) Eosinophils % (Manual) Metamyelocytes % Nucleated RBC % Nucleated RBCs/100 WBC Differential Comment Diff Path Review Platelet Estimate Plt Morphology Comment Polychromasia Hypochromasia Anisocytosis Macrocytosis Microcytosis Tear Drop Cells Ovalocytes Schistocytes ESR PT INR APTT Sodium 137 Potassium 3.1 L Chloride 101 Carbon Dioxide 27.0 Anion Gap 9 BUN 17 Creatinine 0.82 Estim Creat Clear Calc 45.85 Est GFR (MDRD) Af Amer 89 Est GFR (MDRD) Non-Af 74 BUN/Creatinine Ratio 20.8 H Glucose 118 H Lactic Acid Calcium 8.4 L Magnesium Phosphorus Troponin I 0.092 H 0.193 H C-React Prot High Sens B-Natriuretic Peptide Procalcitonin Urine Color Urine Clarity Urine pH Ur Specific [place] Urine Protein Urine Glucose (UA) Urine Ketones Urine Occult Blood Urine Nitrite Urine Bilirubin Urine Urobilinogen Ur Leukocyte Esterase Urine RBC Urine WBC Ur Squamous Epith Cells Urine Bacteria Urine Mucus Blood Type Antibody Screen Crossmatch 08/05/19 08/05/19 08/05/19 01:05 03:15 05:00 WBC 9.7 RBC 2.70 L Hgb 7.7 L Hct 26.1 L MCV 96.7 MCH 28.5 MCHC 29.5 L RDW Std Deviation 61.2 H RDW Coeff of Tess 17.5 H Plt Count 202 MPV 12.0 Immature Gran % (Auto) 1.400 H Neut % (Auto) 91.7 H Lymph % (Auto) 0.7 L Wirt % (Auto) 4.0 Eos % (Auto) 2.1 Baso % (Auto) 0.1 Absolute Neuts (auto) 8.9 H Absolute Lymphs (auto) 0.07 L Total Counted Neutrophils % (Manual) Band Neutrophils % Lymphocytes % (Manual) Eosinophils % (Manual) Metamyelocytes % Nucleated RBC % 0.2 Nucleated RBCs/100 WBC Differential Comment Diff Path Review Platelet Estimate ADEQUATE Plt Morphology Comment Polychromasia RARE Hypochromasia 1+ Anisocytosis 1+ Macrocytosis Microcytosis Tear Drop Cells Ovalocytes Schistocytes ESR 11 PT INR APTT Sodium Potassium Chloride Carbon Dioxide Anion Gap BUN Creatinine Estim Creat Clear Calc Est GFR (MDRD) Af Amer Est GFR (MDRD) Non-Af BUN/Creatinine Ratio Glucose Lactic Acid Calcium Magnesium Phosphorus Troponin I 0.211 H C-React Prot High Sens B-Natriuretic Peptide Procalcitonin Urine Color Urine Clarity Urine pH Ur Specific [place] Urine Protein Urine Glucose (UA) Urine Ketones Urine Occult Blood Urine Nitrite Urine Bilirubin Urine Urobilinogen Ur Leukocyte Esterase Urine RBC Urine WBC Ur Squamous Epith Cells Urine Bacteria Urine Mucus Blood Type Antibody Screen Crossmatch 08/05/19 08/05/19 08/05/19 05:00 05:00 05:00 WBC RBC Hgb Hct MCV MCH MCHC RDW Std Deviation RDW Coeff of Tess Plt Count MPV Immature Gran % (Auto) Neut % (Auto) Lymph % (Auto) Wirt % (Auto) Eos % (Auto) Baso % (Auto) Absolute Neuts (auto) Absolute Lymphs (auto) Total Counted Neutrophils % (Manual) Band Neutrophils % Lymphocytes % (Manual) Eosinophils % (Manual) Metamyelocytes % Nucleated RBC % Nucleated RBCs/100 WBC Differential Comment Diff Path Review Platelet Estimate Plt Morphology Comment Polychromasia Hypochromasia Anisocytosis Macrocytosis Microcytosis Tear Drop Cells Ovalocytes Schistocytes ESR PT INR APTT Sodium 133 L Potassium 4.0 Chloride 101 Carbon Dioxide 21.0 Anion Gap 11 BUN 22 H Creatinine 1.31 H Estim Creat Clear Calc 28.70 Est GFR (MDRD) Af Amer 52 L Est GFR (MDRD) Non-Af 43 L BUN/Creatinine Ratio 16.8 Glucose 197 H Lactic Acid 3.4 H* Calcium 7.3 L Magnesium 1.4 L Phosphorus Troponin I 0.303 H C-React Prot High Sens B-Natriuretic Peptide Procalcitonin Urine Color Urine Clarity Urine pH Ur Specific [place] Urine Protein Urine Glucose (UA) Urine Ketones Urine Occult Blood Urine Nitrite Urine Bilirubin Urine Urobilinogen Ur Leukocyte Esterase Urine RBC Urine WBC Ur Squamous Epith Cells Urine Bacteria Urine Mucus Blood Type Antibody Screen Crossmatch 08/05/19 08/05/19 08/05/19 05:00 05:30 06:10 WBC RBC Hgb Hct MCV MCH MCHC RDW Std Deviation RDW Coeff of Tess Plt Count MPV Immature Gran % (Auto) Neut % (Auto) Lymph % (Auto) Wirt % (Auto) Eos % (Auto) Baso % (Auto) Absolute Neuts (auto) Absolute Lymphs (auto) Total Counted Neutrophils % (Manual) Band Neutrophils % Lymphocytes % (Manual) Eosinophils % (Manual) Metamyelocytes % Nucleated RBC % Nucleated RBCs/100 WBC Differential Comment Diff Path Review Platelet Estimate Plt Morphology Comment Polychromasia Hypochromasia Anisocytosis Macrocytosis Microcytosis Tear Drop Cells Ovalocytes Schistocytes ESR PT INR APTT Sodium Potassium Chloride Carbon Dioxide Anion Gap BUN Creatinine Estim Creat Clear Calc Est GFR (MDRD) Af Amer Est GFR (MDRD) Non-Af BUN/Creatinine Ratio Glucose Lactic Acid Calcium Magnesium Phosphorus Troponin I C-React Prot High Sens 25.30 H B-Natriuretic Peptide Procalcitonin Urine Color Yellow Urine Clarity Clear Urine pH 6.0 Ur Specific [place] 1.010 Urine Protein Negative Urine Glucose (UA) Normal Urine Ketones Negative Urine Occult Blood Negative Urine Nitrite Negative Urine Bilirubin Negative Urine Urobilinogen Normal Ur Leukocyte Esterase Negative Urine RBC 0 SEEN Urine WBC 0 SEEN Ur Squamous Epith Cells 0 SEEN Urine Bacteria 0 SEEN Urine Mucus 0 SEEN Blood Type AB POSITIVE Antibody Screen NEGATIVE Crossmatch See Detail 08/05/19 08/05/19 08/05/19 09:20 09:20 09:40 WBC RBC Hgb Hct MCV MCH MCHC RDW Std Deviation RDW Coeff of Tess Plt Count MPV Immature Gran % (Auto) Neut % (Auto) Lymph % (Auto) Wirt % (Auto) Eos % (Auto) Baso % (Auto) Absolute Neuts (auto) Absolute Lymphs (auto) Total Counted Neutrophils % (Manual) Band Neutrophils % Lymphocytes % (Manual) Eosinophils % (Manual) Metamyelocytes % Nucleated RBC % Nucleated RBCs/100 WBC Differential Comment Diff Path Review Platelet Estimate Plt Morphology Comment Polychromasia Hypochromasia Anisocytosis Macrocytosis Microcytosis Tear Drop Cells Ovalocytes Schistocytes ESR PT INR APTT Sodium Potassium Chloride Carbon Dioxide Anion Gap BUN Creatinine Estim Creat Clear Calc Est GFR (MDRD) Af Amer Est GFR (MDRD) Non-Af BUN/Creatinine Ratio Glucose Lactic Acid 2.9 H* Calcium Magnesium Phosphorus Troponin I C-React Prot High Sens B-Natriuretic Peptide Procalcitonin 29.60 H Urine Color Urine Clarity Urine pH Ur Specific [place] Urine Protein Urine Glucose (UA) Urine Ketones Urine Occult Blood Urine Nitrite Urine Bilirubin Urine Urobilinogen Ur Leukocyte Esterase Urine RBC Urine WBC Ur Squamous Epith Cells Urine Bacteria Urine Mucus Blood Type AB POSITIVE Antibody Screen NEGATIVE Crossmatch See Detail 08/06/19 08/06/19 04:30 04:30 WBC 23.2 H RBC 3.44 L Hgb 9.9 L Hct 33.2 L MCV 96.5 MCH 28.8 MCHC 29.8 L RDW Std Deviation 63.4 H RDW Coeff of Tess 18.1 H Plt Count 319 MPV 10.9 Immature Gran % (Auto) 1.600 H Neut % (Auto) 86.6 H Lymph % (Auto) 4.2 L Wirt % (Auto) 7.3 Eos % (Auto) 0.1 Baso % (Auto) 0.2 Absolute Neuts (auto) 20.1 H Absolute Lymphs (auto) 0.98 Total Counted Neutrophils % (Manual) Band Neutrophils % Lymphocytes % (Manual) Eosinophils % (Manual) Metamyelocytes % Nucleated RBC % 0 Nucleated RBCs/100 WBC Differential Comment Diff Path Review May foll Platelet Estimate ADEQUATE Plt Morphology Comment Polychromasia RARE Hypochromasia Anisocytosis 2+ Macrocytosis 1+ Microcytosis RARE Tear Drop Cells Ovalocytes Schistocytes ESR PT INR APTT Sodium 136 Potassium 3.7 Chloride 106 Carbon Dioxide 22.0 Anion Gap 8 BUN 20 H Creatinine 0.82 Estim Creat Clear Calc 45.85 Est GFR (MDRD) Af Amer 89 Est GFR (MDRD) Non-Af 74 BUN/Creatinine Ratio 24.5 H Glucose 193 H Lactic Acid Calcium 7.6 L Magnesium 2.7 H Phosphorus 1.6 L Troponin I C-React Prot High Sens B-Natriuretic Peptide Procalcitonin Urine Color Urine Clarity Urine pH Ur Specific [place] Urine Protein Urine Glucose (UA) Urine Ketones Urine Occult Blood Urine Nitrite Urine Bilirubin Urine Urobilinogen Ur Leukocyte Esterase Urine RBC Urine WBC Ur Squamous Epith Cells Urine Bacteria Urine Mucus Blood Type Antibody Screen Crossmatch Microbiology 08/04/19 20:01 Mucosa - Nasopharyngeal Respiratory Panel (PCR) - Final 08/04/19 22:15 Stool Stool Occult Blood (MARY ANN) - Final Occult Blood Positive 08/04/19 20:01 Mucosa - Nasopharyngeal Influenza Types A,B Direct FA (MARY ANN) - Final Clinical Impression(s) from Imaging Studies Chest X-Ray 08/05/19 09:45 IMPRESSION: The tip of the right internal jugular venous catheter is at the junction of the superior vena cava and right atrium. Stable blunting of the right costophrenic angle. Electronically Signed: Tristen Arce, at 10:41 EDT , Service support , Chest CT 08/05/19 13:58 IMPRESSION: Bibasilar atelectasis. Bilateral pleural effusions. Electronically Signed: Kenneth Melendez MD at 19:15 EDT Tel , Service support , Abdomen CT 08/05/19 13:59 IMPRESSION: Mild ascites. No evidence of acute intestinal pathology or acute obstructive uropathy. Bilateral pleural effusions. Electronically Signed: Kenneth Melendez MD at 17:09 EDT Tel , Service support , Medical Necessity - Tobacco Use Smoking Status: Former smoker Tobacco Use: Non-smoker Assessment/Plan RECOMMENDATIONS: 1. Wean pressors as tolerated 2. Continue empiric antibiotic therapy 3. Consider discontinuation of coronavirus precautions 4. Continue to monitor blood work on a daily basis 5. Wean oxygen as tolerated IMPRESSIONS: 1. Acute hypoxic respiratory failure Patient with significant improvement in respiratory status over the last 24 hours. Clinical suspicion for decreased ability to compensate for increased metabolic demand. Patient did have an elevated procalcitonin and no groundglass opacities noted on CT scan of the chest. This would be suggestive that this IS NOT related to coronavirus. Will discuss with ID and see if precautions can be discontinued. Continue to wean oxygen as tolerated. BiPAP as needed. 2. History of ischemic colitis Patient recently diagnosed with ischemic colitis and placed on Cipro and Flagyl. CBC shows some reduction in blood counts and PRBCs have been ordered. Patient has had some bloody bowel movements. Possible for translocation of bacteria 3. Septic shock secondary to possible ischemic colitis with translocation Patient does have a central line and is requiring pressor therapy. Pro calcitonin was elevated suggestive of a bacterial etiology. Patient has had significant improvement in respiratory status. Presence of pleural effusions are not unexpected given heart history. Continue with broad-spectrum antibiotics. Likely okay to can discontinue coronavirus precautions. 4. Chronic diastolic congestive heart failure/aortic stenosis/history of aortic valve replacement Cardiology consulted. Significant worsening in aortic stenosis documented on the last echocardiogram. Patient did not have a MOISE secondary to GI bleeding. Patient did have elevated pulmonary artery pressures at that time and was thought to have type II pulmonary hypertension. Unclear if drop in hemoglobin is secondary to dilution versus active destruction. Hemoglobin has been stable. 5. Gout/DDD/obesity/history of polycythemia vera/KYLE/diabetes mellitus type 2 Complicates care, management, recovery and prognosis. Monitor sliding scale insulin. Patient is not requiring BiPAP therapy at this time. Renal function appears to be preserved. TIME: 32 minutes critical care time spent addressing patient's acute hypoxic respiratory failure, ischemic colitis, shock, review of all data and collaboration with care team. (5:30 AM to 6:30 AM) [id number]: [id number] Critical care first hour
--- NOTE | 2019-08-06 08:20 | PN_ITS ---
Subjective: Chief complaint: Follow-up after admission for acute hypoxic respiratory failure, septic shock and acute on chronic anemia. - Physical Exam Vitals/I&O's: Vital Signs Temp Pulse Resp BP Pulse Ox 98.6 F 116 H 24 H 87/53 L 99 08/06/19 04:30 08/06/19 07:15 08/06/19 07:00 08/06/19 07:15 08/06/19 07:00 Oxygen Flow Rate (L/min) 2 Oxygen Delivery Method Nasal Cannula Weight: 179 lb 10.828 oz Body Mass Index (BMI) 32.2 Intake and Output for Last 24 Hours 08/04/19 08/05/19 08/06/19 23:59 23:59 23:59 Intake Total 5241.22 / 5259.97 516.86 / 516.86 Output Total 1275 / 1275 450 / 450 Balance 3966.22 / 3984.97 66.86 / 66.86 General: Alert, Oriented x3, Cooperative, - - Mildly short of breath. HEENT: Atraumatic, PERRLA, EOMI, Normocephalic Oral: Moist Mucosa, No Gingival or Mucosal Lesions/ Ulcerations Neck: Supple, No JVD, Negative Carotid Bruits, Trachea Midline, Thyroid Normal Size and Texture Lungs: No wheeze, No rales, Diminished, - - Decreased breath sounds bilateral, scattered rhonchi. Cardiovascular: Regular rate, Regular Rhythm, Normal S1, Normal S2, PMI Normal, Murmur Abdomen: Bowel Sounds Present, Soft, Non Tender, Non-Distended, No Hepato- splenomegaly Extremities: No clubbing, No cyanosis, Edema Skin: No rashes, No breakdown Lymphatic: No Cervical, Supraclavicular, or Inguinal Adenopathy Neurological: Cranial nerves II-XII grossly intact, Neuro grossly intact Psych/Mental Status: Normal Affect, Appropriate, Alert and oriented to time, place, person, mood and affect Microbiology Past 72 Hours 08/04/19 20:01 Mucosa - Nasopharyngeal Respiratory Panel (PCR) - Final 08/04/19 22:15 Stool Stool Occult Blood (MARY ANN) - Final Occult Blood Positive 08/04/19 20:01 Mucosa - Nasopharyngeal Influenza Types A,B Direct FA (MARY ANN) - Final Laboratory Results 08/04/19 19:23: Diff Path Review Reviewed 08/05/19 06:10: Crossmatch See Detail 08/05/19 09:20: Blood Type AB POSITIVE, Antibody Screen NEGATIVE, Crossmatch See Detail 08/05/19 09:20: Lactic Acid 2.9 H* 08/05/19 09:40: Procalcitonin 29.60 H 08/06/19 04:30: WBC 23.2 H, RBC 3.44 L, Hgb 9.9 L, Hct 33.2 L, MCV 96.5, MCH 28.8, MCHC 29.8 L, RDW Std Deviation 63.4 H, RDW Coeff of Tess 18.1 H, Plt Count 319, MPV 10.9, Immature Gran % (Auto) 1.600 H, Neut % (Auto) 86.6 H, Lymph % (Auto) 4.2 L, [place] % (Auto) 7.3, Eos % (Auto) 0.1, Baso % (Auto) 0.2, Absolute Neuts (auto) 20.1 H, Absolute Lymphs (auto) 0.98, Nucleated RBC % 0, Differential Comment , Diff Path Review May foll, Platelet Estimate ADEQUATE, Polychromasia RARE, Anisocytosis 2+, Microcytosis RARE, Macrocytosis 1+ 08/06/19 04:30: Sodium 136, Potassium 3.7, Chloride 106, Carbon Dioxide 22.0, Anion Gap 8, BUN 20 H, Creatinine 0.82, Estim Creat Clear Calc 45.85, Est GFR (MDRD) Af Amer 89, Est GFR (MDRD) Non-Af 74, BUN/Creatinine Ratio 24.5 H, Glucose 193 H, Calcium 7.6 L, Phosphorus 1.6 L, Magnesium 2.7 H Clinical Impression(s) from Imaging Studies Chest X-Ray 08/05/19 09:45 IMPRESSION: The tip of the right internal jugular venous catheter is at the junction of the superior vena cava and right atrium. Stable blunting of the right costophrenic angle. Electronically Signed: Tristen Arce, at 10:41 EDT , Service support , Chest CT 08/05/19 13:58 IMPRESSION: Bibasilar atelectasis. Bilateral pleural effusions. Electronically Signed: Kenneth Melendez MD at 19:15 EDT Tel , Service support , Abdomen CT 08/05/19 13:59 IMPRESSION: Mild ascites. No evidence of acute intestinal pathology or acute obstructive uropathy. Bilateral pleural effusions. Electronically Signed: Kenneth Melendez MD at 17:09 EDT Tel , Service support , Current Medications Acetaminophen (Tylenol) 650 mg PO Q6H PRN PRN PRN Reason: pain 1-1010; Fever > 100.4F Last Admin: 08/05/19 02:46 Dose: 650 mg Documented by: [facility] Last Admin: 08/05/19 13:17 Dose: 200 mg Documented by: Artificial Tears (Tears Naturale, Artificial Tears) 1 drop OPHTHALMIC Q4H PRN PRN PRN Reason: dry eyes Calcium Carbonate (Os-Paul 500) [facility] Last Admin: 08/05/19 13:17 Dose: 500 mg Documented by: Cholecalciferol (Vitamin D (25mcg)) 5,000 unit PO DAILY [facility] Last Admin: 08/05/19 13:17 Dose: 5,000 unit Documented by: Glucagon () 1 mg IM .X1 PRN PRN Reason: Hypoglycemia Guaifenesin (Mucinex) 1,200 mg PO BID [facility] Last Admin: 08/05/19 21:53 Dose: 1,200 mg Documented by: Sodium Chloride () 250 mls @ 15 mls/hr IV .[id number] PRN PRN Reason: Saline Flush Last Infusion: 08/06/19 05:33 Dose: 0 mls/hr Documented by: Sodium Chloride () 250 mls @ 15 mls/hr IV .[id number] PRN PRN Reason: Additional IVPB Infusion Dextrose (Dextrose 10%-Water) 250 mls @ 999 mls/hr IV .Q16M PRN; Protocol PRN Reason: HYPOGLYCEMIA Pantoprazole Sodium 40 mg/ (Sodium Chloride) 110 mls @ 330 mls/hr IV Q12 [facility] Last Infusion: 08/05/19 22:14 Dose: Infused Documented by: Vancomycin IV Pharmacy to Dose (1,000 ea/ Sodium Chloride) 500 mls @ 250 mls/hr IV PRN PRN; Protocol Norepinephrine Bitartrate 8 mg (/ Sodium Chloride) 250 mls @ 9.375 mls/hr CONT INF .[id number] [facility]; Protocol Last Titration: 08/06/19 07:15 Dose: 20 mcg/min, 37.5 mls/hr Documented by: Cefepime HCl 2 gm/ Sodium (Chloride) 100 mls @ 200 mls/hr IV Q12 [facility] Last Infusion: 08/05/19 22:29 Dose: Infused Documented by: Metronidazole (Flagyl) 500 mg in 100 mls @ 100 mls/hr IV Q8 [facility] Last Infusion: 08/06/19 06:33 Dose: Infused Documented by: Vancomycin HCl 750 mg/ Sodium (Chloride) 265 mls @ 250 mls/hr IV Q24H [facility] Last Admin: 08/06/19 06:35 Dose: 250 mls/hr Documented by: Potassium Phosphate 30 mm/ (Sodium Chloride) 260 mls @ 42 mls/hr IV X1 ONE Stop: 08/06/19 12:25 Last Admin: 08/06/19 06:33 Dose: 42 mls/hr Documented by: Lactobacillus Acidophilus (Acidophilus) 1 tablet PO BID [facility] Last Admin: 08/05/19 21:53 Dose: 1 tablet Documented by: Multivitamins (Multivitamin) 1 tablet PO DAILYCM [facility] Last Admin: 08/05/19 13:17 Dose: 1 tablet Documented by: Ondansetron HCl (Zofran) 4 mg IV Q8H PRN PRN PRN Reason: NAUSEA/VOMITING Pravastatin Sodium (Pravachol) 40 mg PO DAILY@2200 [facility] Last Admin: 08/05/19 21:53 Dose: 40 mg Documented by: Sodium Chloride () 10 - 40 ml IV UD PRN PRN Reason: SALINE FLUSH Last Admin: 08/06/19 04:27 Dose: 30 ml Documented by: Temazepam (Restoril) 15 - 30 mg PO QHS PRN PRN Reason: insomnia Medical Necessity - Tobacco Use Smoking Status: Former smoker Tobacco Use: Non-smoker Assessment/Plan This is a 68 years old female patient presented to the emergency room because of shortness of breath and cough, initially there was a concern that patient may have acute CHF complicated by cardiogenic shock but later, she was found to have septic shock secondary to ischemic colitis and found to have acute on chronic hypoxic respiratory failure as well as acute on chronic anemia requiring blood transfusion. #1 Septic shock: In context of recent diagnosis of ischemic colitis. Initially, there was a concern of cardiogenic shock which was ruled out. Patient is on IV cefepime, Flagyl and vancomycin. She remains on IV Levophed drip, requiring less dosage. She remains tachycardic, blood pressure borderline but improved. She is off BiPAP, on nasal cannula. She does have significant leukocytosis. Respiratory panel for viruses as well as nasal swab for influenza a and B were negative. Blood and urine cultures are pending. Abdominal examination is benign. Plan to continue same treatment. #2 Recent history of ischemic colitis: She is on IV cefepime, Flagyl and vancomycin. She has been afebrile, has significant [place] ptosis. Abdomen examination is benign. Blood and urine cultures are pending. Plan to continue IV antibiotics. #3 hypophosphatemia/hypomagnesemia: She is on magnesium and phosphorus replacement. Magnesium is back to normal, phosphorus still low, on replacement at this time. #4 acute on chronic hypoxic respiratory failure: Multifactorial secondary to septic shock and acute on chronic anemia. She has been off BiPAP, respiratory status stabilized. Pulse ox is 99% on 2 L. She remained moderately short of breath, slightly tachycardic. Plan as above. #5 acute on chronic anemia: Patient's history of polycythemia but over the last couple of months, hemoglobin has been dropping. Admission hemoglobin was 9 g/dL, came down to 7.7 g/dL. She received 1 unit of packed RBCs, today's hemogl obin is 9.9 g/dL. Stool was occult positive. #6 chronic diastolic CHF: Seems to be compensated, no acute exacerbation. Patient has been receiving IV fluids. Respiratory status improved. Chest x-ray reviewed. 2D echocardiogram that was done last month revealed ejection fraction of 65%, severe aortic stenosis with calculated aortic valve area is 1.1 cm?, moderate pulmonary hypertension, other findings reviewed. She is not on RENZO inhibitor beta blockers because of hypotension. Cardiology on the case. #7 recent history of lower GI bleed: No active bleeding but stool was positive for occult blood. She had colonoscopy on July 09, 2019 that revealed hemorrhoids, diverticulosis, mucosal ulceration and single nonbleeding colonic angiectasia. She is on IV Protonix. Hemoglobin and hematocrit improved after blood transfusion. Plan as above. #8 severe aortic stenosis: Status post aortic valve replacement with bioprosthetic valve. 2D echocardiogram reviewed as above. Plan as above. #9 hyperlipidemia: Continue statins. #10 gout: Stable, continue allopurinol. #11 DVT prophylaxis: SCDs. This note was generated with [employer] dictation software. It may contain incorrect words, spelling, and punctuation that were not noted in checking the note before signing. Inpatient E&M: 34770 Subs Hosp L2
[2019-08-06] MEDS: Multivitamins,Therapeutic Tablet 1 TABLET PO (08:57)
[2019-08-06] MEDS: Calcium (Elemental) 500 MG Tablet PO (08:57)
[2019-08-06] MEDS: guaiFENesin 1,200 MG Tablet 1200 MG PO ×2 (08:58→21:39)
[2019-08-06] MEDS: Allopurinol 100 MG Tablet 200 MG PO (08:58)
--- NOTE | 2019-08-06 09:46 | CM.UR ---
Participated in interdisciplinary rounds. Remains on levo, 2 liters of o2, was given Kphos this am. Remains on IVAB. Off bipap. Already has bipap at home. Intermittent afib vs ST. PT on hold d/t still on levo. Case management will continue to follow for pending needs. Maegan Puentes RN, CCM.
[2019-08-06] MEDS: Pravastatin 40 MG Tablet PO (21:40)
[2019-08-07] VITALS (72 sets, daily range): BP systolic 77–126; BP diastolic 36–85; PULSE 93–133; RESP 12–27; TEMP 36.6–37.2; O2SAT 91–100
[2019-08-07] MEDS: metroNIDAZOLE 500 MG/100 ML BAG 100 MG IV ×3 (05:24→21:35)
[2019-08-07 06:47] LABS: Absolute Lymphocyte Count 1.96 X10^3/uL (0.83-4.51); Absolute Neutrophil Count 14.6 X10^3/uL (2.0-7.7); Basophil# 0.03 X10^3/uL; Basophil% 0.2 % (0-1); Eosinophil# 0.15 X10^3/uL; Eosinophils% 0.8 % (0-5); Hematocrit 32.6 % (37-47); Hemoglobin 9.7 g/dL (12.0-15.0); Lymphocyte # 1.96 X10^3/ul (4.0); Lymphocyte % 10.8 % (19-41); Mean Corp Hgb Conc 29.8 g/dL (32-36); Mean Corpuscular Volume 97.6 fL (81-99); Mean Platelet Vol. 10.7 fl (6.2-12.0); Monocyte# 0.83 X10^3/uL; Monocyte% 4.6 % (0-10); NRBC Flagged by Analyzer 0 % (0-5); Neutrophil # 14.64 X10^3/uL (2.7-7.7); Neutrophil % 80.6 % (47-70); Platelet Count 303 K/mm3 (150-450); RBC Distribution Width CV 18.2 % (11.6-14.6); RBC Distribution Width SD 64.6 fl (35.1-43.9); Red Blood Count 3.34 M/mm3 (4.2-5.4); White Blood Count 18.2 K/mm3 (4.4-11.0)
[2019-08-07 07:14] LABS: Vancomycin, Trough Level 4.5 ug/mL (5.0-15.0)
[2019-08-07 07:39] LABS: Anion Gap 8 (5-15); BUN 13 mg/dL (7-18); BUN/Creat Ratio 21.8 RATIO (10-20); Calcium,Total 7.9 mg/dL (8.5-10.1); Chloride 113 mmol/L (98-107); EST Glomerular Filtration Rate 106 mL/min (>60); Est Glom Filt Rate - Afr Amer 128 mL/min (>60); Glucose 183 mg/dL (74-106); Magnesium 2.1 mg/dL (1.6-2.6); Phosphorus 0.9 mg/dL (2.5-4.9); Sodium Level 141 mmol/L (136-145)
--- NOTE | 2019-08-07 07:47 | PN_ITS ---
Subjective: Patient did okay overnight. Patient continues to require Levophed and has not been able to wean, even by 1 mcg. Patient reports generalized abdominal discomfort without pain. Patient does report passing gas. Patient denies any dyspnea and has not required the BiPAP overnight. General: Alert, Oriented x3, Cooperative, No apparent distress, - - Obese. Speaking full sentences. HEENT: Atraumatic, PERRLA, EOMI, Normocephalic, - - No scleral icterus or injection noted. Hearing aids and glasses in place. Oral: Moist Mucosa, No Gingival or Mucosal Lesions/ Ulcerations Neck: Supple, No JVD, No Nodes, Trachea Midline Lungs: No rhonchi, No wheeze, No rales, Diminished, - - Symmetric expansion. No dullness to percussion. Cardiovascular: Normal S1, Normal S2, Murmur, No rub noted, No Gallop, Tachycardic Abdomen: Bowel Sounds Present, Soft, Non-Distended, Obese, Tender - Mild without rebound or guarding Extremities: No clubbing, No cyanosis, Edema Skin: - - No significant change compared to previous Musculoskeletal: No Tenderness to Palpation of Joints or Extremities Lymphatic: No Cervical, Supraclavicular, or Inguinal Adenopathy Neurological: Cranial nerves II-XII grossly intact, Neuro grossly intact, Motor Exam 5/5 strength throughout Psych/Mental Status: Alert and oriented to time, place, person, mood and affect Vital Signs Temp Pulse Resp BP Pulse Ox 37.2 C 105 H 20 H 109/68 97 08/07/19 04:00 08/07/19 06:45 08/07/19 05:30 08/07/19 06:45 08/07/19 05:30 Oxygen Flow Rate (L/min) 2 Oxygen Delivery Method Nasal Cannula Weight: 83.2 kg Body Mass Index (BMI) 32.2 Intake and Output for Last 24 Hours 08/05/19 08/06/19 08/07/19 23:59 23:59 23:59 Intake Total 5241.22 / 5259.97 2581.87 / 2636.25 402.91 / 402.91 Output Total 1275 / 1275 1350 / 1700 650 / 650 Balance 3966.22 / 3984.97 1231.87 / 936.25 -247.09 / -247.09 Labs (Last 48 Hours) 08/04/19 08/05/19 08/05/19 19:23 05:00 06:10 WBC RBC Hgb Hct MCV MCH MCHC RDW Std Deviation RDW Coeff of Tess Plt Count MPV Immature Gran % (Auto) Neut % (Auto) Lymph % (Auto) [place] % (Auto) Eos % (Auto) Baso % (Auto) Absolute Neuts (auto) Absolute Lymphs (auto) Nucleated RBC % Differential Comment Diff Path Review Reviewed Platelet Estimate Polychromasia Anisocytosis Microcytosis Macrocytosis Sodium Potassium Chloride Carbon Dioxide Anion Gap BUN Creatinine Estim Creat Clear Calc Est GFR (MDRD) Af Amer Est GFR (MDRD) Non-Af BUN/Creatinine Ratio Glucose Lactic Acid Calcium Phosphorus Magnesium C-React Prot High Sens 25.30 H Procalcitonin Vancomycin Trough Blood Type Antibody Screen Crossmatch See Detail 08/05/19 08/05/19 08/05/19 09:20 09:20 09:40 WBC RBC Hgb Hct MCV MCH MCHC RDW Std Deviation RDW Coeff of Tess Plt Count MPV Immature Gran % (Auto) Neut % (Auto) Lymph % (Auto) [place] % (Auto) Eos % (Auto) Baso % (Auto) Absolute Neuts (auto) Absolute Lymphs (auto) Nucleated RBC % Differential Comment Diff Path Review Platelet Estimate Polychromasia Anisocytosis Microcytosis Macrocytosis Sodium Potassium Chloride Carbon Dioxide Anion Gap BUN Creatinine Estim Creat Clear Calc Est GFR (MDRD) Af Amer Est GFR (MDRD) Non-Af BUN/Creatinine Ratio Glucose Lactic Acid 2.9 H* Calcium Phosphorus Magnesium C-React Prot High Sens Procalcitonin 29.60 H Vancomycin Trough Blood Type AB POSITIVE Antibody Screen NEGATIVE Crossmatch See Detail 08/06/19 08/06/19 08/07/19 04:30 04:30 06:30 WBC 23.2 H RBC 3.44 L Hgb 9.9 L Hct 33.2 L MCV 96.5 MCH 28.8 MCHC 29.8 L RDW Std Deviation 63.4 H RDW Coeff of Tess 18.1 H Plt Count 319 MPV 10.9 Immature Gran % (Auto) 1.600 H Neut % (Auto) 86.6 H Lymph % (Auto) 4.2 L [place] % (Auto) 7.3 Eos % (Auto) 0.1 Baso % (Auto) 0.2 Absolute Neuts (auto) 20.1 H Absolute Lymphs (auto) 0.98 Nucleated RBC % 0 Differential Comment Diff Path Review May foll Platelet Estimate ADEQUATE Polychromasia RARE Anisocytosis 2+ Microcytosis RARE Macrocytosis 1+ Sodium 136 Potassium 3.7 Chloride 106 Carbon Dioxide 22.0 Anion Gap 8 BUN 20 H Creatinine 0.82 Estim Creat Clear Calc 45.85 Est GFR (MDRD) Af Amer 89 Est GFR (MDRD) Non-Af 74 BUN/Creatinine Ratio 24.5 H Glucose 193 H Lactic Acid Calcium 7.6 L Phosphorus 1.6 L Magnesium 2.7 H C-React Prot High Sens Procalcitonin Vancomycin Trough 4.5 L Blood Type Antibody Screen Crossmatch 08/07/19 08/07/19 06:30 06:30 WBC 18.2 H RBC 3.34 L Hgb 9.7 L Hct 32.6 L MCV 97.6 MCH 29.0 MCHC 29.8 L RDW Std Deviation 64.6 H RDW Coeff of Tess 18.2 H Plt Count 303 MPV 10.7 Immature Gran % (Auto) 3.000 H Neut % (Auto) 80.6 H Lymph % (Auto) 10.8 L [place] % (Auto) 4.6 Eos % (Auto) 0.8 Baso % (Auto) 0.2 Absolute Neuts (auto) 14.6 H Absolute Lymphs (auto) 1.96 Nucleated RBC % 0 Differential Comment Diff Path Review Platelet Estimate Polychromasia Anisocytosis Microcytosis Macrocytosis Sodium 141 Potassium 4.0 Chloride 113 H Carbon Dioxide 20.0 L Anion Gap 8 BUN 13 Creatinine 0.60 Estim Creat Clear Calc 37.60 Est GFR (MDRD) Af Amer 128 Est GFR (MDRD) Non-Af 106 BUN/Creatinine Ratio 21.8 H Glucose 183 H Lactic Acid Calcium 7.9 L Phosphorus 0.9 L* Magnesium 2.1 C-React Prot High Sens Procalcitonin Vancomycin Trough Blood Type Antibody Screen Crossmatch Microbiology 08/04/19 20:01 Mucosa - Nasopharyngeal Respiratory Panel (PCR) - Final Medical Necessity - Tobacco Use Smoking Status: Former smoker Tobacco Use: Non-smoker Assessment/Plan RECOMMENDATIONS: 1. Wean pressors as tolerated 2. Continue empiric antibiotic therapy 3. Aggressive phosphorus repletion 4. Continue to monitor blood work on a daily basis 5. Wean oxygen as tolerated IMPRESSIONS: 1. Acute hypoxic respiratory failure Patient stable in respiratory status over the last 24 hours. Clinical suspicion for decreased ability to compensate for increased metabolic demand. Patient did have an elevated procalcitonin and no groundglass opacities noted on CT scan of the chest. This would be suggestive that this IS NOT related to coronavirus. Coronavirus precautions have been discontinued. Continue to wean oxygen as tolerated. BiPAP with sleep per baseline. 2. History of ischemic colitis Patient recently diagnosed with ischemic colitis and placed on Cipro and Flagyl. CBC initially showed some reduction in blood counts and PRBCs have been ordered. Patient has had some bloody bowel movements. Hemoglobin has remained stable since that time. Possible for translocation of bacteria 3. Septic shock secondary to possible ischemic colitis with translocation Patient does have a central line and is requiring pressor therapy. Pro calcitonin was elevated suggestive of a bacterial etiology. Patient has had significant improvement in respiratory status. Presence of pleural effusions are not unexpected given heart history. Continue with broad-spectrum antibiotics. Discontinue coronavirus precautions. Unclear if patient has an element of relative adrenal insufficiency. Patient will be empirically placed on Solu-Cortef to monitor. May consider surgical evaluation for recommendations on advancement of diet. Patient does have severe hypophosphatemia, so will replete and see if this helps her blood pressure. 4. Chronic diastolic congestive heart failure/aortic stenosis/history of aortic valve replacement Cardiology consulted. Significant worsening in aortic stenosis documented on the last echocardiogram. Patient did not have a MOISE secondary to GI bleeding. Patient did have elevated pulmonary artery pressures at that time and was thought to have type II pulmonary hypertension. Unclear if drop in hem oglobin is secondary to dilution versus active destruction. Hemoglobin has been stable. 5. Gout/DDD/obesity/history of polycythemia vera/KYLE/diabetes mellitus type 2 Complicates care, management, recovery and prognosis. Monitor sliding scale insulin. Patient is not requiring BiPAP therapy at this time. Renal function appears to be preserved. TIME: 37 minutes critical care time spent addressing patient's acute hypoxic respiratory failure, ischemic colitis, shock, review of all data and collaboration with care team. (5:50 AM to 7:50 AM) [id number]: [id number] Critical care first hour
--- NOTE | 2019-08-07 07:50 | PCM.RX.CS ---
Consult Pharmacy has been consulted to manage selected antiobiotic: Vancomycin Type of Consult: Follow-up Suspected Infection: Sepsis Prior Doses of Antibiotics Received/Current Regimen: VANCOMYCIN 750MG IV Q24HR: 08/05 @0635 Labs: Sodium 141 mmol/L (136-145) 08/07/19 06:30 Potassium 4.0 mmol/L (3.5-5.1) 08/07/19 06:30 Chloride 113 mmol/L (98-107) H 08/07/19 06:30 Carbon Dioxide 20.0 mmol/L (21.0-32.0) L 08/07/19 06:30 Anion Gap 8 (5-15) 08/07/19 06:30 BUN 13 mg/dL (7-18) 08/07/19 06:30 Creatinine 0.60 mg/dL (0.55-1.02) 08/07/19 06:30 Est GFR (MDRD) Af Amer 128 mL/min (>60) 08/07/19 06:30 Est GFR (MDRD) Non-Af 106 mL/min (>60) 08/07/19 06:30 BUN/Creatinine Ratio 21.8 RATIO (10-20) H 08/07/19 06:30 Glucose 183 mg/dL (74-106) H 08/07/19 06:30 Vancomycin Trough 4.5 ug/mL (5.0-15.0) L 08/07/19 06:30 Microbiology: Microbiology 08/04/19 20:01 Mucosa - Nasopharyngeal Respiratory Panel (PCR) - Final 08/04/19 22:15 Stool Stool Occult Blood (MARY ANN) - Final Occult Blood Positive 08/04/19 20:01 Mucosa - Nasopharyngeal Influenza Types A,B Direct FA (MARY ANN) - Final Goal Trough: 15-20 mcg/mL Pharmacy Plan for Drug Dosing: The patient had a trough drawn 08/07/19 @0630, which resulted in a value of 4.5 (~24hr from last administration). The patient's goal trough this admission is 15-20. Since admission, the patient has had a significant improvement in renal function, with a SCr today of 0.6 (1.31 on admission). Given this information, and the low initial trough value, will increase both the dose and frequency of vancomycin. Will check another level prior to the 4th dose of new regimen per protocol. Spoke with the patient's nurse this morning, the 750mg dose of vancomycin was not given yet. Will start new regimen this morning, nursing notified of new dosing plan. PLAN/RECOMMENDATIONS 1. Start vancomycin 1000mg IV Q12hrs starting 08/07/19 @0800 2. Trough scheduled prior to 4th dose of new regimen per protocol 08/08/19 @1930 3. Pharmacy Service will continue to monitor and adjust dosing as required.
--- NOTE | 2019-08-07 08:19 | PN_ITS ---
Subjective: Chief complaint: Follow-up after admission for acute hypoxic respiratory failure, septic shock and acute on chronic anemia. Patient seen and examined. No acute events overnight. She remains on IV Levophed drip and we were not able to wean her down. She reported abdominal discomfort because of gas. Denied nausea or vomiting. Denied chest pain or shortness of breath. She has been tachycardic, afebrile, blood pressure is maintained on Levophed, pulse ox is 97% on 2 L. - Physical Exam Vitals/I&O's: Vital Signs Temp Pulse Resp BP Pulse Ox 98.9 F 105 H 20 H 109/68 97 08/07/19 04:00 08/07/19 06:45 08/07/19 05:30 08/07/19 06:45 08/07/19 05:30 Oxygen Flow Rate (L/min) 2 Oxygen Delivery Method Nasal Cannula Weight: 183 lb 6.793 oz Body Mass Index (BMI) 32.2 Intake and Output for Last 24 Hours 08/05/19 08/06/19 08/07/19 23:59 23:59 23:59 Intake Total 5241.22 / 5259.97 2581.87 / 2636.25 402.91 / 402.91 Output Total 1275 / 1275 1350 / 1700 650 / 650 Balance 3966.22 / 3984.97 1231.87 / 936.25 -247.09 / -247.09 General: Alert, Oriented x3, Cooperative, No apparent distress HEENT: Atraumatic, PERRLA, EOMI, Normocephalic Oral: Moist Mucosa, No Gingival or Mucosal Lesions/ Ulcerations Neck: Supple, No JVD, Negative Carotid Bruits, Trachea Midline, Thyroid Normal Size and Texture Lungs: Clear to auscultation, Normal air movement, No rhonchi, No wheeze, No rales, Diminished, - Cardiovascular: Regular rate, Regular Rhythm, Normal S1, Normal S2, PMI Normal, Murmur, Tachycardic Abdomen: Bowel Sounds Present, Soft, Non Tender, Non-Distended, No Hepato- splenomegaly Extremities: No clubbing, No cyanosis, Edema Skin: No rashes, No breakdown Lymphatic: No Cervical, Supraclavicular, or Inguinal Adenopathy Neurological: Cranial nerves II-XII grossly intact, Neuro grossly intact Psych/Mental Status: Normal Affect, Appropriate, Alert and oriented to time, place, person, mood and affect Microbiology Past 72 Hours 08/05/19 09:10 Urine Catheter - Miramontes Urine Culture - Final Culture exhibits no growth. 08/04/19 20:01 Mucosa - Nasopharyngeal Respiratory Panel (PCR) - Final 08/04/19 22:15 Stool Stool Occult Blood (MARY ANN) - Final Occult Blood Positive 08/04/19 20:01 Mucosa - Nasopharyngeal Influenza Types A,B Direct FA (MARY ANN) - Final Laboratory Results 08/07/19 06:30: Vancomycin Trough 4.5 L 08/07/19 06:30: WBC 18.2 H, RBC 3.34 L, Hgb 9.7 L, Hct 32.6 L, MCV 97.6, MCH 29.0, MCHC 29.8 L, RDW Std Deviation 64.6 H, RDW Coeff of Tess 18.2 H, Plt Count 303, MPV 10.7, Immature Gran % (Auto) 3.000 H, Neut % (Auto) 80.6 H, Lymph % (Auto) 10.8 L, [place] % (Auto) 4.6, Eos % (Auto) 0.8, Baso % (Auto) 0.2, Absolute Neuts (auto) 14.6 H, Absolute Lymphs (auto) 1.96, Nucleated RBC % 0 08/07/19 06:30: Sodium 141, Potassium 4.0, Chloride 113 H, Carbon Dioxide 20.0 L , Anion Gap 8, BUN 13, Creatinine 0.60, Estim Creat Clear Calc 37.60, Est GFR (MDRD) Af Amer 128, Est GFR (MDRD) Non-Af 106, BUN/Creatinine Ratio 21.8 H, Glucose 183 H, Calcium 7.9 L, Phosphorus 0.9 L*, Magnesium 2.1 Current Medications Acetaminophen (Tylenol) 650 mg PO Q6H PRN PRN PRN Reason: pain 1-10/10; Fever > 100.4F Last Admin: 08/05/19 02:46 Dose: 650 mg Documented by: Allopurinol (Zyloprim) 200 mg PO DAILYCM YOANDY Last Admin: 08/06/19 08:58 Dose: 200 mg Documented by: Artificial Tears (Tears Naturale, Artificial Tears) 1 drop OPHTHALMIC Q4H PRN PRN PRN Reason: dry eyes Calcium Carbonate (Os-Paul 500) 500 mg PO DAILYCM [facility] Last Admin: 08/06/19 08:57 Dose: 500 mg Documented by: Cholecalciferol (Vitamin D (25mcg)) 5,000 unit PO DAILY [facility] Last Admin: 08/06/19 08:58 Dose: 5,000 unit Documented by: Glucagon () 1 mg IM .X1 PRN PRN Reason: Hypoglycemia Guaifenesin (Mucinex) 1,200 mg PO BID [facility] Last Admin: 08/06/19 21:39 Dose: 1,200 mg Documented by: Hydrocortisone Sodium Succinate (Solu-Cortef) 100 mg IV Q8 [facility] Sodium Chloride () 250 mls @ 15 mls/hr IV .[id number] PRN PRN Reason: Saline Flush Last Infusion: 08/06/19 05:33 Dose: 0 mls/hr Documented by: Sodium Chloride () 250 mls @ 15 mls/hr IV .[id number] PRN PRN Reason: Additional IVPB Infusion Dextrose (Dextrose 10%-Water) 250 mls @ 999 mls/hr IV .Q16M PRN; Protocol PRN Reason: HYPOGLYCEMIA Pantoprazole Sodium 40 mg/ (Sodium Chloride) 110 mls @ 330 mls/hr IV Q12 [facility] Last Infusion: 08/06/19 22:00 Dose: Infused Documented by: Vancomycin IV Pharmacy to Dose (1,000 ea/ Sodium Chloride) 500 mls @ 250 mls/hr IV PRN PRN; Protocol Norepinephrine Bitartrate 8 mg (/ Sodium Chloride) 250 mls @ 9.375 mls/hr CONT INF .[id number] [facility]; Protocol Last Titration: 08/07/19 06:45 Dose: 20 mcg/min, 37.5 mls/hr Documented by: Cefepime HCl 2 gm/ Sodium (Chloride) 100 mls @ 200 mls/hr IV Q12 [facility] Last Infusion: 08/06/19 22:09 Dose: Infused Documented by: Metronidazole (Flagyl) 500 mg in 100 mls @ 100 mls/hr IV Q8 [facility] Last Infusion: 08/07/19 06:34 Dose: Infused Documented by: Sodium Phosphate 30 mm/ Sodium (Chloride) 260 mls @ 62.5 mls/hr IV X1 ONE Stop: 08/07/19 12:09 Vancomycin HCl (Vancomycin) 1,000 mg in 200 mls @ 200 mls/hr IV Q12H [facility] Lactobacillus Acidophilus (Acidophilus) 1 tablet PO BID [facility] Last Admin: 08/06/19 21:39 Dose: 1 tablet Documented by: [facility]) [facility] Last Admin: 08/06/19 08:57 Dose: 1 tablet Documented by: Ondansetron HCl (Zofran) 4 mg IV Q8H PRN PRN PRN Reason: NAUSEA/VOMITING Pravastatin Sodium (Pravachol) 40 mg PO DAILY@2200 [facility] Last Admin: 08/06/19 21:40 Dose: 40 mg Documented by: Sodium Chloride () 10 - 40 ml IV UD PRN PRN Reason: SALINE FLUSH Last Admin: 08/06/19 04:27 Dose: 30 ml Documented by: Temazepam (Restoril) 15 - 30 mg PO QHS PRN PRN Reason: insomnia Medical Necessity - Tobacco Use Smoking Status: Former smoker Tobacco Use: Non-smoker Assessment/Plan This is a 68 years old female patient presented to the emergency room because of shortness of breath and cough, initially there was a concern that patient may have acute CHF complicated by cardiogenic shock but later, she was found to have septic shock secondary to ischemic colitis and found to have acute on chronic hypoxic respiratory failure as well as acute on chronic anemia requiring blood transfusion. #1 Septic shock: Probably due to ischemic colitis with translocation. She is on IV fluids, IV stress dose of steroids, IV Levophed drip and IV antibiotics. Nursing staff were not able to wean her down off Levophed. She remains afebrile, tachycardia, WBC is trending down. Urine culture showed no growth. Blood cultures pending. Respiratory panel for viruses were negative. Plan to continue same treatment wean off vasopressors as tolerated. #2 Recent history of ischemic colitis: Remained on IV cefepime, Flagyl and vancomycin. She has been afebrile, cardiac WBC is trending down.. Abdomen examination is benign. Plan to continue same treatment. #3 hypophosphatemia/hypomagnesemia: Magnesium replaced and corrected. Serum phosphorus still very low. Currently, she is on aggressive phosphorus replacement. #4 acute on chronic hypoxic respiratory failure: Multifactorial secondary to s eptic shock and acute on chronic anemia. Remained stable on nasal cannula at 2 L. Does not need BiPAP anymore overnight. #5 acute on chronic anemia: Patient's history of polycythemia but over the last couple of months, hemoglobin has been dropping. Admission hemoglobin was 9 g/dL, came down to 7.7 g/dL. She received 1 unit of packed RBCs, today's hemoglobin is 9.7 g/dL. Stool was occult positive. Plan to monitor. #6 chronic diastolic CHF: Seems to be compensated, no acute exacerbation. She is off diuretics because of septic shock on low blood pressure. Chest x-ray reviewed. 2D echocardiogram that was done last month revealed ejection fraction of 65%, severe aortic stenosis with calculated aortic valve area is 1.1 cm?, moderate pulmonary hypertension, other findings reviewed. She is not on RENZO inhibitor beta blockers because of hypotension. Cardiology on the case. #7 recent history of lower GI bleed: No active bleeding but stool was positive for occult blood. She had colonoscopy on July 09, 2019 that revealed hemorrhoids, diverticulosis, mucosal ulceration and single nonbleeding colonic angiectasia. She is on IV Protonix. Hemoglobin and hematocrit remained stable. #8 severe aortic stenosis: Status post aortic valve replacement with bioprosthetic valve. 2D echocardiogram reviewed as above. Plan as above. #9 hyperlipidemia: Continue statins. #10 gout: Stable, continue allopurinol. #11 DVT prophylaxis: SCDs. This note was generated with [employer] dictation software. It may contain incorrect words, spelling, and punctuation that were not noted in checking the note before signing. Inpatient E&M: [id number] [facility] Hosp L2
[2019-08-07] MEDS: Hydrocortisone Sod Succinate 100 MG/2 ML Vial IV ×3 (09:22→21:20)
[2019-08-07] MEDS: Vancomycin IV 1,000 MG/200 ML BAG 200 MG IV ×2 (09:22→20:06)
[2019-08-07] MEDS: Allopurinol 100 MG Tablet 200 MG PO (09:24)
[2019-08-07] MEDS: Calcium (Elemental) 500 MG Tablet PO (09:24)
[2019-08-07] MEDS: guaiFENesin 1,200 MG Tablet 1200 MG PO ×2 (09:24→21:20)
[2019-08-07] MEDS: Multivitamins,Therapeutic Tablet 1 TABLET PO (09:24)
[2019-08-07] MEDS: 0.9% Saline Lock 10 ML Syringe IV ×2 (13:16→21:23)
[2019-08-07] MEDS: Pravastatin 40 MG Tablet PO (21:20)
[2019-08-08] VITALS (40 sets, daily range): BP systolic 81–117; BP diastolic 50–81; PULSE 95–124; RESP 12–29; TEMP 36.4–36.8; O2SAT 91–98
[2019-08-08] MEDS: 0.9% Saline Lock 10 ML Syringe IV ×2 (04:19→05:07)
[2019-08-08 04:31] LABS: Absolute Lymphocyte Count 1.28 X10^3/uL (0.83-4.51); Basophil# 0.01 X10^3/uL; Basophil% 0.1 % (0-1); Hematocrit 31.5 % (37-47); Hemoglobin 9.4 g/dL (12.0-15.0); Lymphocyte # 1.28 X10^3/ul (4.0); Lymphocyte % 10.8 % (19-41); Mean Corp Hgb Conc 29.8 g/dL (32-36); Mean Corpuscular Hgb 28.9 pg (27.0-32.0); Mean Corpuscular Volume 96.9 fL (81-99); Mean Platelet Vol. 10.6 fl (6.2-12.0); Monocyte# 0.36 X10^3/uL; NRBC Flagged by Analyzer 0 % (0-5); Neutrophil # 9.96 X10^3/uL (2.7-7.7); Neutrophil % 83.9 % (47-70); POSITIVE MORPHOLOGY YES; Platelet Count 271 K/mm3 (150-450); RBC Distribution Width CV 17.8 % (11.6-14.6); RBC Distribution Width SD 63.1 fl (35.1-43.9); Red Blood Count 3.25 M/mm3 (4.2-5.4); White Blood Count 11.9 K/mm3 (4.4-11.0)
[2019-08-08 04:34] LABS: Differential Indicated SCAN CRITERIA MET
[2019-08-08] MEDS: metroNIDAZOLE 500 MG/100 ML BAG 100 MG IV ×3 (05:07→21:06)
[2019-08-08] MEDS: Hydrocortisone Sod Succinate 100 MG/2 ML Vial IV ×3 (05:08→21:02)
[2019-08-08 05:12] LABS: Anion Gap 8 (5-15); BUN 13 mg/dL (7-18); BUN/Creat Ratio 23.5 RATIO (10-20); Calcium,Total 7.9 mg/dL (8.5-10.1); Chloride 110 mmol/L (98-107); Creatinine, Serum 0.55 mg/dL (0.55-1.02); EST Glomerular Filtration Rate 115 mL/min (>60); Est Glom Filt Rate - Afr Amer 139 mL/min (>60); Glucose 229 mg/dL (74-106); Magnesium 2.2 mg/dL (1.6-2.6); Phosphorus 1.5 mg/dL (2.5-4.9); Potassium 4.2 mmol/L (3.5-5.1); Sodium Level 138 mmol/L (136-145)
[2019-08-08 05:36] LABS: Anisocytosis 2+; Hypochromasia 1+; Macrocytosis 1+; Polychromasia RARE
[2019-08-08 05:37] LABS: Dohle Bodies RARE
--- NOTE | 2019-08-08 06:16 | PN_ITS ---
Subjective: The patient was seen and examined at the bedside this morning. Events from the last 24 hours have been reviewed. The patient's Levophed has been weaned down to 5 mcg/min as of this morning. She denies the presence of shortness of breath or abdominal pain. Objective: The patient's most recent lab work, culture data and imaging studies have all been personally reviewed. Infectious work-up has been negative to date. General: Alert, Cooperative, No apparent distress HEENT: Atraumatic, PERRLA, Normocephalic Oral: No Gingival or Mucosal Lesions/ Ulcerations Neck: Supple, No Nodes, Trachea Midline Lungs: No rhonchi, No wheeze, No rales, Diminished Cardiovascular: Regular rate, Regular Rhythm, Normal S1, Normal S2, Murmur Abdomen: Bowel Sounds Present, Soft, Non Tender, Obese Extremities: No clubbing, No cyanosis Skin: No breakdown Musculoskeletal: No Tenderness to Palpation of Joints or Extremities Lymphatic: No Cervical, Supraclavicular, or Inguinal Adenopathy Neurological: Cranial nerves II-XII grossly intact, Neuro grossly intact Psych/Mental Status: Normal Affect, Appropriate Vital Signs Temp Pulse Resp BP Pulse Ox 97.8 F 95 13 96/76 94 08/08/19 04:00 08/08/19 06:00 08/08/19 06:00 08/08/19 06:00 08/08/19 06:00 Oxygen Flow Rate (L/min) 2 Oxygen Delivery Method Room Air Weight: 186 lb 15.232 oz Body Mass Index (BMI) 32.2 Intake and Output for Last 24 Hours 08/06/19 08/07/19 08/08/19 23:59 23:59 23:59 Intake Total 2581.87 / 2636.25 2933.28 / 3062.68 242.98 / 242.98 Output Total 1350 / 1700 1600 / 1950 550 / 550 Balance 1231.87 / 936.25 1333.28 / 1112.68 -307.02 / -307.02 Labs (Last 48 Hours) 08/05/19 08/07/19 08/07/19 06:10 06:30 06:30 WBC 18.2 H RBC 3.34 L Hgb 9.7 L Hct 32.6 L MCV 97.6 MCH 29.0 MCHC 29.8 L RDW Std Deviation 64.6 H RDW Coeff of Tess 18.2 H Plt Count 303 MPV 10.7 Immature Gran % (Auto) 3.000 H Neut % (Auto) 80.6 H Lymph % (Auto) 10.8 L [place] % (Auto) 4.6 Eos % (Auto) 0.8 Baso % (Auto) 0.2 Absolute Neuts (auto) 14.6 H Absolute Lymphs (auto) 1.96 Nucleated RBC % 0 Dohle Bodies Polychromasia Hypochromasia Anisocytosis Macrocytosis Sodium Potassium Chloride Carbon Dioxide Anion Gap BUN Creatinine Estim Creat Clear Calc Est GFR (MDRD) Af Amer Est GFR (MDRD) Non-Af BUN/Creatinine Ratio Glucose Calcium Phosphorus Magnesium Vancomycin Trough 4.5 L Crossmatch See Detail 08/07/19 08/08/19 08/08/19 06:30 04:05 04:05 WBC 11.9 H RBC 3.25 L Hgb 9.4 L Hct 31.5 L MCV 96.9 MCH 28.9 MCHC 29.8 L RDW Std Deviation 63.1 H RDW Coeff of Tess 17.8 H Plt Count 271 MPV 10.6 Immature Gran % (Auto) 2.200 H Neut % (Auto) 83.9 H Lymph % (Auto) 10.8 L [place] % (Auto) 3.0 Eos % (Auto) 0.0 Baso % (Auto) 0.1 Absolute Neuts (auto) 10.0 H Absolute Lymphs (auto) 1.28 Nucleated RBC % 0 Dohle Bodies RARE Polychromasia RARE Hypochromasia 1+ Anisocytosis 2+ Macrocytosis 1+ Sodium 141 138 Potassium 4.0 4.2 Chloride 113 H 110 H Carbon Dioxide 20.0 L 20.0 L Anion Gap 8 8 BUN 13 13 Creatinine 0.60 0.55 Estim Creat Clear Calc 37.60 37.60 Est GFR (MDRD) Af Amer 128 139 Est GFR (MDRD) Non-Af 106 115 BUN/Creatinine Ratio 21.8 H 23.5 H Glucose 183 H 229 H Calcium 7.9 L 7.9 L Phosphorus 0.9 L* 1.5 L Magnesium 2.1 2.2 Vancomycin Trough Crossmatch Microbiology 08/04/19 19:23 Blood Culture (Wb) - Anticubital Left Blood Culture - Preliminary No growth in 48 hours. 08/05/19 09:20 Blood Culture (Wb) - Other Blood Culture - Preliminary No growth in 48 hours. 08/05/19 09:10 Urine Catheter - Miramontes Urine Culture - Final Culture exhibits no growth. Clinical Impression(s) from Imaging Studies Chest X-Ray 08/04/19 20:00 IMPRESSION: Stable central vascular congestion. Electronically Signed: Kenneth Melendez MD at 20:14 EDT Tel , Service support , Chest X-Ray 08/05/19 03:56 IMPRESSION: Mild CHF similar prior. Electronically Signed: Raj Ojeda at 4:48 EDT Tel , Service support , Chest X-Ray 08/05/19 09:45 IMPRESSION: The tip of the right internal jugular venous catheter is at the junction of the superior vena cava and right atrium. Stable blunting of the right costophrenic angle. Electronically Signed: Tristen Arce, at 10:41 EDT , Service support , Chest CT 08/05/19 13:58 IMPRESSION: Bibasilar atelectasis. Bilateral pleural effusions. Electronically Signed: Kenneth Melendez MD at 19:15 EDT Tel , Service support , Abdomen CT 08/05/19 13:59 IMPRESSION: Mild ascites. No evidence of acute intestinal pathology or acute obstructive uropathy. Bilateral pleural effusions. Electronically Signed: Kenneth Melendez MD at 17:09 EDT Tel , Service support , Medical Necessity - Tobacco Use Smoking Status: Former smoker Tobacco Use: Non-smoker Assessment/Plan RECOMMENDATIONS: 1. Continue to wean Levophed to maintain the mean arterial pressure at or above 65 mmHg. 2. Continue antibiotics per ID recommendations. 3. Continue stress dose steroids. Will begin to wean once off of vasopressor support. 4. Continue twice daily PPI therapy. 5. Phosphate repletion as ordered. 6. Encourage incentive spirometer use and mobilize patient as tolerated. IMPRESSIONS: 1. Septic shock secondary to possible ischemic colitis with translocation The patient is improving clinically. Continue vasopressor support to maintain a mean arterial pressure at or above 65 mmHg. Continue empiric antimicrobials per infectious diseases recommendations. The patient will be continued on stress dose steroids as well, with plans to begin to wean them once vasopressor support has been discontinued. 2. Acute hypoxemic respiratory failure Improved. The patient has been successfully weaned to room air as of this morning. 3. Chronic heart failure with preserved ejection fraction/aortic stenosis/history of aortic valve replacement Continue current medical management per cardiology recommendations. 4. Hypophosphatemia Additional electrolyte repletion as ordered. Recheck levels in the morning. 5. Gout/obesity/history of polycythemia vera/KYLE/diabetes mellitus Complicates care, management, recovery and prognosis. Continue sliding scale insulin coverage. TIME: 38 minutes of critical care time, independent of procedures, was spent addressing the patient's septic shock, acute hypoxemic respiratory failure, chronic heart failure with preserved ejection fraction, aortic stenosis, review of all data and collaboration with the care team. [id number]) [id number] Critical care first hour
[2019-08-08] MEDS: Vancomycin IV 1,000 MG/200 ML BAG 200 MG IV (08:18)
[2019-08-08] MEDS: guaiFENesin 1,200 MG Tablet 1200 MG PO ×2 (08:24→21:02)
[2019-08-08] MEDS: Allopurinol 100 MG Tablet 200 MG PO ×2 (08:24→08:25)
[2019-08-08] MEDS: Calcium (Elemental) 500 MG Tablet PO (08:24)
[2019-08-08] MEDS: Multivitamins,Therapeutic Tablet 1 TABLET PO (08:25)
--- NOTE | 2019-08-08 08:34 | PCM.PROGNOTE ---
Subjective: Chief complaint: Follow-up after admission for acute hypoxic respiratory failure, septic shock, acute on chronic anemia. Patient seen and examined. No acute events overnight. Today, she denied any complaints. Denied chest pain or shortness of breath. Denied abdominal pain, nausea or vomiting. She reported poor appetite. Levophed weaned down to 5 mcg/min. She is afebrile, blood pressure and heart rate are maintained, pulse ox is 94% on room air. - Physical Exam Vitals/I&O's: Vital Signs Temp Pulse Resp BP Pulse Ox 97.8 F 99 18 112/68 94 08/08/19 04:00 08/08/19 07:00 08/08/19 07:00 08/08/19 07:00 08/08/19 07:00 Oxygen Flow Rate (L/min) 2 Oxygen Delivery Method Room Air Weight: 186 lb 15.232 oz Body Mass Index (BMI) 32.2 Intake and Output for Last 24 Hours 08/06/19 08/07/19 08/08/19 23:59 23:59 23:59 Intake Total 2581.87 / 2636.25 2933.28 / 3062.68 352.38 / 352.38 Output Total 1350 / 1700 1600 / 1950 550 / 550 Balance 1231.87 / 936.25 1333.28 / 1112.68 -197.62 / -197.62 General: Alert, Oriented x3, Cooperative, No apparent distress HEENT: Atraumatic, PERRLA, EOMI, Normocephalic Oral: Moist Mucosa, No Gingival or Mucosal Lesions/ Ulcerations Neck: Supple, No JVD, Negative Carotid Bruits, Trachea Midline, Thyroid Normal Size and Texture Lungs: Clear to auscultation, Normal air movement, No rhonchi, No wheeze, No rales, Diminished Cardiovascular: Regular rate, Regular Rhythm, Normal S1, Normal S2, PMI Normal Abdomen: Bowel Sounds Present, Soft, Non Tender, Non-Distended, No Hepato-splenomegaly Extremities: No clubbing, No cyanosis, Edema Skin: No rashes, No breakdown Lymphatic: No Cervical, Supraclavicular, or Inguinal Adenopathy Neurological: Cranial nerves II-XII grossly intact, Neuro grossly intact Psych/Mental Status: Normal Affect, Appropriate, Alert and oriented to time, place, person, mood and affect Microbiology Past 72 Hours 08/04/19 19:23 Blood Culture (Wb) - Anticubital Left Blood Culture - Preliminary No growth in 48 hours. 08/05/19 09:20 Blood Culture (Wb) - Other Blood Culture - Preliminary No growth in 48 hours. 08/05/19 09:10 Urine Catheter - Miramontes Urine Culture - Final Culture exhibits no growth. 08/04/19 20:01 Mucosa - Nasopharyngeal Respiratory Panel (PCR) - Final Laboratory Results 08/08/19 04:05: WBC 11.9 H, RBC 3.25 L, Hgb 9.4 L, Hct 31.5 L, MCV 96.9, MCH 28.9, MCHC 29.8 L, RDW Std Deviation 63.1 H, RDW Coeff of Tess 17.8 H, Plt Count 271, MPV 10.6, Immature Gran % (Auto) 2.200 H, Neut % (Auto) 83.9 H, Lymph % (Auto) 10.8 L, [place] % (Auto) 3.0, Eos % (Auto) 0.0, Baso % (Auto) 0.1, Absolute Neuts (auto) 10.0 H, Absolute Lymphs (auto) 1.28, Nucleated RBC % 0, Dohle Bodies RARE, Polychromasia RARE, Hypochromasia 1+, Anisocytosis 2+, Macrocytosis 1+ 08/08/19 04:05: Sodium 138, Potassium 4.2, Chloride 110 H, Carbon Dioxide 20.0 L, Anion Gap 8, BUN 13, Creatinine 0.55, Estim Creat Clear Calc 37.60, Est GFR (MDRD) Af Amer 139, Est GFR (MDRD) Non-Af 115, BUN/Creatinine Ratio 23.5 H, Glucose 229 H, Calcium 7.9 L, Phosphorus 1.5 L, Magnesium 2.2 Current Medications Acetaminophen (Tylenol) 650 mg PO Q6H PRN PRN PRN Reason: pain 1-10/10; Fever > 100.4F Last Admin: 08/05/19 02:46 Dose: 650 mg Documented by: Allopurinol (Zyloprim) 200 mg PO DAILYCM [facility]ANDY Last Admin: 08/08/19 08:25 Dose: 200 mg Documented by: Artificial Tears (Tears Naturale, Artificial Tears) 1 drop OPHTHALMIC Q4H PRN PRN PRN Reason: dry eyes Calcium Carbonate (Os-Paul 500) 500 mg PO DAILYCM [facility] Last Admin: 08/08/19 08:24 Dose: 500 mg Documented by: Cholecalciferol (Vitamin D (25mcg)) 5,000 unit PO DAILY [facility] Last Admin: 08/08/19 08:24 Dose: 5,000 unit Documented by: Glucagon () 1 mg IM .X1 PRN PRN Reason: Hypoglycemia Guaifenesin (Mucinex) 1,200 mg PO BID [facility] Last Admin: 08/08/19 08:24 Dose: 1,200 mg Documented by: Hydrocortisone Sodium Succinate (Solu-Cortef) 100 mg IV Q8 [facility] Last Admin: 08/08/19 05:08 Dose: 100 mg Documented by: Sodium Chloride () 250 mls @ 15 mls/hr IV .[id number] PRN PRN Reason: Saline Flush Last Infusion: 08/08/19 06:07 Dose: 15 mls/hr Documented by: Sodium Chloride () 250 mls @ 15 mls/hr IV .[id number] PRN PRN Reason: Additional IVPB Infusion Dextrose (Dextrose 10%-Water) 250 mls @ 999 mls/hr IV .Q16M PRN; Protocol PRN Reason: HYPOGLYCEMIA Pantoprazole Sodium 40 mg/ (Sodium Chloride) 110 mls @ 330 mls/hr IV Q12 [facility] Last Infusion: 08/07/19 21:39 Dose: Infused Documented by: Vancomycin IV Pharmacy to Dose (1,000 ea/ Sodium Chloride) 500 mls @ 250 mls/hr IV PRN PRN; Protocol Norepinephrine Bitartrate 8 mg (/ Sodium Chloride) 250 mls @ 9.375 mls/hr CONT INF .[id number] [facility]; Protocol Last Titration: 08/08/19 07:00 Dose: 5 mcg/min, 9.4 mls/hr Documented by: Cefepime HCl 2 gm/ Sodium (Chloride) 100 mls @ 200 mls/hr IV Q12 [facility] Last Infusion: 08/07/19 21:50 Dose: Infused Documented by: Metronidazole (Flagyl) 500 mg in 100 mls @ 100 mls/hr IV Q8 [facility] Last Infusion: 08/08/19 06:07 Dose: Infused Documented by: Vancomycin HCl (Vancomycin) 1,000 mg in 200 mls @ 200 mls/hr IV Q12H [facility] Last Admin: 08/08/19 08:18 Dose: 200 mls/hr Documented by: Potassium Phosphate 21 mm/ (Sodium Chloride) 257 mls @ 84 mls/hr IV X1 ONE Stop: 08/08/19 10:17 Last Admin: 08/08/19 08:19 Dose: 84 mls/hr Documented by: Lactobacillus Acidophilus (Acidophilus) 1 tablet PO BID [facility] Last Admin: 08/08/19 08:25 Dose: 1 tablet Documented by: Multivitamins (Multivitamin) 1 tablet PO DAILYCM [facility] Last Admin: 08/08/19 08:25 Dose: 1 tablet Documented by: Ondansetron HCl (Zofran) 4 mg IV Q8H PRN PRN PRN Reason: NAUSEA/VOMITING Pravastatin Sodium (Pravachol) 40 mg PO DAILY@2200 [facility] Last Admin: 08/07/19 21:20 Dose: 40 mg Documented by: Sodium Chloride () 10 - 40 ml IV UD PRN PRN Reason: SALINE FLUSH Last Admin: 08/08/19 05:07 Dose: 10 ml Documented by: Temazepam (Restoril) 15 - 30 mg PO QHS PRN PRN Reason: insomnia Medical Necessity - Tobacco Use Smoking Status: Former smoker Tobacco Use: Non-smoker Assessment/Plan This is a 68 years old female patient presented to the emergency room because of shortness of breath and cough, initially there was a concern that patient may have acute CHF complicated by cardiogenic shock but later, she was found to have septic shock secondary to ischemic colitis and found to have acute on chronic hypoxic respiratory failure as well as acute on chronic anemia requiring blood transfusion. #1 Septic shock: Probably due to ischemic colitis with translocation. Remains on IV fluids, IV stress dose of steroids, IV Levophed drip and IV antibiotics. Nursing staff were able to wean down Levophed drip to 5 mcg/min. Blood pressure is maintained, afebrile, heart rate stable. WBC is trending down. Urine culture showed no growth. Blood cultures showed no growth in 48 hours. Respiratory panel for viruses were negative. Plan to continue same treatment, wean down IV Levophed drip. #2 Recent history of ischemic colitis: Remained on IV cefepime, Flagyl and vancomycin. She has been afebrile, WBC is trending down.. Abdomen examination is benign. Patient is tolerating clear liquids. Plan to continue same treatment. #3 hypophosphatemia/hypomagnesemia: Magnesium replaced and corrected. Serum phosphorus still low in spite of aggressive replacement. Currently, she is on aggressive phosphorus replacement. #4 acute on chronic hypoxic respiratory failure: Multifactorial secondary to septic shock and acute on chronic anemia. Symptoms improved, oxygen requirement has been decreasing. Now, she is on nasal cannula, pulse ox is 94%. #5 acute on chronic anemia: Patient's history of polycythemia but over the last couple of months, hemoglobin has been dropping. Admission hemoglobin was 9 g/dL, came down to 7.7 g/dL. She received 1 unit of packed RBCs, today's hemoglobin is 9.4 g/dL. Stool was occult positive. Plan to monitor. #6 chronic diastolic CHF: Seems to be compensated, no acute exacerbation. She is off diuretics because of septic shock on low blood pressure. Chest x-ray reviewed. 2D echocardiogram that was done last month revealed ejection fraction of 65%, severe aortic stenosis with calculated aortic valve area is 1.1 cm?, moderate pulmonary hypertension, other findings reviewed. She is not on RENZO inhibitor beta blockers because of hypotension. Cardiology on the case. #7 recent history of lower GI bleed: No active bleeding but stool was positive for occult blood. She had colonoscopy on July 09, 2019 that revealed hemorrhoids, diverticulosis, mucosal ulceration and single nonbleeding colonic angiectasia. Remained on IV Protonix. #8 severe aortic stenosis: Status post aortic valve replacement with bioprosthetic valve. 2D echocardiogram reviewed as above. Plan as above. #9 hyperlipidemia: Continue statins. #10 gout: Stable, continue allopurinol. #11 DVT prophylaxis: SCDs. This note was generated with [employer] / [employer] software. It may contain incorrect words, spelling, and punctuation that were not noted in checking the note before signing. Inpatient E&M: 28356 Subs Hosp L2
--- NOTE | 2019-08-08 08:47 | PCM.PN.CARD ---
Subjectve: Patient continues to slowly improve. She is on 2 L nasal cannula, she is almost completely off the Levophed. Working diagnosis that she had transient translocation of gut toi causing sepsis and responded well to aggressive IV antibiotic therapy. She denies any chest pain. Telemetry negative. Objective: Vital Signs Temp Pulse Resp BP Pulse Ox 97.8 F 99 18 112/68 94 08/08/19 04:00 08/08/19 07:00 08/08/19 07:00 08/08/19 07:00 08/08/19 07:00 Oxygen Flow Rate (L/min) 2 Oxygen Delivery Method Room Air Weight: 186 lb 15.232 oz Body Mass Index (BMI) 32.2 Intake and Output for Last 24 Hours 08/06/19 08/07/19 08/08/19 23:59 23:59 23:59 Intake Total 2581.87 / 2636.25 2933.28 / 3062.68 352.38 / 352.38 Output Total 1350 / 1700 1600 / 1950 550 / 550 Balance 1231.87 / 936.25 1333.28 / 1112.68 -197.62 / -197.62 General: Awake, Alert, Oriented x 3 HEENT: PERRL, EOMI, Sclera Non Icteric Neck: Supple, Good ROM, No Lymph Node Enlargement Lungs: Clear to auscultation Cardiovascular: Regular Rhythm, Normal S1, Normal S2, No Murmurs, No Rubs, No Gallops Vascular: No Carotid Bruits, Normal Femoral Pulses, Normal Radial Pulses, Normal Dorsalis Pedal Pulse, Normal Posterior Tibial Pulses Abdomen: Bowel Sounds Present, Soft, Non Tender, No HSM, No Organomegaly Extremities: No Cyanosis, No Clubbing, No edema Neurological: No Focal Motor or Sensory Deficit 08/08/19 04:05: WBC 11.9 H, RBC 3.25 L, Hgb 9.4 L, Hct 31.5 L, MCV 96.9, MCH 28.9, MCHC 29.8 L, Plt Count 271, MPV 10.6, Immature Gran % (Auto) 2.200 H, Neut % (Auto) 83.9 H, Lymph % (Auto) 10.8 L, [place] % (Auto) 3.0, Eos % (Auto) 0.0, Baso % (Auto) 0.1, Absolute Neuts (auto) 10.0 H, Nucleated RBC % 0 08/08/19 04:05: Sodium 138, Potassium 4.2, Chloride 110 H, Carbon Dioxide 20.0 L, Anion Gap 8, BUN 13, Creatinine 0.55, Est GFR (MDRD) Af Amer 139, Est GFR (MDRD) Non-Af 115, BUN/Creatinine Ratio 23.5 H, Glucose 229 H, Calcium 7.9 L, Phosphorus 1.5 L, Magnesium 2.2 Rhythm: EKG: ECHO: Stress Test: Cardiac Cath: PCI: CT Surgery: Holter monitor: EPS: PPM: CXR: Chest CT Scan: Medical Necessity - Tobacco Use Smoking Status: Former smoker Tobacco Use: Non-smoker Assessment/Plan 1. Hypotension: The patient presents with progressively worsening dyspnea on exertion and shortness of breath superimposed on what appeared to be worsening aortic stenosis after bioprosthetic aortic valve placement in 2014. Patient was scheduled to undergo a transesophageal echocardiogram followed by right and left her catheterization to better evaluate her aortic valve. However in the meantime the patient developed what appeared to be ischemic colitis and this was placed on hold. Over the last 7 days the patient has had progressively worsening dyspnea on exertion, shortness of breath, fevers, and now presents with respiratory distress, hypotension requiring Levophed, and urgent consultation was requested by ICU team with respect to her aortic valve stenosis. I reviewed the patient's echocardiogram directly from 07/01/2019 and saw no evidence of bacterial vegetations at that time. Once more, her aortic stenosis appears to be a manifestation of her small LV outflow tract and small aortic valve orifice. In addition if the patient had any kind of anemia at the time of her echocardiogram, that may make the gradients worse. Her actual echocardiogram port from 07/01/2019 is as follows: The estimated ejection fraction is 65 %. Mildly dilated right ventricle. The left atrium is moderately enlarged. Mild-Moderate (1-2+) eccentric mitral valve insufficiency. Mild (1+) tricuspid valve insufficiency. Right ventricular systolic pressure estimated to be 51 mmHg. Moderate pulmonary hypertension. Peak aortic valve gradient 63 mmHg. Mean aortic valve gradient 42 mmHg. Calculated aortic valve area (continuity equation) is 1.1 cm2. Severe aortic stenosis. Trivial aortic valve insufficiency. Compared to echo report dated 01/20/2019, LV function has remained the same however the patient's bioprosthetic aortic valve gradients have markedly worsened. At that time the peak and mean gradients were 35/17 mmHg giving a calculated aortic valve area of 1.6 cm??. In addition RVSP is increased from 37 to 51 mmHg. Would consider a transesophageal echocardiogram if clinically indicated. In addition the patient had normal coronary arteries at her catheterization in 2014 prior to her aortic valve replacement. Unlikely that she would have progression of significant disease during that time but this also could be a possibility. Her EKG showed no evidence of acute changes. Neck troponin 0 0.303. No plans for catheterization at this time. In addition, the patient has excellent 2+ carotid upstroke bilaterally indicating that she most likely has adequate aortic valvular separation for perfusion purposes. Blood cultures negative. 2. Atrial fibrillation: The patient is status post Maze procedure, and left atrial appendage ligation at her aortic valve replacement surgery. No indication for anticoagulation at this time. She remains in sinus rhythm. 3. Thank you very much for the opportunity to participate in the cardiac care of your patient. Inpatient E&M: 72182 Subs Hosp L2
--- NOTE | 2019-08-08 13:12 | CASEMGMT ---
MARGIE ULLOA in to discuss discharge planning with patient. Patient states that she did well with therapy. MARGIE ULLOA discussed option of home with HHC at discharge. MARGIE ULLOA provided list of HHC to patient to review. Patient voiced understanding and will discuss with via phone. MARGIE ULLOA to follow-up with patient regarding HHC choices. CM to continue to follow this patient and plan for a safe discharge.
--- NOTE | 2019-08-08 14:36 | PN.ID_ITS ---
Subjective: Feeling better, no fever, no abd pain, no BM, some dry cough still. - Physical Exam Vitals/I&O's: Vital Signs Temp Pulse Resp BP Pulse Ox 97.6 F L 123 H 26 H 81/64 L 95 08/08/19 12:00 08/08/19 12:00 08/08/19 12:00 08/08/19 12:30 08/08/19 12:00 Oxygen Flow Rate (L/min) 2 Oxygen Delivery Method Room Air Weight: 84.8 kg Body Mass Index (BMI) 32.2 Intake and Output for Last 24 Hours 08/06/19 08/07/19 08/08/19 23:59 23:59 23:59 Intake Total 2581.87 / 2636.25 2933.28 / 3062.68 1419.85 / 1419.85 Output Total 1350 / 1700 1600 / 1950 550 / 550 Balance 1231.87 / 936.25 1333.28 / 1112.68 869.85 / 869.85 General: Alert, Cooperative, No apparent distress Lungs: Clear to auscultation, Normal air movement Cardiovascular: Tachycardic Abdomen: Soft, Non Tender, Non-Distended Skin: No rashes Microbiology Past 72 Hours 08/04/19 19:23 Blood Culture (Wb) - Anticubital Left Blood Culture - Preliminary No growth in 48 hours. 08/05/19 09:20 Blood Culture (Wb) - Other Blood Culture - Preliminary No growth in 48 hours. 08/05/19 09:10 Urine Catheter - Miramontes Urine Culture - Final Culture exhibits no growth. Laboratory Results 08/08/19 04:05: WBC 11.9 H, RBC 3.25 L, Hgb 9.4 L, Hct 31.5 L, MCV 96.9, MCH 28.9, MCHC 29.8 L, RDW Std Deviation 63.1 H, RDW Coeff of Tess 17.8 H, Plt Count 271, MPV 10.6, Immature Gran % (Auto) 2.200 H, Neut % (Auto) 83.9 H, Lymph % (Auto) 10.8 L, [place] % (Auto) 3.0, Eos % (Auto) 0.0, Baso % (Auto) 0.1, Absolute Neuts (auto) 10.0 H, Absolute Lymphs (auto) 1.28, Nucleated RBC % 0, Dohle Bodies RARE, Polychromasia RARE, Hypochromasia 1+, Anisocytosis 2+, Macrocytosis 1+ 08/08/19 04:05: Sodium 138, Potassium 4.2, Chloride 110 H, Carbon Dioxide 20.0 L , Anion Gap 8, BUN 13, Creatinine 0.55, Estim Creat Clear Calc 37.60, Est GFR (MDRD) Af Amer 139, Est GFR (MDRD) Non-Af 115, BUN/Creatinine Ratio 23.5 H, Glucose 229 H, Calcium 7.9 L, Phosphorus 1.5 L, Magnesium 2.2 Current Medications Acetaminophen (Tylenol) 650 mg PO Q6H PRN PRN PRN Reason: pain 1-10/10; Fever > 100.4F Last Admin: 08/05/19 02:46 Dose: 650 mg Documented by: [facility] Last Admin: 08/08/19 08:25 Dose: 200 mg Documented by: Artificial Tears (Tears Naturale, Artificial Tears) 1 drop OPHTHALMIC Q4H PRN PRN PRN Reason: dry eyes Calcium Carbonate (Os-Paul 500) [facility] Last Admin: 08/08/19 08:24 Dose: 500 mg Documented by: Cholecalciferol (Vitamin D (25mcg)) 5,000 unit PO DAILY [facility] Last Admin: 08/08/19 08:24 Dose: 5,000 unit Documented by: Glucagon () 1 mg IM .X1 PRN PRN Reason: Hypoglycemia Guaifenesin (Mucinex) 1,200 mg PO BID [facility] Last Admin: 08/08/19 08:24 Dose: 1,200 mg Documented by: Hydrocortisone Sodium Succinate (Solu-Cortef) 100 mg IV Q8 [facility] Last Admin: 08/08/19 13:03 Dose: 100 mg Documented by: Sodium Chloride () 250 mls @ 15 mls/hr IV .[id number] PRN PRN Reason: Saline Flush Last Infusion: 08/08/19 06:07 Dose: 15 mls/hr Documented by: Sodium Chloride () 250 mls @ 15 mls/hr IV .[id number] PRN PRN Reason: Additional IVPB Infusion Dextrose (Dextrose 10%-Water) 250 mls @ 999 mls/hr IV .Q16M PRN; Protocol PRN Reason: HYPOGLYCEMIA Pantoprazole Sodium 40 mg/ (Sodium Chloride) 110 mls @ 330 mls/hr IV Q12 [facility] Last Infusion: 08/08/19 10:28 Dose: Infused Documented by: Norepinephrine Bitartrate 8 mg (/ Sodium Chloride) 250 mls @ 9.375 mls/hr CONT INF .[id number] [facility]; Protocol Last Titration: 08/08/19 12:30 Dose: 1 mcg/min, 1.9 mls/hr Documented by: Cefepime HCl 2 gm/ Sodium (Chloride) 100 mls @ 200 mls/hr IV Q12 [facility] Last Infusion: 08/08/19 10:28 Dose: Infused Documented by: Metronidazole (Flagyl) 500 mg in 100 mls @ 100 mls/hr IV Q8 [facility] Last Admin: 08/08/19 13:07 Dose: 100 mls/hr Documented by: Lactobacillus Acidophilus (Acidophilus) 1 tablet PO BID [facility] Last Admin: 08/08/19 08:25 Dose: 1 tablet Documented by: Multivitamins (Multivitamin) 1 tablet PO DAILYCM [facility] Last Admin: 08/08/19 08:25 Dose: 1 tablet Documented by: Ondansetron HCl (Zofran) 4 mg IV Q8H PRN PRN PRN Reason: NAUSEA/VOMITING Pravastatin Sodium (Pravachol) 40 mg PO DAILY@2200 [facility] Last Admin: 08/07/19 21:20 Dose: 40 mg Documented by: Sodium Chloride () 10 - 40 ml IV UD PRN PRN Reason: SALINE FLUSH Last Admin: 08/08/19 05:07 Dose: 10 ml Documented by: Temazepam (Restoril) 15 - 30 mg PO QHS PRN PRN Reason: insomnia Medical Necessity - Tobacco Use Smoking Status: Former smoker Tobacco Use: Non-smoker Route of nutrition/ use of supplements: [] Nutritional Intake: [] IV Site: [] Miramontes Catheter: [] - Assessment/Plan Antibiotics: [] Assessment/Plan: [] septic shock - fever, dyspnea, lactic acidosis. Recent dx of ischemic colitis. Has h/o valve replacement. No splinter hemorrhages on hands. No abd pain on exam. No clear risk factors for COVID-19. PCT was 29, so suspect bacterial source. Overall showing improvement. Will stop vanc. Cont cefepime/flagyl for abd toi coverage. Some dry cough. CT scans reviewed. Will follow
[2019-08-08 15:42] LABS: Pathologist Review Reviewed
[2019-08-08] MEDS: Pravastatin 40 MG Tablet PO (21:02)
[2019-08-09] VITALS (20 sets, daily range): BP systolic 89–106; BP diastolic 60–88; PULSE 83–120; RESP 11–21; TEMP 36.4–36.8; O2SAT 93–100
[2019-08-09] MEDS: metroNIDAZOLE 500 MG/100 ML BAG 100 MG IV ×3 (05:56→22:36)
[2019-08-09] MEDS: Hydrocortisone Sod Succinate 100 MG/2 ML Vial IV (05:56)
[2019-08-09] MEDS: 0.9% Saline Lock 10 ML Syringe IV ×2 (05:57→22:27)
--- NOTE | 2019-08-09 06:53 | PN_ITS ---
Subjective: The patient was seen and examined at the bedside this morning. Events from the last 24 hours have been reviewed. The patient is currently afebrile, hemodynamically stable and maintaining appropriate oxygen saturations on room air. The patient was able to be weaned off of vasopressor support yesterday around 2 PM. She remains hemodynamically stable this morning. She does report the continued presence of a nonproductive, dry cough. She denies any abdominal pain. Objective: The patient's most recent lab work, culture data and imaging studies have all been personally reviewed. Infectious work-up has been negative to date. General: Alert, Oriented x3, Cooperative, No apparent distress HEENT: Atraumatic, PERRLA, Normocephalic Oral: No Gingival or Mucosal Lesions/ Ulcerations Neck: Supple, No Nodes, Trachea Midline Lungs: Normal air movement, No rhonchi, No wheeze, No rales Cardiovascular: Normal S1, Normal S2, Murmur, Tachycardic Abdomen: Bowel Sounds Present, Soft, Non Tender, Obese Extremities: No clubbing, No cyanosis, No edema Skin: No breakdown Musculoskeletal: No Tenderness to Palpation of Joints or Extremities Lymphatic: No Cervical, Supraclavicular, or Inguinal Adenopathy Neurological: Cranial nerves II-XII grossly intact, Neuro grossly intact Psych/Mental Status: Alert and oriented to time, place, person, mood and affect Vital Signs Temp Pulse Resp BP Pulse Ox 98.0 F 91 20 H 106/60 97 08/09/19 04:00 08/09/19 06:00 08/09/19 06:00 08/09/19 06:00 08/09/19 06:00 Oxygen Flow Rate (L/min) 2 Oxygen Delivery Method Room Air Weight: 186 lb 4.65 oz Body Mass Index (BMI) 32.2 Intake and Output for Last 24 Hours 08/07/19 08/08/19 08/09/19 23:59 23:59 23:59 Intake Total 2933.28 / 3062.68 2392.25 / 2872.25 720 / 720 Output Total 1600 / 1950 750 / 850 300 / 300 Balance 1333.28 / 1112.68 1642.25 / 2022.25 420 / 420 Labs (Last 48 Hours) 08/06/19 08/07/19 08/07/19 04:30 06:30 06:30 WBC RBC Hgb Hct MCV MCH MCHC RDW Std Deviation RDW Coeff of Tess Plt Count MPV Immature Gran % (Auto) Neut % (Auto) Lymph % (Auto) Lander % (Auto) Eos % (Auto) Baso % (Auto) Absolute Neuts (auto) Absolute Lymphs (auto) Nucleated RBC % Diff Path Review Reviewed Dohle Bodies Polychromasia Hypochromasia Anisocytosis Macrocytosis Sodium 141 Potassium 4.0 Chloride 113 H Carbon Dioxide 20.0 L Anion Gap 8 BUN 13 Creatinine 0.60 Estim Creat Clear Calc 37.60 Est GFR (MDRD) Af Amer 128 Est GFR (MDRD) Non-Af 106 BUN/Creatinine Ratio 21.8 H Glucose 183 H Calcium 7.9 L Phosphorus 0.9 L* Magnesium 2.1 Vancomycin Trough 4.5 L 08/08/19 08/08/19 04:05 04:05 WBC 11.9 H RBC 3.25 L Hgb 9.4 L Hct 31.5 L MCV 96.9 MCH 28.9 MCHC 29.8 L RDW Std Deviation 63.1 H RDW Coeff of Tess 17.8 H Plt Count 271 MPV 10.6 Immature Gran % (Auto) 2.200 H Neut % (Auto) 83.9 H Lymph % (Auto) 10.8 L Lander % (Auto) 3.0 Eos % (Auto) 0.0 Baso % (Auto) 0.1 Absolute Neuts (auto) 10.0 H Absolute Lymphs (auto) 1.28 Nucleated RBC % 0 Diff Path Review Dohle Bodies RARE Polychromasia RARE Hypochromasia 1+ Anisocytosis 2+ Macrocytosis 1+ Sodium 138 Potassium 4.2 Chloride 110 H Carbon Dioxide 20.0 L Anion Gap 8 BUN 13 Creatinine 0.55 Estim Creat Clear Calc 37.60 Est GFR (MDRD) Af Amer 139 Est GFR (MDRD) Non-Af 115 BUN/Creatinine Ratio 23.5 H Glucose 229 H Calcium 7.9 L Phosphorus 1.5 L Magnesium 2.2 Vancomycin Trough Microbiology 08/04/19 19:23 Blood Culture (Wb) - Anticubital Left Blood Culture - Preliminary No growth in 48 hours. 08/05/19 09:20 Blood Culture (Wb) - Other Blood Culture - Preliminary No growth in 48 hours. 08/05/19 09:10 Urine Catheter - Miramontes Urine Culture - Final Culture exhibits no growth. Medical Necessity - Tobacco Use Smoking Status: Former smoker Tobacco Use: Non-smoker Assessment/Plan RECOMMENDATIONS: 1. Continue antibiotics per ID recommendations. 2. Continue stress dose steroids. Will transition to 50 mg twice daily beginning today. 3. Continue twice daily PPI therapy. 4. Encourage incentive spirometer use and mobilize patient as tolerated. 5. Remove central venous catheter. 6. The patient is medically stable for transfer out of the intensive care unit. IMPRESSIONS: 1. Septic shock secondary to possible ischemic colitis with translocation The patient is improving clinically. The patient has been weaned successfully off of vasopressor support at this time. Therefore, we will begin to wean her stress dose steroids beginning today. She will remain on antibiotics per infectious diseases recommendations. The patient central venous catheter can be removed from my perspective. 2. Acute hypoxemic respiratory failure Improved. The patient remains on room air. 3. Chronic heart failure with preserved ejection fraction/aortic stenosis/history of aortic valve replacement Continue current medical management per cardiology recommendations. 4. Gout/obesity/history of polycythemia vera/KYLE/diabetes mellitus Complicates care, management, recovery and prognosis. Continue sliding scale insulin coverage. This note was generated with [employer] dictation software. It may contain incorrect words, spelling, and punctuation that were not noted in checking the note before signing. Inpatient E&M: [id number] [facility] Hosp L3
[2019-08-09] MEDS: Calcium (Elemental) 500 MG Tablet PO (08:08)
[2019-08-09] MEDS: Multivitamins,Therapeutic Tablet 1 TABLET PO (08:08)
[2019-08-09] MEDS: Glucerna Shake 120 ML LIQUID PO ×3 (08:10→17:54)
--- NOTE | 2019-08-09 08:34 | PCM.PROGNOTE ---
Subjective: Chief complaint: Follow-up after admission for acute hypoxic respiratory failure, septic shock, acute on chronic anemia. Patient seen and examined. No acute events overnight. Apart from dry cough, no other complaints. She has been off IV Levophed drip since yesterday afternoon. Blood pressure is maintained, heart rate has been around 90-100, pulse ox is maintained on room air. She is tolerating diet. - Physical Exam Vitals/I&O's: Vital Signs Temp Pulse Resp BP Pulse Ox 97.6 F L 94 18 102/81 H 100 08/09/19 08:12 08/09/19 08:12 08/09/19 08:12 08/09/19 08:12 08/09/19 08:12 Oxygen Flow Rate (L/min) 2 Oxygen Delivery Method Room Air Weight: 186 lb 4.65 oz Body Mass Index (BMI) 32.2 Intake and Output for Last 24 Hours 08/07/19 08/08/19 08/09/19 23:59 23:59 23:59 Intake Total 2933.28 / 3062.68 2392.25 / 2872.25 820 / 820 Output Total 1600 / 1950 750 / 850 300 / 300 Balance 1333.28 / 1112.68 1642.25 / 2022.25 520 / 520 General: Alert, Oriented x3, Cooperative, No apparent distress HEENT: Atraumatic, PERRLA, EOMI, Normocephalic Oral: Moist Mucosa, No Gingival or Mucosal Lesions/ Ulcerations Neck: Supple, No JVD, Negative Carotid Bruits, Trachea Midline, Thyroid Normal Size and Texture Lungs: Clear to auscultation, Normal air movement, No rhonchi, No wheeze, No rales, Diminished Cardiovascular: Regular rate, Regular Rhythm, Normal S1, Normal S2, PMI Normal Abdomen: Bowel Sounds Present, Soft, Non Tender, Non-Distended, No Hepato-splenomegaly Extremities: No clubbing, No cyanosis, Edema Skin: No rashes, No breakdown Lymphatic: No Cervical, Supraclavicular, or Inguinal Adenopathy Neurological: Cranial nerves II-XII grossly intact, Neuro grossly intact Psych/Mental Status: Normal Affect, Appropriate, Alert and oriented to time, place, person, mood and affect Microbiology Past 72 Hours 08/04/19 19:23 Blood Culture (Wb) - Anticubital Left Blood Culture - Preliminary No growth in 48 hours. 08/05/19 09:20 Blood Culture (Wb) - Other Blood Culture - Preliminary No growth in 48 hours. 08/05/19 09:10 Urine Catheter - Miramontes Urine Culture - Final Culture exhibits no growth. Laboratory Results 08/06/19 04:30: Diff Path Review Reviewed Current Medications Acetaminophen (Tylenol) 650 mg PO Q6H PRN PRN PRN Reason: pain 1-10/10; Fever > 100.4F Last Admin: 08/05/19 02:46 Dose: 650 mg Documented by: [facility] Last Admin: 08/08/19 08:25 Dose: 200 mg Documented by: Artificial Tears (Tears Naturale, Artificial Tears) 1 drop OPHTHALMIC Q4H PRN PRN PRN Reason: dry eyes Calcium Carbonate (Os-Paul 500) [facility] Last Admin: 08/09/19 08:08 Dose: 500 mg Documented by: Cholecalciferol (Vitamin D (25mcg)) 5,000 unit PO DAILY [facility] Last Admin: 08/08/19 08:24 Dose: 5,000 unit Documented by: Glucagon () 1 mg IM .X1 PRN PRN Reason: Hypoglycemia Guaifenesin (Mucinex) 1,200 mg PO BID [facility] Last Admin: 08/08/19 21:02 Dose: 1,200 mg Documented by: Hydrocortisone Sodium Succinate (Solu-Cortef) 50 mg IV Q12 [facility] Sodium Chloride () 250 mls @ 15 mls/hr IV .[id number] PRN PRN Reason: Saline Flush Last Infusion: 08/08/19 08:00 Dose: 0 mls/hr Documented by: Sodium Chloride () 250 mls @ 15 mls/hr IV .[id number] PRN PRN Reason: Additional IVPB Infusion Dextrose (Dextrose 10%-Water) 250 mls @ 999 mls/hr IV .Q16M PRN; Protocol PRN Reason: HYPOGLYCEMIA Norepinephrine Bitartrate 8 mg (/ Sodium Chloride) 250 mls @ 9.375 mls/hr CONT INF .[id number] [facility]; Protocol Last Titration: 08/08/19 19:00 Dose: Infused Documented by: Cefepime HCl 2 gm/ Sodium (Chloride) 100 mls @ 200 mls/hr IV Q12 [facility] Last Infusion: 08/08/19 21:36 Dose: Infused Documented by: Metronidazole (Flagyl) 500 mg in 100 mls @ 100 mls/hr IV Q8 [facility] Last Infusion: 08/09/19 06:56 Dose: Infused Documented by: Lactobacillus Acidophilus (Acidophilus) 1 tablet PO BID [facility] Last Admin: 08/08/19 21:02 Dose: 1 tablet Documented by: Multivitamins (Multivitamin) 1 tablet PO DAILYCM [facility] Last Admin: 08/09/19 08:08 Dose: 1 tablet Documented by: Nutritional Formula (Lactose Free) (Glucerna Shake) 120 ml PO TIDCM [facility] Last Admin: 08/09/19 08:10 Dose: 120 ml Documented by: Ondansetron HCl (Zofran) 4 mg IV Q8H PRN PRN PRN Reason: NAUSEA/VOMITING Pantoprazole Sodium (Protonix) 40 mg PO DAILY [facility] Pravastatin Sodium (Pravachol) 40 mg PO DAILY@2200 [facility] Last Admin: 08/08/19 21:02 Dose: 40 mg Documented by: Sodium Chloride () 10 - 40 ml IV UD PRN PRN Reason: SALINE FLUSH Last Admin: 08/09/19 05:57 Dose: 10 ml Documented by: Temazepam (Restoril) 15 - 30 mg PO QHS PRN PRN Reason: insomnia Medical Necessity - Tobacco Use Smoking Status: Former smoker Tobacco Use: Non-smoker Assessment/Plan This is a 68 years old female patient presented to the emergency room because of shortness of breath and cough, initially there was a concern that patient may have acute CHF complicated by cardiogenic shock but later, she was found to have septic shock secondary to ischemic colitis and found to have acute on chronic hypoxic respiratory failure as well as acute on chronic anemia requiring blood transfusion. #1 Septic shock: Attributed to ischemic colitis with translocation. She is on IV cefepime and Flagyl. She has been off IV Levophed drip since yesterday afternoon. On tapering dose of IV stress dose steroids. Blood pressure is maintained, has been afebrile. WBC is trending down. Urine culture showed no growth. Blood cultures showed no growth in 48 hours. Respiratory panel for viruses were negative. She is tolerating diet. Plan: Transfer to PCU, repeat CBC and BMP tomorrow morning, change IV Protonix to p.o. Protonix. #2 Recent history of ischemic colitis: Remained on IV cefepime, Flagyl. IV vancomycin discontinued.. She has been afebrile, WBC is trending down.. Abdomen examination is benign. Patient is tolerating clear liquids. Plan as above. #3 hypophosphatemia/hypomagnesemia: Magnesium replaced and corrected. Serum phosphorus still low in spite of aggressive replacement. Yesterday's phosphorus was 1.5. Patient started on diet which is likely to replenish her phosphorus even partially. #4 acute on chronic hypoxic respiratory failure: Multifactorial secondary to septic shock and acute on chronic anemia. Symptoms improved, oxygen requirement has been decreasing. She has been off oxygen, pulse ox is maintained on room air. #5 acute on chronic anemia: Patient's history of polycythemia but over the last couple of months, hemoglobin has been dropping. Admission hemoglobin was 9 g/dL, came down to 7.7 g/dL. She received 1 unit of packed RBCs, yesterday's hemoglobin is 9.4 g/dL. Stool was occult positive. Plan to repeat CBC tomorrow morning. #6 chronic diastolic CHF: Seems to be compensated, no acute exacerbation. She is off diuretics because of septic shock on low blood pressure. Chest x-ray reviewed. 2D echocardiogram that was done last month revealed ejection fraction of 65%, severe aortic stenosis with calculated aortic valve area is 1.1 cm?, moderate pulmonary hypertension, other findings reviewed. Lasix and Coreg held because of low blood pressure which improved. Plan to restart when appropriate. Cardiology on the case. #7 recent history of lower GI bleed: No active bleeding but stool was positive for occult blood. She had colonoscopy on July 09, 2019 that revealed hemorrhoids, diverticulosis, mucosal ulceration and single nonbleeding colonic angiectasia. Will change IV Protonix to p.o. Protonix. #8 severe aortic stenosis: Status post aortic valve replacement with bioprosthetic valve. 2D echocardiogram reviewed as above. Plan as above. #9 hyperlipidemia: Continue statins. #10 gout: Stable, continue allopurinol. #11 DVT prophylaxis: SCDs. This note was generated with [employer] software. It may contain incorrect words, spelling, and punctuation that were not noted in checking the note before signing. Inpatient E&M: [id number] Subs Hosp L2
[2019-08-09] MEDS: Pantoprazole Sodium 40 MG Tablet PO (09:09)
--- NOTE | 2019-08-09 10:00 | PCM.PN.CARD ---
Subjectve: Patient continues to slowly improve. IJ catheter removed. Telemetry negative. No 24-hour events. Show sinus tach with PACs. Objective: Vital Signs Temp Pulse Resp BP Pulse Ox 97.6 F L 94 18 102/81 H 100 08/09/19 08:12 08/09/19 08:12 08/09/19 08:12 08/09/19 08:12 08/09/19 08:12 Oxygen Flow Rate (L/min) 2 Oxygen Delivery Method Room Air Weight: 186 lb 4.65 oz Body Mass Index (BMI) 32.2 Intake and Output for Last 24 Hours 08/07/19 08/08/19 08/09/19 23:59 23:59 23:59 Intake Total 2933.28 / 3062.68 2392.25 / 2872.25 820 / 820 Output Total 1600 / 1950 750 / 850 300 / 300 Balance 1333.28 / 1112.68 1642.25 / 2022.25 520 / 520 General: Awake, Alert, Oriented x 3 HEENT: PERRL, EOMI, Sclera Non Icteric Neck: Supple, Good ROM, No Lymph Node Enlargement Lungs: Clear to auscultation Cardiovascular: Regular Rhythm, Normal S2, No Rubs, No Gallops Murmur Murmur: Grade 2/6, Crescendo-Decrescendo Vascular: No Carotid Bruits, Normal Femoral Pulses, Normal Radial Pulses, Normal Dorsalis Pedal Pulse, Normal Posterior Tibial Pulses Abdomen: Bowel Sounds Present, Soft, Non Tender, No HSM, No Organomegaly Extremities: No Cyanosis, No Clubbing, No edema Neurological: No Focal Motor or Sensory Deficit Rhythm: EKG: ECHO: Stress Test: Cardiac Cath: PCI: CT Surgery: Holter monitor: EPS: PPM: CXR: Chest CT Scan: Medical Necessity - Tobacco Use Smoking Status: Former smoker Tobacco Use: Non-smoker Assessment/Plan 1. Hypotension: The patient presents with progressively worsening dyspnea on exertion and shortness of breath superimposed on what appeared to be worsening aortic stenosis after bioprosthetic aortic valve placement in 2014. Patient was scheduled to undergo a transesophageal echocardiogram followed by right and left her catheterization to better evaluate her aortic valve. However in the meantime the patient developed what appeared to be ischemic colitis and this was placed on hold. Patient presented to [facility] with hypotension, shortness of breath and required ICU admission, central line catheter, aggressive antibiotic therapy for what appeared to be bowel bacteria translocation sepsis, and transient BiPAP and Levophed. She is no longer on Levophed, and her blood pressure has improved. She is still somewhat tachycardic, which will likely resolve going forward. I reviewed the patient's echocardiogram directly from 07/01/2019 and saw no evidence of bacterial vegetations at that time. Once more, her aortic stenosis appears to be a manifestation of her small LV outflow tract and small aortic valve orifice. In addition if the patient had any kind of anemia at the time of her echocardiogram, that may make the gradients worse. Her actual echocardiogram port from 07/01/2019 is as follows: The estimated ejection fraction is 65 %. Mildly dilated right ventricle. The left atrium is moderately enlarged. Mild-Moderate (1-2+) eccentric mitral valve insufficiency. Mild (1+) tricuspid valve insufficiency. Right ventricular systolic pressure estimated to be 51 mmHg. Moderate pulmonary hypertension. Peak aortic valve gradient 63 mmHg. Mean aortic valve gradient 42 mmHg. Calculated aortic valve area (continuity equation) is 1.1 cm2. Severe aortic stenosis. Trivial aortic valve insufficiency. Compared to echo report dated 01/20/2019, LV function has remained the same however the patient's bioprosthetic aortic valve gradients have markedly worsened. At that time the peak and mean gradients were 35/17 mmHg giving a calculated aortic valve area of 1.6 cm??. In addition RVSP is increased from 37 to 51 mmHg. Would consider a transesophageal echocardiogram if clinically indicated. In addition the patient had normal coronary arteries at her catheterization in 2014 prior to her aortic valve replacement. Unlikely that she would have progression of significant disease during that time but this also could be a possibility. Her EKG showed no evidence of acute changes. Neck troponin 0 0.303. No plans for catheterization at this time. In addition, the patient has excellent 2+ carotid upstroke bilaterally indicating that she most likely has adequate aortic valvular separation for perfusion purposes. Blood cultures negative. Would recommend holding off on any cardiac catheterization or invasive evaluation at this time. Would recommend that she recover on PCU and possibly chcf facility if indicated. 2. Atrial fibrillation: The patient is status post Maze procedure, and left atrial appendage ligation at her aortic valve replacement surgery. No indication for anticoagulation at this time. She remains in sinus rhythm. 3. Thank you very much for the opportunity to participate in the cardiac care of your patient. Patient may be transferred to PCU. Inpatient E&M: [id number] Subs Hosp L2
--- NOTE | 2019-08-09 10:31 | PN.ID_ITS ---
Subjective: Feeling better, off pressors, no fever, no dyspnea, no abd pain. - Physical Exam Vitals/I&O's: Vital Signs Temp Pulse Resp BP Pulse Ox 97.6 F L 94 18 102/81 H 100 08/09/19 08:12 08/09/19 08:12 08/09/19 08:12 08/09/19 08:12 08/09/19 08:12 Oxygen Flow Rate (L/min) 2 Oxygen Delivery Method Room Air Weight: 84.5 kg Body Mass Index (BMI) 32.2 Intake and Output for Last 24 Hours 08/07/19 08/08/19 08/09/19 23:59 23:59 23:59 Intake Total 2933.28 / 3062.68 2392.25 / 2872.25 920 / 920 Output Total 1600 / 1950 750 / 850 300 / 300 Balance 1333.28 / 1112.68 1642.25 / 2022.25 620 / 620 General: Alert, Cooperative, No apparent distress Lungs: Clear to auscultation, Normal air movement Cardiovascular: Murmur Abdomen: Soft, Non Tender, Non-Distended Skin: No rashes Microbiology Past 72 Hours 08/04/19 19:23 Blood Culture (Wb) - Anticubital Left Blood Culture - Preliminary No growth in 48 hours. 08/05/19 09:20 Blood Culture (Wb) - Other Blood Culture - Preliminary No growth in 48 hours. 08/05/19 09:10 Urine Catheter - Miramontes Urine Culture - Final Culture exhibits no growth. Laboratory Results 08/06/19 04:30: Diff Path Review Reviewed Current Medications Acetaminophen (Tylenol) 650 mg PO Q6H PRN PRN PRN Reason: pain 1-10/10; Fever > 100.4F Last Admin: 08/05/19 02:46 Dose: 650 mg Documented by: [facility]) [facility] Last Admin: 08/08/19 08:25 Dose: 200 mg Documented by: Artificial Tears (Tears Naturale, Artificial Tears) 1 drop OPHTHALMIC Q4H PRN PRN PRN Reason: dry eyes Calcium Carbonate (Os-Paul 500) [facility] Last Admin: 08/09/19 08:08 Dose: 500 mg Documented by: Cholecalciferol (Vitamin D (25mcg)) 5,000 unit PO DAILY [facility] Last Admin: 08/09/19 09:09 Dose: 5,000 unit Documented by: Glucagon () 1 mg IM .X1 PRN PRN Reason: Hypoglycemia Guaifenesin (Mucinex) 1,200 mg PO BID [facility] Last Admin: 08/09/19 09:41 Dose: Not Given Documented by: Hydrocortisone Sodium Succinate (Solu-Cortef) 50 mg IV Q12 [facility] Sodium Chloride () 250 mls @ 15 mls/hr IV .[id number] PRN PRN Reason: Saline Flush Last Infusion: 08/09/19 09:07 Dose: Infused Documented by: Sodium Chloride () 250 mls @ 15 mls/hr IV .[id number] PRN PRN Reason: Additional IVPB Infusion Last Infusion: 08/09/19 09:09 Dose: 0 mls/hr Documented by: Dextrose (Dextrose 10%-Water) 250 mls @ 999 mls/hr IV .Q16M PRN; Protocol PRN Reason: HYPOGLYCEMIA Cefepime HCl 2 gm/ Sodium (Chloride) 100 mls @ 200 mls/hr IV Q12 [facility] Last Infusion: 08/09/19 09:39 Dose: Infused Documented by: Metronidazole (Flagyl) 500 mg in 100 mls @ 100 mls/hr IV Q8 [facility] Last Infusion: 08/09/19 06:56 Dose: Infused Documented by: Lactobacillus Acidophilus (Acidophilus) 1 tablet PO BID [facility] Last Admin: 08/09/19 09:09 Dose: 1 tablet Documented by: Multivitamins (Multivitamin) 1 tablet PO DAILYCM [facility] Last Admin: 08/09/19 08:08 Dose: 1 tablet Documented by: Nutritional Formula (Lactose Free) (Glucerna Shake) 120 ml PO TIDCM [facility] Last Admin: 08/09/19 08:10 Dose: 120 ml Documented by: Ondansetron HCl (Zofran) 4 mg IV Q8H PRN PRN PRN Reason: NAUSEA/VOMITING Pantoprazole Sodium (Protonix) 40 mg PO DAILY [facility] Last Admin: 08/09/19 09:09 Dose: 40 mg Documented by: Pravastatin Sodium (Pravachol) 40 mg PO DAILY@2200 [facility] Last Admin: 08/08/19 21:02 Dose: 40 mg Documented by: Sodium Chloride () 10 - 40 ml IV UD PRN PRN Reason: SALINE FLUSH Last Admin: 08/09/19 05:57 Dose: 10 ml Documented by: Temazepam (Restoril) 15 - 30 mg PO QHS PRN PRN Reason: insomnia Medical Necessity - Tobacco Use Smoking Status: Former smoker Tobacco Use: Non-smoker Route of nutrition/ use of supplements: [] Nutritional Intake: [] IV Site: [] Miramontes Catheter: [] - Assessment/Plan Antibiotics: [] Assessment/Plan: [] septic shock - fever, dyspnea, lactic acidosis. Recent dx of ischemic colitis. Has h/o valve replacement. No abd pain on exam. No clear risk factors for COVID-19. PCT was 29, so suspect bacterial source. Overall much improved, off pressors. Cont cefepime/flagyl for abd toi coverage. Plan on stopping abx in next 1-2 days. Will follow
[2019-08-09] MEDS: Carvedilol 3.125 MG TABLET PO (15:40)
[2019-08-09] MEDS: guaiFENesin 1,200 MG Tablet 1200 MG PO (22:24)
[2019-08-09] MEDS: Pravastatin 40 MG Tablet PO (22:24)
[2019-08-09] MEDS: Hydrocortisone Sod Succinate 100 MG/2 ML Vial 50 MG IV (22:24)
[2019-08-10] VITALS (9 sets, daily range): BP systolic 94–104; BP diastolic 58–65; PULSE 77–109; RESP 14–18; TEMP 36.4–37.1; O2SAT 94–97
[2019-08-10] MEDS: metroNIDAZOLE 500 MG/100 ML BAG 100 MG IV ×2 (05:43→13:39)
[2019-08-10 06:11] LABS: Absolute Lymphocyte Count 1.87 X10^3/uL (0.83-4.51); Absolute Neutrophil Count 9.2 X10^3/uL (2.0-7.7); Basophil# 0.01 X10^3/uL; Basophil% 0.1 % (0-1); Eosinophil# 0.01 X10^3/uL; Eosinophils% 0.1 % (0-5); Hematocrit 33.5 % (37-47); Hemoglobin 10.1 g/dL (12.0-15.0); Lymphocyte # 1.87 X10^3/ul (4.0); Lymphocyte % 15.6 % (19-41); Mean Corp Hgb Conc 30.1 g/dL (32-36); Mean Corpuscular Hgb 29.2 pg (27.0-32.0); Mean Corpuscular Volume 96.8 fL (81-99); Mean Platelet Vol. 11.8 fl (6.2-12.0); Monocyte# 0.56 X10^3/uL; Monocyte% 4.7 % (0-10); NRBC Flagged by Analyzer 0.2 % (0-5); Neutrophil # 9.23 X10^3/uL (2.7-7.7); Neutrophil % 77.1 % (47-70); Platelet Count 232 K/mm3 (150-450); RBC Distribution Width CV 18.1 % (11.6-14.6); RBC Distribution Width SD 63.7 fl (35.1-43.9); Red Blood Count 3.46 M/mm3 (4.2-5.4)
[2019-08-10 06:41] LABS: Anion Gap 11 (5-15); BUN 26 mg/dL (7-18); BUN/Creat Ratio 27.6 RATIO (10-20); Calcium,Total 8.5 mg/dL (8.5-10.1); Chloride 106 mmol/L (98-107); Creatinine, Serum 0.94 mg/dL (0.55-1.02); EST Glomerular Filtration Rate 62 mL/min (>60); Est Glom Filt Rate - Afr Amer 75 mL/min (>60); Glucose 278 mg/dL (74-106); Potassium 4.4 mmol/L (3.5-5.1); Sodium Level 136 mmol/L (136-145)
--- NOTE | 2019-08-10 07:19 | PCM.PN.PUL ---
Subjective: The patient was seen and examined at the bedside this morning. Events from the last 24 hours have been reviewed. The patient is currently afebrile, hemodynamically stable and maintaining appropriate oxygen saturations on room air. No overnight issues were identified. Objective: The patient's most recent lab work, culture data and imaging studies have all been personally reviewed. Infectious work-up has been negative to date. - Physical Exam Vitals/I&O's: Vital Signs Temp Pulse Resp BP Pulse Ox 97.7 F L 93 18 94/64 97 08/10/19 03:45 08/10/19 03:56 08/10/19 03:45 08/10/19 03:45 08/10/19 03:45 Oxygen Flow Rate (L/min) 2 Oxygen Delivery Method Room Air Weight: 189 lb 6.033 oz Body Mass Index (BMI) 32.2 Intake and Output for Last 24 Hours 08/08/19 08/09/19 08/10/19 23:59 23:59 23:59 Intake Total 2392.25 / 2872.25 1600 / 1600 320 / 320 Output Total 750 / 850 300 / 300 Balance 1642.25 / 2022.25 1300 / 1300 320 / 320 General: Alert, Cooperative, No apparent distress HEENT: Atraumatic, Normocephalic Oral: No Gingival or Mucosal Lesions/ Ulcerations Neck: Supple, No Nodes, Trachea Midline Lungs: No rhonchi, No wheeze, No rales Cardiovascular: Regular rate, Regular Rhythm, Normal S1, Normal S2, Murmur Abdomen: Bowel Sounds Present, Soft, Non Tender Extremities: No clubbing, No cyanosis, No edema Skin: No breakdown Musculoskeletal: No Tenderness to Palpation of Joints or Extremities Lymphatic: No Cervical, Supraclavicular, or Inguinal Adenopathy Neurological: Cranial nerves II-XII grossly intact, Neuro grossly intact Psych/Mental Status: Alert and oriented to time, place, person, mood and affect Labs (Last 48 Hours) 08/05/19 08/06/19 08/10/19 09:20 04:30 05:26 WBC 12.0 H RBC 3.46 L Hgb 10.1 L Hct 33.5 L MCV 96.8 MCH 29.2 MCHC 30.1 L RDW Std Deviation 63.7 H RDW Coeff of Tess 18.1 H Plt Count 232 MPV 11.8 Immature Gran % (Auto) 2.400 H Neut % (Auto) 77.1 H Lymph % (Auto) 15.6 L [place] % (Auto) 4.7 Eos % (Auto) 0.1 Baso % (Auto) 0.1 Absolute Neuts (auto) 9.2 H Absolute Lymphs (auto) 1.87 Nucleated RBC % 0.2 [address] Review Reviewed Sodium Potassium Chloride Carbon Dioxide Anion Gap BUN Creatinine Estim Creat Clear Calc Est GFR (MDRD) Af Amer Est GFR (MDRD) Non-Af BUN/Creatinine Ratio Glucose Calcium Crossmatch See Detail 08/10/19 05:26 WBC RBC Hgb Hct MCV MCH MCHC RDW Std Deviation RDW Coeff of Tess Plt Count MPV Immature Gran % (Auto) Neut % (Auto) Lymph % (Auto) [place] % (Auto) Eos % (Auto) Baso % (Auto) Absolute Neuts (auto) Absolute Lymphs (auto) Nucleated RBC % Diff Path Review Sodium 136 Potassium 4.4 Chloride 106 Carbon Dioxide 19.0 L Anion Gap 11 BUN 26 H Creatinine 0.94 Estim Creat Clear Calc 40.00 Est GFR (MDRD) Af Amer 75 Est GFR (MDRD) Non-Af 62 BUN/Creatinine Ratio 27.6 H Glucose 278 H Calcium 8.5 Crossmatch Clinical Impression(s) from Imaging Studies Chest X-Ray 08/04/19 20:00 IMPRESSION: Stable central vascular congestion. Electronically Signed: Kenneth Melendez MD at 20:14 EDT Tel , Service support , Chest X-Ray 08/05/19 03:56 IMPRESSION: Mild CHF similar prior. Electronically Signed: Raj Ojeda, at 4:48 EDT Tel , Service support , Chest X-Ray 08/05/19 09:45 IMPRESSION: The tip of the right internal jugular venous catheter is at the junction of the superior vena cava and right atrium. Stable blunting of the right costophrenic angle. Electronically Signed: Tristen Arce, at 10:41 EDT , Service support , Chest CT 08/05/19 13:58 IMPRESSION: Bibasilar atelectasis. Bilateral pleural effusions. Electronically Signed: Kenneth Melendez MD at 19:15 EDT Tel , Service support , Abdomen CT 08/05/19 13:59 IMPRESSION: Mild ascites. No evidence of acute intestinal pathology or acute obstructive uropathy. Bilateral pleural effusions. Electronically Signed: Kenneth Melendez MD at 17:09 EDT Tel , Service support , Current Medications Acetaminophen (Tylenol) 650 mg PO Q6H PRN PRN PRN Reason: pain 1-10/10; Fever > 100.4F Last Admin: 08/05/19 02:46 Dose: 650 mg Documented by: [facility]) [facility] Last Admin: 08/08/19 08:25 Dose: 200 mg Documented by: Artificial Tears (Tears Naturale, Artificial Tears) 1 drop OPHTHALMIC Q4H PRN PRN PRN Reason: dry eyes Calcium Carbonate (Os-Paul 500) [facility] Last Admin: 08/09/19 08:08 Dose: 500 mg Documented by: Carvedilol (Coreg) 3.125 mg PO BID [facility] Last Admin: 08/09/19 19:05 Dose: Not Given Documented by: Cholecalciferol (Vitamin D (25mcg)) 5,000 unit PO DAILY [facility] Last Admin: 08/09/19 09:09 Dose: 5,000 unit Documented by: Glucagon () 1 mg IM .X1 PRN PRN Reason: Hypoglycemia Guaifenesin (Mucinex) 1,200 mg PO BID [facility] Last Admin: 08/09/19 22:24 Dose: 1,200 mg Documented by: Hydrocortisone Sodium Succinate (Solu-Cortef) 50 mg IV Q12 [facility] Last Admin: 08/09/19 22:24 Dose: 50 mg Documented by: Sodium Chloride () 250 mls @ 15 mls/hr IV .[id number] PRN PRN Reason: Saline Flush Last Infusion: 08/09/19 09:07 Dose: Infused Documented by: Sodium Chloride () 250 mls @ 15 mls/hr IV .[id number] PRN PRN Reason: Additional IVPB Infusion Last Infusion: 08/09/19 09:09 Dose: 0 mls/hr Documented by: Dextrose (Dextrose 10%-Water) 250 mls @ 999 mls/hr IV .Q16M PRN; Protocol PRN Reason: HYPOGLYCEMIA Cefepime HCl 2 gm/ Sodium (Chloride) 100 mls @ 200 mls/hr IV Q12 [facility] Last Infusion: 08/10/19 00:32 Dose: Infused Documented by: Metronidazole (Flagyl) 500 mg in 100 mls @ 100 mls/hr IV Q8 [facility] Last Infusion: 08/10/19 06:43 Dose: Infused Documented by: Lactobacillus Acidophilus (Acidophilus) 1 tablet PO BID [facility] Last Admin: 08/09/19 22:24 Dose: 1 tablet Documented by: Multivitamins (Multivitamin) 1 tablet PO DAILYCM [facility] Last Admin: 08/09/19 08:08 Dose: 1 tablet Documented by: Nutritional Formula (Lactose Free) (Glucerna Shake) 120 ml PO TIDCM [facility] Last Admin: 08/09/19 17:54 Dose: 120 ml Documented by: Ondansetron HCl (Zofran) 4 mg IV Q8H PRN PRN PRN Reason: NAUSEA/VOMITING Pantoprazole Sodium (Protonix) 40 mg PO DAILY [facility] Last Admin: 08/09/19 09:09 Dose: 40 mg Documented by: Pravastatin Sodium (Pravachol) 40 mg PO DAILY@2200 [facility] Last Admin: 08/09/19 22:24 Dose: 40 mg Documented by: Sodium Chloride () 10 - 40 ml IV UD PRN PRN Reason: SALINE FLUSH Last Admin: 08/09/19 22:27 Dose: 10 ml Documented by: Temazepam (Restoril) 15 - 30 mg PO QHS PRN PRN Reason: insomnia Medical Necessity - Tobacco Use Smoking Status: Former smoker Tobacco Use: Non-smoker Assessment/Plan RECOMMENDATIONS: 1. Continue antibiotics per ID recommendations. 2. Transition hydrocortisone to 50 mg daily beginning today. This can be discontinued completely tomorrow if the patient remains hemodynamically stable. 3. Continue twice daily PPI therapy. 4. Encourage incentive spirometer use and mobilize patient as tolerated. IMPRESSIONS: 1. Septic shock secondary to possible ischemic colitis with translocation The patient is improved clinically. The patient has been weaned successfully off of vasopressor support at this time. Therefore, her stress dose steroids will be continued to be weaned to 50 mg once daily. She will remain on antibiotics per infectious diseases recommendations. 2. Acute hypoxemic respiratory failure Improved. The patient remains on room air. 3. Chronic heart failure with preserved ejection fraction/aortic stenosis/history of aortic valve replacement Continue current medical management per cardiology recommendations. 4. Gout/obesity/history of polycythemia vera/KYLE/diabetes mellitus Complicates care, management, recovery and prognosis. Continue sliding scale insulin coverage. This note was generated with [employer] dictation software. It may contain incorrect words, spelling, and punctuation that were not noted in checking the note before signing. Inpatient E&M: 95860 Subs Hosp L2
--- NOTE | 2019-08-10 08:22 | PN_ITS ---
Subjective: Chief complaint: Follow-up after admission for acute hypoxic respiratory failure, septic shock, acute on chronic anemia. Patient seen and examined. No acute events overnight. She denied abdominal pain, nausea or vomiting. She complained of mild shortness of breath only with activity. Denied dizziness or lightheadedness. Denied fever or chills. She is tolerating diet. She has been afebrile, blood pressure is maintained around 90 systolic, other vital signs are stable. - Physical Exam Vitals/I&O's: Vital Signs Temp Pulse Resp BP Pulse Ox 97.7 F L 84 18 94/64 96 08/10/19 03:45 08/10/19 07:00 08/10/19 03:45 08/10/19 03:45 08/10/19 07:30 Oxygen Flow Rate (L/min) 2 Oxygen Delivery Method Room Air Weight: 189 lb 6.033 oz Body Mass Index (BMI) 32.2 Intake and Output for Last 24 Hours 08/08/19 08/09/19 08/10/19 23:59 23:59 23:59 Intake Total 2392.25 / 2872.25 1600 / 1600 320 / 320 Output Total 750 / 850 300 / 300 Balance 1642.25 / 2022.25 1300 / 1300 320 / 320 General: Alert, Oriented x3, Cooperative, No apparent distress HEENT: Atraumatic, PERRLA, EOMI, Normocephalic Oral: Moist Mucosa, No Gingival or Mucosal Lesions/ Ulcerations Neck: Supple, No JVD, Negative Carotid Bruits, Trachea Midline, Thyroid Normal Size and Texture Lungs: Clear to auscultation, Normal air movement, No rhonchi, No wheeze, No ral es, Diminished Cardiovascular: Regular rate, Regular Rhythm, Normal S1, Normal S2, PMI Normal Abdomen: Bowel Sounds Present, Soft, Non Tender, Non-Distended, No Hepato- splenomegaly Extremities: No clubbing, No cyanosis, Edema Skin: No rashes, No breakdown Lymphatic: No Cervical, Supraclavicular, or Inguinal Adenopathy Neurological: Cranial nerves II-XII grossly intact, Neuro grossly intact Psych/Mental Status: Normal Affect, Appropriate, Alert and oriented to time, place, person, mood and affect Microbiology Past 72 Hours 08/04/19 19:23 Blood Culture (Wb) - Anticubital Left Blood Culture - Preliminary No growth in 48 hours. 08/05/19 09:20 Blood Culture (Wb) - Other Blood Culture - Preliminary No growth in 48 hours. 08/05/19 09:10 Urine Catheter - Miramontes Urine Culture - Final Culture exhibits no growth. Laboratory Results 08/05/19 09:20: Crossmatch See Detail 08/10/19 05:26: WBC 12.0 H, RBC 3.46 L, Hgb 10.1 L, Hct 33.5 L, MCV 96.8, MCH 29.2, MCHC 30.1 L, RDW Std Deviation 63.7 H, RDW Coeff of Tess 18.1 H, Plt Count 232, MPV 11.8, Immature Gran % (Auto) 2.400 H, Neut % (Auto) 77.1 H, Lymph % (Auto) 15.6 L, [place] % (Auto) 4.7, Eos % (Auto) 0.1, Baso % (Auto) 0.1, Absolute Neuts (auto) 9.2 H, Absolute Lymphs (auto) 1.87, Nucleated RBC % 0.2 08/10/19 05:26: Sodium 136, Potassium 4.4, Chloride 106, Carbon Dioxide 19.0 L, Anion Gap 11, BUN 26 H, Creatinine 0.94, Estim Creat Clear Calc 40.00, Est GFR (MDRD) Af Amer 75, Est GFR (MDRD) Non-Af 62, BUN/Creatinine Ratio 27.6 H, Glucose 278 H, Calcium 8.5 Current Medications Acetaminophen (Tylenol) 650 mg PO Q6H PRN PRN PRN Reason: pain 1-10/10; Fever > 100.4F Last Admin: 08/05/19 02:46 Dose: 650 mg Documented by: [facility]op[facility] ([facility]oprim) [facility] Last Admin: 08/08/19 08:25 Dose: 200 mg Documented by: Artificial Tears (Tears Naturale, Artificial Tears) 1 drop OPHTHALMIC Q4H PRN PRN PRN Reason: dry eyes Calcium Carbonate (Os-Paul 500) 500 [facility] Last Admin: 08/09/19 08:08 Dose: 500 mg Documented by: Carvedilol (Coreg) 3.125 mg PO BID [facility] Last Admin: 08/09/19 19:05 Dose: Not Given Documented by: Cholecalciferol (Vitamin D (25mcg)) 5,000 unit PO DAILY [facility] Last Admin: 08/09/19 09:09 Dose: 5,000 unit Documented by: Glucagon () 1 mg IM .X1 PRN PRN Reason: Hypoglycemia Guaifenesin (Mucinex) 1,200 mg PO BID [facility] Last Admin: 08/09/19 22:24 Dose: 1,200 mg Documented by: Hydrocortisone Sodium Succinate (Solu-Cortef) 50 mg IV Q24 [facility] Sodium Chloride () 250 mls @ 15 mls/hr IV .[id number] PRN PRN Reason: Saline Flush Last Infusion: 08/09/19 09:07 Dose: Infused Documented by: Sodium Chloride () 250 mls @ 15 mls/hr IV .[id number] PRN PRN Reason: Additional IVPB Infusion Last Infusion: 08/09/19 09:09 Dose: 0 mls/hr Documented by: Dextrose (Dextrose 10%-Water) 250 mls @ 999 mls/hr IV .Q16M PRN; Protocol PRN Reason: HYPOGLYCEMIA Cefepime HCl 2 gm/ Sodium (Chloride) 100 mls @ 200 mls/hr IV Q12 [facility] Last Infusion: 08/10/19 00:32 Dose: Infused Documented by: Metronidazole (Flagyl) 500 mg in 100 mls @ 100 mls/hr IV Q8 [facility] Last Infusion: 08/10/19 06:43 Dose: Infused Documented by: Lactobacillus Acidophilus (Acidophilus) 1 tablet PO BID [facility] Last Admin: 08/09/19 22:24 Dose: 1 tablet Documented by: Multivitamins (Multivitamin) [facility] Last Admin: 08/09/19 08:08 Dose: 1 tablet Documented by: Nutritional Formula (Lactose Free) (Glucerna Shake) 120 ml PO TIDCM [facility] Last Admin: 08/09/19 17:54 Dose: 120 ml Documented by: Ondansetron HCl (Zofran) 4 mg IV Q8H PRN PRN PRN Reason: NAUSEA/VOMITING Pantoprazole Sodium (Protonix) 40 mg PO DAILY [facility] Last Admin: 08/09/19 09:09 Dose: 40 mg Documented by: Pravastatin Sodium (Pravachol) 40 mg PO DAILY@2200 [facility] Last Admin: 08/09/19 22:24 Dose: 40 mg Documented by: Sodium Chloride () 10 - 40 ml IV UD PRN PRN Reason: SALINE FLUSH Last Admin: 08/09/19 22:27 Dose: 10 ml Documented by: Temazepam (Restoril) 15 - 30 mg PO QHS PRN PRN Reason: insomnia Medical Necessity - Tobacco Use Smoking Status: Former smoker Tobacco Use: Non-smoker Assessment/Plan This is a 68 years old female patient presented to the emergency room because of shortness of breath and cough, initially there was a concern that patient may have acute CHF complicated by cardiogenic shock but later, she was found to have septic shock secondary to ischemic colitis and found to have acute on chronic hypoxic respiratory failure as well as acute on chronic anemia requiring blood transfusion. #1 Septic shock: Attributed to ischemic colitis with translocation. Remained on IV cefepime and Flagyl. Blood pressure remained around 90-100 systolic, heart rate improved, has been afebrile. Yesterday, she received a dose of Coreg 3.125 and blood pressure dropped slightly. It was discontinued. She is on tapering stress dose of steroids. Urine culture showed no growth. Blood cultures showed no growth in 48 hours. Respiratory panel for viruses were negative. According to infectious disease, antibiotics can be discontinued either today or tomorrow. Plan to continue same treatment, ambulate, PT OT evaluation today, patient probably will need to go home with home health and outpatient physical therapy versus detention facility. Patient's first choice is to go home with home health and outpatient physical therapy. #2 Recent history of ischemic colitis: Remained on IV cefepime, Flagyl. IV vancomycin discontinued. She has no more abdominal pain, abdomen examination is benign, tolerating diet. #3 hypophosphatemia/hypomagnesemia: Magnesium replaced and corrected. Yesterday's phosphorus was 1.5, still low in spite of aggressive replacement. Patient has been tolerating diet. #4 acute on chronic hypoxic respiratory failure: Multifactorial secondary to septic shock and acute on chronic anemia. Symptoms improved, oxygen requirement has been decreasing. She has been off oxygen, pulse ox is maintained on room air. #5 acute on chronic anemia: Patient's history of polycythemia but over the last couple of months, hemoglobin has been dropping. Admission hemoglobin was 9 g/dL, came down to 7.7 g/dL. She received 1 unit of packed RBCs, today's hemoglobin is 10.1 g/dL. Stool was occult positive. #6 chronic diastolic CHF: Seems to be compensated, no acute exacerbation. She is off Coreg and Lasix because of borderline blood pressure. 2D echocardiogram that was done last month revealed ejection fraction of 65%, severe aortic stenosis with calculated aortic valve area is 1.1 cm?, moderate pulmonary hypertension, other findings reviewed. #7 recent history of lower GI bleed: No active bleeding but stool was positive for occult blood. She had colonoscopy on July 09, 2019 that revealed hemorrhoids, diverticulosis, mucosal ulceration and single nonbleeding colonic angiectasia. She is on p.o. Protonix. #8 severe aortic stenosis: Status post aortic valve replacement with bioprosthetic valve. 2D echocardiogram reviewed as above. Plan as above. #9 hyperlipidemia: Continue statins. #10 gout: Stable, continue allopurinol. #11 DVT prophylaxis: SCDs. This note was generated with [employer] dictation software. It may contain incorrect words, spelling, and punctuation that were not noted in checking the note before signing. Inpatient E&M: 35864 Subs Hosp L2
[2019-08-10] MEDS: Multivitamins,Therapeutic Tablet 1 TABLET PO (08:50)
[2019-08-10] MEDS: Allopurinol 100 MG Tablet 200 MG PO (08:50)
[2019-08-10] MEDS: Carvedilol 3.125 MG TABLET PO ×2 (08:54→21:17)
[2019-08-10] MEDS: guaiFENesin 1,200 MG Tablet 1200 MG PO ×2 (08:54→21:17)
[2019-08-10] MEDS: Hydrocortisone Sod Succinate 100 MG/2 ML Vial 50 MG IV (08:54)
[2019-08-10] MEDS: Pantoprazole Sodium 40 MG Tablet PO (08:54)
[2019-08-10] MEDS: Calcium (Elemental) 500 MG Tablet PO (08:55)
[2019-08-10] MEDS: Glucerna Shake 120 ML LIQUID PO (08:55)
--- NOTE | 2019-08-10 16:31 | PN.ID_ITS ---
Subjective: Feeling ok, no fever, no abd pain, mild cough - Physical Exam Vitals/I&O's: Vital Signs Temp Pulse Resp BP Pulse Ox 97.6 F L 109 H 16 101/60 97 08/10/19 15:15 08/10/19 15:15 08/10/19 15:15 08/10/19 15:15 08/10/19 15:15 Oxygen Flow Rate (L/min) 2 Oxygen Delivery Method Room Air Weight: 85.9 kg Body Mass Index (BMI) 32.2 Intake and Output for Last 24 Hours 08/08/19 08/09/19 08/10/19 23:59 23:59 23:59 Intake Total 2392.25 / 2872.25 1600 / 1600 994.5 / 994.5 Output Total 750 / 850 300 / 300 Balance 1642.25 / 2022.25 1300 / 1300 994.5 / 994.5 General: Alert, Cooperative, No apparent distress Lungs: Clear to auscultation, Normal air movement Cardiovascular: Regular rate, Regular Rhythm Abdomen: Soft, Non Tender, Non-Distended Skin: No rashes Microbiology Past 72 Hours 08/04/19 19:23 Blood Culture (Wb) - Anticubital Left Blood Culture - Final No growth in 5 days. 08/05/19 09:20 Blood Culture (Wb) - Other Blood Culture - Final No growth in 5 days. Laboratory Results 08/05/19 09:20: Crossmatch See Detail 08/10/19 05:26: WBC 12.0 H, RBC 3.46 L, Hgb 10.1 L, Hct 33.5 L, MCV 96.8, MCH 29.2, MCHC 30.1 L, RDW Std Deviation 63.7 H, RDW Coeff of Tess 18.1 H, Plt Count 232, MPV 11.8, Immature Gran % (Auto) 2.400 H, Neut % (Auto) 77.1 H, Lymph % (Auto) 15.6 L, [place] % (Auto) 4.7, Eos % (Auto) 0.1, Baso % (Auto) 0.1, Absolute Neuts (auto) 9.2 H, Absolute Lymphs (auto) 1.87, Nucleated RBC % 0.2 08/10/19 05:26: Sodium 136, Potassium 4.4, Chloride 106, Carbon Dioxide 19.0 L, Anion Gap 11, BUN 26 H, Creatinine 0.94, Estim Creat Clear Calc 40.00, Est GFR (MDRD) Af Amer 75, Est GFR (MDRD) Non-Af 62, BUN/Creatinine Ratio 27.6 H, Glucose 278 H, Calcium 8.5 Current Medications Acetaminophen (Tylenol) 650 mg PO Q6H PRN PRN PRN Reason: pain 1-10/10; Fever > 100.4F Last Admin: 08/05/19 02:46 Dose: 650 mg Documented by: [facility]) [facility] Last Admin: 08/10/19 08:50 Dose: 200 mg Documented by: Artificial Tears (Tears Naturale, Artificial Tears) 1 drop OPHTHALMIC Q4H PRN PRN PRN Reason: dry eyes Calcium Carbonate (Os-Paul 500) [facility] Last Admin: 08/10/19 08:55 Dose: 500 mg Documented by: Carvedilol (Coreg) 3.125 mg PO BID [facility] Last Admin: 08/10/19 08:54 Dose: 3.125 mg Documented by: Cholecalciferol (Vitamin D (25mcg)) 5,000 unit PO DAILY [facility] Last Admin: 08/10/19 08:54 Dose: 5,000 unit Documented by: Glucagon () 1 mg IM .X1 PRN PRN Reason: Hypoglycemia Guaifenesin (Mucinex) 1,200 mg PO BID [facility] Last Admin: 08/10/19 08:54 Dose: 1,200 mg Documented by: Hydrocortisone Sodium Succinate (Solu-Cortef) 50 mg IV Q24 [facility] Last Admin: 08/10/19 08:54 Dose: 50 mg Documented by: Sodium Chloride () 250 mls @ 15 mls/hr IV .[id number] PRN PRN Reason: Saline Flush Last Infusion: 08/09/19 09:07 Dose: Infused Documented by: Sodium Chloride () 250 mls @ 15 mls/hr IV .[id number] PRN PRN Reason: Additional IVPB Infusion Last Infusion: 08/10/19 16:17 Dose: Infused Documented by: Dextrose (Dextrose 10%-Water) 250 mls @ 999 mls/hr IV .Q16M PRN; Protocol PRN Reason: HYPOGLYCEMIA Lactobacillus Acidophilus (Acidophilus) 1 tablet PO BID [facility] Last Admin: 08/10/19 08:51 Dose: 1 tablet Documented by: Multivitamins (Multivitamin) 1 tablet PO DAILYCM [facility] Last Admin: 08/10/19 08:50 Dose: 1 tablet Documented by: Nutritional Formula (Lactose Free) (Glucerna Shake) 120 ml PO TIDCM [facility] Last Admin: 08/10/19 16:17 Dose: Not Given Documented by: Ondansetron HCl (Zofran) 4 mg IV Q8H PRN PRN PRN Reason: NAUSEA/VOMITING Pantoprazole Sodium (Protonix) 40 mg PO DAILY [facility] Last Admin: 08/10/19 08:54 Dose: 40 mg Documented by: Pravastatin Sodium (Pravachol) 40 mg PO DAILY@2200 [facility] Last Admin: 08/09/19 22:24 Dose: 40 mg Documented by: Sodium Chloride () 10 - 40 ml IV UD PRN PRN Reason: SALINE FLUSH Last Admin: 08/09/19 22:27 Dose: 10 ml Documented by: Temazepam (Restoril) 15 - 30 mg PO QHS PRN PRN Reason: insomnia Medical Necessity - Tobacco Use Smoking Status: Former smoker Tobacco Use: Non-smoker Route of nutrition/ use of supplements: [] Nutritional Intake: [] IV Site: [] Miramontes Catheter: [] - Assessment/Plan Antibiotics: [] Assessment/Plan: [] septic shock - fever, dyspnea, lactic acidosis. Recent dx of ischemic colitis. Has h/o valve replacement. No abd pain on exam. No clear risk factors for COVID-19. PCT was 29, so suspect bacterial source. Overall much improved, off pressors. Will stop cefepime/flagyl today. Will follow
[2019-08-10] MEDS: Pravastatin 40 MG Tablet PO (21:17)
[2019-08-11 02:59] VITALS: PULSE 90
[2019-08-11 03:15] VITALS: BP 106/59; PULSE 101; RESP 16; TEMP 36.9; O2SAT 95
[2019-08-11 07:00] VITALS: PULSE 83
[2019-08-11] MEDS: Multivitamins,Therapeutic Tablet 1 TABLET PO (09:24)
[2019-08-11 09:25] VITALS: BP 107/67; PULSE 88; RESP 14; TEMP 36.7; O2SAT 97
[2019-08-11] MEDS: Allopurinol 100 MG Tablet 200 MG PO (09:25)
[2019-08-11] MEDS: Calcium (Elemental) 500 MG Tablet PO (09:25)
[2019-08-11] MEDS: Carvedilol 3.125 MG TABLET PO (09:25)
[2019-08-11] MEDS: guaiFENesin 1,200 MG Tablet 1200 MG PO (09:25)
[2019-08-11] MEDS: Pantoprazole Sodium 40 MG Tablet PO (09:26)
[2019-08-11] MEDS: Hydrocortisone Sod Succinate 100 MG/2 ML Vial 50 MG IV (09:26)
[2019-08-11] MEDS: 0.9% Saline Lock 10 ML Syringe IV (09:29)
--- NOTE | 2019-08-11 10:17 | PN_ITS ---
Subjective: The patient was seen and examined at the bedside this morning. Events from the last 24 hours have been reviewed. The patient is currently afebrile, hemodynamically stable and maintaining appropriate oxygen saturations on room air. Objective: The patient's most recent lab work, culture data and imaging studies have all been personally reviewed. Infectious work-up has been negative to date. - Physical Exam Vitals/I&O's: Vital Signs Temp Pulse Resp BP Pulse Ox 98.5 F 83 16 106/59 L 95 08/11/19 03:15 08/11/19 07:00 08/11/19 03:15 08/11/19 03:15 08/11/19 03:15 Oxygen Flow Rate (L/min) 2 Oxygen Delivery Method Room Air Weight: 192 lb 7.417 oz Body Mass Index (BMI) 32.2 Intake and Output for Last 24 Hours 08/09/19 08/10/19 08/11/19 23:59 23:59 23:59 Intake Total 1600 / 1600 1594.5 / 1834.5 240 / 240 Output Total 300 / 300 Balance 1300 / 1300 1594.5 / 1834.5 240 / 240 General: Alert, No apparent distress HEENT: Atraumatic, Normocephalic Oral: No Gingival or Mucosal Lesions/ Ulcerations Neck: Supple, No Nodes, Trachea Midline Lungs: Normal air movement, No rhonchi, No wheeze, No rales Cardiovascular: Regular rate, Regular Rhythm, Normal S1, Normal S2, Murmur Abdomen: Bowel Sounds Present, Soft, Non Tender Extremities: No clubbing, No cyanosis Skin: No breakdown Musculoskeletal: No Tenderness to Palpation of Joints or Extremities Lymphatic: No Cervical, Supraclavicular, or Inguinal Adenopathy Neurological: Neuro grossly intact Psych/Mental Status: Normal Affect, Appropriate Labs (Last 48 Hours) 08/05/19 08/10/19 08/10/19 09:20 05:26 05:26 WBC 12.0 H RBC 3.46 L Hgb 10.1 L Hct 33.5 L MCV 96.8 MCH 29.2 MCHC 30.1 L RDW Std Deviation 63.7 H RDW Coeff of Tess 18.1 H Plt Count 232 MPV 11.8 Immature Gran % (Auto) 2.400 H Neut % (Auto) 77.1 H Lymph % (Auto) 15.6 L [place] % (Auto) 4.7 Eos % (Auto) 0.1 Baso % (Auto) 0.1 Absolute Neuts (auto) 9.2 H Absolute Lymphs (auto) 1.87 Nucleated RBC % 0.2 Sodium 136 Potassium 4.4 Chloride 106 Carbon Dioxide 19.0 L Anion Gap 11 BUN 26 H Creatinine 0.94 Estim Creat Clear Calc 40.00 Est GFR (MDRD) Af Amer 75 Est GFR (MDRD) Non-Af 62 BUN/Creatinine Ratio 27.6 H Glucose 278 H Calcium 8.5 Crossmatch See Detail Microbiology 08/04/19 19:23 Blood Culture (Wb) - Anticubital Left Blood Culture - Final No growth in 5 days. 08/05/19 09:20 Blood Culture (Wb) - Other Blood Culture - Final No growth in 5 days. Clinical Impression(s) from Imaging Studies Chest X-Ray 08/04/19 20:00 IMPRESSION: Stable central vascular congestion. Electronically Signed: Kenneth Melendez MD at 20:14 EDT Tel , Service support , Chest X-Ray 08/05/19 03:56 IMPRESSION: Mild CHF similar prior. Electronically Signed: Raj Ojeda, at 4:48 EDT Tel , Service support , Chest X-Ray 08/05/19 09:45 IMPRESSION: The tip of the right internal jugular venous catheter is at the junction of the superior vena cava and right atrium. Stable blunting of the right costophrenic angle. Electronically Signed: Tristen Arce, at 10:41 EDT , Service support , Chest CT 08/05/19 13:58 IMPRESSION: Bibasilar atelectasis. Bilateral pleural effusions. Electronically Signed: Kenneth Melendez MD at 19:15 EDT Tel , Service support , Abdomen CT 08/05/19 13:59 IMPRESSION: Mild ascites. No evidence of acute intestinal pathology or acute obstructive uropathy. Bilateral pleural effusions. Electronically Signed: Kenneth Melendez MD at 17:09 EDT Tel , Service support , Current Medications Acetaminophen (Tylenol) 650 mg PO Q6H PRN PRN PRN Reason: pain 1-1010; Fever > 100.4F Last Admin: 08/05/19 02:46 Dose: 650 mg Documented by: [facility] ([facility]op[facility]) [facility] Last Admin: 08/11/19 09:25 Dose: 200 mg Documented by: Artificial Tears (Tears Naturale, Artificial Tears) 1 drop OPHTHALMIC Q4H PRN PRN PRN Reason: dry eyes Calcium Carbonate (Os-Paul 500) 500 [facility] Last Admin: 08/11/19 09:25 Dose: 500 mg Documented by: Carvedilol (Coreg) 3.125 mg PO BID [facility] Last Admin: 08/11/19 09:25 Dose: 3.125 mg Documented by: Cholecalciferol (Vitamin D (25mcg)) 5,000 unit PO DAILY [facility] Last Admin: 08/11/19 09:26 Dose: 5,000 unit Documented by: Glucagon () 1 mg IM .X1 PRN PRN Reason: Hypoglycemia Guaifenesin (Mucinex) 1,200 mg PO BID [facility] Last Admin: 08/11/19 09:25 Dose: 1,200 mg Documented by: Hydrocortisone Sodium Succinate (Solu-Cortef) 50 mg IV Q24 [facility] Last Admin: 08/11/19 09:26 Dose: 50 mg Documented by: Sodium Chloride () 250 mls @ 15 mls/hr IV .[id number] PRN PRN Reason: Saline Flush Last Infusion: 08/09/19 09:07 Dose: Infused Documented by: Sodium Chloride () 250 mls @ 15 mls/hr IV .[id number] PRN PRN Reason: Additional IVPB Infusion Last Infusion: 08/10/19 16:17 Dose: Infused Documented by: Dextrose (Dextrose 10%-Water) 250 mls @ 999 mls/hr IV .Q16M PRN; Protocol PRN Reason: HYPOGLYCEMIA Lactobacillus Acidophilus (Acidophilus) 1 tablet PO BID [facility] Last Admin: 08/11/19 09:25 Dose: 1 tablet Documented by: Multivitamins (Multivitamin) 1 tablet PO DAILYCM [facility] Last Admin: 08/11/19 09:24 Dose: 1 tablet Documented by: Nutritional Formula (Lactose Free) (Glucerna Shake) 120 ml PO TIDCM [facility] Last Admin: 08/11/19 09:24 Dose: Not Given Documented by: Ondansetron HCl (Zofran) 4 mg IV Q8H PRN PRN PRN Reason: NAUSEA/VOMITING Pantoprazole Sodium (Protonix) 40 mg PO DAILY [facility] Last Admin: 08/11/19 09:26 Dose: 40 mg Documented by: Pravastatin Sodium (Pravachol) 40 mg PO DAILY@2200 [facility] Last Admin: 08/10/19 21:17 Dose: 40 mg Documented by: Sodium Chloride () 10 - 40 ml IV UD PRN PRN Reason: SALINE FLUSH Last Admin: 08/11/19 09:29 Dose: 10 ml Documented by: Temazepam (Restoril) 15 - 30 mg PO QHS PRN PRN Reason: insomnia Medical Necessity - Tobacco Use Smoking Status: Former smoker Tobacco Use: Non-smoker Assessment/Plan RECOMMENDATIONS: 1. Okay to discontinue hydrocortisone. Orders have been placed. 2. Continue PPI therapy. 3. Encourage incentive spirometer use and mobilize patient as tolerated. 4. Will sign off from a critical care perspective. Please call with any additional questions. IMPRESSIONS: 1. Septic shock secondary to possible ischemic colitis with translocation The patient is improved clinically. The patient has been weaned successfully off of vasopressor support at this time. Stress dose steroids have been successfully weaned and will be discontinued effective today. She has completed an antibiotic treatment course per ID recommendations. 2. Acute hypoxemic respiratory failure Improved. The patient remains on room air. 3. Chronic heart failure with preserved ejection fraction/aortic stenosis/history of aortic valve replacement Continue current medical management per cardiology recommendations. 4. Gout/obesity/history of polycythemia vera/KYLE/diabetes mellitus Complicates care, management, recovery and prognosis. Continue sliding scale insulin coverage. This note was generated with Rostimaation software. It may contain incorrect words, spelling, and punctuation that were not noted in checking the note before signing. Inpatient E&M: 22596 Subs Hosp L2
--- NOTE | 2019-08-11 10:17 | PCM.PN.ID ---
Subjective: Feeling good, no fever, no abd pain - Physical Exam Vitals/I&O's: Vital Signs Temp Pulse Resp BP Pulse Ox 98.5 F 83 16 106/59 L 95 08/11/19 03:15 08/11/19 07:00 08/11/19 03:15 08/11/19 03:15 08/11/19 03:15 Oxygen Flow Rate (L/min) 2 Oxygen Delivery Method Room Air Weight: 87.3 kg Body Mass Index (BMI) 32.2 Intake and Output for Last 24 Hours 08/09/19 08/10/19 08/11/19 23:59 23:59 23:59 Intake Total 1600 / 1600 1594.5 / 1834.5 240 / 240 Output Total 300 / 300 Balance 1300 / 1300 1594.5 / 1834.5 240 / 240 General: Alert, Cooperative, No apparent distress Lungs: Clear to auscultation, Normal air movement Cardiovascular: Regular rate, Regular Rhythm Abdomen: Soft, Non Tender, Non-Distended Skin: No rashes Microbiology Past 72 Hours 08/04/19 19:23 Blood Culture (Wb) - Anticubital Left Blood Culture - Final No growth in 5 days. 08/05/19 09:20 Blood Culture (Wb) - Other Blood Culture - Final No growth in 5 days. Current Medications Acetaminophen (Tylenol) 650 mg PO Q6H PRN PRN PRN Reason: pain 1-10/10; Fever > 100.4F Last Admin: 08/05/19 02:46 Dose: 650 mg Documented by: [facility]opurinol (Zyloprim) [facility] Last Admin: 08/11/19 09:25 Dose: 200 mg Documented by: Artificial Tears (Tears Naturale, Artificial Tears) 1 drop OPHTHALMIC Q4H PRN PRN PRN Reason: dry eyes Calcium Carbonate (Os-Paul 500) 500 mg PO [facility]ILY[facility] Last Admin: 08/11/19 09:25 Dose: 500 mg Documented by: Carvedilol (Coreg) 3.125 mg PO BID [facility] Last Admin: 08/11/19 09:25 Dose: 3.125 mg Documented by: Cholecalciferol (Vitamin D (25mcg)) 5,000 unit PO DAILY [facility] Last Admin: 08/11/19 09:26 Dose: 5,000 unit Documented by: Glucagon () 1 mg IM .X1 PRN PRN Reason: Hypoglycemia Guaifenesin (Mucinex) 1,200 mg PO BID [facility] Last Admin: 08/11/19 09:25 Dose: 1,200 mg Documented by: Hydrocortisone Sodium Succinate (Solu-Cortef) 50 mg IV Q24 [facility] Last Admin: 08/11/19 09:26 Dose: 50 mg Documented by: Sodium Chloride () 250 mls @ 15 mls/hr IV .[id number] PRN PRN Reason: Saline Flush Last Infusion: 08/09/19 09:07 Dose: Infused Documented by: Sodium Chloride () 250 mls @ 15 mls/hr IV .[id number] PRN PRN Reason: Additional IVPB Infusion Last Infusion: 08/10/19 16:17 Dose: Infused Documented by: Dextrose (Dextrose 10%-Water) 250 mls @ 999 mls/hr IV .Q16M PRN; Protocol PRN Reason: HYPOGLYCEMIA Lactobacillus Acidophilus (Acidophilus) 1 tablet PO BID [facility] Last Admin: 08/11/19 09:25 Dose: 1 tablet Documented by: Multivitamins (Multivitamin) 1 tablet PO DAILYCM [facility] Last Admin: 08/11/19 09:24 Dose: 1 tablet Documented by: Nutritional Formula (Lactose Free) (Glucerna Shake) 120 ml PO TIDCM [facility] Last Admin: 08/11/19 09:24 Dose: Not Given Documented by: Ondansetron HCl (Zofran) 4 mg IV Q8H PRN PRN PRN Reason: NAUSEA/VOMITING Pantoprazole Sodium (Protonix) 40 mg PO DAILY [facility] Last Admin: 08/11/19 09:26 Dose: 40 mg Documented by: Pravastatin Sodium (Pravachol) 40 mg PO DAILY@2200 [facility] Last Admin: 08/10/19 21:17 Dose: 40 mg Documented by: Sodium Chloride () 10 - 40 ml IV UD PRN PRN Reason: SALINE FLUSH Last Admin: 08/11/19 09:29 Dose: 10 ml Documented by: Temazepam (Restoril) 15 - 30 mg PO QHS PRN PRN Reason: insomnia Medical Necessity - Tobacco Use Smoking Status: Former smoker Tobacco Use: Non-smoker Route of nutrition/ use of supplements: [] Nutritional Intake: [] IV Site: [] [place]amontes Catheter: [] - Assessment/Plan Antibiotics: [] Assessment/Plan: [] septic shock - fever, dyspnea, lactic acidosis. Recent dx of ischemic colitis. Has h/o valve replacement. No abd pain on exam. No clear risk factors for COVID-19. PCT was 29, so suspect bacterial source. Overall much improved, off pressors. Stable off abx. Will follow as needed, ok for d/c home, d/w primary team
--- NOTE | 2019-08-11 11:00 | DCINST_ITS ---
You will use the following diet at home:: No restrictions Your food should be the consistency of: Regular Your liquids should be the consistency of: Regular/Thin Discharge Activity: Return to Normal Activity Weight Bearing Status: Full weight bearing Allergies/Adverse Reactions: Allergies Penicillins Allergy (Severe, Verified 08/04/19 19:16) Rash clarithromycin [From Biaxin] Allergy (Intermediate, Verified 08/04/19 19:16) Rash erythromycin base [Erythromycin Base] Allergy (Intermediate, Verified 08/04/19 19:16) Rash cat dander Adverse Reaction (Intermediate, Verified 08/04/19 19:16) SNEEZING Alternaria Mold Spores Allergy (Intermediate, Uncoded 08/04/19 19:16) SNEEZING dust Allergy (Intermediate, Uncoded 08/04/19 19:16) SNEEZING Medications to take at Discharge Multivitamins,Therapeutic [Multivitamin] 1 tab PO DAILY 04/20/14 temazepam 15 mg capsule 15 mg PO QHS 05/20/17 vit C,E,zinc,copper-[id number] 250 mg-lutein 5 mg-zeaxanthin 1 mg capsule 1 cap PO DAILY 05/20/17 cholecalciferol (vitamin D3) 125 mcg (5,000 unit) capsule 5,000 unit PO DAILY 10/01/17 pravastatin 40 mg tablet 40 mg PO DAILY 05/24/18 carboxymethylcellulose sodium 1 % eye liquid gel drops 1 drp OPHTHALMIC 4-6XD 12/30/18 Ibandronate Sodium [Boniva] 150 mg PO QMONTH 01/26/19 Allopurinol [Zyloprim] 200 mg PO DAILY 07/08/19 Bifidobacterium Infantis [Align] 4 mg PO DAILY 07/08/19 Biotin 1,000 mcg PO DAILY 07/08/19 Calcium (Elemental) [Os-Paul 500] 500 mg PO DAILY 07/08/19 Calcium Carbonate [Tums Smoothies] 750 mg PO DAILY PRN PRN 07/08/19 Aspirin 325 mg PO DAILY@0800 #0 07/09/19 Carvedilol 3.125 mg PO BID 08/04/19 Primary Care Physician: Imer Cummings MD [Primary Care Provider] - Please follow up with your Primary Care Physician in: as directed Test Results: Test results from this visit will be discussed in further detail at your follow- up appointment, if applicable. Please Follow Up With: Jayro Poe MD When: as directed
--- NOTE | 2019-08-11 11:14 | PHA.DC.MR ---
Addendum entered and electronically signed by Adelaida Tinoco 08/11/19 11:21: Spoke to Dr. Garcia to verify if he wanted Protonix or not. He does not feel she needs it. Original Note: Pharmacy Service has performed discharge medication reconciliation for this patient. The patient's discharge medication list was reviewed for discrepancies and discrepancies were resolved. Home Medications Multivitamins,Therapeutic [Multivitamin] 1 tab PO DAILY 04/20/14 temazepam 15 mg capsule 15 mg PO QHS 05/20/17 vit C,E,zinc,copper-[id number] 250 mg-lutein 5 mg-zeaxanthin 1 mg capsule 1 cap PO DAILY 05/20/17 cholecalciferol (vitamin D3) 125 mcg (5,000 unit) capsule 5,000 unit PO DAILY 10/01/17 pravastatin 40 mg tablet 40 mg PO DAILY 05/24/18 carboxymethylcellulose sodium 1 % eye liquid gel drops 1 drp OPHTHALMIC 4-6XD 12/30/18 Ibandronate Sodium [Boniva] 150 mg PO QMONTH 01/26/19 Allopurinol [Zyloprim] 200 mg PO DAILY 07/08/19 Bifidobacterium Infantis [Align] 4 mg PO DAILY 07/08/19 Biotin 1,000 mcg PO DAILY 07/08/19 Calcium (Elemental) [Os-Paul 500] 500 mg PO DAILY 07/08/19 Calcium Carbonate [Tums Smoothies] 750 mg PO DAILY PRN PRN 07/08/19 Aspirin 325 mg PO DAILY@0800 #0 07/09/19 Carvedilol 3.125 mg PO BID 08/04/19
--- NOTE | 2019-08-11 12:20 | CASEMGMT ---
RN CM Note: Discussed HHC choices with patient. Pt prefers [facility] for RN PT OT. Message and email left with Mallory from [facility]. Order placed. Joy DUNHAM RN ACM
--- NOTE | 2019-08-11 17:27 | PCM.DC.SUM ---
Discharge Date and Diagnosis Date of Admission: 08/04/19 Date of Discharge: 08/11/19 - Primary Discharge Diagnosis #1 septic shock secondary to ischemic colitis with translocation of bowel organisms #2 acute hypoxic respiratory failure #3 chronic diastolic congestive heart failure #4 type 2 diabetes #5 ischemic colitis #6 type 2 diabetes #7 obstructive sleep apnea #8 hypokalemia #9 hypophosphatemia #10 Hemoccult positive stool secondary to ischemic colitis #11 elevated troponin-not indicative of a non-STEMI, etiology unclear - Secondary Discharge Diagnosis Chronic Problems (Last Updated 08/05/19 @ 09:[address] 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 Aortic valve replaced 10/21/[address] Chacko Lacunar infarction (Chronic) KYLE (obstructive sleep apnea) (Chronic) Sleep disorder (Chronic) De Quervain's disease (tenosynovitis) (Chronic) Supraventricular tachycardia (Chronic) Diabetes mellitus type 2, controlled (Chronic) Osteoarthritis (Chronic) Hospital Course and Treatment Operations: None Procedures: Central line placement Summary of Care Provided: The patient is a 68 year old F was seen in the emergency room at [facility] with a chief complaint of shortness of breath with a nonproductive cough. Patient had undergone a colonoscopy in June 2019 with evidence of ischemic colitis noted on the colonoscopy. Evaluation in the emergency room showed the patient's white blood cell count to be low at 2.2, hemoglobin was 9.9, potassium was 3.1, patient's beta natruretic peptide was mildly elevated at 542 but there was no of any changes on her chest x-ray from previous chest x-ray. . Patient is influenza test was negative, respiratory panel was obtained. Patient's troponin was mildly elevated. Patient required high flow oxygen initially in the emergency room initially, she was weaned to nasal cannula oxygen and she was noted to be hypotensive. The cause of the patient's dyspnea was not fully appreciated on admission to PCU-initially it was thought that the patient could be acute diastolic congestive heart failure but this did not seem to be present and was ruled out, a few hours after she was admitted, patient became more hypotensive and she was felt to be septic, her lactic acid was elevated, she was started on IV antibiotics and transferred to the ICU. The patient required pressor agents to elevate her blood pressure, central line had to be placed for administration of pressor agents. Patient was seen in consultation by cardiology, critical care, and infectious diseases. Respiratory panel was obtained which was negative for pathogens, patient was able to be weaned off of pressor agents and ultimately was transferred to PCU. Infectious diseases felt that the patient probably had septic shock from translocation of gut organisms due to ischemic colitis. Patient was seen by PT and OT, her blood pressure returned to normal and she was kept off her normal diuretics. On 08/11/2019, patient was seen and examined: On examination she appeared in good health and spirits, she does not appear to be in any distress. Vital signs as documented. Skin warm and dry and without overt rashes. Neck without JVD, thyroid appears normal, trachea is midline, neck is supple. Lungs clear, normal air movement was noted. Heart exam notable for regular rhythm, normal sounds and absence of murmurs, rubs or gallops. Abdomen unremarkable and without evidence of organomegaly, masses, or abdominal aortic enlargement, bowel sounds are present in all 4 quadrants, no abdominal tenderness was noted. Extremities nonedematous, no cyanosis was noted, no clubbing was noted. Neuro: Cranial nerves II through XII are grossly intact, no focal motor deficits were noted, sensation to light touch and pinprick is intact, motor exam 5/5 throughout. Psych: Patient is alert and oriented x3, she does not appear anxious or depressed, she does not appear agitated. Patient appears stable for discharge home on 08/11/2019, home health care assessment was set up for the patient at her home. Patient required no oxygen at the time of discharge home. - Physical Exam Vitals/I&O's: Vital Signs Temp Pulse Resp BP Pulse Ox 98.0 F 88 14 107/67 97 08/11/19 09:25 08/11/19 09:25 08/11/19 09:25 08/11/19 09:25 08/11/19 09:25 Oxygen Flow Rate (L/min) 2 Oxygen Delivery Method Room Air Weight: 87.3 kg Body Mass Index (BMI) 32.2 Intake and Output for Last 24 Hours 08/09/19 08/10/19 08/11/19 23:59 23:59 23:59 Intake Total 1600 / 1600 1594.5 / 1834.5 740 / 740 Output Total 300 / 300 Balance 1300 / 1300 1594.5 / 1834.5 740 / 740 Microbiology Past 72 Hours 08/04/19 19:23 Blood Culture (Wb) - Anticubital Left Blood Culture - Final No growth in 5 days. 08/05/19 09:20 Blood Culture (Wb) - Other Blood Culture - Final No growth in 5 days. Discharge Activity: Return to Normal Activity Weight Bearing Status: Full weight bearing Home Medications: Medications to take at Discharge Multivitamins,Therapeutic [Multivitamin] 1 tab PO DAILY 04/20/14 temazepam 15 mg capsule 15 mg PO QHS 05/20/17 vit C,E,zinc,copper-btauo9n 250 mg-lutein 5 mg-zeaxanthin 1 mg capsule 1 cap PO DAILY 05/20/17 cholecalciferol (vitamin D3) 125 mcg (5,000 unit) capsule 5,000 unit PO DAILY 10/01/17 pravastatin 40 mg tablet 40 mg PO DAILY 05/24/18 carboxymethylcellulose sodium 1 % eye liquid gel drops 1 drp OPHTHALMIC 4-6XD 12/30/18 Ibandronate Sodium [Boniva] 150 mg PO QMONTH 01/26/19 Allopurinol [Zyloprim] 200 mg PO DAILY 07/08/19 Bifidobacterium Infantis [Align] 4 mg PO DAILY 07/08/19 Biotin 1,000 mcg PO DAILY 07/08/19 Calcium (Elemental) [Os-Paul 500] 500 mg PO DAILY 07/08/19 Calcium Carbonate [Tums Smoothies] 750 mg PO DAILY PRN PRN 07/08/19 Aspirin 325 mg PO DAILY@0800 #0 07/09/19 Carvedilol 3.125 mg PO BID 03/19/20 Primary Care Physician: Imer Cummings MD [Primary Care Provider] - Please follow up with your Primary Care Physician in: as directed Please Follow Up With: Jayro Poe MD When: as directed Disposition: Home with Home Health Minutes spent on discharge:: 32 Patient Condition:: Stable Medical Necessity - Tobacco Use Smoking Status: Former smoker Tobacco Use: Non-smoker Meaningful Use Info Meaningful Use Diagnoses (Choose all that apply): None applicable Inpatient E&M: 62714 [facility]
== END 2019-08-11 13:15 | disposition home or self-care (01) | DRG 871 ==
LOC: ED 20:25 → PCU 21:51 → ICU 08-05 05:52 → PCU 08-10 08:57
PROVIDERS: Hospitalist; Internal Medicine Critical Care Medicine; Admitting Provider Hospitalist; Emergency Provider Emergency Medicine; PCP Family Medicine; Visit Provider Internal Medicine
DX: A41.9 Sepsis, unspecified organism (principal); J96.21 Acute and chronic respiratory failure with hypoxia; R65.21 Severe sepsis with septic shock; K55.9 Vascular disorder of intestine, unspecified; I50.32 Chronic diastolic (congestive) heart failure; E87.6 Hypokalemia; Z99.81 Dependence on supplemental oxygen; D45 Polycythemia vera; E78.5 Hyperlipidemia, unspecified; M10.9 Gout, unspecified; Z95.3 Presence of xenogenic heart valve; E83.39 Other disorders of phosphorus metabolism; I35.0 Nonrheumatic aortic (valve) stenosis; E66.9 Obesity, unspecified; D50.0 Iron deficiency anemia secondary to blood loss (chronic); G47.33 Obstructive sleep apnea (adult) (pediatric); R79.89 Other specified abnormal findings of blood chemistry; Z79.82 Long term (current) use of aspirin; E83.42 Hypomagnesemia; Z68.32 Body mass index [BMI] 32.0-32.9, adult; Z87.891 Personal history of nicotine dependence; E11.9 Type 2 diabetes mellitus without complications
CPT/HCPCS: 36415; 71045; 71046; 71250; 74176; 80048; 80053; 80202; 81001; 82274; 83605; 83735; 83880; 84100; 84145; 84484; 85014; 85018; 85025; 85610; 85652; 85730; 86141; 86850; 86900; 86901; 86920; 86922; 87040; 87086; 87633; 87804; 93005; 94002; 97110; 97116; 97162; 97165; 97530; 97535; 99285; J7030; J7040; J7050; P9016; A4216

== ENCOUNTER 2019-08-13 14:09 | Emergency (ER) | payer MEDICARE, OTHER, SELFPAY ==
[2015-11-29 11:48] VITALS: BMI 37.0
[2019-08-04 22:55] VITALS: BMI 32.2
[2019-08-13 14:10] VITALS: BP 98/53; PULSE 102; RESP 16; TEMP 36.7; O2SAT 97; BMI 39.2
--- NOTE | 2019-08-13 14:43 | RAD_ITS ---
STUDY: X-RAY CHEST REASON FOR EXAM: Female, 68 years old. WEAKNESS, CHF. HX CABG TECHNIQUE: Single frontal view of the chest. COMPARISON: August 05, 2019 FINDINGS: There is no new focal consolidation. There are stable prominent interstitial markings. There are small bilateral pleural effusions. Sternal cerclage wires are present from a prior sternotomy. There is cardiomegaly. Normal mediastinum and enma. Normal visualized pulmonary arteries. There is atherosclerotic calcification of the aortic arch . Normal visualized thoracic spine. There is a stable left humeral head deformity. There is no demonstrated abnormality of the visualized soft tissue structures of the upper abdomen. RAD/Chest 1 View (Portable) IMPRESSION: Stable examination with findings suggestive of mild CHF. Electronically Signed: Wendy De Los Santos MD at 15:44 EDT Tel , Service support ,
--- NOTE | 2019-08-13 14:50 | ED.DCSUM_ITS ---
History of Present Illness Chief Complaint: Edema Informant: Patient Onset: Days - 2 Context: Gradual Onset - chronic, worse Timing: Continuous Quality: swollen, heavy Location: BLE to thighs Current Severity: Severe Maximum Severity: Severe Worsened by: since discontinued Lasix Relieved by: nothing Associated Symptoms: difficulting standing up due to edema in legs Narrative: Patient was admitted for about a week this past week and discharged 2 days ago to home with home health, who saw her today and sent her to the ER. Details of this are unknown, but the patient states that her legs are much more swollen than they had been. They were swollen when she was admitted to the hospital, and she was here for dyspnea. She has a history of congestive heart failure. Since being discharged home, she denies having any chest discomfort or shortness of breath even when she tried to walk although she is having difficulty walking more because of her legs. She does not have a cough or a fever, no recent travel out of the area, no trouble urinating or abdominal pain. - Past Medical History (1) Aortic stenosis Status: Chronic (2) DDD (degenerative disc disease) Status: Chronic (3) Diabetes mellitus type 2, controlled Status: Chronic (4) Diastolic CHF Status: Chronic (5) Gout Status: Chronic (6) H/O aortic valve replacement with porcine valve Status: Chronic (7) History of bicuspid aortic valve Status: Chronic Comment: Pt had resultant severe aortic stenosis. Aortic valve replaced 10/21/[address] Chacko (8) Hyperlipidemia Status: Chronic (9) Iron deficiency anemia secondary to blood loss (chronic) Status: Chronic (10) Lacunar infarction Status: Chronic (11) KYLE (obstructive sleep apnea) Status: Chronic (12) Osteoarthritis Status: Chronic (13) Polycythemia vera Status: Chronic Past Medical History - Allergies and Home Meds Allergies/Adverse Reactions: Allergies Penicillins Allergy (Severe, Verified 08/13/19 14:10) Rash clarithromycin [From Biaxin] Allergy (Intermediate, Verified 08/13/19 14:10) Rash erythromycin base [Erythromycin Base] Allergy (Intermediate, Verified 08/13/19 14:10) Rash cat dander Adverse Reaction (Intermediate, Verified 08/13/19 14:10) SNEEZING Alternaria Mold Spores Allergy (Intermediate, Uncoded 08/13/19 14:10) SNEEZING dust Allergy (Intermediate, Uncoded 08/13/19 14:10) SNEEZING Primary Care Physician: Imer Cummings MD [Primary Care Provider] - Surgical History: cholecystectomy, - - valve replacement - aortic (porcine) Lives: Alone Smoking Status: Former smoker - Family History Maternal Family History: Family History (Last Reviewed 08/05/19 @ 01:[address] Edilson Parr MD) Father Heart failure Kidney disease Mother Alcoholism Grandfather Heart disease Family History: Reports: Unknown Review of Systems General: Reports: Malaise. Denies: Chills, Fever, Sweats Eyes: Denies: Visual changes - bilaterally, Diplopia ENT: Denies: Rhinorrhea, Sore throat Cardiovascular: Denies: Chest pain, Palpitations Respiratory: Denies: Dyspnea, Cough, Orthopnea Gastrointestinal: Denies: Abdominal pain, Nausea, Vomiting, Diarrhea, Melena, Hematochezia Genitourinary: Denies: Dysuria, Hematuria, Frequency Musculoskeletal: Reports: Swelling. Denies: Back pain Skin: Denies: Rash, Wounds Neurological: Denies: Headache, Weakness, Numbness Physical Exam Vital Signs/Narrative: Vital Signs Temp Pulse Resp BP Pulse Ox 08/13/19 14:10 98.0 F 102 H 16 98/53 L 97 Inital Vital Signs reviewed: Yes General: Well nourished, Well developed, Obese, No Acute Distress Head: Normocephalic, Atraumatic Eyes: Perrl, EOMI ENT: Moist mucous membranes, No rhinorrhea Neck: Supple, Nontender, No lymphadenopathy, No JVD Cardiovascular: Regular rate, Regular rhythm, Murmur - systolic Respiratory: No distress, CTA bilaterally, Chest nontender Abdomen: Soft, Nontender, Nondistended, Normal bowel sounds Back: Nontender, Normal Inspection Extremities: Nontender, Edema - 3+ BLE symmetric, without signs of cellulitis Skin: Normal color, No rash, No Trauma Neurological: Alert, Oriented x3, Cranial nerves II-XII grossly intact, Normal Strength, Normal Sensation Psychological: Normal affect, Normal Mood Diagnostic/Tx/Re-eval Impressions Chest X-Ray 08/13/19 14:43 IMPRESSION: Stable examination with findings suggestive of mild CHF. Electronically Signed: Wendy De Los Santos MD at 15:44 EDT Tel , Service support , 08/13/19 14:43 Chest 1 View (Portable) [RAD] Stat Laboratory Results 08/13/19 08/13/19 08/13/19 14:50 14:50 14:50 WBC 10.2 RBC 3.55 L Hgb 9.9 L Hct 34.0 L MCV 95.8 MCH 27.9 MCHC 29.1 L RDW Std Deviation 61.1 H RDW Coeff of Tess 17.5 H Plt Count 177 MPV 11.2 Immature Gran % (Auto) 1.500 H Neut % (Auto) 80.7 H Lymph % (Auto) 11.5 L [place] % (Auto) 5.0 Eos % (Auto) 1.2 Baso % (Auto) 0.1 Absolute Neuts (auto) 8.3 H Absolute Lymphs (auto) 1.18 Nucleated RBC % 0 Sodium 136 Potassium 4.2 Chloride 107 Carbon Dioxide 21.0 Anion Gap 8 BUN 15 Creatinine 0.62 Estim Creat Clear Calc 37.60 Est GFR (MDRD) Af Amer 121 Est GFR (MDRD) Non-Af 100 BUN/Creatinine Ratio 24.1 H Glucose 224 H Lactic Acid 1.5 Calcium 8.3 L Troponin I 0.095 H Urine Color Urine Clarity Urine pH Ur Specific [place] Urine Protein Urine Glucose (UA) Urine Ketones Urine Occult Blood Urine Nitrite Urine Bilirubin Urine Urobilinogen Ur Leukocyte Esterase Urine RBC Urine WBC Ur Squamous Epith Cells Amorphous Sediment Urine Bacteria Urine Mucus 08/13/19 15:15 WBC RBC Hgb Hct MCV MCH MCHC RDW Std Deviation RDW Coeff of Tess Plt Count MPV Immature Gran % (Auto) Neut % (Auto) Lymph % (Auto) [place] % (Auto) Eos % (Auto) Baso % (Auto) Absolute Neuts (auto) Absolute Lymphs (auto) Nucleated RBC % Sodium Potassium Chloride Carbon Dioxide Anion Gap BUN Creatinine Estim Creat Clear Calc Est GFR (MDRD) Af Amer Est GFR (MDRD) Non-Af BUN/Creatinine Ratio Glucose Lactic Acid Calcium Troponin I Urine Color Yellow Urine Clarity Clear Urine pH 5.0 Ur Specific [place] 1.015 Urine Protein 100 H Urine Glucose (UA) Normal Urine Ketones 5 H Urine Occult Blood 25 H Urine Nitrite Negative Urine Bilirubin Negative Urine Urobilinogen Normal Ur Leukocyte Esterase 25 H Urine RBC 0 SEEN Urine WBC 0 SEEN Ur Squamous Epith Cells 0 SEEN Amorphous Sediment 1+ Urine Bacteria 0 SEEN Urine Mucus 0 SEEN - Medical Decision Making Patient's work-up was unremarkable except for mild proteinuria. Chest x-ray findings as above the patient really is not symptomatic. I think it would be reasonable given her normal renal function especially, the put her back on Lasix, low-dose given her blood pressures which were on the low side when she got here. Without doing anything, her repeat blood pressure systolic 118. She was given Lasix 10 mg IV, she states she has 20 mg tablets at home. I offered admission, if she is interested in placement, even if temporary. She declines and does not want that. She states she is okay getting around, when she is up but she sometimes needs help getting up because of the leg edema. She is comfortable going home, and states that if she needs a lot of help, her is there but not really good at helping her, but she has a neighbor that could help and stay with her if needed. I think it would be reasonable for her to do this and take Lasix 20 mg at least once daily for now while her blood pressure is on the low side, and follow-up with her doctor after the weekend. We discussed reasons to return and she is comfortable with that plan at this time. We monitored her for a little while after the Lasix was given, her blood pressure remained stable. ED Disposition - Plan for ED Patient: Disposition: Home or Assisted Living Diagnosis: Bilateral lower extremity edema Instructions: ED Peripheral Edema, Bilateral Referrals: Imer Cummings MD [Primary Care Provider] - 3-5 Days Additional Instructions: Take your Lasix 20 mg tablet, once daily in the morning or early afternoon until you see your doctor. When you are resting, elevate your legs above the level of your heart to try to help decrease the edema in them.
[2019-08-13 15:01] LABS: Absolute Lymphocyte Count 1.18 X10^3/uL (0.83-4.51); Absolute Neutrophil Count 8.3 X10^3/uL (2.0-7.7); Basophil# 0.01 X10^3/uL; Basophil% 0.1 % (0-1); Eosinophil# 0.12 X10^3/uL; Eosinophils% 1.2 % (0-5); Hemoglobin 9.9 g/dL (12.0-15.0); Lymphocyte # 1.18 X10^3/ul (4.0); Lymphocyte % 11.5 % (19-41); Mean Corp Hgb Conc 29.1 g/dL (32-36); Mean Corpuscular Hgb 27.9 pg (27.0-32.0); Mean Corpuscular Volume 95.8 fL (81-99); Mean Platelet Vol. 11.2 fl (6.2-12.0); Monocyte# 0.51 X10^3/uL; NRBC Flagged by Analyzer 0 % (0-5); Neutrophil # 8.27 X10^3/uL (2.7-7.7); Neutrophil % 80.7 % (47-70); Platelet Count 177 K/mm3 (150-450); RBC Distribution Width CV 17.5 % (11.6-14.6); RBC Distribution Width SD 61.1 fl (35.1-43.9); Red Blood Count 3.55 M/mm3 (4.2-5.4); White Blood Count 10.2 K/mm3 (4.4-11.0)
[2019-08-13 15:17] LABS: Anion Gap 8 (5-15); BUN 15 mg/dL (7-18); BUN/Creat Ratio 24.1 RATIO (10-20); Calcium,Total 8.3 mg/dL (8.5-10.1); Chloride 107 mmol/L (98-107); Creatinine, Serum 0.62 mg/dL (0.55-1.02); EST Glomerular Filtration Rate 100 mL/min (>60); Est Glom Filt Rate - Afr Amer 121 mL/min (>60); Glucose 224 mg/dL (74-106); Potassium 4.2 mmol/L (3.5-5.1); Sodium Level 136 mmol/L (136-145)
[2019-08-13 15:19] LABS: Bacteria 0 SEEN /hpf (None Seen); Mucous, Urine 0 SEEN /hpf (<or=2+); Red Blood Cells-Urine 0 SEEN /hpf (0-5); Squamous Epithelial Cells - UA 0 SEEN /hpf (5-10); White Blood Cells 0 SEEN /hpf (0-5)
[2019-08-13 15:22] LABS: Lactic Acid 1.5 mmol/L (0.4-1.9)
[2019-08-13 15:25] LABS: Color, Urine Yellow (Yellow); Glucose, Dipstick Normal (Normal); Ketone-Dipstick 5 mg/dl (Negative); Leukocyte Esterase-Dipstick 25 /ul (Negative); Nitrite-Dipstick Negative (Negative); Occult Blood-Urine 25 /ul (Negative); Protein-Dipstick 100 mg/dl (Negative); Specific Gravity, Urine 1.015 (1.002-1.030); Urine Bilirubin Dipstick Negative (Negative); Urine Clarity Clear (Clear); Urine Urobilinogen Normal (Normal)
[2019-08-13 15:38] LABS: Amorphous Sediment 1+
[2019-08-13 16:38] VITALS: BP 113/72; PULSE 82; RESP 16; O2SAT 100
[2019-08-13] MEDS: Furosemide 20 MG/2 ML VIAL 10 MG IV (16:43)
[2019-08-13 17:18] VITALS: BP 115/82; PULSE 89; RESP 12; O2SAT 100
== END 2019-08-13 17:37 | disposition home or self-care (01) ==
PROVIDERS: Emergency Provider Emergency Medicine; PCP Family Medicine
DX: R60.0 Localized edema (principal); E66.9 Obesity, unspecified; M10.9 Gout, unspecified; I50.32 Chronic diastolic (congestive) heart failure; E78.5 Hyperlipidemia, unspecified; Z79.82 Long term (current) use of aspirin; Z87.891 Personal history of nicotine dependence
CPT/HCPCS: 71045; 80048; 81001; 83605; 84484; 85025; 96374; 99285; A4216; J1940

== ENCOUNTER 2019-08-15 13:38 | Inpatient (IN) | payer MEDICARE, OTHER, SELFPAY ==
[2015-11-29 11:48] VITALS: BMI 37.0
[2019-08-15 13:42] VITALS: BP 88/45; PULSE 107; RESP 14; TEMP 36.8; O2SAT 99; BMI 37.3
[2019-08-15] MEDS: Carvedilol 3.125 MG TABLET PO (17:22)
[2019-08-15 18:25] VITALS: PULSE 68; RESP 18; O2SAT 94
--- NOTE | 2019-08-15 20:49 | HP.PCM_ITS ---
Problem List (1) Debility Status: Acute (2) Ischemic colitis Status: Acute (3) Elevated troponin Status: Acute (4) Sepsis Status: Acute (5) Edema Status: Acute (6) Iron deficiency anemia Status: Chronic (7) Chronic diastolic (congestive) heart failure Status: Chronic (8) Shortness of breath Status: Chronic (9) Diabetes mellitus Status: Chronic (10) Pulmonary hypertension Status: Chronic (11) Insomnia Status: Chronic (12) Hypokalemia Status: Chronic (13) Polycythemia vera Status: Chronic (14) Hyperlipidemia Status: Chronic (15) Gout Status: Chronic (16) Aortic stenosis Status: Chronic (17) KYLE (obstructive sleep apnea) Status: Chronic (18) Osteoarthritis Status: Chronic History of Present Illness Date of Admission: 08/15/19 Chief Complaint: Here for rehabilitation, strengthening, prior to discharge home with . The patient is a 68 year old Female with below past medical history with following: June 2019, colonoscopy showed ischemic colitis. 08/04/2019 Admitted to [facility]. 08/04/2019 EKG sinus rhythm with premature supraventricular contractions, left axis deviation, nonspecific intra-ventricular conduction block, cannot rule out septal infarct, T wave abnormality, consider lateral ischemia. 08/11/2019 Discharge home after elevated troponin, sepsis requiring pressors for septic shock secondary to translocation of gut organisms from ischemic colitis. 08/13/2019 Presented to [facility] Emergency Department with edema, weakness. Discharged home. Patient unable to manage at home due to debility. 08/15/2019 Admit to TCU with debility, here for rehabilitation, strengthening, prior to discharge home with . Past Medical History Past Medical History (Chronic Problems): Chronic Problems (Last Updated 08/05/19 @ 09:[address] Isai Siddiqui MD) Iron deficiency anemia (Chronic) Chronic diastolic (congestive) heart failure (Chronic) Shortness of breath (Chronic) Diabetes mellitus (Chronic) Pulmonary hypertension (Chronic) Insomnia (Chronic) Hypokalemia (Chronic) Polycythemia vera (Chronic) Hyperlipidemia (Chronic) Segmental and somatic dysfunction of lumbar region (Chronic) Segmental and somatic dysfunction of cervical region (Chronic) Segmental and somatic dysfunction of thoracic region (Chronic) BMI 32.0-32.9,adult (Chronic) Closed left arm fracture (Chronic 09/05/18) Sees Chicorelli DDD (degenerative disc disease) (Chronic) 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 Aortic valve replaced 10/21/[address] Chacko Lacunar infarction (Chronic) KYLE (obstructive sleep apnea) (Chronic) Sleep disorder (Chronic) De Quervain's disease (tenosynovitis) (Chronic) Supraventricular tachycardia (Chronic) Diabetes mellitus type 2, controlled (Chronic) Osteoarthritis (Chronic) Medical History: Medical History (Last Updated 08/05/19 @ 09:[address] Isai Siddiqui MD) Lower gastrointestinal bleeding (Chronic) K92.2 Diastolic CHF (Chronic) I50.30 Aortic stenosis (Chronic) I35.0 History of bicuspid aortic valve (Chronic) Z87.74 Pt had resultant severe aortic stenosis. Aortic valve replaced 10/21/[address] Chacko KYLE (obstructive sleep apnea) (Chronic) G47.33 Sleep disorder (Chronic) G47.9 De Quervain's disease (tenosynovitis) (Chronic) M65.4 Supraventricular tachycardia (Chronic) I47.1 Diabetes mellitus type 2, controlled (Chronic) E11.9 Osteoarthritis (Chronic) M19.90 Gout (Inactive) M10.9 Presence of prosthetic heart valve (Inactive) Z95.2 Allergies Penicillins Allergy (Severe, Verified 08/13/19 14:10) Rash clarithromycin [From Biaxin] Allergy (Intermediate, Verified 08/13/19 14:10) Rash erythromycin base [Erythromycin Base] Allergy (Intermediate, Verified 08/13/19 14:10) Rash cat dander Adverse Reaction (Intermediate, Verified 08/13/19 14:10) SNEEZING Alternaria Mold Spores Allergy (Intermediate, Uncoded 08/13/19 14:10) SNEEZING dust Allergy (Intermediate, Uncoded 08/13/19 14:10) SNEEZING Home Medications: Ambulatory Orders Medication Instructions Recorded Multivitamins,Therapeutic 1 tab PO DAILY 04/20/14 [Multivitamin] temazepam 15 mg capsule 15 mg PO QHS 05/20/17 vit C,E,zinc,copper-[id number] 250 1 cap PO DAILY 05/20/17 mg-lutein 5 mg-zeaxanthin 1 mg capsule cholecalciferol (vitamin D3) 125 5,000 unit PO DAILY 10/01/17 mcg (5,000 unit) capsule pravastatin 40 mg tablet 40 mg PO DAILY 05/24/18 carboxymethylcellulose sodium 1 % 1 drp OPHTHALMIC 4-6XD 12/30/18 eye liquid gel drops Ibandronate Sodium [Boniva] 150 mg PO QMONTH 01/26/19 Allopurinol [Zyloprim] 200 mg PO DAILY 07/08/19 Bifidobacterium Infantis [Align] 4 mg PO DAILY 07/08/19 Biotin 1,000 mcg PO DAILY 07/08/19 Calcium (Elemental) [Os-Paul 500] 500 mg PO DAILY 07/08/19 Calcium Carbonate [Tums Smoothies] 750 mg PO DAILY PRN PRN 07/08/19 Aspirin 325 mg PO DAILY@0800 #0 07/09/19 Carvedilol 3.125 mg PO BID 08/04/19 Furosemide [Lasix] 20 mg PO DAILY 08/15/19 Surgical History: Surgical History (Last Updated 08/05/19 @ 09:[address] Isai Siddiqui MD) H/O aortic valve replacement with porcine valve (Chronic) Z95.3 History of colonoscopy Onset Date: ~07/2019 Z98.890 H/O arthroscopy of left knee (Inactive) Z98.890 History of cholecystectomy (Inactive) Z90.49 History of meniscectomy of left knee (Inactive) Z98.890 History of tubal ligation (Inactive) Z98.51 Surgical History: cholecystectomy, - - valve replacement - aortic (porcine), Left knee arthroscopic surgery, tubal ligation. Psychiatric History: No pertinent psych hx SPOT WELDER History: No pertinent SPOT WELDER history Lives: Spouse/ Significant Other Smoking Status: Former smoker Tobacco Use: Non-smoker Alcohol: None Drugs: None - *Family History Maternal Family History: Family History (Last Reviewed 08/05/19 @ 01:[address] Edilson Parr MD) Father Heart failure Kidney disease Mother Alcoholism Grandfather Heart disease History Items: Unknown Review of Systems Constitutional: Denies: Chills, Fever, Weight Change HEENT: Denies: Head Aches, Sinus Congestion, Sinus Drainage Cardiovascular: Denies: Chest Pain, Palpitations Respiratory: Denies: Cough, Shortness of breath at rest, Sputum production Gastrointestinal: Denies: Abdominal Pain, Nausea, Vomiting Genitourinary: Denies: Dysuria Musculoskeletal: Denies: Joint Pain, Joint Tenderness Skin: Denies: Rash, Wounds Neurological: Denies: Numbness, Tingling, Focal weakness Psychiatric: Denies: Anxiety, Depression, Homicidal Ideations, Suicidal Ideations Hematologic/ Lymphatic: Denies: Easy Bruising, Easy Bleeding VTE Information - Inpt Only VTE Present on Admission: No VTE Mechan Device Prophylaxis: Knee High MARIUSZ Hose VTE Pharm Prophylaxis ordered?: No Reason prophylaxis not ordered:: Treatment Not Indicated Patient Problems: Active and Suspected Problems (Last Updated 08/05/19 @ 09:[address] Isai Siddiqui MD) Debility (Acute) Ischemic colitis (Acute) Elevated troponin (Acute) Sepsis (Acute) Edema (Acute) - Physical Exam Vitals/I&O's: Vital Signs Temp Pulse Resp BP Pulse Ox 98.2 F 68 18 88/45 L 94 08/15/19 13:42 08/15/19 18:25 08/15/19 18:25 08/15/19 13:42 08/15/19 18:25 Oxygen Delivery Method Room Air Weight: 86.664 kg Body Mass Index (BMI) 37.3 General: Alert, Oriented x3, Cooperative HEENT: Atraumatic, PERRLA, EOMI, Normocephalic Neck: Supple, No JVD, Negative Carotid Bruits Lungs: Clear to auscultation, Normal air movement Cardiovascular: Regular rate, No murmurs Abdomen: Bowel Sounds Present, Soft, Non Tender Extremities: No edema, Capillary Refill Less than 3 Seconds Skin: No rashes, No breakdown Musculoskeletal: No Tenderness to Palpation of Joints or Extremities Neurological: Cranial nerves II-XII grossly intact Psych/Mental Status: Normal Affect, Appropriate Current Medications Alendronate Sodium (Fosamax) 70 mg PO Q7D@0700 [facility] Allopurinol (Zyloprim) 200 mg PO DAILY YOANDY Aspirin (Aspirin) 325 mg PO DAILY@0800 [facility] Calamine/Phenol (Calmoseptine Ointment) 1 applic TOPICAL 0600,2200 [facility]; Protocol Calcium Carbonate (Os-Paul 500) 500 mg PO DAILYCM [facility] Calcium Carbonate (Tums) 500 mg PO DAILY PRN PRN Reason: STOMACH ACID [facility] Last Admin: 08/15/19 17:22 Dose: 3.125 mg Documented by: Cholecalciferol (Vitamin D (25mcg)) 5,000 unit PO DAILY [facility] Furosemide (Lasix) 20 mg PO DAILY [facility] Multivitamins ([facility]itamin[facility] Multivitamins/Minerals (Healthy Eyes (Bkc)) 1 capsule PO DAILY [facility] Nystatin (Mycostatin Powder) 1 applic TOPICAL BID [facility]; Protocol Pravastatin Sodium (Pravachol) 40 mg PO QHS [facility] Temazepam (Restoril) 15 mg PO QHS [facility] Tuberculin PPD (Tubersol, Aplisol, Ppd) 5 tu ID X1 ONE Stop: 08/16/19 10:01 Tuberculin PPD (Tubersol, Aplisol, Ppd) 5 tu ID X1 ONE Stop: 08/23/19 10:01 Assessment/Plan All Active Problems (Last Updated 08/05/19 @ 09:[address] Isai Siddiqui MD) Debility (Acute) Ischemic colitis (Acute) Elevated troponin (Acute) Sepsis (Acute) Edema (Acute) 68 year old female with below past medical history recent hospitalization for septic shock, elevated troponin, admitted to TCU with debility, here for rehabilitation, strengthening, prior to discharge home with . * Debility - PT/OT. * Pain - Tylenol 1000MG Q6H PRN pain (1-10) * Bowel - Miralax 17GM daily, Senna/colace 1 tablet BID, Dulcolax 10MG daily PRN. * Adult immunization - Administer Prevnar 13, Pneumovax 23, Fluzone as eladio ropriate. * DVT prophylaxis - Hold, already on adult aspirin. * Osteoporosis - Fosamax 70MG per week, Calcium 500MG daily, Vitamin D3 5000IU daily. * Gout - Allopurinol 200MG daily. * CV prophylaxis - Aspirin 325MG daily. * GERD - TUMS 500MG daily PRN. * Chronic diastolic heart failure - Coreg 3.125MG BID, Lasix 20MG daily. * Skin irritation - Calmoseptine BID. * Macular Degeneration - Healthy Eyes 1 daily. * Nutrition - MVI daily. * Tinea Corporis - Nystatin powder BID. * Dry eyes - Artificial Tears 6x/day. * Hyperlipidemia - Pravastatin 40MG QHS. * Insomnia - Temazepam 15MG QHS, Beer's list drug due to chronic [facility] use.
[2019-08-15] MEDS: Pravastatin 40 MG Tablet PO (20:58)
[2019-08-15] MEDS: Menthol/Lanolin/Calamine/Znox 113 GM Tube 1 APPLIC TOPICAL (20:58)
[2019-08-15] MEDS: Temazepam 15 MG Capsule PO (21:54)
[2019-08-16] MEDS: Furosemide 20 MG Tablet PO (05:43)
[2019-08-16] MEDS: Multivitamin (Healthy Eyes) Capsule 1 CAP PO (05:43)
[2019-08-16] MEDS: Allopurinol 100 MG Tablet 200 MG PO (05:44)
[2019-08-16] MEDS: Nystatin Powder 15gm Bottle 1 APPLIC TOPICAL ×2 (05:53→17:35)
[2019-08-16] MEDS: Menthol/Lanolin/Calamine/Znox 113 GM Tube 1 APPLIC TOPICAL ×2 (05:53→22:14)
[2019-08-16] MEDS: Polyethylene Glycol 3350 17 GM PACKET PO (05:53)
[2019-08-16 06:46] LABS: Absolute Lymphocyte Count 1.34 X10^3/uL (0.83-4.51); Absolute Neutrophil Count 5.3 X10^3/uL (2.0-7.7); Basophil# 0.02 X10^3/uL; Basophil% 0.3 % (0-1); Eosinophil# 0.13 X10^3/uL; Eosinophils% 1.8 % (0-5); Hematocrit 31.2 % (37-47); Hemoglobin 9.3 g/dL (12.0-15.0); Lymphocyte # 1.34 X10^3/ul (4.0); Lymphocyte % 18.3 % (19-41); Mean Corp Hgb Conc 29.8 g/dL (32-36); Mean Corpuscular Hgb 27.8 pg (27.0-32.0); Mean Corpuscular Volume 93.1 fL (81-99); Mean Platelet Vol. 11.2 fl (6.2-12.0); Monocyte# 0.49 X10^3/uL; Monocyte% 6.7 % (0-10); NRBC Flagged by Analyzer 0 % (0-5); Neutrophil # 5.28 X10^3/uL (2.7-7.7); Neutrophil % 71.9 % (47-70); Platelet Count 192 K/mm3 (150-450); RBC Distribution Width CV 17.7 % (11.6-14.6); RBC Distribution Width SD 60.1 fl (35.1-43.9); Red Blood Count 3.35 M/mm3 (4.2-5.4); White Blood Count 7.3 K/mm3 (4.4-11.0)
[2019-08-16 07:04] LABS: Anion Gap 10 (5-15); BUN 9 mg/dL (7-18); BUN/Creat Ratio 15.5 RATIO (10-20); Chloride 104 mmol/L (98-107); Creatinine, Serum 0.58 mg/dL (0.55-1.02); EST Glomerular Filtration Rate 109 mL/min (>60); Est Glom Filt Rate - Afr Amer 132 mL/min (>60); Glucose 176 mg/dL (74-106); Potassium 3.7 mmol/L (3.5-5.1); Sodium Level 136 mmol/L (136-145)
[2019-08-16 08:00] VITALS: BP 93/54; PULSE 94; RESP 16; TEMP 36.9; O2SAT 95
[2019-08-16] MEDS: Calcium (Elemental) 500 MG Tablet PO (08:43)
[2019-08-16] MEDS: Multivitamins,Therapeutic Tablet 1 TABLET PO (08:44)
[2019-08-16] MEDS: Aspirin 81 MG TAB.CHEW PO (08:45)
--- NOTE | 2019-08-16 11:23 | PHA.CONS_ITS ---
<Adelaida Tinoco - Last Filed: 08/16/19 11:23> Progress Note - Pharmacy Subjective: TCU Admission Objective: Allergies Penicillins Allergy (Severe, Verified 08/13/19 14:10) Rash clarithromycin [From Biaxin] Allergy (Intermediate, Verified 08/13/19 14:10) Rash erythromycin base [Erythromycin Base] Allergy (Intermediate, Verified 08/13/19 14:10) Rash cat dander Adverse Reaction (Intermediate, Verified 08/13/19 14:10) SNEEZING Alternaria Mold Spores Allergy (Intermediate, Uncoded 08/13/19 14:10) SNEEZING dust Allergy (Intermediate, Uncoded 08/13/19 14:10) SNEEZING Current Medications Generic Name Dose Route Start Last Admin Trade Name Freq PRN Reason Stop Dose Admin Acetaminophen 1,000 mg 08/15/19 21:04 Tylenol PO Q6H PRN PRN Pain Score 1-10/10 Alendronate Sodium 70 mg 08/22/19 07:00 Fosamax PO Q7D@0700 [facility] Allopurinol 200 mg 08/16/19 06:00 08/16/19 05:44 Zyloprim PO 200 mg DAILY [facility] Administration Aspirin 325 mg 08/17/19 08:00 Aspirin PO DAILY@0800 [facility] Bisacodyl 10 mg 08/15/19 21:05 Dulcolax PO DAILY PRN Constipation Calamine/Phenol 1 applic 08/15/19 22:00 08/16/19 05:53 Calmoseptine Ointment TOPICAL 1 applicatio 0600,2200 [facility] Administration Protocol Calcium Carbonate 500 mg 08/16/19 08:00 08/16/19 08:43 Os-Paul 500 PO 500 mg DAILYCM [facility] Administration Calcium Carbonate 500 mg 08/15/19 14:26 Tums PO DAILY PRN STOMACH ACID Carvedilol 3.125 mg 08/15/19 17:00 08/16/19 08:41 Coreg PO Not Given BIDCM [facility] Cholecalciferol 5,000 unit 08/16/19 06:00 08/16/19 05:43 Vitamin D (25mcg) PO 5,000 unit DAILY [facility] Administration Furosemide 20 mg 08/16/19 06:00 08/16/19 05:43 Lasix PO 20 mg DAILY [facility] Administration Multivitamins 1 tablet 08/16/19 08:00 08/16/19 08:44 Multivitamin PO 1 tablet DAILYCM YOANDY Administration Multivitamins/Minerals 1 capsule 08/16/19 06:00 08/16/19 05:43 Healthy Eyes (Bkc) PO 1 capsule DAILY YOANDY Administration Nystatin 1 applic 08/16/19 06:00 08/16/19 05:53 Mycostatin Powder TOPICAL 1 applicatio BID YOANDY Administration Protocol Polyethylene Glycol 17 gm 08/16/19 06:00 08/16/19 05:53 Miralax PO 17 gm DAILY YOANDY Administration Pravastatin Sodium 40 mg 08/15/19 22:00 08/15/19 20:58 Pravachol PO 40 mg QHS [facility] Administration Senna/Docusate Sodium 1 tablet 08/16/19 06:00 08/16/19 05:44 Senokot-S, Mireya-Colace PO Not Given BID YOANDY Sodium Chloride 2 spray 08/16/19 08:12 [place] Nasal [place] NASAL TID PRN PRN NASAL DRYNESS Temazepam 15 mg 08/15/19 22:00 08/15/19 21:54 Restoril PO 15 mg QHS YOANDY Administration Tuberculin PPD 5 tu 08/23/19 10:00 Tubersol, Aplisol, Ppd ID 08/23/19 10:01 X1 ONE Problem List (Last Updated 08/05/19 @ 09:[address] Isai Siddiqui MD) Debility (Acute) Ischemic colitis (Acute) Elevated troponin (Acute) Sepsis (Acute) Edema (Acute) Iron deficiency anemia (Chronic) Chronic diastolic (congestive) heart failure (Chronic) Shortness of breath (Chronic) Diabetes mellitus (Chronic) Pulmonary hypertension (Chronic) Insomnia (Chronic) Hypokalemia (Chronic) Vital Signs Temp Pulse Resp BP Pulse Ox 98.2 F 68 18 88/45 L 94 08/15/19 13:42 08/15/19 18:25 08/15/19 18:25 08/15/19 13:42 08/15/19 18:25 Oxygen Delivery Method Room Air Weight: 86.664 kg Body Mass Index (BMI) 37.3 Sodium 136 mmol/L (136-145) 08/16/19 06:35 Potassium 3.7 mmol/L (3.5-5.1) 08/16/19 06:35 Chloride 104 mmol/L (98-107) 08/16/19 06:35 Carbon Dioxide 22.0 mmol/L (21.0-32.0) 08/16/19 06:35 Anion Gap 10 (5-15) 08/16/19 06:35 BUN 9 mg/dL (7-18) 08/16/19 06:35 Creatinine 0.58 mg/dL (0.55-1.02) 08/16/19 06:35 Est GFR (MDRD) Af Amer 132 mL/min (>60) 08/16/19 06:35 Est GFR (MDRD) Non-Af 109 mL/min (>60) 08/16/19 06:35 BUN/Creatinine Ratio 15.5 RATIO (10-20) 08/16/19 06:35 Glucose 176 mg/dL (74-106) H 08/16/19 06:35 Assessment/Plan: 1. Pain: acetaminophen 1000mg PO Q6H PRN pain 1-02/24. Please continue to monitor for pain and PRN usage. 2. Osteoporosis: alendronate 70mg PO on Mondays, Os-Paul 500mg PO DAILYCM, cholecalciferol 5000units DAILYCM. Give alendronate on an empty stomach with a full glass of water. Remain upright for 1 hour after administration. Please continue to monitor for jaw pain, bone mineral density, GI side effects, calcium and vitamin D levels. 3. CHF: carvedilol 3.125mg PO BIDCM and furosemide 20mg PO daily. Please continue to monitor HR, BP, potassium and renal function. 4. CV prophylaxis: aspirin 325mg PO DAILYCM. Please continue to monitor for S/S of bleeding. 5. Hyperlipidemia: pravastatin 40mg PO QHS. Please continue to monitor lipid panel and for muscle pain. 6. Gout: allopurinol 200mg PO daily. Please continue to monitor for S/S of gout and renal function. 7. GERD: Tums 500mg PO daily PRN stomach acid. Please continue to monitor for heartburn and PRN usage. 8. Overall nutrition/macular degeneration: multivitamin 1T PO DAILYCM and eye vitamin 1C PO daily. Please continue to monitor. Psychotropic Medications: 1. Insomnia: temazepam 15mg PO QHS. Please continue to monitor for insomnia. See physician note regarding BEERs list and chronic use. Unnecessary Medications: None Bowel Regimen: Miralax 17gm PO daily, senna/docusate 1T PO BID, bisacodyl 10mg PO daily PRN constipation. Please continue to monitor for constipation and PRN usage. Date of Note:: 08/16/19 - Provider Comments Provider responsibility: Provider responsible to enter orders to implement recommendations <Carrington Barrow Chi - Last Filed: 08/16/19 17:10> Progress Note - Pharmacy Subjective: [] Objective: Allergies Penicillins Allergy (Severe, Verified 08/13/19 14:10) Rash clarithromycin [From Biaxin] Allergy (Intermediate, Verified 08/13/19 14:10) Rash erythromycin base [Erythromycin Base] Allergy (Intermediate, Verified 08/13/19 14:10) Rash cat dander Adverse Reaction (Intermediate, Verified 08/13/19 14:10) SNEEZING Alternaria Mold Spores Allergy (Intermediate, Uncoded 08/13/19 14:10) SNEEZING dust Allergy (Intermediate, Uncoded 08/13/19 14:10) SNEEZING Current Medications Generic Name Dose Route Start Last Admin Trade Name Freq PRN Reason Stop Dose Admin Acetaminophen 1,000 mg 08/15/19 21:04 Tylenol PO Q6H PRN PRN Pain Score 1-10/10 Alendronate Sodium 70 mg 08/22/19 07:00 Fosamax PO Q7D@0700 [facility] Allopurinol 200 mg 08/16/19 06:00 08/16/19 05:44 Zyloprim PO 200 mg DAILY [facility] Administration Aspirin 325 mg 08/17/19 08:00 Aspirin PO DAILY@0800 [facility] Bisacodyl 10 mg 08/15/19 21:05 Dulcolax PO DAILY PRN Constipation Calamine/Phenol 1 applic 08/15/19 22:00 08/16/19 05:53 Calmoseptine Ointment TOPICAL 1 applicatio 0600,2200 [facility] Administration Protocol Calcium Carbonate 500 mg 08/16/19 08:00 08/16/19 08:43 Os-Paul 500 PO 500 mg DAILYCM [facility] Administration Calcium Carbonate 500 mg 08/15/19 14:26 Tums PO DAILY PRN STOMACH ACID Carvedilol 3.125 mg 08/15/19 17:00 08/16/19 17:04 Coreg PO 3.125 mg BIDCM [facility] Administration Cholecalciferol 5,000 unit 08/16/19 06:00 08/16/19 05:43 Vitamin D (25mcg) PO 5,000 unit DAILY YOANDY Administration Furosemide 20 mg 08/16/19 06:00 08/16/19 05:43 Lasix PO 20 mg DAILY YOANDY Administration Multivitamins 1 tablet 08/16/19 08:00 08/16/19 08:44 Multivitamin PO 1 tablet DAILYCM YOANDY Administration Multivitamins/Minerals 1 capsule 08/16/19 06:00 08/16/19 05:43 Healthy Eyes (Bkc) PO 1 capsule DAILY YOANDY Administration Nystatin 1 applic 08/16/19 06:00 08/16/19 05:53 Mycostatin Powder TOPICAL 1 applicatio BID YOANDY Administration Protocol Polyethylene Glycol 17 gm 08/16/19 06:00 08/16/19 05:53 Miralax PO 17 gm DAILY YOANDY Administration Pravastatin Sodium 40 mg 08/15/19 22:00 08/15/19 20:58 Pravachol PO 40 mg QHS YOANDY Administration Senna/Docusate Sodium 1 tablet 08/16/19 06:00 08/16/19 17:04 Senokot-S, Mireya-Colace PO 1 tablet BID YOANDY Administration Sodium Chloride 2 spray 08/16/19 08:12 [place] Nasal [place] NASAL TID PRN PRN NASAL DRYNESS Temazepam 15 mg 08/15/19 22:00 08/15/19 21:54 Restoril PO 15 mg QHS YOANDY Administration Tuberculin PPD 5 tu 08/23/19 10:00 Tubersol, Aplisol, Ppd ID 08/23/19 10:01 X1 ONE Problem List (Last Updated 08/05/19 @ 09:[address] Isai Siddiqui MD) Debility (Acute) Ischemic colitis (Acute) Elevated troponin (Acute) Sepsis (Acute) Edema (Acute) Iron deficiency anemia (Chronic) Chronic diastolic (congestive) heart failure (Chronic) Shortness of breath (Chronic) Diabetes mellitus (Chronic) Pulmonary hypertension (Chronic) Insomnia (Chronic) Hypokalemia (Chronic) Vital Signs Temp Pulse Resp BP Pulse Ox 98.2 F 85 16 92/49 L 96 08/16/19 14:02 08/16/19 14:02 08/16/19 14:02 08/16/19 14:02 08/16/19 14:02 Oxygen Delivery Method Room Air Weight: 86.664 kg Body Mass Index (BMI) 37.3 Sodium 136 mmol/L (136-145) 08/16/19 06:35 Potassium 3.7 mmol/L (3.5-5.1) 08/16/19 06:35 Chloride 104 mmol/L (98-107) 08/16/19 06:35 Carbon Dioxide 22.0 mmol/L (21.0-32.0) 08/16/19 06:35 Anion Gap 10 (5-15) 08/16/19 06:35 BUN 9 mg/dL (7-18) 08/16/19 06:35 Creatinine 0.58 mg/dL (0.55-1.02) 08/16/19 06:35 Est GFR (MDRD) Af Amer 132 mL/min (>60) 08/16/19 06:35 Est GFR (MDRD) Non-Af 109 mL/min (>60) 08/16/19 06:35 BUN/Creatinine Ratio 15.5 RATIO (10-20) 08/16/19 06:35 Glucose 176 mg/dL (74-106) H 08/16/19 06:35 Assessment/Plan: Psychotropic Medications: Unnecessary Medications: Bowel Regimen: - Provider Comments Provider responsibility: Provider responsible to enter orders to implement recommendations Provider Comments to Recommendations by Pharmacy: Agree
--- NOTE | 2019-08-16 12:09 | CASEMGMT ---
Social Work Spoke with pt . Pt requesting staff call him with updates throughout pt stay. Explained to that SWI completed initial assessment on pt and discussed palliative care with pt and pt was agreeable upon DC. appreciative of call because he did not want to have palliative care because feels pt may need more than just occasional help in the home upon DC, but more like 24/7 care d/t him not being able to care for pt properly. proceeded to discuss with SWI preceding events for pt admission on TCU and frustrated that he felt he should have been more involved tin the DC planning from previous hospitalization. Provided emotional support, active listening and validation of feelings. concerned pt will DC from TCU before she is safely able to go home. SWI explained to Medicare insurance and that patient must make significant gains to be able to continue to get Medicare coverage for skilled benefit, but that staff would work to get pt as healthy and strong as possible in order to have a safe DC. SWI also described process for pt to potentially transfer to SNF after TCU if continued care is needed. appreciative of phone call and of information given, asked to be transferred to nurses station to talk about pt medical progress-transferred call. Will continue to follow. Will continue to follow with safe DC planning and providing updated information with . will discuss with at this time pt is able to maker her own decisions and will reeducate further on palliative services being stormy to follow in any setting. Will also discuss financial liability or possible Medicaid information if further SNF is needed. Lauren Park, social work international editorial producer Radha Arroyo, EDEN SHIPPING CLERK/ADMIN
[2019-08-16] MEDS: Tuberculin,Purif.prot.deriv. 50 TU/ML Vial 5 ML ID (12:17)
--- NOTE | 2019-08-16 13:55 | CASEMGMT ---
Social Work Reviewed and agreed with social work record label internship documentation on this date. Radha Arroyo, PROPERTY DEVELOPER INSULATION PROFESSIONAL
[2019-08-16 14:02] VITALS: BP 92/49; PULSE 85; RESP 16; TEMP 36.8; O2SAT 96
[2019-08-16] MEDS: Carvedilol 3.125 MG TABLET PO (17:04)
[2019-08-16] MEDS: Senna/Docusate Sodium 1 Tablet PO (17:04)
[2019-08-16] MEDS: Pravastatin 40 MG Tablet PO (22:14)
[2019-08-16] MEDS: Temazepam 15 MG Capsule PO (22:14)
[2019-08-17 06:11] VITALS: BP 99/64; PULSE 83
[2019-08-17] MEDS: Senna/Docusate Sodium 1 Tablet PO (06:12)
[2019-08-17] MEDS: Furosemide 20 MG Tablet PO (06:12)
[2019-08-17] MEDS: Multivitamin (Healthy Eyes) Capsule 1 CAP PO (06:13)
[2019-08-17] MEDS: Polyethylene Glycol 3350 17 GM PACKET PO (06:13)
[2019-08-17] MEDS: Allopurinol 100 MG Tablet 200 MG PO (06:14)
[2019-08-17] MEDS: Menthol/Lanolin/Calamine/Znox 113 GM Tube 1 APPLIC TOPICAL ×2 (06:17→20:09)
[2019-08-17] MEDS: Nystatin Powder 15gm Bottle 1 APPLIC TOPICAL ×2 (06:17→16:58)
[2019-08-17] MEDS: Aspirin 325 MG Tablet PO (09:00)
[2019-08-17] MEDS: Carvedilol 3.125 MG TABLET PO ×2 (09:00→16:57)
[2019-08-17] MEDS: Multivitamins,Therapeutic Tablet 1 TABLET PO (09:00)
[2019-08-17] MEDS: Calcium (Elemental) 500 MG Tablet PO (09:00)
[2019-08-17 14:08] VITALS: BP 91/51; PULSE 93; RESP 16; TEMP 37.2; O2SAT 102
--- NOTE | 2019-08-17 14:22 | CASEMGMT ---
Social Work Pt asked to be updated regularly. Called pt about Medicaid application. agreeable to filling out application if pt does not progress and care needs are too great to DC home. Consulted and educated for palliative care, that palliative services can follow pt, even into a nursing facility. asking SWI to revisit palliative at DC but agreeable. Lauren Park, social work gallery intern Radha Arroyo, CERTIFIED NURSES' AIDE SHIFT STACKER
--- NOTE | 2019-08-17 16:48 | CHAPLAIN ---
Type of Pastoral Visit _x__ Initial Visit ___ Follow-up Visit ___ On-call Visit ___ General Patient Visit ___ Spiritual Assessment ___ Family Conference ___ Bereavement ___ Rapid Response ___ Code Blue ___ Other (describe below) Pastoral Care Referral From _x__ Patient _x__ Family ___ Nurse ___ Physician ___ Dye Feeder ___ Furniture Delivery Driver ___ Other (describe below) Sacrament/Intervention _x__ Active listening ___ Anointing ___ Alevism ___ Bereavement ___ Communion _x__ Anisa exploration ___ ___ Life review _x__ Prayer ___ Reconciliation ___ Sacrament of Sick _x__ Supportive presence ___ Wedding ___ Other (describe below) Pastoral Comments patient's spouse requested visit to this patient; spouse had reached out to this documentation engineer when patient was in ED; spouse realized that he would be unable to visit his and wanted documentation engineer to be available to her; pt requests follow up visits
[2019-08-17] MEDS: Pravastatin 40 MG Tablet PO (20:08)
[2019-08-17] MEDS: Temazepam 15 MG Capsule PO (21:48)
[2019-08-18] MEDS: Senna/Docusate Sodium 1 Tablet PO (06:00)
[2019-08-18] MEDS: Polyethylene Glycol 3350 17 GM PACKET PO (06:00)
[2019-08-18] MEDS: Furosemide 20 MG Tablet PO (06:00)
[2019-08-18] MEDS: Nystatin Powder 15gm Bottle 1 APPLIC TOPICAL ×2 (06:00→17:33)
[2019-08-18] MEDS: Multivitamin (Healthy Eyes) Capsule 1 CAP PO (06:00)
[2019-08-18] MEDS: Menthol/Lanolin/Calamine/Znox 113 GM Tube 1 APPLIC TOPICAL ×2 (06:00→21:45)
[2019-08-18] MEDS: Multivitamins,Therapeutic Tablet 1 TABLET PO (06:00)
[2019-08-18] MEDS: Allopurinol 100 MG Tablet 200 MG PO (06:00)
[2019-08-18] MEDS: Aspirin 325 MG Tablet PO (08:00)
[2019-08-18] MEDS: Carvedilol 3.125 MG TABLET PO ×2 (08:00→17:32)
[2019-08-18] MEDS: Calcium (Elemental) 500 MG Tablet PO (08:00)
[2019-08-18 13:53] VITALS: BP 102/50; PULSE 86; RESP 18; TEMP 36.6; O2SAT 92
[2019-08-18] MEDS: Temazepam 15 MG Capsule PO (21:43)
[2019-08-18] MEDS: Pravastatin 40 MG Tablet PO (21:44)
[2019-08-19 06:08] VITALS: BP 91/59; PULSE 74
[2019-08-19] MEDS: Menthol/Lanolin/Calamine/Znox 113 GM Tube 1 APPLIC TOPICAL ×2 (06:09→21:32)
[2019-08-19] MEDS: Multivitamin (Healthy Eyes) Capsule 1 CAP PO (06:09)
[2019-08-19] MEDS: Furosemide 20 MG Tablet PO (06:09)
[2019-08-19] MEDS: Allopurinol 100 MG Tablet 200 MG PO (06:10)
[2019-08-19] MEDS: Senna/Docusate Sodium 1 Tablet PO ×2 (06:10→17:49)
[2019-08-19] MEDS: Nystatin Powder 15gm Bottle 1 APPLIC TOPICAL ×2 (06:10→17:48)
[2019-08-19] MEDS: Aspirin 325 MG Tablet PO (08:06)
[2019-08-19] MEDS: Multivitamins,Therapeutic Tablet 1 TABLET PO (08:07)
[2019-08-19] MEDS: Calcium (Elemental) 500 MG Tablet PO (08:07)
[2019-08-19] MEDS: Carvedilol 3.125 MG TABLET PO (08:07)
[2019-08-19 13:53] VITALS: BP 96/50; PULSE 86; RESP 16; TEMP 37.2; O2SAT 94
--- NOTE | 2019-08-19 15:51 | PCM.DC ---
- Discharge Diagnoses Current Active Problems: Current Active and Chronic Problems (Last Updated 08/05/19 @ 09:[address] Isai Siddiqui MD) Debility (Acute) Ischemic colitis (Acute) Elevated troponin (Acute) Sepsis (Acute) Edema (Acute) Iron deficiency anemia (Chronic) Chronic diastolic (congestive) heart failure (Chronic) Shortness of breath (Chronic) Diabetes mellitus (Chronic) Pulmonary hypertension (Chronic) Insomnia (Chronic) Hypokalemia (Chronic) You will use the following diet at home:: Regular, Fluid restricted (specify 2000 mls, 1500 mls) - 1500 mls Your food should be the consistency of: Regular Your liquids should be the consistency of: Regular/Thin Discharge Activity: Return to Normal Activity, May Shower, Use Walker Weight Bearing Status: Weight bearing as tolerated Call your doctor if you observe: Fever of 101 or Higher, Inability to urinate, Inability to have a bowel movement, Shortness of breath, Chest pain, Uncontrolled pain Allergies/Adverse Reactions: Allergies Penicillins Allergy (Severe, Verified 08/13/19 14:10) Rash clarithromycin [From Biaxin] Allergy (Intermediate, Verified 08/13/19 14:10) Rash erythromycin base [Erythromycin Base] Allergy (Intermediate, Verified 08/13/19 14:10) Rash cat dander Adverse Reaction (Intermediate, Verified 08/13/19 14:10) SNEEZING Alternaria Mold Spores Allergy (Intermediate, Uncoded 08/13/19 14:10) SNEEZING dust Allergy (Intermediate, Uncoded 08/13/19 14:10) SNEEZING Medications to take at Discharge temazepam 15 mg capsule 15 mg PO QHS 05/20/17 vit C,E,zinc,copper-[id number] 250 mg-lutein 5 mg-zeaxanthin 1 mg capsule 1 cap PO DAILY 05/20/17 carboxymethylcellulose sodium 1 % eye liquid gel drops 1 drp OPHTHALMIC 4-6XD 12/30/18 Aspirin 325 mg PO DAILY@0800 #0 07/09/19 Acetaminophen [Tylenol] 1,000 mg PO Q6H PRN PRN tablet 08/19/19 Carvedilol [Coreg (Beta Ravi)] 1.5625 mg PO BIDCM #15 tab 08/19/19 Furosemide [Lasix] 40 mg PO BID #60 tab 08/19/19 Menthol/Lanolin/Calamine/Znox [Calmoseptine Ointment] 1 applic TOPICAL 0600,2200 tube 08/19/19 Nystatin Powder [Mycostatin Powder] 1 applic TOPICAL BID bottle 08/19/19 Potassium Chloride [K-Dur] 20 meq PO DAILYCM tablet 08/19/19 Sodium Chloride 0.65% [[place] Nasal [place]] 2 spray NASAL TID PRN PRN spray.btl 08/19/19 The following prescriptions were given: Carvedilol [Coreg (Beta Ravi)] 1.5625 mg PO BIDCM #15 tab Transmission Status: P[facility] to [facility] Furosemide [Lasix] 40 mg PO BID #60 tab Transmission Status: Pending to [facility] Primary Care Physician: Imer Cummings MD [Primary Care Provider] - Please follow up with your Primary Care Physician in: 1 week. Test Results: Test results from this visit will be discussed in further detail at your follow-up appointment, if applicable. Proposed Discharge Date: 09/02/19
--- NOTE | 2019-08-19 15:53 | DS.PCM_ITS ---
Discharge Date and Diagnosis - Problem List Patient Problems: Active and Suspected Problems (Last Updated 08/05/19 @ 09:[address] Isai Siddiqui MD) Debility (Acute) Ischemic colitis (Acute) Elevated troponin (Acute) Sepsis (Acute) Edema (Acute) Date of Admission: 08/15/19 Date of Discharge: 09/02/19 - Primary Discharge Diagnosis Active and Suspected Problems (Last Updated 08/05/19 @ 09:[address] Isai Siddiqui MD) Debility (Acute) Ischemic colitis (Acute) Elevated troponin (Acute) Sepsis (Acute) Edema (Acute) - Secondary Discharge Diagnosis Chronic Problems (Last Updated 08/05/19 @ 09:[address] Isai Siddiqui MD) Iron deficiency anemia (Chronic) Chronic diastolic (congestive) heart failure (Chronic) Shortness of breath (Chronic) Diabetes mellitus (Chronic) Pulmonary hypertension (Chronic) Insomnia (Chronic) Hypokalemia (Chronic) Polycythemia vera (Chronic) Hyperlipidemia (Chronic) Segmental and somatic dysfunction of lumbar region (Chronic) Segmental and somatic dysfunction of cervical region (Chronic) Segmental and somatic dysfunction of thoracic region (Chronic) BMI 32.0-32.9,adult (Chronic) Closed left arm fracture (Chronic 09/05/18) [place] DDD (degenerative disc disease) (Chronic) 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 Aortic valve replaced 10/21/[address] Chacko Lacunar infarction (Chronic) KYLE (obstructive sleep apnea) (Chronic) Sleep disorder (Chronic) De Quervain's disease (tenosynovitis) (Chronic) Supraventricular tachycardia (Chronic) Diabetes mellitus type 2, controlled (Chronic) Osteoarthritis (Chronic) Hospital Course and Treatment Imaging Results: 08/15/19 14:23 Diet: Regular Diet Food consistency:: Regular Liquid Consistency:: Regular/Thin Is pt able to select menu?: Yes Operations: None Procedures: None Summary of Care Provided: The patient is a 68 year old Female with below past medical history recent hospitalization for septic shock, elevated troponin, admitted to TCU with debility, here for rehabilitation, strengthening, prior to discharge home with . Discharge home with , [facility] PT/OT/SN, palliative consult. Patient Problems: Active and Suspected Problems (Last Updated 08/05/19 @ 09:[address] Isai Siddiqui MD) Debility (Acute) Ischemic colitis (Acute) Elevated troponin (Acute) Sepsis (Acute) Edema (Acute) - Physical Exam Vitals/I&O's: Vital Signs Temp Pulse Resp BP Pulse Ox 98.9 F 86 16 96/50 L 94 08/19/19 13:53 08/19/19 13:53 08/19/19 13:53 08/19/19 13:53 08/19/19 13:53 Oxygen Delivery Method Room Air Weight: 86.682 kg Body Mass Index (BMI) 37.3 Intake and Output for Last 24 Hours 08/17/19 08/18/19 08/19/19 23:59 23:59 23:59 Intake Total 600 / 600 360 / 360 360 / 360 Balance 600 / 600 360 / 360 360 / 360 Current Medications Acetaminophen (Tylenol) 1,000 mg PO Q6H PRN PRN PRN Reason: Pain Score 1-10/10 Aspirin (Aspirin) 325 mg PO DAILY@0800 [facility] Last Admin: 08/19/19 08:06 Dose: 325 mg Documented by: Calamine/Phenol (Calmoseptine Ointment) 1 applic TOPICAL 0600,2200 [facility]; Pro tocol Last Admin: 08/19/19 06:09 Dose: 1 applicatio Documented by: [facility] Furosemide (Lasix) 40 mg PO BID [facility] Multivitamins/Minerals (Healthy Eyes (Bkc)) 1 capsule PO DAILY [facility] Last Admin: 08/19/19 06:09 Dose: 1 capsule Documented by: Nystatin (Mycostatin Powder) 1 applic TOPICAL BID [facility]; Protocol Last Admin: 08/19/19 06:10 Dose: 1 applicatio Documented by: Polyethylene Glycol (Miralax) 17 gm PO DAILY [facility] Last Admin: 08/19/19 06:10 Dose: Not Given Documented by: Potassium Chloride (K-Dur) [facility] Senna/Docusate Sodium (Senokot-S, Mireya-Colace) 1 tablet PO BID [facility] Last Admin: 08/19/19 06:10 Dose: 1 tablet Documented by: Sodium Chloride ([place] Nasal [place]) 2 spray NASAL TID PRN PRN PRN Reason: NASAL DRYNESS Temazepam (Restoril) 15 mg PO QHS [facility] Last Admin: 08/18/19 21:43 Dose: 15 mg Documented by: Tuberculin PPD (Tubersol, Aplisol, Ppd) 5 tu ID [id number] ONE Stop: 08/23/19 10:01 Discharge Diet: No Restrictions Discharge Activity: Return to Normal Activity, May Shower, Use Walker Weight Bearing Status: Weight bearing as tolerated Call your doctor if you observe: Fever of 101 or Higher, Inability to urinate, Inability to have a bowel movement, Shortness of breath, Chest pain, Uncontrolled pain Home Medications: Medications to take at Discharge temazepam 15 mg capsule 15 mg PO QHS 05/20/17 vit C,E,zinc,copper-keonm2m 250 mg-lutein 5 mg-zeaxanthin 1 mg capsule 1 cap PO DAILY 05/20/17 carboxymethylcellulose sodium 1 % eye liquid gel drops 1 drp OPHTHALMIC 4-6XD 12/30/18 Aspirin 325 mg PO DAILY@0800 #0 07/09/19 Acetaminophen [Tylenol] 1,000 mg PO Q6H PRN PRN tablet 08/19/19 Carvedilol [Coreg (Beta Ravi)] 1.5625 mg PO BIDCM #15 tab 08/19/19 Furosemide [Lasix] 40 mg PO BID #60 tab 08/19/19 Menthol/Lanolin/Calamine/Znox [Calmoseptine Ointment] 1 applic TOPICAL 0600,2200 tube 08/19/19 Nystatin Powder [Mycostatin Powder] 1 applic TOPICAL BID bottle 08/19/19 Potassium Chloride [K-Dur] 20 meq PO DAILYCM tablet 08/19/19 Sodium Chloride 0.65% [[place] Nasal [place]] 2 spray NASAL TID PRN PRN spray.btl 08/19/19 Following Prescrptions Were Given to Patient: Carvedilol [Coreg (Beta Ravi)] 1.5625 mg PO BIDCM #15 tab Transmission Status: P[facility] to [facility] Furosemide [Lasix] 40 mg PO BID #60 tab Transmission Status: P[facility] to [facility] Primary Care Physician: Imer Cummings MD [Primary Care Provider] - Please follow up with your Primary Care Physician in: 1 week. Disposition: Home with Home Health Minutes spent on discharge:: 35 Patient Condition:: Stable Medical Necessity - Tobacco Use Smoking Status: Former smoker Tobacco Use: Non-smoker Meaningful Use Info Meaningful Use Diagnoses (Choose all that apply): None applicable
[2019-08-19] MEDS: Furosemide 40 MG Tablet PO (17:47)
[2019-08-19] MEDS: Carvedilol 3.125 MG TABLET 1.5625 MG PO (17:47)
[2019-08-19] MEDS: Temazepam 15 MG Capsule PO (21:33)
[2019-08-20] MEDS: Multivitamin (Healthy Eyes) Capsule 1 CAP PO (05:10)
[2019-08-20] MEDS: Senna/Docusate Sodium 1 Tablet PO ×2 (05:11→17:00)
[2019-08-20] MEDS: Nystatin Powder 15gm Bottle 1 APPLIC TOPICAL ×2 (05:12→21:03)
[2019-08-20] MEDS: Menthol/Lanolin/Calamine/Znox 113 GM Tube 1 APPLIC TOPICAL ×2 (05:13→21:04)
[2019-08-20 07:10] LABS: Anion Gap 8 (5-15); BUN 10 mg/dL (7-18); BUN/Creat Ratio 16.8 RATIO (10-20); Calcium,Total 8.4 mg/dL (8.5-10.1); Chloride 105 mmol/L (98-107); EST Glomerular Filtration Rate 105 mL/min (>60); Est Glom Filt Rate - Afr Amer 128 mL/min (>60); Glucose 149 mg/dL (74-106); Potassium 3.4 mmol/L (3.5-5.1); Sodium Level 138 mmol/L (136-145)
[2019-08-20] MEDS: Furosemide 40 MG Tablet PO (08:15)
[2019-08-20] MEDS: Aspirin 325 MG Tablet PO (08:16)
[2019-08-20 08:18] VITALS: BP 86/54; PULSE 100
[2019-08-20 14:10] VITALS: BP 91/51; PULSE 85; RESP 14; TEMP 37; O2SAT 94
[2019-08-20] MEDS: Carvedilol 3.125 MG TABLET PO (17:01)
[2019-08-20 17:02] VITALS: BP 90/54; PULSE 95
[2019-08-20 20:01] VITALS: O2SAT 95
[2019-08-20] MEDS: Temazepam 15 MG Capsule PO (21:03)
[2019-08-21] MEDS: Multivitamin (Healthy Eyes) Capsule 1 CAP PO (05:44)
[2019-08-21] MEDS: Furosemide 40 MG Tablet PO ×2 (05:44→17:29)
[2019-08-21] MEDS: Senna/Docusate Sodium 1 Tablet PO ×2 (05:44→17:30)
[2019-08-21] MEDS: Menthol/Lanolin/Calamine/Znox 113 GM Tube 1 APPLIC TOPICAL ×2 (05:52→21:52)
[2019-08-21] MEDS: Nystatin Powder 15gm Bottle 1 APPLIC TOPICAL ×2 (05:52→21:52)
[2019-08-21 07:33] LABS: Anion Gap 7 (5-15); BUN 12 mg/dL (7-18); BUN/Creat Ratio 20.4 RATIO (10-20); Calcium,Total 8.5 mg/dL (8.5-10.1); Chloride 108 mmol/L (98-107); Creatinine, Serum 0.59 mg/dL (0.55-1.02); EST Glomerular Filtration Rate 107 mL/min (>60); Est Glom Filt Rate - Afr Amer 130 mL/min (>60); Glucose 160 mg/dL (74-106); Potassium 3.4 mmol/L (3.5-5.1); Sodium Level 138 mmol/L (136-145)
[2019-08-21] MEDS: Carvedilol 3.125 MG TABLET PO ×2 (07:41→17:30)
[2019-08-21] MEDS: Aspirin 325 MG Tablet PO (07:42)
[2019-08-21 07:44] VITALS: BP 94/55; PULSE 105
[2019-08-21 09:28] VITALS: RESP 18; O2SAT 93
[2019-08-21 15:06] VITALS: BP 127/57; PULSE 95; RESP 16; TEMP 37.1; O2SAT 96
--- NOTE | 2019-08-21 17:25 | NURSING ---
Blister on left foot opened while pt ambulating with FWW. cleansed with NS adaptic, ABD, Kerlix and boo wrapped applied. pt resting in recliner tolerated well.
[2019-08-21] MEDS: Temazepam 15 MG Capsule PO (21:44)
[2019-08-22] MEDS: Senna/Docusate Sodium 1 Tablet PO ×2 (05:56→16:54)
[2019-08-22] MEDS: Furosemide 40 MG Tablet PO ×2 (05:56→14:39)
[2019-08-22] MEDS: Multivitamin (Healthy Eyes) Capsule 1 CAP PO (05:56)
[2019-08-22] MEDS: Menthol/Lanolin/Calamine/Znox 113 GM Tube 1 APPLIC TOPICAL ×2 (05:57→20:03)
[2019-08-22] MEDS: Nystatin Powder 15gm Bottle 1 APPLIC TOPICAL ×2 (05:57→20:03)
[2019-08-22 07:23] LABS: Anion Gap 8 (5-15); BUN 11 mg/dL (7-18); BUN/Creat Ratio 16.6 RATIO (10-20); Calcium,Total 8.4 mg/dL (8.5-10.1); Chloride 105 mmol/L (98-107); Creatinine, Serum 0.66 mg/dL (0.55-1.02); EST Glomerular Filtration Rate 93 mL/min (>60); Est Glom Filt Rate - Afr Amer 113 mL/min (>60); Glucose 192 mg/dL (74-106); Potassium 3.7 mmol/L (3.5-5.1); Sodium Level 137 mmol/L (136-145)
[2019-08-22] MEDS: Aspirin 325 MG Tablet PO (07:50)
--- NOTE | 2019-08-22 08:15 | RAD_ITS ---
STUDY: X-RAY CHEST REASON FOR EXAM: Female, 68 years old. Sob, edema to legs, cough. Hx bacterial lung infection TECHNIQUE: PA and lateral views of the chest. COMPARISON: Comparison is made with prior examination dated August 13, 2019. FINDINGS: EKG electrodes are seen. There now is evidence of increased markings at the lung bases with areas of confluence worse in the left lung base. Blunting of both costophrenic angles. This is in keeping with small pleural effusions. Mild degree of increased interstitial markings and vascular congestion suggestive of CHF. Sternal cerclage wires and vascular clips are present from a prior sternotomy and coronary artery bypass graft procedure (CABG). There is calcification of the mitral valve annulus. Normal mediastinum and enma. Normal visualized pulmonary arteries. There is atherosclerotic calcification of the aortic arch with tortuosity. There are diffuse degenerative changes of the visualized thoracic spine. Deformity of both proximal humeri in keeping with old injury. There is no demonstrated abnormality of the visualized soft tissue structures of the upper abdomen. RAD/Chest PA and Lateral IMPRESSION: Findings in keeping with a mild degree of CHF with bibasilar atelectasis worse on the left side and small bilateral pleural effusions. Electronically Signed: Tristen Arce, at 10:02 EDT , Service support ,
--- NOTE | 2019-08-22 10:48 | NURSING ---
wound photo: left dorsal foot
--- NOTE | 2019-08-22 10:48 | NURSING ---
wound photo: right dorsal foot
[2019-08-22 14:08] VITALS: BP 97/51; PULSE 83; RESP 18; TEMP 37
--- NOTE | 2019-08-22 14:38 | CASEMGMT ---
Social Work Reviewed and agreed with social work management intern documentation on this date. Radha Arroyo, MAINTENANCE JOURNEYMAN FUNERAL DIRECTOR/EMBALMER
[2019-08-22] MEDS: Carvedilol 3.125 MG TABLET PO (16:54)
[2019-08-22] MEDS: Temazepam 15 MG Capsule PO (21:15)
[2019-08-23] MEDS: Menthol/Lanolin/Calamine/Znox 113 GM Tube 1 APPLIC TOPICAL ×2 (04:57→21:06)
[2019-08-23] MEDS: Senna/Docusate Sodium 1 Tablet PO ×2 (04:57→18:04)
[2019-08-23] MEDS: Furosemide 40 MG Tablet PO ×2 (04:57→12:31)
[2019-08-23] MEDS: Multivitamin (Healthy Eyes) Capsule 1 CAP PO (04:57)
[2019-08-23] MEDS: Nystatin Powder 15gm Bottle 1 APPLIC TOPICAL ×2 (04:58→21:06)
[2019-08-23 07:15] LABS: Absolute Lymphocyte Count 1.52 X10^3/uL (0.83-4.51); Absolute Neutrophil Count 4.1 X10^3/uL (2.0-7.7); Basophil# 0.06 X10^3/uL; Basophil% 0.9 % (0-1); Eosinophil# 0.17 X10^3/uL; Eosinophils% 2.6 % (0-5); Hemoglobin 9.3 g/dL (12.0-15.0); Lymphocyte # 1.52 X10^3/ul (4.0); Lymphocyte % 23.4 % (19-41); Mean Corp Hgb Conc 28.2 g/dL (32-36); Mean Corpuscular Hgb 25.8 pg (27.0-32.0); Mean Corpuscular Volume 91.7 fL (81-99); Mean Platelet Vol. 11.3 fl (6.2-12.0); Monocyte# 0.59 X10^3/uL; Monocyte% 9.1 % (0-10); NRBC Flagged by Analyzer 0 % (0-5); Neutrophil % 63.2 % (47-70); Platelet Count 198 K/mm3 (150-450); RBC Distribution Width SD 60.8 fl (35.1-43.9); White Blood Count 6.5 K/mm3 (4.4-11.0)
[2019-08-23 07:38] LABS: Anion Gap 8 (5-15); BUN 11 mg/dL (7-18); BUN/Creat Ratio 19.7 RATIO (10-20); Calcium,Total 8.2 mg/dL (8.5-10.1); Chloride 106 mmol/L (98-107); Creatinine, Serum 0.56 mg/dL (0.55-1.02); EST Glomerular Filtration Rate 114 mL/min (>60); Est Glom Filt Rate - Afr Amer 138 mL/min (>60); Glucose 159 mg/dL (74-106); Potassium 3.5 mmol/L (3.5-5.1); Sodium Level 138 mmol/L (136-145)
[2019-08-23] MEDS: Carvedilol 3.125 MG TABLET PO ×2 (09:08→18:04)
[2019-08-23] MEDS: Aspirin 325 MG Tablet PO (09:08)
[2019-08-23 09:10] VITALS: BP 96/46; PULSE 105
[2019-08-23] MEDS: Tuberculin,Purif.prot.deriv. 50 TU/ML Vial 5 ML ID (10:25)
[2019-08-23 10:28] VITALS: PULSE 105; RESP 16; O2SAT 94
--- NOTE | 2019-08-23 14:01 | CASEMGMT ---
Social Work Reviewed and agreed with social work international freight forwarder documentation on this date. Radha Arroyo, FIRE INSPECTOR PRODUCE BUYER
[2019-08-23 14:05] VITALS: BP 92/48; PULSE 77; RESP 16; TEMP 36.6; O2SAT 96
--- NOTE | 2019-08-23 16:32 | CHAPLAIN ---
Type of Pastoral Visit ___ Initial Visit _x__ Follow-up Visit ___ On-call Visit ___ General Patient Visit ___ Spiritual Assessment ___ Family Conference ___ Bereavement ___ Rapid Response ___ Code Blue ___ Other (describe below) Pastoral Care Referral From _x__ Patient ___ Family ___ Nurse ___ Physician ___ Creasing And Cutting Press Feeder ___ Back Padder ___ Other (describe below) Sacrament/Intervention _x__ Active listening ___ Anointing ___ Yazidism ___ Bereavement ___ Communion ___ Anisa exploration ___ _x__ Life review _x__ Prayer ___ Reconciliation ___ Sacrament of Sick _x__ Supportive presence ___ Wedding ___ Other (describe below) Pastoral Comments
[2019-08-23] MEDS: Temazepam 15 MG Capsule PO (21:08)
[2019-08-24] MEDS: Multivitamin (Healthy Eyes) Capsule 1 CAP PO (05:24)
[2019-08-24] MEDS: Senna/Docusate Sodium 1 Tablet PO ×2 (05:24→17:18)
[2019-08-24] MEDS: Furosemide 40 MG Tablet PO ×2 (05:24→14:24)
[2019-08-24] MEDS: Nystatin Powder 15gm Bottle 1 APPLIC TOPICAL ×2 (05:26→21:22)
[2019-08-24] MEDS: Menthol/Lanolin/Calamine/Znox 113 GM Tube 1 APPLIC TOPICAL ×2 (05:27→21:21)
[2019-08-24] MEDS: Carvedilol 3.125 MG TABLET PO ×2 (08:00→17:18)
[2019-08-24] MEDS: Aspirin 325 MG Tablet PO (08:00)
--- NOTE | 2019-08-24 11:07 | CASEMGMT ---
Social Work Met with pt and pt via conference call for care plan meeting. Pt is mod assist for bed mobility from sitting to standing, but is SBA with bed rail from standing to sitting. Pt is able to walk 88ft at SBA with FWW. Pt is having swelling in legs and feet that is inhibiting therapy. Pt is on Lasix management to address swelling but Physician is working on dosage so pt blood pressure does not drop too low. Pt able to bath at mod assist below the knees. Pt dressing at min assist for UE for bra clasp and LE dressing mod assist for pants over feet. pt total assist to put on socks. Pt is toileting at distant supervision and is able to stand statically for 15 minutes. OT recommending hip kit upon DC. Pt is reading and doing crossword puzzles with 1:1 visits for activities. Pt is on cardiac low cholesterol, low fiber diet and has good intake. Pt has blister on legs and tops of feet-nursing to observe for any changes. Pt is out of isolation precautions on 08/24. Explained insurance to pt. needs pt to be independent to DC home safely. Pt and agreeable to SNF placement upon DC from [facility]CU-SW/SWI to call with decision on which SNF to refer to. Pt complains of not sleeping well-f/u with nursing to start pt on Melatonin. Will continue to follow. Lauren Park, social work internet sales consultant Radha Arroyo, SOFA BACK UPHOLSTERER FIRE FIGHTERS DISPATCHER
[2019-08-24 14:09] VITALS: BP 96/57; PULSE 61; RESP 16; TEMP 36.8; O2SAT 94
[2019-08-24] MEDS: Furosemide 40 MG/4 ML Vial IV (17:18)
[2019-08-24] MEDS: 0.9% NaCl Peripheral Flush Adult/Peds IV (17:20)
[2019-08-24 18:16] LABS: Bedside Glucose 213 mg/dL (70-110)
[2019-08-24] MEDS: Temazepam 15 MG Capsule PO (21:20)
[2019-08-24] MEDS: Doxepin Hcl 25 MG Capsule PO (21:20)
[2019-08-25] MEDS: 0.9% NaCl Peripheral Flush Adult/Peds IV ×2 (06:15→13:19)
[2019-08-25] MEDS: Furosemide 40 MG/4 ML Vial IV ×2 (06:15→13:19)
[2019-08-25] MEDS: Senna/Docusate Sodium 1 Tablet PO ×2 (06:16→17:07)
[2019-08-25] MEDS: Multivitamin (Healthy Eyes) Capsule 1 CAP PO (06:16)
[2019-08-25] MEDS: Nystatin Powder 15gm Bottle 1 APPLIC TOPICAL ×2 (06:24→21:22)
[2019-08-25] MEDS: Menthol/Lanolin/Calamine/Znox 113 GM Tube 1 APPLIC TOPICAL ×2 (06:24→21:22)
[2019-08-25] MEDS: Aspirin 325 MG Tablet PO (07:43)
[2019-08-25] MEDS: Carvedilol 3.125 MG TABLET PO ×2 (07:44→17:07)
--- NOTE | 2019-08-25 10:33 | MDS.RN ---
Information for the mds was obtained from review of the clinical record, interview of resident, staff, and direct observation of resident's care.
[2019-08-25 14:33] VITALS: BP 111/68; PULSE 94; RESP 18; TEMP 36.6; O2SAT 97
--- NOTE | 2019-08-25 15:07 | CASEMGMT ---
Social Work MOLST form completed with patient. Copy placed on chart. Radha Arroyo, SENIOR FIREWALL ENGINEER ETHNOLOGY PROFESSOR
--- NOTE | 2019-08-25 15:13 | CASEMGMT ---
Social Work Reviewed and agreed with social work international project engineer documentation on this date. Radha Arroyo, BLENDING TANK HELPER REFUELER
[2019-08-25 20:06] VITALS: O2SAT 94
[2019-08-25] MEDS: Doxepin Hydrochloride 10 MG Capsule PO (21:21)
[2019-08-25] MEDS: Temazepam 15 MG Capsule PO (21:21)
[2019-08-26] MEDS: Senna/Docusate Sodium 1 Tablet PO ×2 (06:01→16:48)
[2019-08-26] MEDS: 0.9% NaCl Peripheral Flush Adult/Peds IV ×2 (06:01→14:11)
[2019-08-26] MEDS: Multivitamin (Healthy Eyes) Capsule 1 CAP PO (06:01)
[2019-08-26] MEDS: Furosemide 40 MG/4 ML Vial IV (06:01)
[2019-08-26] MEDS: Nystatin Powder 15gm Bottle 1 APPLIC TOPICAL ×2 (06:08→21:14)
[2019-08-26] MEDS: Menthol/Lanolin/Calamine/Znox 113 GM Tube 1 APPLIC TOPICAL ×2 (06:10→21:14)
[2019-08-26 06:42] LABS: Anion Gap 9 (5-15); BUN 15 mg/dL (7-18); BUN/Creat Ratio 19.9 RATIO (10-20); Calcium,Total 8.6 mg/dL (8.5-10.1); Chloride 104 mmol/L (98-107); Creatinine, Serum 0.75 mg/dL (0.55-1.02); EST Glomerular Filtration Rate 81 mL/min (>60); Est Glom Filt Rate - Afr Amer 97 mL/min (>60); Glucose 165 mg/dL (74-106); Potassium 4.1 mmol/L (3.5-5.1); Sodium Level 135 mmol/L (136-145)
[2019-08-26] MEDS: Aspirin 325 MG Tablet PO (08:09)
[2019-08-26] MEDS: Carvedilol 3.125 MG TABLET PO ×2 (08:10→16:48)
[2019-08-26] MEDS: Furosemide 100 MG/10 ML Vial 80 MG IV (14:11)
[2019-08-26 14:19] VITALS: BP 90/58; PULSE 83; RESP 16; TEMP 37.2; O2SAT 98
--- NOTE | 2019-08-26 16:52 | NURSING ---
THIS NURSE LOOKED AT BLOOD PRESSURE OF 112/68, HR 83 THINKING IT WAS MSDiana ORTIZ'S BUT IT WAS ANOTHER PT'S. WHEN THIS NURSE REALIZED IT, THIS NURSE HAD ALREADY GIVEN COREG AND PARAMETERS TO HOLD IF SBP LESS THEN 90. BP WAS REALLY 90/58. THIS RECHECKED IT IMMEDIATELY AFTER COREG GIVEN, AND BP WAS 91/55. HR 84. THIS RN WILL INFORM DR. BLANCO.
[2019-08-26 19:06] VITALS: BP 90/52; PULSE 82
--- NOTE | 2019-08-26 19:27 | NURSING ---
Dr. Barrow aware that this nurse gave Coreg when sbp was 90/55 and rechecked it recentlly and it was 90/52. No new orders.
[2019-08-26] MEDS: Temazepam 15 MG Capsule PO (21:11)
[2019-08-26] MEDS: Doxepin Hydrochloride 10 MG Capsule PO (21:11)
[2019-08-27] MEDS: Multivitamin (Healthy Eyes) Capsule 1 CAP PO (05:57)
[2019-08-27] MEDS: Senna/Docusate Sodium 1 Tablet PO ×2 (05:57→18:05)
[2019-08-27] MEDS: Furosemide 100 MG/10 ML Vial 80 MG IV ×2 (05:59→15:25)
[2019-08-27] MEDS: 0.9% NaCl Peripheral Flush Adult/Peds IV (05:59)
[2019-08-27] MEDS: Menthol/Lanolin/Calamine/Znox 113 GM Tube 1 APPLIC TOPICAL ×2 (06:03→21:39)
[2019-08-27] MEDS: Nystatin Powder 15gm Bottle 1 APPLIC TOPICAL ×2 (06:05→21:39)
[2019-08-27] MEDS: Aspirin 325 MG Tablet PO (07:58)
[2019-08-27 08:01] VITALS: BP 88/63; PULSE 105
[2019-08-27 13:44] VITALS: BP 88/50; PULSE 84; RESP 18; TEMP 37.1; O2SAT 94
--- NOTE | 2019-08-27 15:09 | NURSING ---
This nurse discussed with Dr. Barrow if lasix 80mg should be given as scheduled this afternoon d/t hypotension. PT says she feels out of sorts and tired but not dizzy or lightheaded. Dr. Barrow aware of the above, okay to give the lasix despite her BP. give it as long as she is not dizzy or lightheaded.
[2019-08-27] MEDS: Temazepam 15 MG Capsule PO (21:38)
[2019-08-27] MEDS: Doxepin Hydrochloride 10 MG Capsule PO (21:38)
[2019-08-28] MEDS: Acetaminophen 500 MG Tablet 1000 MG PO (05:17)
[2019-08-28] MEDS: Nystatin Powder 15gm Bottle 1 APPLIC TOPICAL ×2 (05:19→21:16)
[2019-08-28] MEDS: Multivitamin (Healthy Eyes) Capsule 1 CAP PO (05:19)
[2019-08-28] MEDS: Menthol/Lanolin/Calamine/Znox 113 GM Tube 1 APPLIC TOPICAL ×2 (05:19→21:16)
[2019-08-28] MEDS: Furosemide 100 MG/10 ML Vial 80 MG IV ×2 (05:20→14:22)
[2019-08-28] MEDS: Senna/Docusate Sodium 1 Tablet PO ×2 (05:21→18:33)
[2019-08-28 05:27] VITALS: BP 100/68; PULSE 99
[2019-08-28] MEDS: Aspirin 325 MG Tablet PO (08:36)
[2019-08-28 08:38] VITALS: BP 95/68
[2019-08-28 10:35] LABS: Anion Gap 6 (5-15); BUN 19 mg/dL (7-18); Calcium,Total 8.5 mg/dL (8.5-10.1); Chloride 105 mmol/L (98-107); Creatinine, Serum 0.86 mg/dL (0.55-1.02); EST Glomerular Filtration Rate 69 mL/min (>60); Est Glom Filt Rate - Afr Amer 83 mL/min (>60); Estimated Creatinine Clearance 43.72 ml/min; Glucose 234 mg/dL (74-106); Potassium 3.7 mmol/L (3.5-5.1); Sodium Level 134 mmol/L (136-145)
[2019-08-28] MEDS: 0.9% NaCl Peripheral Flush Adult/Peds IV ×2 (14:24→22:00)
[2019-08-28 15:10] VITALS: BP 100/62; PULSE 87; RESP 16; TEMP 36.8; O2SAT 94
[2019-08-28] MEDS: Temazepam 15 MG Capsule PO (21:58)
[2019-08-28] MEDS: Doxepin Hydrochloride 10 MG Capsule PO (21:59)
[2019-08-29] MEDS: Multivitamin (Healthy Eyes) Capsule 1 CAP PO (06:08)
[2019-08-29] MEDS: Furosemide 100 MG/10 ML Vial 80 MG IV (06:08)
[2019-08-29] MEDS: Senna/Docusate Sodium 1 Tablet PO (06:08)
[2019-08-29] MEDS: Nystatin Powder 15gm Bottle 1 APPLIC TOPICAL ×2 (06:09→21:10)
[2019-08-29] MEDS: Menthol/Lanolin/Calamine/Znox 113 GM Tube 1 APPLIC TOPICAL ×2 (06:09→21:10)
[2019-08-29 06:10] VITALS: BP 92/55; PULSE 107
[2019-08-29] MEDS: 0.9% NaCl Peripheral Flush Adult/Peds IV ×2 (06:10→13:09)
[2019-08-29] MEDS: Aspirin 325 MG Tablet PO (07:56)
[2019-08-29 07:59] VITALS: BP 99/56; PULSE 107
[2019-08-29] MEDS: Carvedilol 3.125 MG TABLET PO (07:59)
--- NOTE | 2019-08-29 09:41 | CASEMGMT ---
Addendum entered by Radha Arroyo 08/29/19 11:22: requested referrals to [facility], [facility] and [facility]. Referrals made. Original Note: Social Work Spoke with patient's to answer questions. no longer wanting pt to transfer to [facility] as they have positive COVID-19 patients. Assured there is no issue to change facility of choice. would like referral made to [facility] and [facility]. [facility] does not have any availability. Referred to [facility]. Inquired about payer for nonskilled services if pt issued LCD for Medicare prior to pt discharging to [facility]. Discussed paying privately for room and board and applying for Medicaid. would prefer not to apply for Medicaid because he does not want all of his assets liquidated. SW understood prerogative and explained further the Medicaid eligibility. stated he would prefer to wait to see if the pt needs Medicaid. Explained to the if the pt would need to transfer nonskilled Medicaid takes time to secure and [facility] does not accept Medicaid pending and would need 30 days private pay initially. stated the pt and him have large amounts of assets and does not want to liquidate those - confirmed the pt would not be eligible then - but he has explored private duty aides and could pay privately for those services if needed. Discussed TCU no longer have a 'close' date and would keep pt until pt no longer meets skilled Medicare criteria. Reexplained Medicare coverage. expressed understanding. [facility] accepted the pt but only if she would transfer skilled - they do not have any nonskilled bed availability. Notified and would like the list of SNFs again. Provided verbal list. to notify SW with other facilities. Will continue to follow. Radha Arroyo, EDEN TRISTAN
[2019-08-29 09:47] VITALS: PULSE 104; RESP 18; O2SAT 98
[2019-08-29] MEDS: Furosemide 40 MG/4 ML Vial IV (13:09)
[2019-08-29 15:04] VITALS: BP 88/56; PULSE 101; RESP 20; TEMP 36.9; O2SAT 96
[2019-08-29 18:00] VITALS: BP 85/54; PULSE 102
[2019-08-29] MEDS: Doxepin Hydrochloride 10 MG Capsule PO (21:09)
[2019-08-29] MEDS: Temazepam 15 MG Capsule PO (21:09)
--- NOTE | 2019-08-30 01:42 | NURSING ---
Pt put home CPAP on around 2200. Pt assisted to the restroom and back to bed. Refused to put mask back on stating it was to uncomfortable. Educated pt on importance of use. Pt stated she would talk to tomorrow about mask.
[2019-08-30] MEDS: Furosemide 40 MG/4 ML Vial IV ×2 (05:29→14:35)
[2019-08-30] MEDS: Multivitamin (Healthy Eyes) Capsule 1 CAP PO (05:29)
[2019-08-30] MEDS: 0.9% Saline Lock 10 ML Syringe IV (05:33)
[2019-08-30] MEDS: Menthol/Lanolin/Calamine/Znox 113 GM Tube 1 APPLIC TOPICAL ×2 (05:37→21:36)
[2019-08-30] MEDS: Nystatin Powder 15gm Bottle 1 APPLIC TOPICAL ×2 (05:38→21:36)
[2019-08-30 05:53] LABS: Absolute Lymphocyte Count 2.35 X10^3/uL (0.83-4.51); Absolute Neutrophil Count 6.3 X10^3/uL (2.0-7.7); Basophil# 0.05 X10^3/uL; Basophil% 0.5 % (0-1); Eosinophil# 0.16 X10^3/uL; Eosinophils% 1.6 % (0-5); Hematocrit 33.5 % (37-47); Hemoglobin 9.8 g/dL (12.0-15.0); Lymphocyte # 2.35 X10^3/ul (4.0); Lymphocyte % 23.8 % (19-41); Mean Corp Hgb Conc 29.3 g/dL (32-36); Mean Corpuscular Hgb 25.7 pg (27.0-32.0); Mean Corpuscular Volume 87.9 fL (81-99); Mean Platelet Vol. 12.6 fl (6.2-12.0); Monocyte# 0.89 X10^3/uL; NRBC Flagged by Analyzer 0.4 % (0-5); Neutrophil # 6.34 X10^3/uL (2.7-7.7); Neutrophil % 64.2 % (47-70); Platelet Count 313 K/mm3 (150-450); Red Blood Count 3.81 M/mm3 (4.2-5.4); White Blood Count 9.9 K/mm3 (4.4-11.0)
[2019-08-30 06:12] LABS: Anion Gap 10 (5-15); BUN 25 mg/dL (7-18); BUN/Creat Ratio 26.5 RATIO (10-20); Calcium,Total 8.4 mg/dL (8.5-10.1); Chloride 103 mmol/L (98-107); Creatinine, Serum 0.94 mg/dL (0.55-1.02); EST Glomerular Filtration Rate 62 mL/min (>60); Est Glom Filt Rate - Afr Amer 75 mL/min (>60); Glucose 189 mg/dL (74-106); Potassium 4.2 mmol/L (3.5-5.1); Sodium Level 134 mmol/L (136-145)
[2019-08-30] MEDS: Aspirin 325 MG Tablet PO (08:13)
[2019-08-30 08:14] VITALS: BP 83/55; PULSE 93
[2019-08-30 14:48] VITALS: BP 87/58; PULSE 71; RESP 16; TEMP 36.7; O2SAT 95
--- NOTE | 2019-08-30 15:38 | CHAPLAIN ---
Type of Pastoral Visit ___ Initial Visit _x__ Follow-up Visit ___ On-call Visit ___ General Patient Visit ___ Spiritual Assessment ___ Family Conference ___ Bereavement ___ Rapid Response ___ Code Blue ___ Other (describe below) Pastoral Care Referral From _x__ Patient ___ Family ___ Nurse ___ Physician ___ Photographic Colorist ___ Furniture Technician ___ Other (describe below) Sacrament/Intervention _x__ Active listening ___ Anointing ___ Jain ___ Bereavement ___ Communion ___ Anisa exploration ___ ___ Life review ___ Prayer ___ Reconciliation ___ Sacrament of Sick ___ Supportive presence ___ Wedding ___ Other (describe below) Pastoral Comments
[2019-08-30] MEDS: Carvedilol 3.125 MG TABLET PO (17:33)
[2019-08-30 17:34] VITALS: BP 96/46; PULSE 87
[2019-08-30] MEDS: Temazepam 15 MG Capsule PO (21:35)
[2019-08-30] MEDS: Doxepin Hydrochloride 10 MG Capsule PO (21:35)
[2019-08-31 03:48] VITALS: BP 97/58; PULSE 104; O2SAT 98
[2019-08-31] MEDS: Senna/Docusate Sodium 1 Tablet PO ×2 (06:21→17:59)
[2019-08-31] MEDS: Multivitamin (Healthy Eyes) Capsule 1 CAP PO (06:21)
[2019-08-31] MEDS: Furosemide 40 MG Tablet PO ×2 (06:21→13:56)
[2019-08-31] MEDS: Menthol/Lanolin/Calamine/Znox 113 GM Tube 1 APPLIC TOPICAL ×2 (06:21→21:10)
[2019-08-31] MEDS: Nystatin Powder 15gm Bottle 1 APPLIC TOPICAL ×2 (06:22→21:11)
[2019-08-31 08:30] VITALS: BP 100/60; PULSE 107
[2019-08-31] MEDS: Carvedilol 3.125 MG TABLET PO ×2 (08:36→17:59)
[2019-08-31] MEDS: Aspirin 325 MG Tablet PO (08:36)
--- NOTE | 2019-08-31 11:36 | NURSING ---
wound photo: left foot
--- NOTE | 2019-08-31 11:37 | NURSING ---
wound photo: right foot
[2019-08-31 13:24] VITALS: BP 96/50; PULSE 90; RESP 16; TEMP 36.7; O2SAT 96
[2019-08-31 17:54] LABS: Absolute Lymphocyte Count 2.02 X10^3/uL (0.83-4.51); Absolute Neutrophil Count 7.8 X10^3/uL (2.0-7.7); Basophil# 0.03 X10^3/uL; Basophil% 0.3 % (0-1); Eosinophil# 0.12 X10^3/uL; Eosinophils% 1.1 % (0-5); Hematocrit 34.8 % (37-47); Hemoglobin 9.7 g/dL (12.0-15.0); Lymphocyte # 2.02 X10^3/ul (4.0); Lymphocyte % 18.5 % (19-41); Mean Corp Hgb Conc 27.9 g/dL (32-36); Mean Corpuscular Hgb 24.3 pg (27.0-32.0); Mean Platelet Vol. 12.5 fl (6.2-12.0); Monocyte# 0.79 X10^3/uL; Monocyte% 7.2 % (0-10); NRBC Flagged by Analyzer 0.5 % (0-5); Neutrophil # 7.83 X10^3/uL (2.7-7.7); Neutrophil % 71.5 % (47-70); Platelet Count 328 K/mm3 (150-450); RBC Distribution Width CV 19.5 % (11.6-14.6); RBC Distribution Width SD 61.4 fl (35.1-43.9); White Blood Count 10.9 K/mm3 (4.4-11.0)
[2019-08-31 18:05] LABS: BNP,B-Type NATRIURETIC PEPTIDE 4875.9 pg/mL (0-100)
[2019-08-31 18:08] LABS: Anion Gap 10 (5-15); BUN 35 mg/dL (7-18); BUN/Creat Ratio 27.6 RATIO (10-20); Calcium,Total 8.8 mg/dL (8.5-10.1); Chloride 100 mmol/L (98-107); Creatinine, Serum 1.27 mg/dL (0.55-1.02); EST Glomerular Filtration Rate 44 mL/min (>60); Est Glom Filt Rate - Afr Amer 53 mL/min (>60); Estimated Creatinine Clearance 29.61 ml/min; Glucose 207 mg/dL (74-106); Potassium 5.6 mmol/L (3.5-5.1); Sodium Level 131 mmol/L (136-145)
--- NOTE | 2019-08-31 18:15 | RAD_ITS ---
STUDY: X-RAY CHEST REASON FOR EXAM: Female, 68 years old. Cough. Shortness of breath. TECHNIQUE: Frontal and lateral views of the chest COMPARISON: 08/22/2019 FINDINGS: There are stable small bilateral pleural effusions with overlying atelectasis. There are no focal infiltrates. The heart is normal in size. Again noted are sternotomy wires. The visualized osseous structures are within normal limits. RAD/Chest PA and Lateral IMPRESSION: Stable small bilateral pleural effusions with overlying atelectasis. Electronically Signed: Julito Gamez, at 18:26 EDT Tel , Service support ,
--- NOTE | 2019-08-31 19:00 | NURSING ---
Patient has been feeling like she is declining the last couple of days. Patient has been very short of breath with activity. Patient has been feeling very dry. Dr. Barrow notified of this. New orders were given.
--- NOTE | 2019-08-31 19:23 | EKG12_ITS ---
Test Reason : SOB Blood Pressure : / mmHG Vent. Rate : 081 BPM Atrial Rate : 084 BPM P-R Int : 000 ms QRS Dur : 120 ms QT Int : 398 ms P-R-T Axes : 000 -45 166 degrees QTc Int : 462 ms Atrial fibrillation Left axis deviation Incomplete left bundle branch block Non-specific ST & T wave changes Abnormal ECG When compared with ECG of 31-AUG-2019 19:31, MANUAL COMPARISON REQUIRED, DATA IS UNCONFIRMED Confirmed by GENOVEVA WHITAKER, DORIS ([id number]), sound editor COURTNEY DOCKERY ([id number]) on 09/06/2019 9:15:57 AM Referred By: FRANCIS Confirmed By:MAKENZIE TOMAS MD
--- NOTE | 2019-08-31 19:31 | EKG12_ITS ---
Test Reason : SOB Blood Pressure : / mmHG Vent. Rate : 082 BPM Atrial Rate : 082 BPM P-R Int : 160 ms QRS Dur : 120 ms QT Int : 394 ms P-R-T Axes : 000 -47 166 degrees QTc Int : 460 ms Normal sinus rhythm Left axis deviation Incomplete left bundle branch block Non-specific ST & T wave changes Abnormal ECG When compared with ECG of 04-AUG-2019 19:58, Premature supraventricular complexes are no longer Present Nonspecific T wave abnormality has replaced inverted T waves in Lateral leads Confirmed by GENOVEVA WHITAKER, DORIS ([id number]), news editor COURTNEY DOCKERY ([id number]) on 09/06/2019 9:26:19 AM Referred By: FRANCIS Confirmed By:MAKENZIE TOMAS MD
--- NOTE | 2019-08-31 20:00 | NURSING ---
Chest xray results, and lab results are back. Dr. Barrow notified of results. New orders given at this time.
[2019-08-31 20:09] LABS: CPK Total, Creatine Kinase 15 U/L (26-192)
[2019-08-31] MEDS: Sodium Polystyrene Sulfonate 15 GM/60 ML UDC 30 GM PO (21:09)
[2019-08-31] MEDS: Temazepam 15 MG Capsule PO (23:00)
[2019-08-31] MEDS: Doxepin Hydrochloride 10 MG Capsule PO (23:01)
[2019-08-31 23:34] LABS: Bacteria 0 SEEN /hpf (None Seen); Mucous, Urine 0 SEEN /hpf (<or=2+)
[2019-08-31 23:35] LABS: Color, Urine Straw (Yellow); Glucose, Dipstick Normal (Normal); Ketone-Dipstick Negative (Negative); Leukocyte Esterase-Dipstick 100 /ul (Negative); Nitrite-Dipstick Negative (Negative); Occult Blood-Urine 150 /ul (Negative); Protein-Dipstick 30 mg/dl (Negative); Specific Gravity, Urine 1.015 (1.002-1.030); Urine Bilirubin Dipstick Negative (Negative); Urine Clarity Clear (Clear); Urine Urobilinogen 4 mg/dl (Normal)
[2019-08-31 23:41] LABS: Red Blood Cells-Urine 5-10 SEEN /hpf (0-5); Squamous Epithelial Cells - UA 0-5 SEEN /hpf (5-10); Transitional Epithelial - Ur 0-5 SEEN /hpf (0-5); White Blood Cells 5-10 SEEN /hpf (0-5)
[2019-09-01] MEDS: Menthol/Lanolin/Calamine/Znox 113 GM Tube 1 APPLIC TOPICAL ×2 (06:29→22:35)
[2019-09-01] MEDS: Nystatin Powder 15gm Bottle 1 APPLIC TOPICAL ×2 (06:29→22:36)
[2019-09-01 07:04] LABS: Anion Gap 8 (5-15); BUN 37 mg/dL (7-18); BUN/Creat Ratio 29.6 RATIO (10-20); Calcium,Total 8.6 mg/dL (8.5-10.1); Chloride 104 mmol/L (98-107); Creatinine, Serum 1.25 mg/dL (0.55-1.02); EST Glomerular Filtration Rate 45 mL/min (>60); Est Glom Filt Rate - Afr Amer 54 mL/min (>60); Estimated Creatinine Clearance 30.08 ml/min; Glucose 209 mg/dL (74-106); Potassium 4.9 mmol/L (3.5-5.1); Sodium Level 135 mmol/L (136-145)
[2019-09-01] MEDS: Carvedilol 3.125 MG TABLET PO ×2 (08:12→17:47)
[2019-09-01] MEDS: Multivitamin (Healthy Eyes) Capsule 1 CAP PO (08:12)
[2019-09-01] MEDS: Aspirin 325 MG Tablet PO (08:12)
[2019-09-01] MEDS: Furosemide 40 MG Tablet PO ×2 (09:20→15:26)
[2019-09-01 15:20] VITALS: BP 84/54; PULSE 84; RESP 20; TEMP 36.6; O2SAT 96
[2019-09-01] MEDS: Senna/Docusate Sodium 1 Tablet PO (17:47)
[2019-09-01] MEDS: Doxepin Hydrochloride 10 MG Capsule PO (22:30)
[2019-09-01] MEDS: Temazepam 15 MG Capsule PO (22:30)
[2019-09-02] MEDS: Senna/Docusate Sodium 1 Tablet PO (06:14)
[2019-09-02] MEDS: Furosemide 40 MG Tablet PO ×2 (06:14→14:05)
[2019-09-02] MEDS: Multivitamin (Healthy Eyes) Capsule 1 CAP PO (06:14)
[2019-09-02] MEDS: Nystatin Powder 15gm Bottle 1 APPLIC TOPICAL ×2 (06:16→21:32)
[2019-09-02] MEDS: Menthol/Lanolin/Calamine/Znox 113 GM Tube 1 APPLIC TOPICAL ×2 (06:17→21:32)
[2019-09-02 06:18] LABS: Anion Gap 11 (5-15); BUN 44 mg/dL (7-18); BUN/Creat Ratio 37.6 RATIO (10-20); Calcium,Total 8.5 mg/dL (8.5-10.1); Chloride 105 mmol/L (98-107); Creatinine, Serum 1.17 mg/dL (0.55-1.02); EST Glomerular Filtration Rate 49 mL/min (>60); Est Glom Filt Rate - Afr Amer 59 mL/min (>60); Estimated Creatinine Clearance 32.14 ml/min; Glucose 199 mg/dL (74-106); Potassium 4.2 mmol/L (3.5-5.1); Sodium Level 136 mmol/L (136-145)
[2019-09-02] MEDS: Aspirin 325 MG Tablet PO (08:03)
[2019-09-02 08:04] VITALS: BP 89/53; PULSE 95
[2019-09-02 08:20] VITALS: PULSE 97; RESP 16; O2SAT 97
--- NOTE | 2019-09-02 12:17 | NURSING ---
PT RETURNED FROM CARDIOLOGY APPT WITH ANDREW ROBLES. NEW ORDER TO INCREASE LASIX 80MG IN AM & THEN 40MG IN EVENING X3 DAYS. THIS NURSE CALLED UP TO TALK WITH TRAVIS & EXPLAINED DR BLANCO HAD PT ON IV LASIX AND WAS GETTING DRY AND WAS VERY WEAK, DIFFICULTY WITH THERAPY SESSIONS WELL. ANDREW ROBLES STATED THAT SHE WOULD LIKE US TO CONTINUE THE ORDERS WRITTEN BY DR BLANCO. NO CHANGE TO LASIX AT THIS TIME.
[2019-09-02 13:29] VITALS: BP 84/49; PULSE 74; RESP 16; TEMP 36.3; O2SAT 99
[2019-09-02 16:16] VITALS: BP 76/51; PULSE 77
--- NOTE | 2019-09-02 17:00 | NURSING ---
PT CONTINUES TO BE NONCOMPLIANT WITH NOT KEEPING LEGS ELEVATED IN HER LEATHER RECLINER. SHE DOES NOT SEEM TO UNDERSTAND WHY HER LEGS ARE EDEMATOUS AND WHY SHE IS ON A FLUID RESTRICTION. PT HAS BEEN EDUCATED SEVERAL TIMES. SITTING IN RECLINER WITH LEGS BARELY ELEVATED. THIS NURSE EDUCATED THE IMPORTANCE OF SHIFTING HER WEIGHT IN CHAIR TO PREVENT PRESSURE INJURIES TO BUTTOCKS, PT STATES THAT SHE DOES BUT HAVE NOT SEEN THIS ATTEMPTED. CALL LIGHT IN REACH.
[2019-09-02] MEDS: Doxepin Hydrochloride 10 MG Capsule PO (21:29)
[2019-09-02] MEDS: Temazepam 15 MG Capsule PO (21:29)
[2019-09-03] MEDS: Menthol/Lanolin/Calamine/Znox 113 GM Tube 1 APPLIC TOPICAL ×2 (05:03→20:57)
[2019-09-03] MEDS: Nystatin Powder 15gm Bottle 1 APPLIC TOPICAL ×2 (05:03→20:52)
[2019-09-03] MEDS: Senna/Docusate Sodium 1 Tablet PO ×2 (05:04→17:20)
[2019-09-03] MEDS: Multivitamin (Healthy Eyes) Capsule 1 CAP PO (05:04)
[2019-09-03] MEDS: Furosemide 40 MG Tablet PO ×2 (05:04→13:30)
[2019-09-03 05:05] VITALS: BP 102/60; PULSE 107
[2019-09-03] MEDS: 0.9% NaCl Peripheral Flush Adult/Peds IV ×2 (05:15→13:44)
[2019-09-03] MEDS: Aspirin 325 MG Tablet PO (08:03)
[2019-09-03 15:06] VITALS: BP 86/52; PULSE 78; RESP 16; TEMP 36.9; O2SAT 97
[2019-09-03] MEDS: Doxepin Hydrochloride 10 MG Capsule PO (22:18)
[2019-09-03] MEDS: Temazepam 15 MG Capsule PO (22:18)
[2019-09-04] MEDS: Senna/Docusate Sodium 1 Tablet PO ×2 (05:56→17:41)
[2019-09-04] MEDS: Furosemide 40 MG Tablet PO ×2 (05:56→15:02)
[2019-09-04] MEDS: Menthol/Lanolin/Calamine/Znox 113 GM Tube 1 APPLIC TOPICAL ×2 (05:56→21:56)
[2019-09-04] MEDS: Multivitamin (Healthy Eyes) Capsule 1 CAP PO (05:56)
[2019-09-04] MEDS: Nystatin Powder 15gm Bottle 1 APPLIC TOPICAL ×2 (05:57→21:57)
[2019-09-04 06:05] LABS: Anion Gap 11 (5-15); BUN 45 mg/dL (7-18); BUN/Creat Ratio 42.5 RATIO (10-20); Calcium,Total 8.3 mg/dL (8.5-10.1); Chloride 102 mmol/L (98-107); Creatinine, Serum 1.06 mg/dL (0.55-1.02); EST Glomerular Filtration Rate 54 mL/min (>60); Est Glom Filt Rate - Afr Amer 66 mL/min (>60); Estimated Creatinine Clearance 35.47 ml/min; Glucose 185 mg/dL (74-106); Sodium Level 134 mmol/L (136-145)
[2019-09-04] MEDS: Aspirin 325 MG Tablet PO (08:17)
[2019-09-04 08:18] VITALS: BP 82/49
[2019-09-04 09:52] VITALS: PULSE 67; RESP 16; O2SAT 97
[2019-09-04 14:50] VITALS: BP 85/48; PULSE 83; RESP 18; TEMP 36.9; O2SAT 97
[2019-09-04] MEDS: 0.9% NaCl Peripheral Flush Adult/Peds IV (15:04)
[2019-09-04] MEDS: Temazepam 15 MG Capsule PO (21:52)
[2019-09-04] MEDS: Doxepin Hydrochloride 10 MG Capsule PO (21:52)
[2019-09-05] MEDS: 0.9% NaCl Peripheral Flush Adult/Peds IV (06:16)
[2019-09-05] MEDS: Menthol/Lanolin/Calamine/Znox 113 GM Tube 1 APPLIC TOPICAL ×2 (06:16→22:10)
[2019-09-05] MEDS: Furosemide 40 MG Tablet PO ×2 (06:17→13:55)
[2019-09-05] MEDS: Senna/Docusate Sodium 1 Tablet PO ×2 (06:17→17:19)
[2019-09-05] MEDS: Nystatin Powder 15gm Bottle 1 APPLIC TOPICAL ×2 (06:17→22:09)
[2019-09-05] MEDS: Multivitamin (Healthy Eyes) Capsule 1 CAP PO (06:17)
[2019-09-05] MEDS: Aspirin 325 MG Tablet PO (08:07)
[2019-09-05] MEDS: Carvedilol 3.125 MG TABLET PO ×2 (08:10→17:18)
[2019-09-05 08:12] VITALS: BP 91/54; PULSE 98
--- NOTE | 2019-09-05 11:19 | NURSING ---
wound photo: left dorsal foot
--- NOTE | 2019-09-05 11:20 | NURSING ---
wound photo: right dorsal foot
[2019-09-05 16:34] VITALS: BP 79/41; PULSE 78; RESP 14; TEMP 36.2; O2SAT 99
[2019-09-05 17:17] VITALS: BP 100/52; PULSE 88
[2019-09-05 20:06] VITALS: PULSE 84; O2SAT 97
[2019-09-05] MEDS: Temazepam 15 MG Capsule PO (22:07)
[2019-09-05] MEDS: Doxepin Hydrochloride 10 MG Capsule PO (22:08)
[2019-09-06] MEDS: Glycerin/Hypromellose/PEG400 15 ml Bottle 1 DRP OPHTHALMIC (00:54)
[2019-09-06] MEDS: Furosemide 40 MG Tablet PO ×2 (06:02→13:14)
[2019-09-06] MEDS: Multivitamin (Healthy Eyes) Capsule 1 CAP PO (06:02)
[2019-09-06] MEDS: Senna/Docusate Sodium 1 Tablet PO ×2 (06:02→17:51)
[2019-09-06] MEDS: Menthol/Lanolin/Calamine/Znox 113 GM Tube 1 APPLIC TOPICAL ×2 (06:08→21:27)
[2019-09-06] MEDS: Nystatin Powder 15gm Bottle 1 APPLIC TOPICAL ×2 (06:09→21:27)
[2019-09-06 06:21] LABS: Absolute Lymphocyte Count 1.54 X10^3/uL (0.83-4.51); Absolute Neutrophil Count 6.9 X10^3/uL (2.0-7.7); Basophil# 0.02 X10^3/uL; Basophil% 0.2 % (0-1); Eosinophil# 0.11 X10^3/uL; Eosinophils% 1.2 % (0-5); Hematocrit 34.2 % (37-47); Hemoglobin 9.8 g/dL (12.0-15.0); Lymphocyte # 1.54 X10^3/ul (4.0); Lymphocyte % 16.6 % (19-41); Mean Corp Hgb Conc 28.7 g/dL (32-36); Mean Corpuscular Hgb 24.4 pg (27.0-32.0); Mean Corpuscular Volume 85.1 fL (81-99); Mean Platelet Vol. 11.5 fl (6.2-12.0); Monocyte# 0.61 X10^3/uL; Monocyte% 6.6 % (0-10); NRBC Flagged by Analyzer 0.6 % (0-5); Neutrophil % 74.5 % (47-70); Platelet Count 307 K/mm3 (150-450); RBC Distribution Width CV 19.8 % (11.6-14.6); RBC Distribution Width SD 60.3 fl (35.1-43.9); Red Blood Count 4.02 M/mm3 (4.2-5.4); White Blood Count 9.3 K/mm3 (4.4-11.0)
[2019-09-06 06:32] LABS: Anion Gap 10 (5-15); BUN 48 mg/dL (7-18); BUN/Creat Ratio 43.2 RATIO (10-20); Calcium,Total 8.3 mg/dL (8.5-10.1); Chloride 101 mmol/L (98-107); Creatinine, Serum 1.11 mg/dL (0.55-1.02); EST Glomerular Filtration Rate 52 mL/min (>60); Est Glom Filt Rate - Afr Amer 62 mL/min (>60); Estimated Creatinine Clearance 33.87 ml/min; Glucose 189 mg/dL (74-106); Potassium 4.3 mmol/L (3.5-5.1); Sodium Level 133 mmol/L (136-145)
[2019-09-06] MEDS: Metolazone 2.5 MG Tablet PO (07:36)
[2019-09-06] MEDS: Aspirin 325 MG Tablet PO (08:58)
[2019-09-06] MEDS: Carvedilol 3.125 MG TABLET PO (08:58)
[2019-09-06 09:10] VITALS: PULSE 91; RESP 18; O2SAT 91
[2019-09-06 09:16] VITALS: BP 128/59; PULSE 99
--- NOTE | 2019-09-06 12:28 | PCM.TXEXTCAR ---
- Diet 09/05/19 16:46 Diet: Regular Diet Food consistency:: Mechanical Soft/Ground Liquid Consistency:: Regular/Thin Is pt able to select menu?: Yes Diet Comments: 1500 cc FR/day - Routine Orders/Code Status Suppository Type: Dulcolax 10mg Suppository Frequency: Daily PRN Routine Lab Work: CBC, BMP Code Status: Full Code - Wound(s) bilat tops of feet Wound Type: Blisters Dressing Change: Dry Sterile Dressing left dorsal foot Wound Type: Blister Dressing Change: Adaptic right dorsal foot Wound Type: Blister Dressing Change: Adaptic rt buttock Wound Type: Pressure Injury Dressing Change: Mepilex 09/02/19 - Therapies Weight Bearing: Weight bearing as tolerated Extremity Affected:: Bilateral Lower Physical Therapy: Eval and Treat Occupational Therapy: Eval and Treat - Problem/Diagnosis (1) Debility Status: Acute Current Visit: Yes (2) Ischemic colitis Status: Acute Current Visit: Yes (3) Elevated troponin Status: Acute Current Visit: Yes (4) Sepsis Status: Acute Current Visit: Yes (5) Edema Status: Acute Current Visit: Yes (6) Iron deficiency anemia Status: Chronic Current Visit: Yes (7) Chronic diastolic (congestive) heart failure Status: Chronic Current Visit: Yes (8) Shortness of breath Status: Chronic Current Visit: Yes (9) Diabetes mellitus Status: Chronic Current Visit: Yes (10) Pulmonary hypertension Status: Chronic Current Visit: Yes (11) Insomnia Status: Chronic Current Visit: Yes (12) Hypokalemia Status: Chronic Current Visit: Yes (13) Polycythemia vera Status: Chronic Current Visit: No (14) Hyperlipidemia Status: Chronic Current Visit: No (15) Gout Status: Chronic Current Visit: No (16) Aortic stenosis Status: Chronic Current Visit: No (17) KYLE (obstructive sleep apnea) Status: Chronic Current Visit: No (18) Osteoarthritis Status: Chronic Current Visit: No - Allergies/Procedures Done in Hospital Allergies/Adverse Reactions: Allergies Penicillins Allergy (Severe, Verified 08/13/19 14:10) Rash clarithromycin [From Biaxin] Allergy (Intermediate, Verified 08/13/19 14:10) Rash erythromycin base [Erythromycin Base] Allergy (Intermediate, Verified 08/13/19 14:10) Rash cat dander Adverse Reaction (Intermediate, Verified 08/13/19 14:10) SNEEZING Alternaria Mold Spores Allergy (Intermediate, Uncoded 08/13/19 14:10) SNEEZING dust Allergy (Intermediate, Uncoded 08/13/19 14:10) SNEEZING - Type of Care/Length of Stay Estimated LOS: More Than 30 Days Type of Care Needed: Intermediate Rehab Potential: Fair Prognosis: Poor - Additional Orders/Day of Discharge Day of Discharge: 09/14/19 - Dietary and Speech Recommendations Dietitian Recommendations/Changes: Will change diet to cardiac/low cholesterol. Continue fluid restriction as indicated. - Follow Up Care Primary Care Physician: Imer Cummings MD [Primary Care Provider] - Please follow up with your Primary Care Physician in: 1 week. Please Follow Up With: Imer Cummings MD (PCP) Please Follow Up With: Annita Alvarenga PA
[2019-09-06] MEDS: Saliva Substitute 237 ML BOTTLE 15 ML MM ×2 (13:14→17:51)
[2019-09-06 14:07] VITALS: BP 98/50; PULSE 91; RESP 18; TEMP 36.4; O2SAT 99
[2019-09-06] MEDS: 0.9% NaCl Peripheral Flush Adult/Peds IV ×2 (14:12→21:28)
[2019-09-06 17:54] VITALS: BP 87/54; PULSE 88
--- NOTE | 2019-09-06 17:55 | NURSING ---
HELD COREG PER PROTOCOL. BP 87/54. HR88. RN AWARE
[2019-09-06] MEDS: Temazepam 15 MG Capsule PO (21:26)
[2019-09-06] MEDS: Doxepin Hydrochloride 10 MG Capsule PO (21:26)
[2019-09-07] MEDS: Furosemide 40 MG Tablet PO (06:21)
[2019-09-07] MEDS: Multivitamin (Healthy Eyes) Capsule 1 CAP PO (06:21)
[2019-09-07] MEDS: Senna/Docusate Sodium 1 Tablet PO ×2 (06:21→17:07)
[2019-09-07] MEDS: Metolazone 2.5 MG Tablet PO (06:21)
[2019-09-07] MEDS: Menthol/Lanolin/Calamine/Znox 113 GM Tube 1 APPLIC TOPICAL ×2 (06:21→22:10)
[2019-09-07] MEDS: Nystatin Powder 15gm Bottle 1 APPLIC TOPICAL ×2 (06:27→22:09)
[2019-09-07 06:49] LABS: Anion Gap 10 (5-15); BUN 52 mg/dL (7-18); BUN/Creat Ratio 40.3 RATIO (10-20); Calcium,Total 8.5 mg/dL (8.5-10.1); Chloride 101 mmol/L (98-107); Creatinine, Serum 1.29 mg/dL (0.55-1.02); EST Glomerular Filtration Rate 43 mL/min (>60); Est Glom Filt Rate - Afr Amer 52 mL/min (>60); Estimated Creatinine Clearance 29.15 ml/min; Glucose 197 mg/dL (74-106); Potassium 4.2 mmol/L (3.5-5.1); Sodium Level 132 mmol/L (136-145)
[2019-09-07] MEDS: Saliva Substitute 237 ML BOTTLE 15 ML MM ×3 (08:06→17:07)
[2019-09-07] MEDS: Aspirin 325 MG Tablet PO (08:06)
[2019-09-07] MEDS: Carvedilol 3.125 MG TABLET PO (08:06)
--- NOTE | 2019-09-07 08:19 | CASEMGMT ---
Social Work IDT agreeable to set DC date for pt 09/13. Spoke with patient and to discuss DC plans. IDT recommending SNF for continued nursing care. Explained pt would transfer nonskilled and room and board would be private pay. Provided phone numbers to [facility] and [facility]. spoke with both and preferred [facility]. Contacted [facility] to confirm discharge nonskilled private pay. Plan: DC to [facility] 09/13. EDEN MeierW
[2019-09-07 10:57] VITALS: TEMP 37.1
[2019-09-07 13:36] VITALS: BP 78/43; PULSE 82; RESP 18; TEMP 36.5; O2SAT 98
--- NOTE | 2019-09-07 13:37 | NURSING ---
Dr york updated on low BP 78/43 HR 82. new order to hold 2pm lasix.
[2019-09-07] MEDS: 0.9% NaCl Peripheral Flush Adult/Peds IV (14:33)
--- NOTE | 2019-09-07 14:42 | CHAPLAIN ---
Type of Pastoral Visit ___ Initial Visit _x__ Follow-up Visit ___ On-call Visit ___ General Patient Visit ___ Spiritual Assessment ___ Family Conference ___ Bereavement ___ Rapid Response ___ Code Blue ___ Other (describe below) Pastoral Care Referral From _x__ Patient ___ Family ___ Nurse ___ Physician ___ Pharmacy Manager ___ General Sales Manager ___ Other (describe below) Sacrament/Intervention _x__ Active listening ___ Anointing ___ Shinto ___ Bereavement ___ Communion ___ Anisa exploration ___ ___ Life review _x__ Prayer ___ Reconciliation ___ Sacrament of Sick _x__ Supportive presence ___ Wedding ___ Other (describe below) Pastoral Comments patient states that she is tired and feels like there is little progress on her condition; gave presence and support for patient; pt welcomes prayer
--- NOTE | 2019-09-07 16:20 | CASEMGMT ---
Social Work Spoke with several times at length to answer questions and explain skilled vs nonskilled coverage and the pts goals while at [facility]. Explained the goals to pt as well. Provided verbal support and active listening to . appreciative of SW. Radha Arroyo, MEDIA LAW FACULTY MEMBER ACCOUNT GENERAL MANAGER
--- NOTE | 2019-09-07 16:51 | PN_ITS ---
Subjective: Resident no longer hypoxic, Pulsox 98% on RA. Vitals/I&O's: Vital Signs Temp Pulse Resp BP Pulse Ox 97.7 F L 82 18 78/43 L 98 09/07/19 13:36 09/07/19 13:36 09/07/19 13:36 09/07/19 13:36 09/07/19 13:36 Oxygen Delivery Method Room Air Weight: 84.425 kg Body Mass Index (BMI) 37.3 Intake and Output for Last 24 Hours 09/05/19 09/06/19 09/07/19 23:59 23:59 23:59 Intake Total 850 / 850 580 / 580 460 / 460 Balance 850 / 850 580 / 580 460 / 460 Laboratory Results 09/07/19 06:15: Sodium 132 L, Potassium 4.2, Chloride 101, Carbon Dioxide 21.0, Anion Gap 10, BUN 52 H, Creatinine 1.29 H, Estim Creat Clear Calc 29.15, Est GFR (MDRD) Af Amer 52 L, Est GFR (MDRD) Non-Af 43 L, BUN/Creatinine Ratio 40.3 H, Glucose 197 H, Calcium 8.5 Past Medical History Past Medical History (Chronic Problems): Chronic Problems (Last Reviewed 09/02/19 @ 11:22 by ANDREW Patel) Iron deficiency anemia (Chronic) Chronic diastolic (congestive) heart failure (Chronic) Shortness of breath (Chronic) Diabetes mellitus (Chronic) Pulmonary hypertension (Chronic) Insomnia (Chronic) Hypokalemia (Chronic) Polycythemia vera (Chronic) Hyperlipidemia (Chronic) Segmental and somatic dysfunction of lumbar region (Chronic) Segmental and somatic dysfunction of cervical region (Chronic) Segmental and somatic dysfunction of thoracic region (Chronic) BMI 32.0-32.9,adult (Chronic) Closed left arm fracture (Chronic 09/05/18) [place] DDD (degenerative disc disease) (Chronic) 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 Aortic valve replaced 10/21/[address] Chacko Lacunar infarction (Chronic) KYLE (obstructive sleep apnea) (Chronic) Sleep disorder (Chronic) De Quervain's disease (tenosynovitis) (Chronic) Supraventricular tachycardia (Chronic) Diabetes mellitus type 2, controlled (Chronic) Osteoarthritis (Chronic) Medical History: Medical History (Last Reviewed 09/02/19 @ 11:22 by ANDREW Patel) Lower gastrointestinal bleeding (Chronic) K92.2 Diastolic CHF (Chronic) I50.30 Aortic stenosis (Chronic) I35.0 History of bicuspid aortic valve (Chronic) Z87.74 Pt had resultant severe aortic stenosis. Aortic valve replaced 10/21/[address] Chacko KYLE (obstructive sleep apnea) (Chronic) G47.33 Sleep disorder (Chronic) G47.9 De Quervain's disease (tenosynovitis) (Chronic) M65.4 Supraventricular tachycardia (Chronic) I47.1 Diabetes mellitus type 2, controlled (Chronic) E11.9 Osteoarthritis (Chronic) M19.90 Gout (Inactive) M10.9 Presence of prosthetic heart valve (Inactive) Z95.2 Allergies Penicillins Allergy (Severe, Verified 08/13/19 14:10) Rash clarithromycin [From Biaxin] Allergy (Intermediate, Verified 08/13/19 14:10) Rash erythromycin base [Erythromycin Base] Allergy (Intermediate, Verified 08/13/19 14:10) Rash cat dander Adverse Reaction (Intermediate, Verified 08/13/19 14:10) SNEEZING Alternaria Mold Spores Allergy (Intermediate, Uncoded 08/13/19 14:10) SNEEZING dust Allergy (Intermediate, Uncoded 08/13/19 14:10) SNEEZING Home Medications: Ambulatory Orders Medication Instructions Recorded temazepam 15 mg capsule 15 mg PO QHS 05/20/17 vit C,E,zinc,copper-vtyvo1t 250 1 cap PO DAILY 05/20/17 mg-lutein 5 mg-zeaxanthin 1 mg capsule carboxymethylcellulose sodium 1 % 1 drp OPHTHALMIC 4-6XD 12/30/18 eye liquid gel drops Aspirin 325 mg PO DAILY@0800 #0 07/09/19 Acetaminophen [Tylenol] 1,000 mg PO Q6H PRN PRN tab 08/19/19 Furosemide [Lasix] 40 mg PO BID #60 tab 08/19/19 Menthol/Lanolin/Calamine/Znox 1 applic TOPICAL 0600,2200 tube 04/03/20 [Calmoseptine Ointment] Nystatin Powder [Mycostatin Powder] 1 applic TOPICAL BID bottle 08/19/19 Potassium Chloride [K-Dur] 20 meq PO DAILYCM tab 08/19/19 Sodium Chloride 0.65% [[place] Nasal 2 spray NASAL TID PRN PRN 08/19/19 [place]] spray.btl carvedilol 3.125 mg tablet 3.125 mg PO BIDCM tab 09/02/19 Surgical History: Surgical History (Last Reviewed 09/02/19 @ 11:22 by ANDREW Patel) H/O aortic valve replacement with porcine valve (Chronic) Z95.3 History of colonoscopy Onset Date: ~07/2019 Z98.890 H/O arthroscopy of left knee (Inactive) Z98.890 History of cholecystectomy (Inactive) Z90.49 History of meniscectomy of left knee (Inactive) Z98.890 History of tubal ligation (Inactive) Z98.51 Surgical History: cholecystectomy, - - valve replacement - aortic (porcine), Left knee arthroscopic surgery, tubal ligation. Psychiatric History: No pertinent psych hx PRINCIPAL WEB DEVELOPER History: No pertinent PRINCIPAL WEB DEVELOPER history Lives: Spouse/ Significant Other Smoking Status: Former smoker Tobacco Use: Non-smoker Alcohol: None Drugs: None - *Family History Maternal Family History: Family History (Last Reviewed 09/02/19 @ 11:22 by ANDREW Patel) Father Heart failure Kidney disease Mother Alcoholism Grandfather Heart disease History Items: Unknown Capacity - Capacity Assessment Tool Can the patient make a choice & communicate that choice?: Yes Can the patient understand benefits, risks and alternatives?: Yes Can the patient make a logical, rational choice?: Yes Is the choice the patient makes consistent w/ their values?: Yes Is there an impending, emergent risk to the patient?: No Does the patient have an Advance Directive?: No Is there a Surrogate Available?: Yes Patient Problems: Active and Suspected Problems (Last Reviewed 09/02/19 @ 11:22 by ANDREW Patel) Debility (Acute) Ischemic colitis (Acute) Elevated troponin (Acute) Sepsis (Acute) Edema (Acute) - Physical Exam Vitals/I&O's: Vital Signs Temp Pulse Resp BP Pulse Ox 97.7 F L 82 18 78/43 L 98 09/07/19 13:36 09/07/19 13:36 09/07/19 13:36 09/07/19 13:36 09/07/19 13:36 Oxygen Delivery Method Room Air Weight: 84.425 kg Body Mass Index (BMI) 37.3 Intake and Output for Last 24 Hours 09/05/19 09/06/19 09/07/19 23:59 23:59 23:59 Intake Total 850 / 850 580 / 580 460 / 460 Balance 850 / 850 580 / 580 460 / 460 Laboratory Results 09/07/19 06:15: Sodium 132 L, Potassium 4.2, Chloride 101, Carbon Dioxide 21.0, Anion Gap 10, BUN 52 H, Creatinine 1.29 H, Estim Creat Clear Calc 29.15, Est GFR (MDRD) Af Amer 52 L, Est GFR (MDRD) Non-Af 43 L, BUN/Creatinine Ratio 40.3 H, Glucose 197 H, Calcium 8.5 Current Medications Acetaminophen (Tylenol) 1,000 mg PO Q6H PRN PRN PRN Reason: Pain Score 1-10/10 Last Admin: 08/28/19 05:17 Dose: 1,000 mg Documented by: Aspirin (Aspirin) 325 mg PO DAILY@0800 [facility] Last Admin: 09/07/19 08:06 Dose: 325 mg Documented by: Calamine/Phenol (Calmoseptine Ointment) 1 applic TOPICAL 0600,2200 [facility]; Protocol Last Admin: 09/07/19 06:21 Dose: 1 applicatio Documented by: [facility] Last Admin: 09/07/19 08:06 Dose: 3.125 mg Documented by: Doxepin HCl (Sinequan) 10 mg PO QHS [facility] Last Admin: 09/06/19 21:26 Dose: 10 mg Documented by: Furosemide (Lasix) 40 mg PO BID@0600,1400 [facility] Last Admin: 09/07/19 13:36 Dose: Not Given Documented by: Metolazone (Zaroxolyn) 2.5 mg PO DAILY [facility] Last Admin: 09/07/19 06:21 Dose: 2.5 mg Documented by: Multivitamins/Minerals (Healthy Eyes (Bkc)) 1 capsule PO DAILY [facility] Last Admin: 09/07/19 06:21 Dose: 1 capsule Documented by: Nystatin (Mycostatin Powder) 1 applic TOPICAL 0600,2200 [facility]; Protocol Last Admin: 09/07/19 06:27 Dose: 1 applicatio Documented by: Polyethylene Glycol (Miralax) 17 gm PO DAILY [facility] Last Admin: 09/07/19 06:20 Dose: Not Given Documented by: Potassium Chloride (Potassium Chl Soln) 20 meq PO DAILYCM [facility] Last Admin: 09/07/19 08:06 Dose: 20 meq Documented by: Saliva Substitute (Biotene) 15 ml MM TIDCM [facility] Last Admin: 09/07/19 13:41 Dose: 15 ml Documented by: Senna/Docusate Sodium (Senokot-S, Mireya-Colace) 1 tablet PO BID [facility] Last Admin: 09/07/19 06:21 Dose: 1 tablet Documented by: Sodium Chloride ([place] Nasal [place]) 2 spray NASAL TID PRN PRN PRN Reason: NASAL DRYNESS Sodium Chloride () 5 - 15 ml IV UD PRN PRN Reason: SALINE FLUSH Last Admin: 09/07/19 14:33 Dose: 10 ml Documented by: Sodium Chloride () 10 - 40 ml IV UD PRN PRN Reason: SALINE FLUSH Last Admin: 08/30/19 05:33 Dose: 20 ml Documented by: Sodium Chloride () 10 - 40 ml IV UD PRN PRN Reason: SALINE FLUSH Temazepam (Restoril) 15 mg PO QHS [facility] Last Admin: 09/06/19 21:26 Dose: 15 mg Documented by: Assessment/Plan All Active Problems (Last Reviewed 09/02/19 @ 11:22 by ANDREW Patel) Debility (Acute) Ischemic colitis (Acute) Elevated troponin (Acute) Sepsis (Acute) Edema (Acute) 68 year old female with below past medical history recent hospitalization for septic shock, elevated troponin, admitted to TCU with debility, here for rehabilitation, strengthening, prior to discharge home with . * Hypoxia - Resolved, Pulsox 98% on RA, Oxygen no longer needed.
[2019-09-07 17:10] VITALS: BP 85/40; PULSE 82
[2019-09-07] MEDS: Temazepam 15 MG Capsule PO (22:09)
[2019-09-07] MEDS: Doxepin Hydrochloride 10 MG Capsule PO (22:12)
[2019-09-07 22:45] VITALS: RESP 16
[2019-09-08] MEDS: Menthol/Lanolin/Calamine/Znox 113 GM Tube 1 APPLIC TOPICAL ×2 (06:43→21:20)
[2019-09-08] MEDS: Nystatin Powder 15gm Bottle 1 APPLIC TOPICAL ×2 (06:44→21:20)
[2019-09-08] MEDS: Senna/Docusate Sodium 1 Tablet PO ×2 (06:44→17:16)
[2019-09-08] MEDS: Furosemide 40 MG Tablet PO ×2 (06:44→13:12)
[2019-09-08] MEDS: Metolazone 2.5 MG Tablet PO (06:45)
[2019-09-08] MEDS: Multivitamin (Healthy Eyes) Capsule 1 CAP PO (06:45)
[2019-09-08] MEDS: Aspirin 325 MG Tablet PO (08:20)
[2019-09-08] MEDS: Saliva Substitute 237 ML BOTTLE 15 ML MM ×3 (08:21→17:14)
[2019-09-08 08:24] VITALS: BP 79/47; PULSE 91
--- NOTE | 2019-09-08 08:42 | CASEMGMT ---
Social Work Physician spoke with pt and with discussions to hospice. Pt and both agreeable. Spoke with to coordinate services. is meeting with an steam shovel engineer for finances and would prefer to wait until 09/13 as planned to transfer pt to [facility]. Explained Medicare will cover hospice services but room and board will still be private pay. understood. Read a list of hospice agencies to - chose [facility]. Referral made. Will coordinate with [facility] to transfer lift chair to [facility]. Notified [facility] of hospice services. Provided emotional support to . Will continue to follow. Plan: DC to [facility] 09/13 with [facility]. EDEN Meier
[2019-09-08 09:51] VITALS: PULSE 88; RESP 18; O2SAT 91
[2019-09-08 13:17] VITALS: BP 87/54; PULSE 87; RESP 18
[2019-09-08 14:05] VITALS: TEMP 36.8; O2SAT 98
--- NOTE | 2019-09-08 15:59 | CHAPLAIN ---
Type of Pastoral Visit ___ Initial Visit _x__ Follow-up Visit ___ On-call Visit ___ General Patient Visit ___ Spiritual Assessment ___ Family Conference ___ Bereavement ___ Rapid Response ___ Code Blue ___ Other (describe below) Pastoral Care Referral From ___ Patient _x__ Family ___ Nurse ___ Physician ___ Land Commissioner ___ Burial Needs Salesperson ___ Other (describe below) Sacrament/Intervention _x__ Active listening ___ Anointing ___ Moravian ___ Bereavement ___ Communion ___ Anisa exploration ___ ___ Life review _x__ Prayer ___ Reconciliation ___ Sacrament of Sick _x__ Supportive presence ___ Wedding ___ Other (describe below) Pastoral Comments this semiautomatic taper operator received two phone calls today from spouse of patient; spouse informs semiautomatic taper operator of decisions for transfer and hospice care for patient; spouse requests delivery of special card to his which was accomplished this afternoon; met with pt and she informed this semiautomatic taper operator of same decisions; gave pt opportunity to talk about her acceptance of decisions and to start with processing of end of life care and desires
[2019-09-08 17:18] VITALS: BP 84/41; PULSE 92
[2019-09-08] MEDS: Doxepin Hydrochloride 10 MG Capsule PO (21:20)
[2019-09-08] MEDS: 0.9% NaCl Peripheral Flush Adult/Peds IV (21:20)
[2019-09-08] MEDS: Temazepam 15 MG Capsule PO (21:20)
[2019-09-09] MEDS: Furosemide 40 MG Tablet PO ×2 (05:46→13:50)
[2019-09-09] MEDS: Metolazone 2.5 MG Tablet PO (05:47)
[2019-09-09] MEDS: Senna/Docusate Sodium 1 Tablet PO ×2 (05:47→18:15)
[2019-09-09] MEDS: Multivitamin (Healthy Eyes) Capsule 1 CAP PO (05:48)
[2019-09-09] MEDS: Polyethylene Glycol 3350 17 GM PACKET PO (05:48)
[2019-09-09] MEDS: Nystatin Powder 15gm Bottle 1 APPLIC TOPICAL ×2 (05:49→23:12)
[2019-09-09] MEDS: Menthol/Lanolin/Calamine/Znox 113 GM Tube 1 APPLIC TOPICAL ×2 (05:49→23:12)
[2019-09-09] MEDS: Saliva Substitute 237 ML BOTTLE 15 ML MM ×3 (08:13→18:15)
[2019-09-09] MEDS: Aspirin 325 MG Tablet PO (08:13)
[2019-09-09 09:07] VITALS: BP 93/37; PULSE 103
[2019-09-09] MEDS: 0.9% NaCl Peripheral Flush Adult/Peds IV (10:36)
[2019-09-09 14:18] VITALS: BP 79/39; PULSE 82; RESP 18; TEMP 36.6; O2SAT 99
[2019-09-09] MEDS: Temazepam 15 MG Capsule PO (22:55)
[2019-09-09] MEDS: Doxepin Hydrochloride 10 MG Capsule PO (22:55)
[2019-09-10] MEDS: Multivitamin (Healthy Eyes) Capsule 1 CAP PO (06:49)
[2019-09-10] MEDS: Senna/Docusate Sodium 1 Tablet PO ×2 (06:49→17:54)
[2019-09-10] MEDS: Metolazone 2.5 MG Tablet PO (06:49)
[2019-09-10] MEDS: Furosemide 40 MG Tablet PO ×2 (06:49→12:21)
[2019-09-10] MEDS: Menthol/Lanolin/Calamine/Znox 113 GM Tube 1 APPLIC TOPICAL ×2 (06:50→22:05)
[2019-09-10] MEDS: Nystatin Powder 15gm Bottle 1 APPLIC TOPICAL ×2 (06:50→22:05)
[2019-09-10] MEDS: Polyethylene Glycol 3350 17 GM PACKET PO (06:50)
[2019-09-10] MEDS: Aspirin 325 MG Tablet PO (09:02)
[2019-09-10] MEDS: Saliva Substitute 237 ML BOTTLE 15 ML MM ×3 (09:03→17:54)
[2019-09-10 09:08] VITALS: BP 81/48; PULSE 99; RESP 18; O2SAT 99
[2019-09-10 09:26] VITALS: PULSE 81; RESP 18; O2SAT 99
[2019-09-10 14:04] VITALS: BP 76/42; PULSE 80; RESP 17; TEMP 36.8; O2SAT 94
[2019-09-10] MEDS: Carvedilol 3.125 MG TABLET PO (17:54)
[2019-09-10] MEDS: Doxepin Hydrochloride 10 MG Capsule PO (22:03)
[2019-09-10] MEDS: Temazepam 15 MG Capsule PO (22:03)
[2019-09-11] MEDS: Multivitamin (Healthy Eyes) Capsule 1 CAP PO (06:27)
[2019-09-11] MEDS: Senna/Docusate Sodium 1 Tablet PO ×2 (06:27→16:51)
[2019-09-11] MEDS: Metolazone 2.5 MG Tablet PO (06:27)
[2019-09-11] MEDS: Nystatin Powder 15gm Bottle 1 APPLIC TOPICAL ×2 (06:28→22:02)
[2019-09-11] MEDS: Menthol/Lanolin/Calamine/Znox 113 GM Tube 1 APPLIC TOPICAL ×2 (06:28→22:01)
[2019-09-11] MEDS: Aspirin 325 MG Tablet PO (08:25)
[2019-09-11] MEDS: Saliva Substitute 237 ML BOTTLE 15 ML MM ×3 (08:25→16:50)
[2019-09-11 08:27] VITALS: BP 76/46; PULSE 92
--- NOTE | 2019-09-11 10:31 | NURSING ---
dr york notified that BP low this AM. new order to hold lasix
[2019-09-11] MEDS: Furosemide 40 MG Tablet PO (13:42)
[2019-09-11 14:10] VITALS: BP 87/53; PULSE 76; RESP 18; TEMP 36.6; O2SAT 95
[2019-09-11 16:53] VITALS: BP 78/46; PULSE 78
[2019-09-11 20:25] VITALS: PULSE 60; O2SAT 94
[2019-09-11] MEDS: Doxepin Hydrochloride 10 MG Capsule PO (22:01)
[2019-09-11] MEDS: Temazepam 15 MG Capsule PO (22:01)
[2019-09-12] MEDS: Senna/Docusate Sodium 1 Tablet PO ×2 (05:31→17:49)
[2019-09-12] MEDS: Multivitamin (Healthy Eyes) Capsule 1 CAP PO (05:31)
[2019-09-12] MEDS: Metolazone 2.5 MG Tablet PO (05:31)
[2019-09-12] MEDS: Nystatin Powder 15gm Bottle 1 APPLIC TOPICAL ×2 (06:28→21:39)
[2019-09-12] MEDS: Menthol/Lanolin/Calamine/Znox 113 GM Tube 1 APPLIC TOPICAL ×2 (06:28→21:39)
[2019-09-12] MEDS: Furosemide 40 MG Tablet PO ×2 (06:28→13:02)
[2019-09-12 06:29] VITALS: BP 81/59; PULSE 62
[2019-09-12] MEDS: Aspirin 325 MG Tablet PO (08:31)
[2019-09-12 08:33] VITALS: BP 80/44
[2019-09-12 08:34] VITALS: PULSE 87; RESP 18; O2SAT 98
[2019-09-12 13:03] VITALS: BP 83/51; PULSE 87; RESP 16; TEMP 36.7; O2SAT 98
[2019-09-12 15:12] VITALS: BP 73/33; PULSE 82; RESP 14; TEMP 36.6; O2SAT 96
--- NOTE | 2019-09-12 16:20 | CHAPLAIN ---
Type of Pastoral Visit ___ Initial Visit ___ Follow-up Visit ___ On-call Visit _x__ General Patient Visit ___ Spiritual Assessment ___ Family Conference ___ Bereavement ___ Rapid Response ___ Code Blue ___ Other (describe below) Pastoral Care Referral From ___ Patient _x__ Family ___ Nurse ___ Physician ___ Color Shop Helper ___ Second Ride Fare Collector ___ Other (describe below) Sacrament/Intervention _x__ Active listening ___ Anointing ___ Episcopalian ___ Bereavement ___ Communion ___ Ainsa exploration ___ ___ Life review ___ Prayer ___ Reconciliation ___ Sacrament of Sick _x__ Supportive presence ___ Wedding ___ Other (describe below) Pastoral Comments received phone call from spouse of patient wanting this structural shop helper to see patient today due to obituary in newspaper that was a friend of the family; spouse is concerned that pt will be upset about this news; went into see patient and she greeted me but stated she needed to use the bathroom; aide came shortly thereafter and there was no further opportunity to talk; pt stated that she feels like she is declining and has no strength; pt is to be transferred in two days; this structural shop helper affirmed support for pt and her
[2019-09-12] MEDS: Doxepin Hydrochloride 10 MG Capsule PO (21:38)
[2019-09-12] MEDS: Temazepam 15 MG Capsule PO (21:38)
[2019-09-13] MEDS: Metolazone 2.5 MG Tablet PO (06:07)
[2019-09-13] MEDS: Menthol/Lanolin/Calamine/Znox 113 GM Tube 1 APPLIC TOPICAL ×2 (06:09→22:34)
[2019-09-13] MEDS: Nystatin Powder 15gm Bottle 1 APPLIC TOPICAL ×2 (06:09→22:34)
[2019-09-13] MEDS: Senna/Docusate Sodium 1 Tablet PO ×2 (07:15→17:15)
[2019-09-13] MEDS: Multivitamin (Healthy Eyes) Capsule 1 CAP PO (07:15)
[2019-09-13] MEDS: Furosemide 40 MG Tablet PO ×2 (07:15→13:08)
[2019-09-13] MEDS: Aspirin 325 MG Tablet PO (08:49)
[2019-09-13 10:00] VITALS: BP 86/50; PULSE 91
[2019-09-13 15:06] VITALS: BP 89/49; PULSE 87; RESP 20; TEMP 36.4; O2SAT 99
[2019-09-13] MEDS: Doxepin Hydrochloride 10 MG Capsule PO (22:31)
[2019-09-13] MEDS: Temazepam 15 MG Capsule PO (22:31)
[2019-09-14] MEDS: Metolazone 2.5 MG Tablet PO (06:07)
[2019-09-14] MEDS: Nystatin Powder 15gm Bottle 1 APPLIC TOPICAL (06:09)
[2019-09-14] MEDS: Menthol/Lanolin/Calamine/Znox 113 GM Tube 1 APPLIC TOPICAL (06:09)
[2019-09-14] MEDS: Senna/Docusate Sodium 1 Tablet PO (06:52)
[2019-09-14] MEDS: Furosemide 40 MG Tablet PO (06:52)
[2019-09-14] MEDS: Multivitamin (Healthy Eyes) Capsule 1 CAP PO (06:52)
[2019-09-14 07:01] VITALS: BP 83/42; PULSE 85; O2SAT 92
[2019-09-14] MEDS: Aspirin 325 MG Tablet PO (08:47)
[2019-09-14 08:53] VITALS: O2SAT 99
--- NOTE | 2019-09-14 10:30 | NURSING ---
mepilex changed to buttocks after pericare provided w/soap & water. pt does have several open areas around rectal opening. pullups applied, pt waiting for ride [facility] to be transported.
[2019-09-14 11:14] VITALS: TEMP 36.4
--- NOTE | 2019-09-14 11:30 | NURSING ---
Report called to Yamile at [facility] at this time.
--- NOTE | 2019-09-14 16:06 | ED.RN ---
I received a call from Mr. Baca this morning related to his inability to contact anyone at the desk. He was also concerned his had been up to a chair without a call moreau within reach. He stated he did call the Open Soaper Tender and she was looking into the problem. I verified with the Waterworks Employee the pt. had been checked on and it was found she had her call moreau within reach but she did not realize it. I called Mr. Baca to inform him. He had just spoken with the RN LAILA and received the same information.
== END 2019-09-14 11:32 | disposition intermediate care facility (04) | DRG 394 ==
PROVIDERS: Admitting Provider Family Medicine Geriatric Medicine; PCP Family Medicine; Visit Provider Family Medicine Geriatric Medicine
DX: K55.039 Acute (reversible) ischemia of large intestine, extent unspecified (principal); I50.32 Chronic diastolic (congestive) heart failure; E11.9 Type 2 diabetes mellitus without complications; D45 Polycythemia vera; E78.5 Hyperlipidemia, unspecified; I27.20 Pulmonary hypertension, unspecified; M19.90 Unspecified osteoarthritis, unspecified site; G47.33 Obstructive sleep apnea (adult) (pediatric); M99.03 Segmental and somatic dysfunction of lumbar region; M99.02 Segmental and somatic dysfunction of thoracic region; M99.01 Segmental and somatic dysfunction of cervical region; Z95.3 Presence of xenogenic heart valve; Z87.891 Personal history of nicotine dependence; K21.9 Gastro-esophageal reflux disease without esophagitis; M81.0 Age-related osteoporosis without current pathological fracture; B35.4 Tinea corporis; H35.30 Unspecified macular degeneration; M1A.9XX0 Chronic gout, unspecified, without tophus (tophi); R60.0 Localized edema; E66.9 Obesity, unspecified; Z68.36 Body mass index [BMI] 36.0-36.9, adult; Z79.82 Long term (current) use of aspirin; E87.6 Hypokalemia
CPT/HCPCS: 36415; 71045; 71046; 80048; 81001; 82550; 82962; 83605; 83880; 84484; 85025; 87086; 93005; 96374; 97110; 97116; 97162; 97166; 97530; 97535; 97802; 97803; 99285; J7030; A4216; J1940